=== PATIENT | male | born 1970 | race Caucasian/White ===

== ENCOUNTER 2022-01-11 13:19 | Inpatient (IN) ==
[2022-01-11] MEDS: NOREPINEPHRINE BITARTRATE 8 MG in 0.9 % SODIUM CHLORIDE 242 ML IV SCH ×3 (13:45→21:43)
[2022-01-11 13:55] LABS: POC Calcium, Ionized 1.19 (1.16-1.32); POC Potassium 4.1 (3.3-5.1)
[2022-01-11] MEDS ORDERED: ACETAMINOPHEN 1,000 MG/100 ML BAG IV ONE ×2 (13:56→19:50)
[2022-01-11] MEDS ORDERED: SUCCINYLCHOLINE 20 MG/ML ML IV ONE (14:19)
[2022-01-11] MEDS ORDERED: PIPERACILLIN SODIUM/TAZOBACTAM 4.5 GM in DEXTROSE 5% IN WATER 50 ML IV ONE (14:22)
[2022-01-11] MEDS ORDERED: VANCOMYCIN PER PHARMACY IV ONE (14:22)
[2022-01-11] MEDS: VASOPRESSIN 20 UNIT in DEXTROSE 5% IN WATER 99 ML IV SCH ×2 (14:30→23:20)
[2022-01-11] MEDS: 0.9 % SODIUM CHLORIDE 250 ML IV SCH (14:30)
[2022-01-11] MEDS ORDERED: LIDOCAINE JEL 2% 1 TUBE 5ML TOPICAL ONE (14:32)
[2022-01-11] MEDS ORDERED: 0.9 % SODIUM CHLORIDE 3,000 ML IV ONE (14:42)
[2022-01-11 14:55] LABS: Basophils # (Auto) 0.14 K/mcL (0.00-0.30); Basophils % (Auto) 0.6 % (0.0-2.0); Eosinophils # (Auto) 0 K/mcL (0.00-0.70); Eosinophils % (Auto) 0 % (0.0-7.0); Hematocrit 57.5 % (40.1-51.0); Hemoglobin 18.9 g/dL (13.7-17.5); Lymphocytes # (Auto) 5.27 K/mcL (1.50-4.80); Mean Cell Volume 89.4 fL (80.0-100.0); Mean Corpuscular HGB Conc 32.9 g/dL (31.0-36.0); Monocytes # (Auto) 2.14 K/mcL (0.10-0.90); Monocytes % (Auto) 9.7 % (1.0-12.0); Neutrophils % (Auto) 64.9 % (38.0-78.0); Platelet Count 292 K/mcL (140-440); RBC 6.43 M/mcL (4.63-6.08); Red Cell Distribution Width 12.6 % (11.5-14.5)
[2022-01-11 14:58] LABS: Appearance,Urine Clear (Clear); Bilirubin,Urine Negative (Negative); Color,Urine Yellow; Culture Indicated,Urine No; Glucose,Urine (UA) Negative (Negative); Ketones,Urine Trace mg/dL (Negative); Leukocyte Esterase,Urine Negative /uL (Negative); Mucus,Urine FEW /hpf; Nitrate,Urine Negative (Negative); PH,Urine 5.5 (5.0-9.0); Specific Gravity,Urine 1.025 (1.000-1.035); Urine Blood Trace-intact ery/mcL (Negative); Urine Cellular Cast 1 /lph (0-0); Urine Hyaline Cast 43 /lph (0-2); Urine RBC 1 /hpf (0-3); Urine Squamous Epithelial Cell 0 /hpf (0-4); Urine WBC 6 /hpf (0-4); Urobilinogen,Urine Normal
[2022-01-11 15:11] LABS: ALT/SGPT 18 U/L (<40); AST/SGOT 26 U/L (<40); Albumin 4.8 gm/dL (3.2-5.2); Albumin/Globulin Ratio 1.3 (1.0-2.3); Alkaline Phosphatase 47 U/L (39-117); Bilirubin,Total 0.3 mg/dL (0.1-1.0); Blood Urea Nitrogen 45 mg/dL (6-20); Calcium 9.8 mg/dL (8.6-10.4); Carbon Dioxide 17 mmol/L (22-30); Chloride 119 mmol/L (96-108); Globulin 3.7 gm/dL (2.2-3.7); Glomerular Filtration Rate 27; Glucose 226 mg/dL (70-105)
[2022-01-11] MEDS ORDERED: VANCOMYCIN 1,500 MG in 0.9 % SODIUM CHLORIDE 500 ML IV ONE (15:15)
--- NOTE | 2022-01-11 16:08 | Internal Med History&Physical ---
HPI History of Present Illness Patient information: Note initiated : 01/11/22 at 4:01 pm Service Date, if different from initiated Date: [] Patient: Corona Mayer 51 y/o M admitted on for altered loc. Chief Complaint: [] Chief complaint: Confusion History of present illness: Mr. Mayer is a 51 year old male with a past medical history of traumatic brain injury and possibly prior stroke resides in a [facility]pc house who was brought to the emergency department for confusion. The patient was seen at the [facility] emergency department on 01/08/2022 for fever, felt to have pneumonia based on chest x-ray showing nonspecific vague opacities bilaterally and discharged with a prescription for doxycycline. Today, the patient was brought in by EMS and was initially unresponsive. In the emergency department, the patient is found to be septic requiring Levophed and vasopressin while the patient was resuscitated with IV normal saline as well as started on broad- spectrum antibiotics. Blood pressure improved with vasopressors. The patient was tachypneic, tachycardic and had a fever of 102.6. In the ED, the patient was requiring oxygen supplementation via nonrebreather mask. White blood cell count is 22,000, up from 6.9 on 01/08/2022. Additionally, the patient has a lactic acid of 5. Chemistry panel reveals the patient has an acute kidney injury, creatinine is 2.6. A few days ago in the ED the point of care creatinine level was normal. Urinalysis was not suggestive of a UTI. Blood cultures have been obtained and pending. Chest x-ray is similar to 01/08/2022, possible loss of lateral cardiac border. The source of sepsis is felt to possibly be pneumonia. After receiving the initial treatment for sepsis, the patient is minimally responsive but unable to provide valid any history. I discussed the patient with Lindsay Junior, the patient's aunt. Lindsay said the patient's code status is full code. Review of systems: Unable to obtain due to altered mental status. Physical exam Head: Atraumatic, normal inspection. Eyes: normal appearance, no scleral icterus. Neck: full ROM Respiratory: Supplemental oxygen via oxymask, increased respiratory rate, distant breath sounds bilaterally, no wheezing Cardiovascular: Regular tachycardia, S1, S2. GI/Abdominal: soft, nontender, no guarding. : Scrotal erythema. Extremities: full range of motion, nontender. Neurological: Motor and sensation grossly intact. Psychiatric: Minimally responsive. Skin: warm, normal color PFSH PFSH All Active Problems (Updated 01/08/22 @ 13:44 by Jose Ramon Morel MD) Pneumonia (Acute) MEDS/ALLERGIES Home Medications and Allergies Home Medications Medication Instructions Recorded Confirmed Type doxycycline hyclate 100 mg tablet 100 mg PO BID #14 tabs 01/08/22 01/11/22 Rx albuterol sulfate 90 mcg/actuation 2 puff inhalation QAM 01/11/22 01/11/22 History aerosol inhaler aspirin 81 mg chewable tablet 1 tab PO QDAY 01/11/22 01/11/22 History atorvastatin 20 mg tablet 1 tab PO QDAY 01/11/22 01/11/22 History atorvastatin 40 mg tablet 1 tab PO QDAY 01/11/22 01/11/22 History divalproex 250 mg tablet,delayed 1 tab PO BID 01/11/22 01/11/22 History release divalproex 500 mg tablet,delayed 1 tab PO BID 01/11/22 01/11/22 History release docusate sodium 100 mg capsule 1 cap PO BID 01/11/22 01/11/22 History fluticasone propionate 110 2 puff inhalation BID 01/11/22 01/11/22 History mcg/actuation HFA aerosol inhaler (Flovent HFA) hydroxyzine HCl 25 mg tablet 1 tab PO TID 01/11/22 01/11/22 History lactulose 10 gram/15 mL oral 30 ml PO QAM 01/11/22 01/11/22 History solution lidocaine 5 % topical cream 1 applic topical QID 01/11/22 01/11/22 History lisinopril 5 mg tablet 1 tab PO QDAY 01/11/22 01/11/22 History melatonin 3 mg tablet 1 tab PO HS 01/11/22 01/11/22 History metformin 500 mg tablet 1 tab PO BID 01/11/22 01/11/22 History metoprolol succinate 25 mg 1 tab PO QDAY 01/11/22 01/11/22 History tablet,extended release 24 hr phenylephrine 0.25 %-pramoxine 1 1 applic topical BID 01/11/22 01/11/22 History %-glycerin-wh.petrolatum rectal cream (Preparation H Maximum Strength) quetiapine 300 mg tablet 1 tab PO TID 01/11/22 01/11/22 History sertraline 100 mg tablet 1 tab PO BID 01/11/22 01/11/22 History tamsulosin 0.4 mg capsule 1 cap PO QDAY 01/11/22 01/11/22 History trazodone 50 mg tablet 1 tab PO HS 01/11/22 01/11/22 History Allergies Allergy/AdvReac Type Severity Reaction Status Date / Time No Known Drug Allergies Allergy Verified 01/08/22 09:47 EXAM Constitutional Vitals: Temp Pulse Resp BP Pulse Ox O2 Del Method O2 Flow Rate 102.6 F H 109 H 24 H 108/95 95 10 01/11/22 15:53 01/11/22 15:53 01/11/22 15:53 01/11/22 15:53 01/11/22 15:53 01/11/22 14:47 01/11/22 14:47 DATA Data Completed and Pending Labs: Labs from last 24 hours 01/11/22 01/11/22 01/11/22 15:01 14:56 14:10 WBC RBC Hgb Hct POC Hct MCV MCH MCHC RDW Plt Count MPV Immature Gran % (Auto) Neut % (Auto) Lymph % (Auto) [place] % (Auto) Eos % (Auto) Baso % (Auto) Lymph # (Auto) [place] # (Auto) Eos # (Auto) Baso # (Auto) Immature Gran # Absolute Neutrophils POC pH 7.27 L POC pCO2 41.6 POC pO2 116 H POC HCO3 19.0 L POC ABG Base Excess -8.0 L ABG Lactic Acid 1.6 POC VBG pH POC VBG pCO2 at Temp POC VBG pO2 POC VBG HCO3 POC VBG Total CO2 POC Venous O2 Sat POC VBG Base Excess VBG Lactic Acid Hgb O2 Saturation 98.0 H POC Sodium Sodium POC Potassium Potassium POC Chloride Chloride Carbon Dioxide POC Total CO2 20.0 L Anion Gap POC BUN BUN Creatinine POC Creatinine GFR Calculation Glucose POC Glucose Calcium POC WB Ioniz Calcium Total Bilirubin AST ALT Alkaline Phosphatase Ammonia Pending Total Protein Albumin Globulin Albumin/Globulin Ratio Urine Color Yellow Urine Appearance Clear Urine pH 5.5 Ur Specific [place] 1.025 Urine Protein 100 mg/dl A Urine Glucose (UA) Negative Urine Ketones Trace A Urine Occult Blood Trace-intact A Urine Nitrate Negative Urine Bilirubin Negative Urine Urobilinogen Normal Ur Leukocyte Esterase Negative Urine RBC 1 Urine WBC 6 H Ur Squamous Epith Cells 0 Urine Bacteria None Cellular Casts 1 H Hyaline Casts 43 H Urine Mucus Few A Ur Culture Indicated? No 01/11/22 01/11/22 01/11/22 14:01 14:00 13:50 WBC 22.0 H RBC 6.43 H Hgb 18.9 H Hct 57.5 H POC Hct 54.0 MCV 89.4 MCH 29.4 MCHC 32.9 RDW 12.6 Plt Count 292 MPV 11.0 H Immature Gran % (Auto) 0.8 H Neut % (Auto) 64.9 Lymph % (Auto) 24.0 [place] % (Auto) 9.7 Eos % (Auto) 0 Baso % (Auto) 0.6 Lymph # (Auto) 5.27 H [place] # (Auto) 2.14 H Eos # (Auto) 0 Baso # (Auto) 0.14 Immature Gran # 0.17 H Absolute Neutrophils 14.27 H POC pH POC pCO2 POC pO2 POC HCO3 POC ABG Base Excess ABG Lactic Acid POC VBG pH POC VBG pCO2 at Temp POC VBG pO2 POC VBG HCO3 POC VBG Total CO2 POC Venous O2 Sat POC VBG Base Excess VBG Lactic Acid Hgb O2 Saturation POC Sodium 160 H Sodium 159 H POC Potassium 4.1 Potassium 3.9 POC Chloride 127 H Chloride 119 H Carbon Dioxide 17 L POC Total CO2 19.0 L Anion Gap 23.0 H POC BUN 49 H BUN 45 H Creatinine 2.6 H POC Creatinine 3.0 H GFR Calculation 27 Glucose 226 H POC Glucose 230 H Calcium 9.8 POC WB Ioniz Calcium 1.19 Total Bilirubin 0.3 AST 26 ALT 18 Alkaline Phosphatase 47 Ammonia Total Protein 8.5 H Albumin 4.8 Globulin 3.7 Albumin/Globulin Ratio 1.3 Urine Color Urine Appearance Urine pH Ur Specific [place] Urine Protein Urine Glucose (UA) Urine Ketones Urine Occult Blood Urine Nitrate Urine Bilirubin Urine Urobilinogen Ur Leukocyte Esterase Urine RBC Urine WBC Ur Squamous Epith Cells Urine Bacteria Cellular Casts Hyaline Casts Urine Mucus Ur Culture Indicated? 01/11/22 13:44 WBC RBC Hgb Hct POC Hct MCV MCH MCHC RDW Plt Count MPV Immature Gran % (Auto) Neut % (Auto) Lymph % (Auto) [place] % (Auto) Eos % (Auto) Baso % (Auto) Lymph # (Auto) [place] # (Auto) Eos # (Auto) Baso # (Auto) Immature Gran # Absolute Neutrophils POC pH POC pCO2 POC pO2 POC HCO3 POC ABG Base Excess ABG Lactic Acid POC VBG pH 7.34 POC VBG pCO2 at Temp 37.0 L POC VBG pO2 35 POC VBG HCO3 20.2 L POC VBG Total CO2 21.0 L POC Venous O2 Sat 65.0 POC VBG Base Excess -6.0 L VBG Lactic Acid 5.0 H* Hgb O2 Saturation POC Sodium Sodium POC Potassium Potassium POC Chloride Chloride Carbon Dioxide POC Total CO2 Anion Gap POC BUN BUN Creatinine POC Creatinine GFR Calculation Glucose POC Glucose Calcium POC WB Ioniz Calcium Total Bilirubin AST ALT Alkaline Phosphatase Ammonia Total Protein Albumin Globulin Albumin/Globulin Ratio Urine Color Urine Appearance Urine pH Ur Specific [place] Urine Protein Urine Glucose (UA) Urine Ketones Urine Occult Blood Urine Nitrate Urine Bilirubin Urine Urobilinogen Ur Leukocyte Esterase Urine RBC Urine WBC Ur Squamous Epith Cells Urine Bacteria Cellular Casts Hyaline Casts Urine Mucus Ur Culture Indicated? A/P Narrative A/P Narrative: Assessment: 51-year-old male with a past medical history of traumatic brain injury, possible prior stroke who resides in a fpc house admitted for septic shock complicated by acute kidney injury and hypernatremia. Source of infection is currently unknown, possibly pneumonia versus other etiology. [place] SARS-CoV-2, influenza A, influenza B was negative. The patient was seen for a fever on 01/08/2022, CT abdomen pelvis on 01/08/2022 at that time did not show any intra-abdominal infection. Physical exam did not reveal a source of infection, the patient does have some scrotal erythema but this does not appear to be cellulitis or congestive of a underlying infection. #Septic shock of unknown source, possibly pneumonia #Acute kidney injury secondary to septic shock #Encephalopathy secondary to sepsis and hypernatremia #Hypernatremia #Scrotal erythema, does not appear to be cellulitis #History of traumatic brain injury #Possible history of stroke Plan -Vancomycin IV, Zosyn, azithromycin for now. -Received 3 L normal saline IV bolus in the ED. -Levophed and vasopressin to keep MAP greater than 65. -Follow blood cultures x2. -[place] NAAT. -Trend lactic acid until downtrending. -D5 IV fluid, serial sodium level. -CT chest without contrast. -CT head without contrast. -Devine catheter for accurate urine output in the setting of sepsis and acute kidney injury. -Topical nystatin for scrotal erythema, monitor. -Home medication reconciliation, continue important meds. -N.p.o. for now, consider early nutritional support. -DVT prophylaxis: Heparin SQ. -CODE STATUS: Frame Builder Spent With Patient Time: Total time spent is greater than 50% in coordination of care (as documented) at patient's floor/unit and/or counseling patient:
[2022-01-11] MEDS ORDERED: IPRATROPIUM/ALBUTEROL 3 ML AMPUL.NEB NEB PRN (16:45)
[2022-01-11] MEDS ORDERED: NYSTATIN POWDER BOTTLE 15GM TOPICAL PRN (16:45)
[2022-01-11] MEDS ORDERED: PIPERACILLIN SODIUM/TAZOBACTAM 4.5 GM in DEXTROSE 5% IN WATER 50 ML IV SCH (16:45)
[2022-01-11] MEDS ORDERED: DEXTROSE 31 GM ORAL.SUSP PO PRN (16:52)
[2022-01-11] MEDS ORDERED: DEXTROSE 50% 50 ML VIAL IV PRN (16:52)
--- NOTE | 2022-01-11 16:57 | Emergency Department Note ---
HPI General Chief complaint: Altered Mental Status Stated complaint: altered loc Time Seen by Provider: 01/11/22 13:51 Source: EMS Mode of arrival: ambulatory Limitations: no limitations History of Present Illness HPI Narrative: Narrative: Patient presents emergency department for evaluation of altered mental status. He was found to be unresponsive today at the care facility. He is brought to the emergency department via EMS. In route to the ER he had significant tachycardia and was hypotensive. EMS placed a left humeral IO just prior to arrival in the emergency department and they have begun infusing IV fluids. The patient is evaluated immediately upon arrival. He is unresponsive on arrival with hypotension and elevated temperature. He had recent visit to the hospital and was placed on doxycycline for pneumonia. Staff at the care facility were unable to provide further information. Staff at the emergency department attempted to contact the patient's emergency contacts however there were no answers. There is documentation on file here at the hospital that the patient wishes to be full code. No other complaints. Related Data Home Medications Medication Instructions Recorded Confirmed albuterol sulfate 90 mcg/actuation 2 puff inhalation QAM 01/11/22 01/11/22 aerosol inhaler aspirin 81 mg chewable tablet 1 tab PO QDAY 01/11/22 01/11/22 atorvastatin 20 mg tablet 1 tab PO QDAY 01/11/22 01/11/22 atorvastatin 40 mg tablet 1 tab PO QDAY 01/11/22 01/11/22 divalproex 250 mg tablet,delayed 1 tab PO BID 01/11/22 01/11/22 release divalproex 500 mg tablet,delayed 1 tab PO BID 01/11/22 01/11/22 release docusate sodium 100 mg capsule 1 cap PO BID 01/11/22 01/11/22 fluticasone propionate 110 2 puff inhalation BID 01/11/22 01/11/22 mcg/actuation HFA aerosol inhaler (Flovent HFA) hydroxyzine HCl 25 mg tablet 1 tab PO TID 01/11/22 01/11/22 lactulose 10 gram/15 mL oral 30 ml PO QAM 01/11/22 01/11/22 solution lidocaine 5 % topical cream 1 applic topical QID 01/11/22 01/11/22 lisinopril 5 mg tablet 1 tab PO QDAY 01/11/22 01/11/22 melatonin 3 mg tablet 1 tab PO HS 01/11/22 01/11/22 metformin 500 mg tablet 1 tab PO BID 01/11/22 01/11/22 metoprolol succinate 25 mg 1 tab PO QDAY 01/11/22 01/11/22 tablet,extended release 24 hr phenylephrine 0.25 %-pramoxine 1 1 applic topical BID 01/11/22 01/11/22 %-glycerin-wh.petrolatum rectal cream (Preparation H Maximum Strength) quetiapine 300 mg tablet 1 tab PO TID 01/11/22 01/11/22 sertraline 100 mg tablet 1 tab PO BID 01/11/22 01/11/22 tamsulosin 0.4 mg capsule 1 cap PO QDAY 01/11/22 01/11/22 trazodone 50 mg tablet 1 tab PO HS 01/11/22 01/11/22 Previous Rx's Medication Instructions Recorded doxycycline hyclate 100 mg tablet 100 mg PO BID #14 tabs 01/08/22 Allergies Allergy/AdvReac Type Severity Reaction Status Date / Time No Known Drug Allergies Allergy Verified 01/08/22 09:47 Review of Systems ROS ROS Narrative: Narrative: As above otherwise unobtainable due to current mental status. [facility] Narrative Patient History Narrative: Narrative: Medical/Surgical/Family History All Active Problems (Updated 01/11/22 @ 17:06 by Sergio Wakefield MD) Pneumonia (Acute) Altered mental status (Acute) Septic shock (Acute) Exam Narrative Narrative: Narrative: Patient is hypotensive on arrival to the emergency department. He has a palpable pulse centrally. Nurses have difficulty auscultating manual blood pressure. Tachycardic with heart rate in the 140s appears regular on the monitor. General Limitations: no limitations General appearance: Present other (Unresponsive) Head Head: Present atraumatic, normocephalic and normal inspection Eye Eye: Present normal appearance and PERRL (Left pupil slightly larger than the right, reactive bilaterally to light) ENT ENT: Present normal exam Neck Neck: Present normal inspection Respiratory Respiratory: Absent respiratory distress Cardiovascular Cardiovascular: Present tachycardia Extremities Extremities: Present normal inspection Neurological Neurological: Present other (Unresponsive) Skin Skin: Present dry Course Vital Signs Vital signs: Vital Signs Respiratory Rate 38 H 01/11/22 13:20 Oxygen Delivery Method 01/11/22 13:20 Oxygen Flow Rate (L/min) 15 01/11/22 13:20 Temperature 102.8 F H 01/11/22 17:01 Pulse Rate 96 H 01/11/22 17:01 Respiratory Rate 21 01/11/22 17:01 Blood Pressure 122/92 01/11/22 17:01 Pulse Oximetry (%) 98 01/11/22 17:01 Oxygen Delivery Method 01/11/22 17:01 Oxygen Flow Rate (L/min) 10 01/11/22 17:01 MDM MDM Narrative Medical decision making narrative: Narrative: Patient is evaluated immediately upon arrival to the emergency department. EKG shows sinus tachycardia mild ST depression in 1 biphasic T wave in aVL, significant baseline wander, intervals otherwise normal. Patient had 2 peripheral IVs placed by nursing. Normal saline is bolused on pressure bags. After liter and a half normal saline patient remained hypotensive and was placed on Levophed. Continued boluses with normal saline. Added vasopressin. Blood pressure did respond with this after 3 L normal saline bolus and combination of Levophed and vasopressin patient now opens eyes to sternal rub he raises eyebrows spontaneously when I speak with him, he appears to attempt to look towards me, he follows basic commands when the nurses asked him to squeeze their fingers with his hands. Chest x-ray shows some haziness along the left heart border possible infiltrate. White blood cell count significantly elevated. Lactic acid elevated. Blood cultures were ordered. Patient is given vancomycin and Zosyn. We were able to decrease the Levophed drip. Spoke with the on-call hospitalist. Case reviewed in detail over phone. Hospitalist evaluate the patient emergency department with the patient to hospital. In total greater than 30 minutes critical care time was spent via direct patient contact, reviewing results of work-up, speaking with consultants intern etc. Lab Data Result diagrams: 01/11/22 14:01 01/11/22 14:00 Labs: Lab Results 01/11/22 01/11/22 01/11/22 Range/Units 13:44 13:50 14:00 WBC (4.5-11.0) K/mcL RBC (4.63-6.08) M/mcL Hgb (13.7-17.5) g/dL Hct (40.1-51.0) % POC Hct 54.0 (41-55) MCV (80.0-100.0) fL MCH (26.0-34.0) pg MCHC (31.0-36.0) g/dL RDW (11.5-14.5) % Plt Count (140-440) K/mcL MPV (7.4-10.4) fL Immature Gran % (Auto) (0.0-0.5) % Neut % (Auto) (38.0-78.0) % Lymph % (Auto) (15.5-49.0) % [place] % (Auto) (1.0-12.0) % Eos % (Auto) (0.0-7.0) % Baso % (Auto) (0.0-2.0) % Lymph # (Auto) (1.50-4.80) K/mcL [place] # (Auto) (0.10-0.90) K/mcL Eos # (Auto) (0.00-0.70) K/mcL Baso # (Auto) (0.00-0.30) K/mcL Immature Gran # (0.00-0.05) K/mcl Absolute Neutrophils (1.80-8.00) K/mcL POC pH (7.35-7.45) POC pCO2 (35-45) mmHg POC pO2 (80-100) mmHg POC HCO3 (22-26) mmHg POC ABG Base Excess (-2-3) ABG Lactic Acid (0.5-2) POC VBG pH 7.34 (7.32-7.42) POC VBG pCO2 at Temp 37.0 L (41-51) POC VBG pO2 35 (25-40) POC VBG HCO3 20.2 L (24-28) POC VBG Total CO2 21.0 L (25-29) POC Venous O2 Sat 65.0 (40-70) POC VBG Base Excess -6.0 L (-2-2) VBG Lactic Acid 5.0 H* (0.5-2) Hgb O2 Saturation (94-97) POC Sodium 160 H (133-145) Sodium 159 H (133-145) mmol/L POC Potassium 4.1 (3.3-5.1) Potassium 3.9 (3.3-5.1) mmol/L POC Chloride 127 H (96-108) Chloride 119 H (96-108) mmol/L Carbon Dioxide 17 L (22-30) mmol/L POC Total CO2 19.0 L (22-30) Anion Gap 23.0 H (8.0-16.0) POC BUN 49 H (6-20) BUN 45 H (6-20) mg/dL Creatinine 2.6 H (0.7-1.2) mg/dL POC Creatinine 3.0 H (0.6-1.2) GFR Calculation 27 Glucose 226 H (70-105) mg/dL POC Glucose 230 H (70-105) Calcium 9.8 (8.6-10.4) mg/dL POC WB Ioniz Calcium 1.19 (1.16-1.32) Total Bilirubin 0.3 (0.1-1.0) mg/dL AST 26 (<40) U/L ALT 18 (<40) U/L Alkaline Phosphatase 47 (39-117) U/L Ammonia (16-60) umol/L Total Protein 8.5 H (5.9-8.4) gm/dL Albumin 4.8 (3.2-5.2) gm/dL Globulin 3.7 (2.2-3.7) gm/dL Albumin/Globulin Ratio 1.3 (1.0-2.3) Urine Color Urine Appearance (Clear) Urine pH (5.0-9.0) Ur Specific [place] (1.000-1.035) Urine Protein (Negative) mg/dL Urine Glucose (UA) (Negative) mg/dL Urine Ketones (Negative) mg/dL Urine Occult Blood (Negative) miesha/mcL Urine Nitrate (Negative) Urine Bilirubin (Negative) mg/dL Urine Urobilinogen mg/dL Ur Leukocyte Esterase (Negative) /uL Urine RBC (0-3) /hpf Urine WBC (0-4) /hpf Ur Squamous Epith Cells (0-4) /hpf Urine Bacteria (0) /hpf Cellular Casts (0-0) /lph Hyaline Casts (0-2) /lph Urine Mucus (None) /hpf Ur Culture Indicated? 01/11/22 01/11/22 01/11/22 Range/Units 14:01 14:10 14:56 WBC 22.0 H (4.5-11.0) K/mcL RBC 6.43 H (4.63-6.08) M/mcL Hgb 18.9 H (13.7-17.5) g/dL Hct 57.5 H (40.1-51.0) % POC Hct (41-55) MCV 89.4 (80.0-100.0) fL MCH 29.4 (26.0-34.0) pg MCHC 32.9 (31.0-36.0) g/dL RDW 12.6 (11.5-14.5) % Plt Count 292 (140-440) K/mcL MPV 11.0 H (7.4-10.4) fL Immature Gran % (Auto) 0.8 H (0.0-0.5) % Neut % (Auto) 64.9 (38.0-78.0) % Lymph % (Auto) 24.0 (15.5-49.0) % [place] % (Auto) 9.7 (1.0-12.0) % Eos % (Auto) 0 (0.0-7.0) % Baso % (Auto) 0.6 (0.0-2.0) % Lymph # (Auto) 5.27 H (1.50-4.80) K/mcL [place] # (Auto) 2.14 H (0.10-0.90) K/mcL Eos # (Auto) 0 (0.00-0.70) K/mcL Baso # (Auto) 0.14 (0.00-0.30) K/mcL Immature Gran # 0.17 H (0.00-0.05) K/mcl Absolute Neutrophils 14.27 H (1.80-8.00) K/mcL POC pH 7.27 L (7.35-7.45) POC pCO2 41.6 (35-45) mmHg POC pO2 116 H (80-100) mmHg POC HCO3 19.0 L (22-26) mmHg POC ABG Base Excess -8.0 L (-2-3) ABG Lactic Acid 1.6 (0.5-2) POC VBG pH (7.32-7.42) POC VBG pCO2 at Temp (41-51) POC VBG pO2 (25-40) POC VBG HCO3 (24-28) POC VBG Total CO2 (25-29) POC Venous O2 Sat (40-70) POC VBG Base Excess (-2-2) VBG Lactic Acid (0.5-2) Hgb O2 Saturation 98.0 H (94-97) POC Sodium (133-145) Sodium (133-145) mmol/L POC Potassium (3.3-5.1) Potassium (3.3-5.1) mmol/L POC Chloride (96-108) Chloride (96-108) mmol/L Carbon Dioxide (22-30) mmol/L POC Total CO2 20.0 L (22-30) Anion Gap (8.0-16.0) POC BUN (6-20) BUN (6-20) mg/dL Creatinine (0.7-1.2) mg/dL POC Creatinine (0.6-1.2) GFR Calculation Glucose (70-105) mg/dL POC Glucose (70-105) Calcium (8.6-10.4) mg/dL POC WB Ioniz Calcium (1.16-1.32) Total Bilirubin (0.1-1.0) mg/dL AST (<40) U/L ALT (<40) U/L Alkaline Phosphatase (39-117) U/L Ammonia (16-60) umol/L Total Protein (5.9-8.4) gm/dL Albumin (3.2-5.2) gm/dL Globulin (2.2-3.7) gm/dL Albumin/Globulin Ratio (1.0-2.3) Urine Color Yellow Urine Appearance Clear (Clear) Urine pH 5.5 (5.0-9.0) Ur Specific [place] 1.025 (1.000-1.035) Urine Protein 100 mg/dl A (Negative) mg/dL Urine Glucose (UA) Negative (Negative) mg/dL Urine Ketones Trace A (Negative) mg/dL Urine Occult Blood Trace-intact A (Negative) miesha/mcL Urine Nitrate Negative (Negative) Urine Bilirubin Negative (Negative) mg/dL Urine Urobilinogen Normal mg/dL Ur Leukocyte Esterase Negative (Negative) /uL Urine RBC 1 (0-3) /hpf Urine WBC 6 H (0-4) /hpf Ur Squamous Epith Cells 0 (0-4) /hpf Urine Bacteria None (0) /hpf Cellular Casts 1 H (0-0) /lph Hyaline Casts 43 H (0-2) /lph Urine Mucus Few A (None) /hpf Ur Culture Indicated? No 01/11/22 Range/Units 15:01 WBC (4.5-11.0) K/mcL RBC (4.63-6.08) M/mcL Hgb (13.7-17.5) g/dL Hct (40.1-51.0) % POC Hct (41-55) MCV (80.0-100.0) fL MCH (26.0-34.0) pg MCHC (31.0-36.0) g/dL RDW (11.5-14.5) % Plt Count (140-440) K/mcL MPV (7.4-10.4) fL Immature Gran % (Auto) (0.0-0.5) % Neut % (Auto) (38.0-78.0) % Lymph % (Auto) (15.5-49.0) % [place] % (Auto) (1.0-12.0) % Eos % (Auto) (0.0-7.0) % Baso % (Auto) (0.0-2.0) % Lymph # (Auto) (1.50-4.80) K/mcL [place] # (Auto) (0.10-0.90) K/mcL Eos # (Auto) (0.00-0.70) K/mcL Baso # (Auto) (0.00-0.30) K/mcL Immature Gran # (0.00-0.05) K/mcl Absolute Neutrophils (1.80-8.00) K/mcL POC pH (7.35-7.45) POC pCO2 (35-45) mmHg POC pO2 (80-100) mmHg POC HCO3 (22-26) mmHg POC ABG Base Excess (-2-3) ABG Lactic Acid (0.5-2) POC VBG pH (7.32-7.42) POC VBG pCO2 at Temp (41-51) POC VBG pO2 (25-40) POC VBG HCO3 (24-28) POC VBG Total CO2 (25-29) POC Venous O2 Sat (40-70) POC VBG Base Excess (-2-2) VBG Lactic Acid (0.5-2) Hgb O2 Saturation (94-97) POC Sodium (133-145) Sodium (133-145) mmol/L POC Potassium (3.3-5.1) Potassium (3.3-5.1) mmol/L POC Chloride (96-108) Chloride (96-108) mmol/L Carbon Dioxide (22-30) mmol/L POC Total CO2 (22-30) Anion Gap (8.0-16.0) POC BUN (6-20) BUN (6-20) mg/dL Creatinine (0.7-1.2) mg/dL POC Creatinine (0.6-1.2) GFR Calculation Glucose (70-105) mg/dL POC Glucose (70-105) Calcium (8.6-10.4) mg/dL POC WB Ioniz Calcium (1.16-1.32) Total Bilirubin (0.1-1.0) mg/dL AST (<40) U/L ALT (<40) U/L Alkaline Phosphatase (39-117) U/L Ammonia 38 (16-60) umol/L Total Protein (5.9-8.4) gm/dL Albumin (3.2-5.2) gm/dL Globulin (2.2-3.7) gm/dL Albumin/Globulin Ratio (1.0-2.3) Urine Color Urine Appearance (Clear) Urine pH (5.0-9.0) Ur Specific [place] (1.000-1.035) Urine Protein (Negative) mg/dL Urine Glucose (UA) (Negative) mg/dL Urine Ketones (Negative) mg/dL Urine Occult Blood (Negative) miesha/mcL Urine Nitrate (Negative) Urine Bilirubin (Negative) mg/dL Urine Urobilinogen mg/dL Ur Leukocyte Esterase (Negative) /uL Urine RBC (0-3) /hpf Urine WBC (0-4) /hpf Ur Squamous Epith Cells (0-4) /hpf Urine Bacteria (0) /hpf Cellular Casts (0-0) /lph Hyaline Casts (0-2) /lph Urine Mucus (None) /hpf Ur Culture Indicated? ED POC Tests ED POC Tests: DONNELL - Influenza A Negative DONNELL - Influenza B Negative DONNELL - SARS Antigen Negative Discharge Plan Patient/Caregiver Discharge Instructions Pt seen by ELECTRIC [employer]AY TESTER/PA only: No Clinical Impression: Altered mental status, Septic shock Patient Disposition: Xfer As Inpt ([facility]) Discharge Date/Time: 01/11/22 16:44
[2022-01-11] MEDS: DEXTROSE 5% IN WATER 1,000 ML IV SCH (17:00)
--- NOTE | 2022-01-11 17:20 | Cat Scan Report ---
History: Altered level of consciousness, unresponsive, prior traumatic brain injury TECHNIQUE: The brain was imaged without contrast in axial plane at 2.5 mm intervals. Sagittal and coronal reformats were created. The radiation exposure was limited using dose reduction technology. FINDINGS: There is moderate-sized old infarct with encephalomalacia along the anterior lateral border of the right frontal lobe. There is another moderate-sized old infarct in the posterior right parietal lobe extending into the occipital lobe. Smaller old infarct with encephalomalacia is present along the posterior border of the left parietal-occipital boundary. No acute infarct is detected. There is no intracranial hemorrhage or mass effect. Patient has moderate diffuse cerebral atrophy, most apparent around the sylvian fissures. Moderate hydrocephalus is present. Lateral third ventricles are dilated. Fourth ventricle is within normal limits. No abnormal extra-axial fluid collection is present. The bone windows show no skull fracture. No prior study is available for comparison at this time. IMPRESSION: Moderate hydrocephalus which is accentuated by loss of brain parenchyma Old infarcts involving the right frontal lobe and both left and right parietal and occipital lobes Interpreted and Authenticated by: Donny Elliott 01/11/22
--- NOTE | 2022-01-11 17:20 | Cat Scan Report ---
History: Unresponsive, fever, prior traumatic brain injury TECHNIQUE: The chest was imaged without contrast in axial plane at 2.5 mm intervals. Sagittal, coronal and axial MIPS images were created. The radiation exposure was limited using dose reduction technology. FINDINGS: There is a moderate amount of pulmonary secretions in the trachea and mainstem bronchi, right side greater than left. Moderate consolidation of lung parenchyma is present posteriorly medially in the right upper lobe and superior segment right lower lobe. There is milder consolidation medially in the left upper lobe and left lower lobe as well as the basilar segments of right lower lobe. Multiple air bronchograms are present in the right upper lobe and superior segment right lower lobe. There is sparing of the nondependent portions of both lungs. No pleural effusion is present. The heart is borderline enlarged. There is very little atherosclerotic disease in the thorax. There are couple old healed right lateral rib fractures. Visualized portion the upper abdomen is normal except for fecal impaction. IMPRESSION: Bilateral pulmonary infiltrates along the dependent portions of both lungs. Aspiration is suspected. Secretions in the trachea and bronchi Dr. Walsh was called with the report Interpreted and Authenticated by: Donny Elliott 01/11/22
--- NOTE | 2022-01-11 17:28 | XRay Report ---
HISTORY: Unresponsive, fever FINDINGS: Lung volumes are small due to poor inspiration. There are ill-defined bilateral perihilar infiltrates, right greater than left. Right diaphragm is moderately elevated. The heart size is normal. No pleural effusion is seen. IMPRESSION: Bilateral perihilar pneumonia Interpreted and Authenticated by: Donny Elliott 01/11/22
[2022-01-11] MEDS: INSULIN LISPRO 1 UNIT/0.01 ML UNIT SQ SCH ×2 (18:55→21:11)
[2022-01-11] MEDS ORDERED: INSULIN LISPRO 1 UNIT/0.01 ML UNIT SQ ONE (19:06)
[2022-01-11] MEDS: AZITHROMYCIN 500 MG in DEXTROSE 5% IN WATER 250 ML IV SCH (19:09)
[2022-01-11 19:38] LABS: ALT/SGPT 24 U/L (<40); AST/SGOT 39 U/L (<40); Albumin 3.7 gm/dL (3.2-5.2); Albumin/Globulin Ratio 1.4 (1.0-2.3); Alkaline Phosphatase 36 U/L (39-117); Bilirubin,Direct < 0.2 mg/dL (0-0.3); Bilirubin,Total 0.3 mg/dL (0.1-1.0); Globulin 2.7 gm/dL (2.2-3.7); Lactate Dehydrogenase 349 U/L (135-225); Phosphorous 4.8 mg/dL (2.5-4.5); Triglycerides 309 mg/dL (<150)
[2022-01-11] MEDS: ACETAMINOPHEN 650 MG/65 ML BAG IV PRN (19:39)
[2022-01-11] MEDS: SODIUM CHLORIDE 0.9% IV SCH (19:59)
[2022-01-11] MEDS: VALPROIC ACID IV SCH (19:59)
[2022-01-11] MEDS ORDERED: DIVALPROEX SODIUM 250 MG TABLET PO SCH (21:00)
[2022-01-11] MEDS ORDERED: NON FORMULARY MEDICATION 1 DOSE MISCELL (Divalproex 500 mg tablet,delayed release (DR/EC)) PO SCH (21:00)
[2022-01-11] MEDS: SERTRALINE 100 MG TABLET PO SCH (21:05)
[2022-01-11] MEDS: HEPARIN 5,000 UNIT/ML VIAL SQ SCH (21:05)
[2022-01-11] MEDS: 0.9 % SODIUM CHLORIDE 10 ML SYRINGE IV SCH (21:06)
[2022-01-11] MEDS ORDERED: NOREPINEPHRINE BITARTRATE 4 MG/4 ML VIAL IV ONE (21:49)
[2022-01-11] MEDS: PIPERACILLIN SODIUM/TAZOBACTAM 2.25 GM in DEXTROSE 5% IN WATER 50 ML IV SCH (23:50)
[2022-01-12 00:06] LABS: Blood Urea Nitrogen 42 mg/dL (6-20); Carbon Dioxide 17 mmol/L (22-30); Chloride 122 mmol/L (96-108); Glomerular Filtration Rate 46; Glucose 179 mg/dL (70-105)
[2022-01-12] MEDS: ACETAMINOPHEN 650 MG/65 ML BAG IV PRN (01:47)
[2022-01-12] MEDS: VALPROIC ACID IV SCH ×4 (02:07→20:02)
[2022-01-12] MEDS: SODIUM CHLORIDE 0.9% IV SCH ×4 (02:07→20:02)
[2022-01-12] MEDS: 0.9 % SODIUM CHLORIDE 250 ML IV SCH ×2 (02:58→13:37)
[2022-01-12] MEDS: DEXTROSE 5% IN WATER 1,000 ML IV SCH ×5 (02:59→16:46)
[2022-01-12] MEDS ORDERED: ONDANSETRON 4 MG/2 ML VIAL IV ONE (04:34)
[2022-01-12] MEDS ORDERED: ONDANSETRON 4 MG/2 ML VIAL ONE (04:36)
[2022-01-12] MEDS: NOREPINEPHRINE BITARTRATE 8 MG in 0.9 % SODIUM CHLORIDE 242 ML IV SCH (05:02)
[2022-01-12] MEDS: PIPERACILLIN SODIUM/TAZOBACTAM 2.25 GM in DEXTROSE 5% IN WATER 50 ML IV SCH ×3 (05:48→17:55)
[2022-01-12] MEDS: 0.9 % SODIUM CHLORIDE 10 ML SYRINGE IV SCH ×3 (05:49→20:34)
[2022-01-12] MEDS: VASOPRESSIN 20 UNIT in DEXTROSE 5% IN WATER 99 ML IV SCH (05:51)
[2022-01-12 06:06] LABS: Estimated Average Glucose(eAG) 134 mg/dL; Hemoglobin A1C 6.3 % Hgb (4.0-6.0)
[2022-01-12 06:24] LABS: ALT/SGPT 29 U/L (<40); AST/SGOT 47 U/L (<40); Albumin 3.5 gm/dL (3.2-5.2); Albumin/Globulin Ratio 1.3 (1.0-2.3); Alkaline Phosphatase 41 U/L (39-117); Bilirubin,Direct < 0.2 mg/dL (0-0.3); Bilirubin,Total 0.4 mg/dL (0.1-1.0); Blood Urea Nitrogen 28 mg/dL (6-20); Carbon Dioxide 22 mmol/L (22-30); Chloride 120 mmol/L (96-108); Globulin 2.7 gm/dL (2.2-3.7); Glomerular Filtration Rate 63; Glucose 178 mg/dL (70-105); Lactate Dehydrogenase 324 U/L (135-225); Phosphorous 3.4 mg/dL (2.5-4.5); Triglycerides 283 mg/dL (<150)
[2022-01-12 07:37] LABS: Hematocrit 43.3 % (40.1-51.0); Hemoglobin 13.8 g/dL (13.7-17.5); Mean Cell Volume 91.9 fL (80.0-100.0); Mean Corpuscular HGB Conc 31.9 g/dL (31.0-36.0); Mean Platelet Volume 11.3 fL (7.4-10.4); Platelet Count 139 K/mcL (140-440); RBC 4.71 M/mcL (4.63-6.08); Red Cell Distribution Width 12.4 % (11.5-14.5); WBC 16.6 K/mcL (4.5-11.0)
--- NOTE | 2022-01-12 07:40 | EKG ---
[facility] Minor Care Test Date: 2022-01-11 Pat Name: Corona Mayer Department: ED Room: Gender: Male [employer] Supervisor: matty : 1970 Requested By: Sergio Wakefield Order Number: [id number] Reading MD: Alfredo Lagunas Measurements Intervals [place] Rate: 113 P: 39 CT: 158 QRS: 205 QRSD: 104 T: 95 QT: 314 QTc: 431 Interpretive Statements Sinus tachycardia Right axis deviation Abnormal R-wave progression, late transition Borderline repolarization abnormality Electronically Signed On 01-12-2022 7:40:45 PDT by Alfredo Lagunas /store/M0/[id number]/[id number]
[2022-01-12] MEDS ORDERED: VASOPRESSIN 20 UNIT in DEXTROSE 5% IN WATER 99 ML IV PRN (08:00)
[2022-01-12] MEDS: INSULIN LISPRO 1 UNIT/0.01 ML UNIT SQ SCH ×4 (08:11→20:33)
[2022-01-12] MEDS: SERTRALINE 100 MG TABLET PO SCH ×2 (08:13→20:33)
[2022-01-12] MEDS: ASPIRIN 81 MG TAB.CHEW PO SCH (08:13)
[2022-01-12] MEDS ORDERED: NOREPINEPHRINE BITARTRATE 8 MG in 0.9 % SODIUM CHLORIDE 242 ML IV PRN (08:15)
[2022-01-12 08:25] LABS: Anisocytosis OCC (None Seen); Band Neutrophils % 10 % (0-10); Basophils % (Manual) 1 % (0-2); Hypochromasia 1+ (None Seen); Lymphocytes % 16 % (15-49); Monocytes % (Manual) 7 % (1-12); Platelet Estimate DECREASED (Normal); RBC Morphology ABNORMAL (Normal); Reactive Lymphocytes 2 % (0-2); Segmented Neutrophils % 64 % (38-78); Toxic Granulation 1+ (None Seen)
[2022-01-12] MEDS: HEPARIN 5,000 UNIT/ML VIAL SQ SCH ×2 (08:32→20:33)
[2022-01-12] MEDS: AZITHROMYCIN 500 MG in DEXTROSE 5% IN WATER 250 ML IV SCH (10:07)
[2022-01-12 12:06] LABS: Blood Urea Nitrogen 25 mg/dL (6-20); Calcium 7.8 mg/dL (8.6-10.4); Carbon Dioxide 19 mmol/L (22-30); Chloride 117 mmol/L (96-108); Glomerular Filtration Rate 99; Glucose 185 mg/dL (70-105)
--- NOTE | 2022-01-12 12:57 | Internal Med Progress Note ---
SUBJECTIVE Subjective Patient information: Note initiated : 01/12/22 at 12:52 pm Service Date, if different from initiated Date: [] Patient: Corona Mayer 51 y/o M admitted on 01/11/22 for altered loc. Chief Complaint: [] Interval history: Mr. Mayer is a 51 year old male with a past medical history of traumatic brain injury and possibly prior stroke resides in a [facility] house who was brought to the emergency department for confusion. The patient was seen at the [facility] emergency department on 01/08/2022 for fever, felt to have pneumonia based on chest x-ray showing nonspecific vague opacities bilaterally and discharged with a prescription for doxycycline. Today, the patient was brought in by EMS and was initially unresponsive. In the emergency department, the patient is found to be septic requiring Levophed and vasopressin while the patient was resuscitated with IV normal saline as well as started on broad-spectrum antibiotics. Blood pressure improved with vasopressors. The patient was tachypneic, tachycardic and had a fever of 102.6. In the ED, the patient was requiring oxygen supplementation via nonrebreather mask. White blood cell count is 22,000, up from 6.9 on 01/08/2022. Additionally, the patient has a lactic acid of 5. Chemistry panel reveals the patient has an acute kidney injury, creatinine is 2.6. A few days ago in the ED the point of care creatinine level was normal. Urinalysis was not suggestive of a UTI. Blood cultures have been obtained and pending. Chest x-ray is similar to 01/08/2022, possible loss of lateral cardiac border. The source of sepsis is felt to possibly be pneumonia. After receiving the initial treatment for sepsis, the patient is minimally responsive but unable to provide valid any history. I discussed the patient with Lindsay Junior, the patient's aunt. Lindsay said the patient's code status is full code. 01/12: Sepsis physiology improving with decreasing fever trend, improvement in respiratory rate and heart rate, lactic acid downtrending, leukocytosis impr oving. Continues on 4 L/min nasal cannula oxygen. Hypernatremia improving. Making urine and renal function improving. [place] NAAT was negative. Patient is more alert today. CT chest showed bilateral pulmonary infiltrates in the dependent portions of both lungs, aspiration suspected. 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 Infectious work-up suggest that the cause of sepsis was pneumonia, likely aspiration pneumonia. We will continue broad-spectrum antibiotics for now awaiting 48 hours of blood culture results. Scrotum evaluated again, tender to palpation. The patient is unable to provide much history about how long this has been present. Will obtain a scrotal ultrasound and discuss with urology. Discontinued D5 as hypernatremia has nearly resolved. Speech consulted today, recommended starting dysphagia diet. Physical exam Head: Atraumatic, normal inspection. Eyes: normal appearance, no scleral icterus. Neck: full ROM Respiratory: Supplemental oxygen via oxymask, increased respiratory rate, distant breath sounds bilaterally, no wheezing Cardiovascular: Regular tachycardia, S1, S2. GI/Abdominal: soft, nontender, no guarding. : Scrotal erythema. Extremities: full range of motion, nontender. Neurological: Motor and sensation grossly intact. Psychiatric: Minimally responsive. Skin: warm, normal color Constitutional Vitals: Vital Signs Temp Pulse Resp BP Pulse Ox O2 Del Method O2 Flow Rate 99.8 F H 89 20 112/78 96 4 01/12/22 12:03 01/12/22 12:03 01/12/22 12:03 01/12/22 12:03 01/12/22 12:03 01/12/22 12:03 01/12/22 12:03 Period Temp Pulse Resp BP Sys/Delcid Pulse Ox O2 Del Method O2 Flow Rate Last 24 Hr 47.2 F-103.0 F 31-141 14-45 64-185/45-153 83-100 Nasal Marie siva-Oxymask 2-15 Intake and Output 01/11/22 01/12/22 01/12/22 21:59 05:59 13:59 Intake Total 4312.75 1838 1347.50 Output Total 280 600 530 Balance 4032.75 1238 817.50 Weight 96.978 kg Intake & Output: Intake & Output 01/11/22 01/12/22 01/12/22 21:59 05:59 13:59 Intake Total 4312.75 1838 1347.50 Output Total 280 600 530 Balance 4032.75 1238 817.50 Weight 96.978 kg Intake: IV 4312.75 1838 1347.50 Sodium Chloride 0.9% 3,000 ml @ 3000 Wide Open IV [facility] Rx#: [id number] Sodium Chloride 0.9% 250 ml @ 51 169 250 20 mls/hr IV .[id number] [facility] Rx#: [id number] Zithromax 500 mg In Dextrose 5% 250 250 in Water 250 ml @ 250 mls/hr IV Q24H [facility] Rx#:[id number] Dextrose 5% in Water 1,000 ml @ 1430 640 150 mls/hr IV .Q6H40M [facility] Rx#: [id number] Levophed 8 mg In Sodium 213 124 Chloride 0.9% 242 ml @ 10 MCG/ MIN 18.75 mls/hr IV Q14H [facility] Rx #:[id number] Zosyn 2.25 gm In Dextrose 5% in 50 100 Water 50 ml @ 100 mls/hr IV Q6H [facility] Rx#:[id number] Zosyn 4.5 gm In Dextrose 5% in 50 Water 50 ml @ 100 mls/hr IV ONCE ONE Rx#:[id number] Depacon 375 mg In Sodium 53.75 107.50 Chloride 0.9% 50 ml @ 50 mls/hr IV Q6H [facility] Rx#:[id number] Vancomycin 1,500 mg In Sodium 500 Chloride 0.9% 500 ml @ 333.3 mls/hr IV ONCE ONE Rx#: [id number] Vasostrict 20 Unit In Dextrose 30 0 5% in Water 99 ml @ 0.04 UNIT/ MIN 12 mls/hr IV Q8H [facility] Rx#: [id number] Output: Urine Catheter Amount 280 600 530 Other: Meal Lunch Percent of Meal Consumed 25% Feeding Ability Total Assistance Urine Appearance Clear Clear Cloudy Uretheral (Devine) Clear Clear Urine Color Dark Yellow Light Barbi Dark Barbi Uretheral (Devine) Dark Barbi Dark Yellow OBJ DATA Labs CBC & Chem 7: 01/12/22 04:34 01/12/22 11:20 Labs: Abnormal Lab Results 01/12/22 01/12/22 01/12/22 11:20 04:34 04:34 WBC 16.6 H RBC Hgb Hct Plt Count 139 L MPV 11.3 H Immature Gran % (Auto) Lymph # (Auto) [place] # (Auto) Immature Gran # Absolute Neutrophils Toxic Granulation 1+ A Platelet Estimate Decreased A RBC Morphology Abnormal A Hypochromasia 1+ A Anisocytosis Occ A POC pH POC pO2 POC HCO3 POC ABG Base Excess POC VBG pCO2 at Temp POC VBG HCO3 POC VBG Total CO2 POC VBG Base Excess VBG Lactic Acid Hgb O2 Saturation POC Sodium Sodium 147 H 155 H POC Chloride Chloride 117 H 120 H Carbon Dioxide 19 L POC Total CO2 Anion Gap POC BUN BUN 25 H 28 H Creatinine 1.3 H POC Creatinine Glucose 185 H 178 H POC Glucose Hemoglobin A1c 6.3 H Calcium 7.8 L 8.0 L Phosphorus AST 47 H Alkaline Phosphatase Lactate Dehydrogenase 324 H Total Protein Triglycerides 283 H Urine Protein Urine Ketones Urine Occult Blood Urine WBC Cellular Casts Hyaline Casts Urine Mucus 01/11/22 01/11/22 01/11/22 23:07 23:07 18:35 WBC RBC Hgb Hct Plt Count MPV Immature Gran % (Auto) Lymph # (Auto) [place] # (Auto) Immature Gran # Absolute Neutrophils Toxic Granulation Platelet Estimate RBC Morphology Hypochromasia Anisocytosis POC pH POC pO2 POC HCO3 POC ABG Base Excess POC VBG pCO2 at Temp POC VBG HCO3 POC VBG Total CO2 POC VBG Base Excess VBG Lactic Acid 2.8 H 3.0 H Hgb O2 Saturation POC Sodium Sodium 152 H POC Chloride Chloride 122 H Carbon Dioxide 17 L POC Total CO2 Anion Gap POC BUN BUN 42 H Creatinine 1.7 H POC Creatinine Glucose 179 H POC Glucose Hemoglobin A1c Calcium 8.0 L Phosphorus 4.8 H AST Alkaline Phosphatase 36 L Lactate Dehydrogenase 349 H Total Protein Triglycerides 309 H Urine Protein Urine Ketones Urine Occult Blood Urine WBC Cellular Casts Hyaline Casts Urine Mucus 01/11/22 01/11/22 01/11/22 14:56 14:10 14:01 WBC 22.0 H RBC 6.43 H Hgb 18.9 H Hct 57.5 H Plt Count MPV 11.0 H Immature Gran % (Auto) 0.8 H Lymph # (Auto) 5.27 H [place] # (Auto) 2.14 H Immature Gran # 0.17 H Absolute Neutrophils 14.27 H Toxic Granulation Platelet Estimate RBC Morphology Hypochromasia Anisocytosis POC pH 7.27 L POC pO2 116 H POC HCO3 19.0 L POC ABG Base Excess -8.0 L POC VBG pCO2 at Temp POC VBG HCO3 POC VBG Total CO2 POC VBG Base Excess VBG Lactic Acid Hgb O2 Saturation 98.0 H POC Sodium Sodium POC Chloride Chloride Carbon Dioxide POC Total CO2 20.0 L Anion Gap POC BUN BUN Creatinine POC Creatinine Glucose POC Glucose Hemoglobin A1c Calcium Phosphorus AST Alkaline Phosphatase Lactate Dehydrogenase Total Protein Triglycerides Urine Protein 100 mg/dl A Urine Ketones Trace A Urine Occult Blood Trace-intact A Urine WBC 6 H Cellular Casts 1 H Hyaline Casts 43 H Urine Mucus Few A 01/11/22 01/11/22 01/11/22 14:00 13:50 13:44 WBC RBC Hgb Hct Plt Count MPV Immature Gran % (Auto) Lymph # (Auto) [place] # (Auto) Immature Gran # Absolute Neutrophils Toxic Granulation Platelet Estimate RBC Morphology Hypochromasia Anisocytosis POC pH POC pO2 POC HCO3 POC ABG Base Excess POC VBG pCO2 at Temp 37.0 L POC VBG HCO3 20.2 L POC VBG Total CO2 21.0 L POC VBG Base Excess -6.0 L VBG Lactic Acid 5.0 H* Hgb O2 Saturation POC Sodium 160 H Sodium 159 H POC Chloride 127 H Chloride 119 H Carbon Dioxide 17 L POC Total CO2 19.0 L Anion Gap 23.0 H POC BUN 49 H BUN 45 H Creatinine 2.6 H POC Creatinine 3.0 H Glucose 226 H POC Glucose 230 H Hemoglobin A1c Calcium Phosphorus AST Alkaline Phosphatase Lactate Dehydrogenase Total Protein 8.5 H Triglycerides Urine Protein Urine Ketones Urine Occult Blood Urine WBC Cellular Casts Hyaline Casts Urine Mucus Meds: Medications Acetaminophen (Acetaminophen 325 Mg Tablet) 650 mg PO Q4-6HP PRN; Protocol PRN Reason: Per Pain Protocol/Fever > 101 Albuterol/Ipratropium (Ipratropium/Albuterol 3 Ml Ampul.Neb) 3 ml NEB Q4HP PRN PRN Reason: Shortness Of Breath Aspirin (Aspirin 81 Mg Tab.Chew) 81 mg PO DAILY [facility] Last Admin: 01/12/22 08:13 Dose: Not Given Dextrose (Dextrose 50% 50 Ml Vial) 0 ml IV UD PRN PRN Reason: Per Sliding Scale Diagnostic Test (Pha) (Accu-Chek 1 Each Strip) 1 each FS ACHS [facility] Last Admin: 01/12/22 11:39 Dose: 1 each Glucose (Dextrose 31 Gm Oral.Susp) 15 gm PO PRN PRN PRN Reason: Hypoglycemia Heparin Sodium (Porcine) (Heparin 5,000 Unit/Ml Vial) 5,000 unit SQ Q12 [facility] Last Admin: 01/12/22 08:32 Dose: 5,000 unit Sodium Chloride (Sodium Chloride 0.9%) 250 mls @ 20 mls/hr IV .[id number] [facility] Last Infusion: 01/12/22 11:40 Dose: Infused Dextrose (Dextrose 5% In Water) 1,000 mls @ 150 mls/hr IV .Q6H40M [facility] Last Infusion: 01/12/22 11:20 Dose: 150 mls/hr Azithromycin 500 mg/ Dextrose 250 mls @ 250 mls/hr IV Q24H [facility]; Protocol Stop: 01/13/22 17:44 Last Infusion: 01/12/22 11:20 Dose: Infused Valproic Acid 375 mg/ Sodium (Chloride) 53.75 mls @ 50 mls/hr IV Q6H [facility] Last Infusion: 01/12/22 09:32 Dose: Infused Acetaminophen (Ofirmev) 650 mg in 65 mls @ 130 mls/hr IV Q6HP PRN; Protocol PRN Reason: PAIN/FEVER > 101 Last Infusion: 01/12/22 02:21 Dose: Infused Piperacillin Sod/Tazobactam (Sod 2.25 gm/ Dextrose) 50 mls @ 100 mls/hr IV Q6H [facility] Last Infusion: 01/12/22 12:40 Dose: Infused Vasopressin 20 unit/ Dextrose 100 mls @ 12 mls/hr IV Q8HP PRN; Protocol PRN Reason: Hypotension Norepinephrine Bitartrate 8 mg (/ Sodium Chloride) 250 mls @ 18.75 mls/hr IV Q12HP PRN; Protocol PRN Reason: Hypotension Insulin Human Lispro (Insulin Lispro 1 Unit/0.01 Ml Unit) 0 unit SQ ACHS [facility]; Protocol Last Admin: 01/12/22 11:40 Dose: 2 unit Nystatin (Nystatin Powder Bottle 15gm) 1 dose TOPICAL TIDP PRN PRN Reason: Skin Irritation Sertraline HCl (Sertraline 100 Mg Tablet) 100 mg PO BID [facility] Last Admin: 01/12/22 08:13 Dose: Not Given Sodium Chloride (0.9 % Sodium Chloride 10 Ml Syringe) 10 ml IV Q8 [facility] Last Admin: 01/12/22 05:49 Dose: 10 ml A/P Narrative A/P Narrative: Assessment: 51-year-old male with a past medical history of traumatic brain injury, possible prior stroke who resides in a [facility] house admitted for septic shock complicated by acute kidney injury and hypernatremia. Source of infection is currently unknown, possibly pneumonia versus other etiology. [place] SARS-CoV-2, influenza A, influenza B was negative. The patient was seen for a fever on 01/08/2022, CT abdomen pelvis on 01/08/2022 at that time did not show any intra-abdominal infection. Physical exam did not reveal a source of infection, the patient does have some scrotal erythema of uncertain clinical significance. Work-up included CT chest which showed bilateral pulmonary infiltrates in the dependent portions of both lungs suspicion for aspiration #Resolving septic shock likely secondary to pneumonia #Community acquired aspiration pneumonia #Resolving acute kidney injury secondary to septic shock #Resolving encephalopathy secondary to sepsis and hypernatremia #Resolving Hypernatremia #Scrotal erythema and tenderness #Decubitus pressure injuries, present on admission #Hyperglycemia secondary to D5 IV fluid and prediabetes #Prediabetes, hemoglobin A1c 6.3 #History of traumatic brain injury #History of stroke Plan -Continue Vancomycin IV, Zosyn, azithromycin for now. -Weaned off vasopressors. -Follow blood cultures x2. -Discontinue D5 IV fluid, monitor sodium level -Scrotal ultrasound, discuss scrotal erythema with urology. -Continue [place] catheter for now. -Topical nystatin for scrotal erythema, monitor. -Correction Humalog SSImedium. -Continue home aspirin, fluticasone, albuterol as needed, Seroquel, Flomax. -Holding home metoprolol, metformin, lisinopril, hydralazine, statin for now. -IV valproic acid for now, likely transition to oral home valproic acid tomorrow. -Dysphagia diet per speech recommendation. -PT, OT, speech therapy consults. -DVT prophylaxis: Heparin SQ. -CODE STATUS: Full -Disposition: TBD Time Spent With Patient Time: Total time spent is greater than 50% in coordination of care (as documented) at patient's floor/unit and/or counseling patient: QUALITY VTE Deep Vein Thrombosis/Pulmonary Embolism Present on Admission: No
[2022-01-12] MEDS: QUEtiapine 100 MG TABLET PO SCH ×2 (14:41→20:33)
[2022-01-12 17:19] LABS: Blood Urea Nitrogen 22 mg/dL (6-20); Calcium 8.2 mg/dL (8.6-10.4); Carbon Dioxide 19 mmol/L (22-30); Chloride 116 mmol/L (96-108); Glomerular Filtration Rate 99; Glucose 138 mg/dL (70-105)
--- NOTE | 2022-01-12 18:06 | Ultrasound Report ---
CLINICAL INFORMATION: Scrotal pain COMPARISON: None. FINDINGS: Both testes are normal and symmetric in size, position, configuration and echotexture: The right is 3.5 x 2 cm left is 3.5 x 2.3 cm. There are no intratesticular masses arterial blood flow is normal and symmetric to both testes on color Doppler. Both menisci are normal in size and echotexture: The right is 1.3 x 0.8 cm and the left is 1.2 x 0.7 cm. 3 mm cyst present in the left epididymis with a 4 mm small testicular appendage on the left side. Small right and large left hydroceles appreciated. Echogenic debris within the left hydrocele There is moderate right and mild left scrotal wall thickening. IMPRESSION: Large left hydrocele with debris and scrotal thickening. This could indicate infection. Small right hydrocele noted Both testes proper and epididymides are normal Interpreted and Authenticated by: Rosendo Donahue 01/12/22
[2022-01-12] MEDS ORDERED: DEXTROSE 5%-1/2NS W/10MEQ KCL 1,000 ML IV SCH (18:45)
[2022-01-12] MEDS: DEXTROSE 5%-1/2NS W/20MEQ KCL 1,000 ML IV SCH ×2 (20:02→22:56)
[2022-01-12] MEDS: VANCOMYCIN PER PHARMACY IV ONE ×2 (20:02→20:56)
[2022-01-12] MEDS: FLUTICASONE HFA 110MCG INHALER INH SCH (20:26)
[2022-01-12] MEDS: TAMSULOSIN 0.4 MG CAPSULE PO SCH (20:33)
[2022-01-12] MEDS: VANCOMYCIN 1,500 MG in 0.9 % SODIUM CHLORIDE 500 ML IV SCH (21:07)
[2022-01-12] MEDS: PIPERACILLIN SODIUM/TAZOBACTAM 3.375 GM in DEXTROSE 5% IN WATER 50 ML IV SCH (23:00)
[2022-01-13] MEDS: SODIUM CHLORIDE 0.9% IV SCH ×2 (02:10→08:01)
[2022-01-13] MEDS: VALPROIC ACID IV SCH ×2 (02:10→08:01)
[2022-01-13] MEDS: 0.9 % SODIUM CHLORIDE 250 ML IV SCH ×2 (03:31→15:16)
[2022-01-13] MEDS: 0.9 % SODIUM CHLORIDE 10 ML SYRINGE IV SCH ×3 (05:24→21:32)
[2022-01-13] MEDS: PIPERACILLIN SODIUM/TAZOBACTAM 3.375 GM in DEXTROSE 5% IN WATER 50 ML IV SCH ×2 (05:25→11:41)
[2022-01-13] MEDS ORDERED: VANCOMYCIN PER PHARMACY IV SCH ×2 (06:00→09:00)
[2022-01-13 06:51] LABS: Hematocrit 36.3 % (40.1-51.0); Hemoglobin 11.6 g/dL (13.7-17.5); Mean Cell Volume 92.4 fL (80.0-100.0); Mean Platelet Volume 11.7 fL (7.4-10.4); Platelet Count 76 K/mcL (140-440); RBC 3.93 M/mcL (4.63-6.08); Red Cell Distribution Width 12.1 % (11.5-14.5); WBC 5.5 K/mcL (4.5-11.0)
[2022-01-13 07:08] LABS: ALT/SGPT 37 U/L (<40); AST/SGOT 50 U/L (<40); Albumin/Globulin Ratio 1.1 (1.0-2.3); Alkaline Phosphatase 46 U/L (39-117); Bilirubin,Direct < 0.2 mg/dL (0-0.3); Bilirubin,Total 0.4 mg/dL (0.1-1.0); Blood Urea Nitrogen 15 mg/dL (6-20); Calcium 8.5 mg/dL (8.6-10.4); Carbon Dioxide 21 mmol/L (22-30); Chloride 113 mmol/L (96-108); Globulin 2.8 gm/dL (2.2-3.7); Glomerular Filtration Rate 104; Glucose 164 mg/dL (70-105); Lactate Dehydrogenase 316 U/L (135-225); Phosphorous 2.4 mg/dL (2.5-4.5); Triglycerides 234 mg/dL (<150)
[2022-01-13 07:38] LABS: Band Neutrophils % 10 % (0-10); Lymphocytes % 15 % (15-49); Monocytes % (Manual) 5 % (1-12); Platelet Estimate MARKEDLY DECREASED (Normal); RBC Morphology NORMAL (Normal); Reactive Lymphocytes 2 % (0-2); Segmented Neutrophils % 68 % (38-78)
[2022-01-13] MEDS: INSULIN LISPRO 1 UNIT/0.01 ML UNIT SQ SCH ×4 (08:00→21:18)
[2022-01-13] MEDS: FLUTICASONE HFA 110MCG INHALER INH SCH ×2 (08:09→21:21)
[2022-01-13] MEDS: ASPIRIN 81 MG TAB.CHEW PO SCH (08:43)
[2022-01-13] MEDS: VANCOMYCIN 1,500 MG in 0.9 % SODIUM CHLORIDE 500 ML IV SCH ×2 (08:43→21:32)
[2022-01-13] MEDS: QUEtiapine 100 MG TABLET PO SCH ×3 (08:43→21:32)
[2022-01-13] MEDS: SERTRALINE 100 MG TABLET PO SCH ×2 (08:44→21:32)
[2022-01-13] MEDS ORDERED: ALBUTEROL SULFATE 200 PUFF INHALER INH PRN (09:00)
[2022-01-13] MEDS: METOPROLOL SUCCINATE 25 MG TAB.XL.24H PO SCH (09:25)
[2022-01-13] MEDS ORDERED: DIVALPROEX SODIUM 250 MG TABLET PO SCH (10:20)
[2022-01-13] MEDS: AZITHROMYCIN 500 MG in DEXTROSE 5% IN WATER 250 ML IV SCH (10:22)
[2022-01-13] MEDS: DIVALPROEX SODIUM 250 MG TABLET PO SCH ×2 (10:38→21:31)
--- NOTE | 2022-01-13 11:11 | Urology Consult Note ---
HPI Data of Consult Patient: new to practice Consult date: 01/13/22 Primary Care Provider: JESÚS Johansen Consult Narrative Patient Information: Note initiated : 01/13/22 at 11:09 am Service Date, if different from initiated Date: [] Patient: Corona Mayer 51 y/o M admitted on 01/11/22 for altered loc. Chief Complaint: [] Patient currently hospitalized with sepsis picture, thought to be due to aspiration pneumonia. He has been showing gradual improvement both clinically and laboratory lopez. However he was noted to have a reddened scrotum and a scrotal ultrasound was obtained. This is reviewed and shows "Large left hydrocele with debris and scrotal thickening. This could indicate infection. Small right hydrocele noted" Patient is not communicative at this time. There is no known urologic history. Urinalysis is not suggestive of UTI. Reason for consult: Question of possible infected hydrocele cc:: CC: Trey Walsh MD [facility] All Active Problems (Updated 01/11/22 @ 17:06 by Sergio Wakefield MD) Pneumonia (Acute) Altered mental status (Acute) Septic shock (Acute) Social History smoking status: Unknown if ever smoked MEDS/ALLERGIES Home Medications and Allergies Home Medications Medication Instructions Recorded Confirmed Type doxycycline hyclate 100 mg tablet 100 mg PO BID #14 tabs 01/08/22 01/11/22 Rx albuterol sulfate 90 mcg/actuation 2 puff inhalation QAM 01/11/22 01/12/22 History aerosol inhaler aspirin 81 mg chewable tablet 1 tab PO QDAY 01/11/22 01/12/22 History atorvastatin 20 mg tablet 1 tab PO QHS 01/11/22 01/12/22 History atorvastatin 40 mg tablet 1 tab PO QHS 01/11/22 01/12/22 History divalproex 250 mg tablet,delayed 1 tab PO BID 01/11/22 01/12/22 History release divalproex 500 mg tablet,delayed 1 tab PO BID 01/11/22 01/12/22 History release docusate sodium 100 mg capsule 1 cap PO BID 01/11/22 01/12/22 History fluticasone propionate 110 2 puff inhalation BID 01/11/22 01/12/22 History mcg/actuation HFA aerosol inhaler (Flovent HFA) hydroxyzine HCl 25 mg tablet 1 tab PO TID 01/11/22 01/12/22 History lactulose 10 gram/15 mL oral 30 ml PO QAM 01/11/22 01/12/22 History solution lidocaine 5 % topical cream 1 applic topical QID 01/11/22 01/12/22 History lisinopril 5 mg tablet 1 tab PO QDAY 01/11/22 01/12/22 History melatonin 3 mg tablet 1 tab PO HS 01/11/22 01/12/22 History metformin 500 mg tablet 1 tab PO BID 01/11/22 01/12/22 History metoprolol succinate 25 mg 1 tab PO QDAY 01/11/22 01/12/22 History tablet,extended release 24 hr phenylephrine 0.25 %-pramoxine 1 1 applic topical BID 01/11/22 01/12/22 History %-glycerin-wh.petrolatum rectal cream (Preparation H Maximum Strength) quetiapine 300 mg tablet 1 tab PO TID 01/11/22 01/12/22 History sertraline 100 mg tablet 1 tab PO BID 01/11/22 01/12/22 History tamsulosin 0.4 mg capsule 1 cap PO QHS 01/11/22 01/12/22 History trazodone 50 mg tablet 2 tab PO HS 01/11/22 01/12/22 History Allergies Allergy/AdvReac Type Severity Reaction Status Date / Time No Known Drug Allergies Allergy Verified 01/08/22 09:47 Physical Examination Vital Signs Vital signs: Temp Pulse Resp BP Pulse Ox O2 Del Method O2 Flow Rate 100.5 F H 102 H 22 154/97 93 2 01/13/22 09:04 01/13/22 09:04 01/13/22 09:04 01/13/22 09:04 01/13/22 09:04 01/13/22 09:04 01/13/22 09:04 Genitourinary Genitourinary (Male): Present other (Genital exam reveals a fairly bright red scrotal skin also partially including the penis. There is no crepitus or abscess palpable. The underlying testicles are palpably normal. Their is no mass and actually minimal hydrocele at this time.) Results Labs Result diagrams: 01/13/22 05:35 01/13/22 05:35 Labs: Abnormal lab results 01/12/22 01/12/22 01/13/22 Range/Units 11:20 15:37 05:35 RBC 3.93 L (4.63-6.08) M/mcL Hgb 11.6 L (13.7-17.5) g/dL Hct 36.3 L (40.1-51.0) % Plt Count 76 L (140-440) K/mcL MPV 11.7 H (7.4-10.4) fL Platelet Estimate Markedly decreased A (Normal) Sodium 147 H 146 H (133-145) mmol/L Chloride 117 H 116 H (96-108) mmol/L Carbon Dioxide 19 L 19 L (22-30) mmol/L BUN 25 H 22 H (6-20) mg/dL Glucose 185 H 138 H (70-105) mg/dL Calcium 7.8 L 8.2 L (8.6-10.4) mg/dL Phosphorus (2.5-4.5) mg/dL AST (<40) U/L Lactate Dehydrogenase (135-225) U/L Total Protein (5.9-8.4) gm/dL Albumin (3.2-5.2) gm/dL Triglycerides (<150) mg/dL 01/13/22 Range/Units 05:35 RBC (4.63-6.08) M/mcL Hgb (13.7-17.5) g/dL Hct (40.1-51.0) % Plt Count (140-440) K/mcL MPV (7.4-10.4) fL Platelet Estimate (Normal) Sodium (133-145) mmol/L Chloride 113 H (96-108) mmol/L Carbon Dioxide 21 L (22-30) mmol/L BUN (6-20) mg/dL Glucose 164 H (70-105) mg/dL Calcium 8.5 L (8.6-10.4) mg/dL Phosphorus 2.4 L (2.5-4.5) mg/dL AST 50 H (<40) U/L Lactate Dehydrogenase 316 H (135-225) U/L Total Protein 5.8 L (5.9-8.4) gm/dL Albumin 3.0 L (3.2-5.2) gm/dL Triglycerides 234 H (<150) mg/dL Diabetes panel 09/09/2801/12/22 01/12/22 Range/Units 11:20 14:02 15:37 Sodium 147 H TNP 146 H (133-145) mmol/L Potassium 3.8 TNP 3.8 (3.3-5.1) mmol/L Chloride 117 H TNP 116 H (96-108) mmol/L Carbon Dioxide 19 L TNP 19 L (22-30) mmol/L BUN 25 H TNP 22 H (6-20) mg/dL Creatinine 0.9 TNP 0.9 (0.7-1.2) mg/dL Glucose 185 H TNP 138 H (70-105) mg/dL Calcium 7.8 L TNP 8.2 L (8.6-10.4) mg/dL AST (<40) U/L ALT (<40) U/L Alkaline Phosphatase (39-117) U/L Total Protein (5.9-8.4) gm/dL Albumin (3.2-5.2) gm/dL Triglycerides (<150) mg/dL 01/13/22 Range/Units 05:35 Sodium 145 (133-145) mmol/L Potassium 3.8 (3.3-5.1) mmol/L Chloride 113 H (96-108) mmol/L Carbon Dioxide 21 L (22-30) mmol/L BUN 15 (6-20) mg/dL Creatinine 0.8 (0.7-1.2) mg/dL Glucose 164 H (70-105) mg/dL Calcium 8.5 L (8.6-10.4) mg/dL AST 50 H (<40) U/L ALT 37 (<40) U/L Alkaline Phosphatase 46 (39-117) U/L Total Protein 5.8 L (5.9-8.4) gm/dL Albumin 3.0 L (3.2-5.2) gm/dL Triglycerides 234 H (<150) mg/dL Calcium panel 01/12/22 01/12/22 01/12/22 Range/Units 11:20 14:02 15:37 Calcium 7.8 L TNP 8.2 L (8.6-10.4) mg/dL Phosphorus (2.5-4.5) mg/dL Albumin (3.2-5.2) gm/dL 01/13/22 Range/Units 05:35 Calcium 8.5 L (8.6-10.4) mg/dL Phosphorus 2.4 L (2.5-4.5) mg/dL Albumin 3.0 L (3.2-5.2) gm/dL Pituitary panel 01/12/22 01/12/22 01/12/22 Range/Units 11:20 14:02 15:37 Sodium 147 H TNP 146 H (133-145) mmol/L Potassium 3.8 TNP 3.8 (3.3-5.1) mmol/L Chloride 117 H TNP 116 H (96-108) mmol/L Carbon Dioxide 19 L TNP 19 L (22-30) mmol/L BUN 25 H TNP 22 H (6-20) mg/dL Creatinine 0.9 TNP 0.9 (0.7-1.2) mg/dL Glucose 185 H TNP 138 H (70-105) mg/dL Calcium 7.8 L TNP 8.2 L (8.6-10.4) mg/dL 01/13/22 Range/Units 05:35 Sodium 145 (133-145) mmol/L Potassium 3.8 (3.3-5.1) mmol/L Chloride 113 H (96-108) mmol/L Carbon Dioxide 21 L (22-30) mmol/L BUN 15 (6-20) mg/dL Creatinine 0.8 (0.7-1.2) mg/dL Glucose 164 H (70-105) mg/dL Calcium 8.5 L (8.6-10.4) mg/dL Adrenal panel 01/12/22 01/12/22 01/12/22 Range/Units 11:20 14:02 15:37 Sodium 147 H TNP 146 H (133-145) mmol/L Potassium 3.8 TNP 3.8 (3.3-5.1) mmol/L Chloride 117 H TNP 116 H (96-108) mmol/L Carbon Dioxide 19 L TNP 19 L (22-30) mmol/L BUN 25 H TNP 22 H (6-20) mg/dL Creatinine 0.9 TNP 0.9 (0.7-1.2) mg/dL Glucose 185 H TNP 138 H (70-105) mg/dL Calcium 7.8 L TNP 8.2 L (8.6-10.4) mg/dL Total Bilirubin (0.1-1.0) mg/dL AST (<40) U/L ALT (<40) U/L Alkaline Phosphatase (39-117) U/L Total Protein (5.9-8.4) gm/dL Albumin (3.2-5.2) gm/dL 01/13/22 Range/Units 05:35 Sodium 145 (133-145) mmol/L Potassium 3.8 (3.3-5.1) mmol/L Chloride 113 H (96-108) mmol/L Carbon Dioxide 21 L (22-30) mmol/L BUN 15 (6-20) mg/dL Creatinine 0.8 (0.7-1.2) mg/dL Glucose 164 H (70-105) mg/dL Calcium 8.5 L (8.6-10.4) mg/dL Total Bilirubin 0.4 (0.1-1.0) mg/dL AST 50 H (<40) U/L ALT 37 (<40) U/L Alkaline Phosphatase 46 (39-117) U/L Total Protein 5.8 L (5.9-8.4) gm/dL Albumin 3.0 L (3.2-5.2) gm/dL All other labs normal. A/P Narrative A/P Narrative: I think infected hydrocele is very unlikely. This condition is rare and his exam is much more suggestive of scrotal cellulitis. Current antibiotic regimen I believe would have excellent coverage for this. Would just follow for now Time Spent With Patient Time: Total time spent is greater than 50% in coordination of care (as documented) at patient's floor/unit and/or counseling patient:
[2022-01-13] MEDS: DEXTROSE 5%-1/2NS W/20MEQ KCL 1,000 ML IV SCH ×3 (13:20→23:44)
--- NOTE | 2022-01-13 13:32 | Internal Med Progress Note ---
SUBJECTIVE Subjective Patient information: Note initiated : 01/13/22 at 1:23 pm Service Date, if different from initiated Date: [] Patient: Corona Mayer 51 y/o M admitted on 01/11/22 for altered loc. Chief Complaint: [] Interval history: Mr. Mayer is a 51 year old male with a past medical history of traumatic brain injury and possibly prior stroke resides in [place] [facility] house who was brought to the emergency department for confusion. The patient was seen at the [facility] emergency department on 01/08/2022 for fever, felt to have pneumonia based on chest x-ray showing nonspecific vague opacities bilaterally and discharged with a prescription for doxycycline. Today, the patient was brought in by EMS and was initially unresponsive. In the emergency department, the patient is found to be septic requiring Levophed and vasopressin while the patient was resuscitated with IV normal saline as well as started on broad-spectrum antibiotics. Blood pressure improved with vasopressors. The patient was tachypneic, tachycardic and had a fever of 102.6. In the ED, the patient was requiring oxygen supplementation via nonrebreather mask. White blood cell count is 22,000, up from 6.9 on 01/08/2022. Additionally, the patient has a lactic acid of 5. Chemistry panel reveals the patient has an acute kidney injury, creatinine is 2.6. A few days ago in the ED the point of care creatinine level was normal. Urinalysis was not suggestive of a UTI. Blood cultures have been obtained and pending. Chest x-ray is similar to 01/08/2022, possible loss of lateral cardiac border. The source of sepsis is felt to possibly be pneumonia. After receiving the initial treatment for sepsis, the patient is minimally responsive but unable to provide valid any history. I discussed the patient with Lindsay Junior, the patient's aunt. Lindsay said the patient's code status is full code. 01/12: Sepsis physiology improving with decreasing fever trend, improvement in respiratory rate and heart rate, lactic acid downtrending, leukocytosis impro ving. Continues on 4 L/min nasal cannula oxygen. Hypernatremia improving. Making urine and renal function improving. [place] NAAT was negative. Patient is more alert today. CT chest showed bilateral pulmonary infiltrates in the dependent portions of both lungs, aspiration suspected. 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 Infectious work-up suggest that the cause of sepsis was pneumonia, likely aspiration pneumonia. We will continue broad-spectrum antibiotics for now awaiting 48 hours of blood culture results. Scrotum evaluated again, tender to palpation. The patient is unable to provide much history about how long this has been present. Will obtain a scrotal ultrasound and discuss with urology. Discontinued D5 as hypernatremia has nearly resolved. Speech consulted today, recommended starting dysphagia diet. 01/13: The patient continues to have intermittent fevers, scrotal ultrasound revealed a left hydrocele containing debris. Urology consulted, did not feel that the patient had an infected hydrocele however probably had a scrotal cellulitis. Possible scrotal cellulitis contributed to the patient's septic presentation, he may have developed an aspiration pneumonia when he became critically ill. Blood cultures are showing no growth to date. Overall the patient's sepsis physiology has improved, continue vancomycin, Zosyn and azithromycin. Platelets decreased significantly, holding heparin SQ for thrombocytopenia. Sodium level has normalized, renal function has normalized. According to multiple discussions with the care facility where the patient resides, the patient is likely near his baseline at this time. CODE STATUS discussed with family members, the decision to change CODE STATUS to DNR was made by his sister, Jessica Mayer, as his mother cannot make decisions due to a recent stroke. Physical exam Head: Atraumatic, normal inspection. Eyes: normal appearance, no scleral icterus. Neck: full ROM Respiratory: Supplemental oxygen via oxymask, increased respiratory rate, distant breath sounds bilaterally, no wheezing Cardiovascular: Regular tachycardia, S1, S2. GI/Abdominal: soft, nontender, no guarding. : Scrotal erythema. Extremities: full range of motion, nontender. Neurological: Motor and sensation grossly intact. Psychiatric: Minimally responsive. Skin: warm, normal color Constitutional Vitals: Vital Signs Temp Pulse Resp BP Pulse Ox O2 Del Method O2 Flow Rate 99.8 F H 95 H 18 129/84 91 2 01/13/22 12:01/13/22 12:01/13/22 12:01/13/22 12:01/13/22 12:01/13/22 12:01/13/22 12:01 Period Temp Pulse Resp BP Sys/Delcid Pulse Ox O2 Del Method O2 Flow Rate Last 24 Hr 98.6 F-100.5 F 88-106 15-26 83-154/55-97 90-99 Nasal Cannula- Nasal Cannula 2-4.0 Intake and Output 01/12/22 01/13/22 01/13/22 21:59 05:59 13:59 Intake Total 437.50 653.75 853.75 Output Total 480 485 430 Balance -42.50 168.75 423.75 Weight 98.384 kg Intake & Output: Intake & Output 01/12/22 01/13/22 01/13/22 21:59 05:59 13:59 Intake Total 437.50 653.75 853.75 Output Total 480 485 430 Balance -42.50 168.75 423.75 Weight 98.384 kg Intake: IV 157.50 653.75 853.75 Zithromax 500 mg In Dextrose 5% 250 in Water 250 ml @ 250 mls/hr IV Q24H [facility] Rx#:[id number] Levophed 8 mg In Sodium 0 Chloride 0.9% 242 ml @ 10 MCG/ MIN 18.75 mls/hr IV Q14H [facility] Rx #:[id number] Zosyn 2.25 gm In Dextrose 5% in 50 Water 50 ml @ 100 mls/hr IV Q6H [facility] Rx#:[id number] Zosyn 3.375 gm In Dextrose 5% 100 50 in Water 50 ml @ 100 mls/hr IV Q6H [facility] Rx#:[id number] Depacon 375 mg In Sodium 107.50 53.75 53.75 Chloride 0.9% 50 ml @ 50 mls/hr IV Q6H [facility] Rx#:[id number] Vancomycin 1,500 mg In Sodium 500 500 Chloride 0.9% 500 ml @ 333.3 mls/hr IV Q12H [facility] Rx#: [id number] Oral 280 Output: Urine Catheter Amount 480 485 430 Other: Meal Dinner Applesauce Percent of Meal Consumed 50% 100% Feeding Ability Total Assistance Total Assistance Urine Appearance Clear Clear Cloudy Uretheral (Devine) Clear Urine Color Dark Yellow Dark Yellow Tea Colored Uretheral (Devine) Dark Yellow OBJ DATA Labs CBC & Chem 7: 01/13/22 05:35 01/13/22 05:35 Labs: Abnormal Lab Results 01/13/22 01/13/22 01/12/22 05:35 05:35 15:37 WBC RBC 3.93 L Hgb 11.6 L Hct 36.3 L Plt Count 76 L MPV 11.7 H Immature Gran % (Auto) Lymph # (Auto) Union # (Auto) Immature Gran # Absolute Neutrophils Toxic Granulation Platelet Estimate Markedly decreased A RBC Morphology Hypochromasia Anisocytosis POC pH POC pO2 POC HCO3 POC ABG Base Excess POC VBG pCO2 at Temp POC VBG HCO3 POC VBG Total CO2 POC VBG Base Excess VBG Lactic Acid Hgb O2 Saturation POC Sodium Sodium 146 H POC Chloride Chloride 113 H 116 H Carbon Dioxide 21 L 19 L POC Total CO2 Anion Gap POC BUN BUN 22 H Creatinine POC Creatinine Glucose 164 H 138 H POC Glucose Hemoglobin A1c Calcium 8.5 L 8.2 L Phosphorus 2.4 L AST 50 H Alkaline Phosphatase Lactate Dehydrogenase 316 H Total Protein 5.8 L Albumin 3.0 L Triglycerides 234 H Urine Protein Urine Ketones Urine Occult Blood Urine WBC Cellular Casts Hyaline Casts Urine Mucus 01/12/22 01/12/22 01/12/22 11:20 04:34 04:34 WBC 16.6 H RBC Hgb Hct Plt Count 139 L MPV 11.3 H Immature Gran % (Auto) Lymph # (Auto) Union # (Auto) Immature Gran # Absolute Neutrophils Toxic Granulation 1+ A Platelet Estimate Decreased A RBC Morphology Abnormal A Hypochromasia 1+ A Anisocytosis Occ A POC pH POC pO2 POC HCO3 POC ABG Base Excess POC VBG pCO2 at Temp POC VBG HCO3 POC VBG Total CO2 POC VBG Base Excess VBG Lactic Acid Hgb O2 Saturation POC Sodium Sodium 147 H 155 H POC Chloride Chloride 117 H 120 H Carbon Dioxide 19 L POC Total CO2 Anion Gap POC BUN BUN 25 H 28 H Creatinine 1.3 H POC Creatinine Glucose 185 H 178 H POC Glucose Hemoglobin A1c 6.3 H Calcium 7.8 L 8.0 L Phosphorus AST 47 H Alkaline Phosphatase Lactate Dehydrogenase 324 H Total Protein Albumin Triglycerides 283 H Urine Protein Urine Ketones Urine Occult Blood Urine WBC Cellular Casts Hyaline Casts Urine Mucus 01/11/22 01/11/22 01/11/22 23:07 23:07 18:35 WBC RBC Hgb Hct Plt Count MPV Immature Gran % (Auto) Lymph # (Auto) Union # (Auto) Immature Gran # Absolute Neutrophils Toxic Granulation Platelet Estimate RBC Morphology Hypochromasia Anisocytosis POC pH POC pO2 POC HCO3 POC ABG Base Excess POC VBG pCO2 at Temp POC VBG HCO3 POC VBG Total CO2 POC VBG Base Excess VBG Lactic Acid 2.8 H 3.0 H Hgb O2 Saturation POC Sodium Sodium 152 H POC Chloride Chloride 122 H Carbon Dioxide 17 L POC Total CO2 Anion Gap POC BUN BUN 42 H Creatinine 1.7 H POC Creatinine Glucose 179 H POC Glucose Hemoglobin A1c Calcium 8.0 L Phosphorus 4.8 H AST Alkaline Phosphatase 36 L Lactate Dehydrogenase 349 H Total Protein Albumin Triglycerides 309 H Urine Protein Urine Ketones Urine Occult Blood Urine WBC Cellular Casts Hyaline Casts Urine Mucus 01/11/22 01/11/22 01/11/22 14:56 14:10 14:01 WBC 22.0 H RBC 6.43 H Hgb 18.9 H Hct 57.5 H Plt Count MPV 11.0 H Immature Gran % (Auto) 0.8 H Lymph # (Auto) 5.27 H Union # (Auto) 2.14 H Immature Gran # 0.17 H Absolute Neutrophils 14.27 H Toxic Granulation Platelet Estimate RBC Morphology Hypochromasia Anisocytosis POC pH 7.27 L POC pO2 116 H POC HCO3 19.0 L POC ABG Base Excess -8.0 L POC VBG pCO2 at Temp POC VBG HCO3 POC VBG Total CO2 POC VBG Base Excess VBG Lactic Acid Hgb O2 Saturation 98.0 H POC Sodium Sodium POC Chloride Chloride Carbon Dioxide POC Total CO2 20.0 L Anion Gap POC BUN BUN Creatinine POC Creatinine Glucose POC Glucose Hemoglobin A1c Calcium Phosphorus AST Alkaline Phosphatase Lactate Dehydrogenase Total Protein Albumin Triglycerides Urine Protein 100 mg/dl A Urine Ketones Trace A Urine Occult Blood Trace-intact A Urine WBC 6 H Cellular Casts 1 H Hyaline Casts 43 H Urine Mucus Few A 01/11/22 01/11/22 01/11/22 14:00 13:50 13:44 WBC RBC Hgb Hct Plt Count MPV Immature Gran % (Auto) Lymph # (Auto) Union # (Auto) Immature Gran # Absolute Neutrophils Toxic Granulation Platelet Estimate RBC Morphology Hypochromasia Anisocytosis POC pH POC pO2 POC HCO3 POC ABG Base Excess POC VBG pCO2 at Temp 37.0 L POC VBG HCO3 20.2 L POC VBG Total CO2 21.0 L POC VBG Base Excess -6.0 L VBG Lactic Acid 5.0 H* Hgb O2 Saturation POC Sodium 160 H Sodium 159 H POC Chloride 127 H Chloride 119 H Carbon Dioxide 17 L POC Total CO2 19.0 L Anion Gap 23.0 H POC BUN 49 H BUN 45 H Creatinine 2.6 H POC Creatinine 3.0 H Glucose 226 H POC Glucose 230 H Hemoglobin A1c Calcium Phosphorus AST Alkaline Phosphatase Lactate Dehydrogenase Total Protein 8.5 H Albumin Triglycerides Urine Protein Urine Ketones Urine Occult Blood Urine WBC Cellular Casts Hyaline Casts Urine Mucus Meds: Medications Acetaminophen (Acetaminophen 325 Mg Tablet) 650 mg PO Q4-6HP PRN; Protocol PRN Reason: Per Pain Protocol/Fever > 101 Albuterol Sulfate (Albuterol Sulfate 200 Puff Inhaler) 2 puff INH DAILYP PRN PRN Reason: Shortness Of Breath Albuterol/Ipratropium (Ipratropium/Albuterol 3 Ml Ampul.Neb) 3 ml NEB Q4HP PRN PRN Reason: Shortness Of Breath Aspirin (Aspirin 81 Mg Tab.Chew) 81 mg PO DAILY [facility] Last Admin: 01/13/22 08:43 Dose: 81 mg Atorvastatin Calcium (Atorvastatin 40 Mg Tablet) 40 mg PO HS [facility] Dextrose (Dextrose 50% 50 Ml Vial) 0 ml IV UD PRN PRN Reason: Per Sliding Scale Diagnostic Test (Pha) (Accu-Chek 1 Each Strip) 1 each FS ACHS [facility] Last Admin: 01/13/22 11:40 Dose: 1 each Divalproex Sodium (Divalproex Sodium 250 Mg Tablet) 750 mg PO BID [facility] Last Admin: 01/13/22 10:38 Dose: Not Given Fluticasone Propionate (Fluticasone Hfa 110mcg Inhaler) 2 puff INH BID [facility] Last Admin: 01/13/22 08:09 Dose: Not Given Glucose (Dextrose 31 Gm Oral.Susp) 15 gm PO PRN PRN PRN Reason: Hypoglycemia Sodium Chloride (Sodium Chloride 0.9%) 250 mls @ 20 mls/hr IV .[id number] [facility] Last Admin: 01/13/22 03:31 Dose: Not Given Azithromycin 500 mg/ Dextrose 250 mls @ 250 mls/hr IV Q24H [facility]; Protocol Stop: 01/13/22 17:44 Last Infusion: 01/13/22 11:25 Dose: Infused Acetaminophen (Ofirmev) 650 mg in 65 mls @ 130 mls/hr IV Q6HP PRN; Protocol PRN Reason: PAIN/FEVER > 101 Last Infusion: 01/12/22 02:21 Dose: Infused Norepinephrine Bitartrate 8 mg (/ Sodium Chloride) 250 mls @ 18.75 mls/hr IV Q12HP PRN; Protocol PRN Reason: Hypotension Potassium Chloride/Dextrose/Sod Cl (Dextrose 5%-1/2ns W/20meq Kcl) 1,000 mls @ 75 mls/hr IV .[id number] [facility] Last Admin: 01/13/22 13:20 Dose: Not Given Piperacillin Sod/Tazobactam (Sod 3.375 gm/ Dextrose) 50 mls @ 100 mls/hr IV Q6H [facility] Last Infusion: 01/13/22 12:21 Dose: Infused Vancomycin HCl 1,500 mg/ (Sodium Chloride) 500 mls @ 333.3 mls/hr IV Q12H [facility] Last Infusion: 01/13/22 10:22 Dose: Infused Insulin Human Lispro (Insulin Lispro 1 Unit/0.01 Ml Unit) 0 unit SQ ACHS [facility]; Protocol Last Admin: 01/13/22 11:40 Dose: 6 unit Metoprolol Succinate (Metoprolol Succinate 25 Mg Tab.Xl.24h) 25 mg PO QDAY [facility] Last Admin: 01/13/22 09:25 Dose: 25 mg Nystatin (Nystatin Powder Bottle 15gm) 1 dose TOPICAL TIDP PRN PRN Reason: Skin Irritation Quetiapine Fumarate (Quetiapine 100 Mg Tablet) 300 mg PO TID [facility] Last Admin: 01/13/22 08:43 Dose: 300 mg Sertraline HCl (Sertraline 100 Mg Tablet) 100 mg PO BID [facility] Last Admin: 01/13/22 08:44 Dose: 100 mg Sodium Chloride (0.9 % Sodium Chloride 10 Ml Syringe) 10 ml IV Q8 [facility] Last Admin: 01/13/22 05:24 Dose: Not Given Tamsulosin HCl (Tamsulosin 0.4 Mg Capsule) 0.4 mg PO QHS [facility] Last Admin: 01/12/22 20:33 Dose: 0.4 mg Vancomycin HCl (Vancomycin Per Pharmacy) 1 order IV UD [facility]; Protocol A/P Narrative A/P Narrative: Assessment: 51-year-old male with a past medical history of traumatic brain injury, possible prior stroke who resides in a [place] [facility] house admitted for septic shock complicated by acute kidney injury and hypernatremia. Source of infection was probably scrotal cellulitis and possibly aspiration pneumonia. [place] SARS-CoV-2, influenza A, influenza B was negative. The patient was seen for a fever on 01/08/2022, CT abdomen pelvis on 01/08/2022 at that time did not show any intra-abdominal infection. Pulmonary imaging was suggestive of aspiration pneumonia. The patient also had severe scrotal erythema, a scrotal ultrasound revealed a left hydrocele containing debris concerning for possible infection. Urology consulted and felt the patient had scrotal cellulitis but that the hydrocele was unlikely to be infected. Sepsis physiology resolved with broad- spectrum antibiotics and IV fluid. The patient initially required vasopressor support with Levophed and vasopressin which were weaned off within 48 hours. #Resolved septic shock likely secondary to scrotal cellulitis and pneumonia #Community acquired aspiration pneumonia #Scrotal cellulitis #Thrombocytopenia #Dysphagia, likely chronic #Resolved acute kidney injury secondary to septic shock #Resolved encephalopathy #Resolved hypernatremia #Left hydrocele #Decubitus pressure injuries, present on admission #Hyperglycemia secondary to D5 IV fluid and prediabetes #Prediabetes, hemoglobin A1c 6.3 #History of traumatic brain injury #History of stroke #Wheelchair-bound status Plan -Continue Vancomycin IV, start ceftriaxone, discontinue Zosyn and IV azithromycin. -Follow blood cultures x2. -D5 half NS KCl IV fluid. -Continue Devine catheter for now. -Topical nystatin for scrotal erythema, monitor. -Monitor platelet level, electrolytes and renal function. -Correction Humalog SSImedium. -Resume home Lopressor, Depakote, atorvastatin. -Continue home aspirin, fluticasone, albuterol as needed, Seroquel, Flomax. -Holding home metformin, lisinopril, hydralazine. -Dysphagia diet per speech recommendation. -Urology consulted for scrotal erythema and possibly infected left hydrocele. -PT, OT, speech therapy consults. -Wound cares. -DVT prophylaxis: SCDs -CODE STATUS: DNR/DNI -Disposition: TBD Time Spent With Patient Time: Total time spent is greater than 50% in coordination of care (as documented) at patient's floor/unit and/or counseling patient: QUALITY VTE Deep Vein Thrombosis/Pulmonary Embolism Present on Admission: No
[2022-01-13] MEDS ORDERED: cefTRIAXone 2 GM in DEXTROSE 5% IN WATER 50 ML IV SCH (13:45)
[2022-01-13] MEDS: ACETAMINOPHEN 650 MG/65 ML BAG IV PRN (17:12)
[2022-01-13] MEDS ORDERED: IBUPROFEN 200 MG TABLET PO ONE (20:06)
[2022-01-13 21:13] LABS: Appearance,Urine Cloudy (Clear); Bilirubin,Urine Negative (Negative); Color,Urine Red; Culture Indicated,Urine yes; Ketones,Urine Negative (Negative); Leukocyte Esterase,Urine Negative /uL (Negative); Mucus,Urine MANY /hpf; Nitrate,Urine Negative (Negative); Specific Gravity,Urine >= 1.030 (1.000-1.035); Urine Blood Large ery/mcL (Negative); Urine RBC > 182 /hpf (0-1); Urine Squamous Epithelial Cell 0 /hpf (0-4); Urine WBC 111 /hpf (0-4); Urobilinogen,Urine Normal
[2022-01-13] MEDS: ATORVASTATIN 40 MG TABLET PO SCH (21:32)
[2022-01-13] MEDS: TAMSULOSIN 0.4 MG CAPSULE PO SCH (21:32)
[2022-01-13] MEDS: PIPERACILLIN SODIUM/TAZOBACTAM 4.5 GM in DEXTROSE 5% IN WATER 50 ML IV SCH (23:41)
[2022-01-14] MEDS: 0.9 % SODIUM CHLORIDE 250 ML IV SCH ×2 (03:22→17:28)
--- NOTE | 2022-01-14 03:56 | XRay Report ---
CLINICAL INFORMATION: Fever COMPARISON: 01/11/2022 TECHNIQUE: Portable FINDINGS: The heart is mildly enlarged, but unchanged. The mediastinum and pulmonary vessels are unremarkable. Small patchy infiltrate appears to be developing in the right base.. There are no effusions. The bones and soft tissues are within normal limits. IMPRESSION: Small patchy infiltrate developing in the right base Interpreted and Authenticated by: Rosendo Donahue 01/14/22
[2022-01-14] MEDS: ACETAMINOPHEN 650 MG/65 ML BAG IV PRN (04:24)
[2022-01-14] MEDS: PIPERACILLIN SODIUM/TAZOBACTAM 4.5 GM in DEXTROSE 5% IN WATER 50 ML IV SCH ×3 (05:24→20:15)
[2022-01-14] MEDS: 0.9 % SODIUM CHLORIDE 10 ML SYRINGE IV SCH ×3 (05:31→20:33)
[2022-01-14] MEDS: INSULIN LISPRO 1 UNIT/0.01 ML UNIT SQ SCH ×4 (07:37→20:33)
[2022-01-14] MEDS: FLUTICASONE HFA 110MCG INHALER INH SCH ×2 (07:37→20:16)
[2022-01-14 08:29] LABS: Band Neutrophils % 10 % (0-10); Eosinophils % (Manual) 1 % (0-7); Hematocrit 31.4 % (40.1-51.0); Hemoglobin 10.2 g/dL (13.7-17.5); Hypochromasia 2+ (None Seen); Lymphocytes % 13 % (15-49); Mean Corpuscular HGB Conc 32.5 g/dL (31.0-36.0); Monocytes % (Manual) 9 % (1-12); Platelet Count 71 K/mcL (140-440); Platelet Estimate DECREASED (Normal); RBC 3.53 M/mcL (4.63-6.08); RBC Morphology ABNORMAL (Normal); Red Cell Distribution Width 12.1 % (11.5-14.5); Segmented Neutrophils % 67 % (38-78); WBC 4.8 K/mcL (4.5-11.0)
[2022-01-14 10:08] LABS: ALT/SGPT 30 U/L (<40); AST/SGOT 28 U/L (<40); Albumin 2.9 gm/dL (3.2-5.2); Albumin/Globulin Ratio 1.3 (1.0-2.3); Alkaline Phosphatase 46 U/L (39-117); Bilirubin,Direct < 0.2 mg/dL (0-0.3); Bilirubin,Total 0.3 mg/dL (0.1-1.0); Blood Urea Nitrogen 13 mg/dL (6-20); Calcium 8.1 mg/dL (8.6-10.4); Carbon Dioxide 23 mmol/L (22-30); Chloride 111 mmol/L (96-108); Globulin 2.2 gm/dL (2.2-3.7); Glomerular Filtration Rate 109; Glucose 155 mg/dL (70-105); Lactate Dehydrogenase 207 U/L (135-225); Phosphorous 3.2 mg/dL (2.5-4.5); Triglycerides 150 mg/dL (<150); Uric Acid 2.2 mg/dL (2.5-8.0)
[2022-01-14] MEDS: VANCOMYCIN 1,500 MG in 0.9 % SODIUM CHLORIDE 500 ML IV SCH ×2 (10:37→20:15)
[2022-01-14] MEDS: ASPIRIN 81 MG TAB.CHEW PO SCH (10:45)
[2022-01-14] MEDS: SERTRALINE 100 MG TABLET PO SCH ×2 (10:45→20:15)
[2022-01-14] MEDS: QUEtiapine 100 MG TABLET PO SCH ×3 (10:46→20:14)
[2022-01-14] MEDS: METOPROLOL SUCCINATE 25 MG TAB.XL.24H PO SCH (10:52)
[2022-01-14] MEDS: DIVALPROEX SODIUM 250 MG TABLET PO SCH (10:52)
[2022-01-14] MEDS: DIVALPROEX 125 MG CAP.SPRINK PO SCH ×2 (11:08→20:14)
[2022-01-14] MEDS: METOPROLOL TARTRATE 25 MG TABLET PO SCH ×2 (11:09→20:14)
--- NOTE | 2022-01-14 13:19 | Internal Med Progress Note ---
SUBJECTIVE Subjective Patient information: Note initiated : 01/14/22 at 1:15 pm Service Date, if different from initiated Date: [] Patient: Corona Mayer 51 y/o M admitted on 01/11/22 for altered loc. Chief Complaint: [] Interval history: Mr. Mayer is a 51 year old male with a past medical history of traumatic brain injury and possibly prior stroke resides in a [facility] who was brought to the emergency department for confusion. The patient was seen at the [facility] emergency department on 01/08/2022 for fever, felt to have pneumonia based on chest x-ray showing nonspecific vague opacities bilaterally and discharged with a prescription for doxycycline. Today, the patient was brought in by EMS and was initially unresponsive. In the emergency department, the patient is found to be septic requiring Levophed and vasopressin while the patient was resuscitated with IV normal saline as well as started on broad-spectrum antibiotics. Blood pressure improved with vasopressors. The patient was tachypneic, tachycardic and had a fever of 102.6. In the ED, the patient was requiring oxygen supplementation via nonrebreather mask. White blood cell count is 22,000, up from 6.9 on 01/08/2022. Additionally, the patient has a lactic acid of 5. Chemistry panel reveals the patient has an acute kidney injury, creatinine is 2.6. A few days ago in the ED the point of care creatinine level was normal. Urinalysis was not suggestive of a UTI. Blood cultures have been obtained and pending. Chest x-ray is similar to 01/08/2022, possible loss of lateral cardiac border. The source of sepsis is felt to possibly be pneumonia. After receiving the initial treatment for sepsis, the patient is minimally responsive but unable to provide valid any history. I discussed the patient with Lindsay Junior, the patient's aunt. Lindsay said the patient's code status is full code. 01/12: Sepsis physiology improving with decreasing fever trend, improvement in respiratory rate and heart rate, lactic acid downtrending, leukocytosis impro ving. Continues on 4 L/min nasal cannula oxygen. Hypernatremia improving. Making urine and renal function improving. [place] NAAT was negative. Patient is more alert today. CT chest showed bilateral pulmonary infiltrates in the dependent portions of both lungs, aspiration suspected. 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 Infectious work-up suggest that the cause of sepsis was pneumonia, likely aspiration pneumonia. We will continue broad-spectrum antibiotics for now awaiting 48 hours of blood culture results. Scrotum evaluated again, tender to palpation. The patient is unable to provide much history about how long this has been present. Will obtain a scrotal ultrasound and discuss with urology. Discontinued D5 as hypernatremia has nearly resolved. Speech consulted today, recommended starting dysphagia diet. 01/13: The patient continues to have intermittent fevers, scrotal ultrasound revealed a left hydrocele containing debris. Urology consulted, did not feel that the patient had an infected hydrocele however probably had a scrotal cellulitis. Possible scrotal cellulitis contributed to the patient's septic presentation, he may have developed an aspiration pneumonia when he became critically ill. Blood cultures are showing no growth to date. Overall the patient's sepsis physiology has improved, continue vancomycin, Zosyn and azithromycin. Platelets decreased significantly, holding heparin SQ for thrombocytopenia. Sodium level has normalized, renal function has normalized. According to multiple discussions with the care facility where the patient resides, the patient is likely near his baseline at this time. CODE STATUS discussed with family members, the decision to change CODE STATUS to DNR was made by his sister, Jessica Mayer, as his mother cannot make decisions due to a recent stroke. 01/14: Persistent fevers, continuing vancomycin IV and Zosyn. Completed 3 days of azithromycin. Preliminary blood culture results showing no growth to date. Urine culture pending. Repeat chest x-ray shows small patchy infiltrate at the right lung base. Leukocytosis has resolved, the patient does have thrombocytopenia therefore heparin was discontinued for DVT prophylaxis. IRVIN panel ordered. Bilateral lower extremity venous Doppler ordered to evaluate for DVT as a cause of persistent fevers. The patient otherwise has improved clinically on broad-spectrum antibiotics, oxygen requirement wean down to 1 L/min. Video swallow study performed, diet modified per speech recommendations. Continuing IV fluid. Continuing Devine catheter. Physical exam Head: Atraumatic, normal inspection. Eyes: normal appearance, no scleral icterus. Neck: full ROM Respiratory: Supplemental oxygen via oxymask, increased respiratory rate, distant breath sounds bilaterally, no wheezing Cardiovascular: Regular tachycardia, S1, S2. GI/Abdominal: soft, nontender, no guarding. : Scrotal erythema. Extremities: full range of motion, nontender. Neurological: Motor and sensation grossly intact. Psychiatric: Minimally responsive. Skin: warm, normal color Constitutional Vitals: Vital Signs Temp Pulse Resp BP Pulse Ox O2 Del Method O2 Flow Rate 100.1 F H 92 H 19 139/88 96 1 01/14/22 12:17 01/14/22 12:17 01/14/22 12:17 01/14/22 12:17 01/14/22 12:17 01/14/22 12:17 01/14/22 12:17 Period Temp Pulse Resp BP Sys/Delcid Pulse Ox O2 Del Method O2 Flow Rate Last 24 Hr 98.9 F-101.3 F 87-102 16-20 113-145/67-99 91-96 Nasal Cannula- Nasal Cannula 1-2.0 Intake and Output 01/13/22 01/14/22 01/14/22 21:59 05:59 13:59 Intake Total 499 953 1550 Output Total 220 800 260 Balance -105 -185 1030 Weight 97.159 kg Intake & Output: Intake & Output 01/13/22 01/14/22 01/14/22 21:59 05:59 13:59 Intake Total 639 019 6454 Output Total 220 800 260 Balance -105 -185 1030 Weight 97.159 kg Intake: IV 643 415 4425 Dextrose 5%-1/2Ns W/20Meq KCl 1 1000 ,000 ml @ 75 mls/hr IV .[id number] [facility] Rx#:[id number] Zosyn 4.5 gm In Dextrose 5% in 50 50 Water 50 ml @ 100 mls/hr IV Q8H [facility] Rx#:[id number] Vancomycin 1,500 mg In Sodium 500 Chloride 0.9% 500 ml @ 333.3 mls/hr IV Q12H [facility] Rx#: [id number] Rocephin 2 gm In Dextrose 5% in 50 Water 50 ml @ 100 mls/hr IV DAILY [facility] Rx#:[id number] Oral 240 Output: Urine Catheter Amount 220 800 260 Other: Urine Appearance Cloudy Cloudy Cloudy Uretheral (Devine) Cloudy Urine Color Tea Colored Dark Yellow Tea Colored Uretheral (Devine) Dark Yellow Blood Tinged Urine Odor Normal Stool Size Large Stool Color Brown Bright Red Blood Stool Consistency Soft # Bowel Movements 1 OBJ DATA Labs CBC & Chem 7: 01/14/22 06:08 01/14/22 08:03 Labs: Abnormal Lab Results 01/14/22 01/14/22 01/14/22 08:03 08:03 06:08 WBC RBC 3.53 L Hgb 10.2 L Hct 31.4 L Plt Count 71 L MPV 12.0 H Immature Gran % (Auto) Lymph # (Auto) [place] # (Auto) Lymphocytes % 13 L Immature Gran # Absolute Neutrophils Toxic Granulation Platelet Estimate Decreased A RBC Morphology Abnormal A Hypochromasia 2+ A Anisocytosis POC pH POC pO2 POC HCO3 POC ABG Base Excess POC VBG pCO2 at Temp POC VBG HCO3 POC VBG Total CO2 POC VBG Base Excess VBG Lactic Acid Hgb O2 Saturation POC Sodium Sodium POC Chloride Chloride 111 H Carbon Dioxide POC Total CO2 Anion Gap POC BUN BUN Creatinine POC Creatinine Glucose 155 H POC Glucose Hemoglobin A1c Uric Acid 2.2 L Calcium 8.1 L Phosphorus AST Alkaline Phosphatase Lactate Dehydrogenase Total Protein 5.1 L Albumin 2.9 L Triglycerides 150 H Procalcitonin 0.16 H Urine Appearance Urine Protein Urine Glucose (UA) Urine Ketones Urine Occult Blood Urine RBC Urine WBC Cellular Casts Hyaline Casts Urine Mucus 01/13/22 01/13/22 01/13/22 20:20 05:35 05:35 WBC RBC 3.93 L Hgb 11.6 L Hct 36.3 L Plt Count 76 L MPV 11.7 H Immature Gran % (Auto) Lymph # (Auto) [place] # (Auto) Lymphocytes % Immature Gran # Absolute Neutrophils Toxic Granulation Platelet Estimate Markedly decreased A RBC Morphology Hypochromasia Anisocytosis POC pH POC pO2 POC HCO3 POC ABG Base Excess POC VBG pCO2 at Temp POC VBG HCO3 POC VBG Total CO2 POC VBG Base Excess VBG Lactic Acid Hgb O2 Saturation POC Sodium Sodium POC Chloride Chloride 113 H Carbon Dioxide 21 L POC Total CO2 Anion Gap POC BUN BUN Creatinine POC Creatinine Glucose 164 H POC Glucose Hemoglobin A1c Uric Acid Calcium 8.5 L Phosphorus 2.4 L AST 50 H Alkaline Phosphatase Lactate Dehydrogenase 316 H Total Protein 5.8 L Albumin 3.0 L Triglycerides 234 H Procalcitonin Urine Appearance Cloudy A Urine Protein 100 mg/dl A Urine Glucose (UA) 100 mg/dl A Urine Ketones Urine Occult Blood Large A Urine RBC > 182 H Urine WBC 111 H Cellular Casts Hyaline Casts Urine Mucus Many A 01/12/22 01/12/22 01/12/22 15:37 11:20 04:34 WBC RBC Hgb Hct Plt Count MPV Immature Gran % (Auto) Lymph # (Auto) [place] # (Auto) Lymphocytes % Immature Gran # Absolute Neutrophils Toxic Granulation Platelet Estimate RBC Morphology Hypochromasia Anisocytosis POC pH POC pO2 POC HCO3 POC ABG Base Excess POC VBG pCO2 at Temp POC VBG HCO3 POC VBG Total CO2 POC VBG Base Excess VBG Lactic Acid Hgb O2 Saturation POC Sodium Sodium 146 H 147 H 155 H POC Chloride Chloride 116 H 117 H 120 H Carbon Dioxide 19 L 19 L POC Total CO2 Anion Gap POC BUN BUN 22 H 25 H 28 H Creatinine 1.3 H POC Creatinine Glucose 138 H 185 H 178 H POC Glucose Hemoglobin A1c 6.3 H Uric Acid Calcium 8.2 L 7.8 L 8.0 L Phosphorus AST 47 H Alkaline Phosphatase Lactate Dehydrogenase 324 H Total Protein Albumin Triglycerides 283 H Procalcitonin Urine Appearance Urine Protein Urine Glucose (UA) Urine Ketones Urine Occult Blood Urine RBC Urine WBC Cellular Casts Hyaline Casts Urine Mucus 01/12/22 01/11/22 01/11/22 04:34 23:07 23:07 WBC 16.6 H RBC Hgb Hct Plt Count 139 L MPV 11.3 H Immature Gran % (Auto) Lymph # (Auto) [place] # (Auto) Lymphocytes % Immature Gran # Absolute Neutrophils Toxic Granulation 1+ A Platelet Estimate Decreased A RBC Morphology Abnormal A Hypochromasia 1+ A Anisocytosis Occ A POC pH POC pO2 POC HCO3 POC ABG Base Excess POC VBG pCO2 at Temp POC VBG HCO3 POC VBG Total CO2 POC VBG Base Excess VBG Lactic Acid 2.8 H Hgb O2 Saturation POC Sodium Sodium 152 H POC Chloride Chloride 122 H Carbon Dioxide 17 L POC Total CO2 Anion Gap POC BUN BUN 42 H Creatinine 1.7 H POC Creatinine Glucose 179 H POC Glucose Hemoglobin A1c Uric Acid Calcium 8.0 L Phosphorus AST Alkaline Phosphatase Lactate Dehydrogenase Total Protein Albumin Triglycerides Procalcitonin Urine Appearance Urine Protein Urine Glucose (UA) Urine Ketones Urine Occult Blood Urine RBC Urine WBC Cellular Casts Hyaline Casts Urine Mucus 01/11/22 01/11/22 01/11/22 18:35 14:56 14:10 WBC RBC Hgb Hct Plt Count MPV Immature Gran % (Auto) Lymph # (Auto) [place] # (Auto) Lymphocytes % Immature Gran # Absolute Neutrophils Toxic Granulation Platelet Estimate RBC Morphology Hypochromasia Anisocytosis POC pH 7.27 L POC pO2 116 H POC HCO3 19.0 L POC ABG Base Excess -8.0 L POC VBG pCO2 at Temp POC VBG HCO3 POC VBG Total CO2 POC VBG Base Excess VBG Lactic Acid 3.0 H Hgb O2 Saturation 98.0 H POC Sodium Sodium POC Chloride Chloride Carbon Dioxide POC Total CO2 20.0 L Anion Gap POC BUN BUN Creatinine POC Creatinine Glucose POC Glucose Hemoglobin A1c Uric Acid Calcium Phosphorus 4.8 H AST Alkaline Phosphatase 36 L Lactate Dehydrogenase 349 H Total Protein Albumin Triglycerides 309 H Procalcitonin Urine Appearance Urine Protein 100 mg/dl A Urine Glucose (UA) Urine Ketones Trace A Urine Occult Blood Trace-intact A Urine RBC Urine WBC 6 H Cellular Casts 1 H Hyaline Casts 43 H Urine Mucus Few A 01/11/22 01/11/22 01/11/22 14:01 14:00 13:50 WBC 22.0 H RBC 6.43 H Hgb 18.9 H Hct 57.5 H Plt Count MPV 11.0 H Immature Gran % (Auto) 0.8 H Lymph # (Auto) 5.27 H [place] # (Auto) 2.14 H Lymphocytes % Immature Gran # 0.17 H Absolute Neutrophils 14.27 H Toxic Granulation Platelet Estimate RBC Morphology Hypochromasia Anisocytosis POC pH POC pO2 POC HCO3 POC ABG Base Excess POC VBG pCO2 at Temp POC VBG HCO3 POC VBG Total CO2 POC VBG Base Excess VBG Lactic Acid Hgb O2 Saturation POC Sodium 160 H Sodium 159 H POC Chloride 127 H Chloride 119 H Carbon Dioxide 17 L POC Total CO2 19.0 L Anion Gap 23.0 H POC BUN 49 H BUN 45 H Creatinine 2.6 H POC Creatinine 3.0 H Glucose 226 H POC Glucose 230 H Hemoglobin A1c Uric Acid Calcium Phosphorus AST Alkaline Phosphatase Lactate Dehydrogenase Total Protein 8.5 H Albumin Triglycerides Procalcitonin Urine Appearance Urine Protein Urine Glucose (UA) Urine Ketones Urine Occult Blood Urine RBC Urine WBC Cellular Casts Hyaline Casts Urine Mucus 01/11/22 13:44 WBC RBC Hgb Hct Plt Count MPV Immature Gran % (Auto) Lymph # (Auto) [place] # (Auto) Lymphocytes % Immature Gran # Absolute Neutrophils Toxic Granulation Platelet Estimate RBC Morphology Hypochromasia Anisocytosis POC pH POC pO2 POC HCO3 POC ABG Base Excess POC VBG pCO2 at Temp 37.0 L POC VBG HCO3 20.2 L POC VBG Total CO2 21.0 L POC VBG Base Excess -6.0 L VBG Lactic Acid 5.0 H* Hgb O2 Saturation POC Sodium Sodium POC Chloride Chloride Carbon Dioxide POC Total CO2 Anion Gap POC BUN BUN Creatinine POC Creatinine Glucose POC Glucose Hemoglobin A1c Uric Acid Calcium Phosphorus AST Alkaline Phosphatase Lactate Dehydrogenase Total Protein Albumin Triglycerides Procalcitonin Urine Appearance Urine Protein Urine Glucose (UA) Urine Ketones Urine Occult Blood Urine RBC Urine WBC Cellular Casts Hyaline Casts Urine Mucus Meds: Medications Acetaminophen (Acetaminophen 325 Mg Tablet) 650 mg PO Q4-6HP PRN; Protocol PRN Reason: Per Pain Protocol/Fever > 101 Albuterol Sulfate (Albuterol Sulfate 200 Puff Inhaler) 2 puff INH DAILYP PRN PRN Reason: Shortness Of Breath Albuterol/Ipratropium (Ipratropium/Albuterol 3 Ml Ampul.Neb) 3 ml NEB Q4HP PRN PRN Reason: Shortness Of Breath Aspirin (Aspirin 81 Mg Tab.Chew) 81 mg PO DAILY [facility] Last Admin: 01/14/22 10:45 Dose: 81 mg Atorvastatin Calcium (Atorvastatin 40 Mg Tablet) 40 mg PO HS [facility] Last Admin: 01/13/22 21:32 Dose: 40 mg Dextrose (Dextrose 50% 50 Ml Vial) 0 ml IV UD PRN PRN Reason: Per Sliding Scale Diagnostic Test (Pha) (Accu-Chek 1 Each Strip) 1 each FS ACHS [facility] Last Admin: 01/14/22 11:36 Dose: 1 each Divalproex Sodium (Divalproex 125 Mg Cap.Sprink) 625 mg PO BID [facility] Last Admin: 01/14/22 11:08 Dose: 625 mg Fluticasone Propionate (Fluticasone Hfa 110mcg Inhaler) 2 puff INH BID [facility] Last Admin: 01/14/22 07:37 Dose: Not Given Glucose (Dextrose 31 Gm Oral.Susp) 15 gm PO PRN PRN PRN Reason: Hypoglycemia Sodium Chloride (Sodium Chloride 0.9%) 250 mls @ 20 mls/hr IV .[id number] [facility] Last Admin: 01/14/22 03:22 Dose: Not Given Acetaminophen (Ofirmev) 650 mg in 65 mls @ 130 mls/hr IV Q6HP PRN; Protocol PRN Reason: PAIN/FEVER > 101 Last Infusion: 01/14/22 05:12 Dose: Infused Norepinephrine Bitartrate 8 mg (/ Sodium Chloride) 250 mls @ 18.75 mls/hr IV Q12HP PRN; Protocol PRN Reason: Hypotension Potassium Chloride/Dextrose/Sod Cl (Dextrose 5%-1/2ns W/20meq Kcl) 1,000 mls @ 75 mls/hr IV .[id number] [facility] Last Infusion: 01/14/22 11:37 Dose: Infused Vancomycin HCl 1,500 mg/ (Sodium Chloride) 500 mls @ 333.3 mls/hr IV Q12H [facility] Last Admin: 01/14/22 10:37 Dose: 333 mls/hr Piperacillin Sod/Tazobactam (Sod 4.5 gm/ Dextrose) 50 mls @ 100 mls/hr IV Q8H [facility]; Protocol Last Admin: 01/14/22 13:13 Dose: 100 mls/hr Insulin Human Lispro (Insulin Lispro 1 Unit/0.01 Ml Unit) 0 unit SQ ACHS [facility]; Protocol Last Admin: 01/14/22 11:36 Dose: 2 unit Metoprolol Tartrate (Metoprolol Tartrate 25 Mg Tablet) 25 mg PO BID [facility] Last Admin: 01/14/22 11:09 Dose: 25 mg Nystatin (Nystatin Powder Bottle 15gm) 1 dose TOPICAL TIDP PRN PRN Reason: Skin Irritation Quetiapine Fumarate (Quetiapine 100 Mg Tablet) 300 mg PO TID [facility] Last Admin: 01/14/22 10:46 Dose: 300 mg Sertraline HCl (Sertraline 100 Mg Tablet) 100 mg PO BID [facility] Last Admin: 01/14/22 10:45 Dose: 100 mg Sodium Chloride (0.9 % Sodium Chloride 10 Ml Syringe) 10 ml IV Q8 [facility] Last Admin: 01/14/22 05:31 Dose: Not Given Tamsulosin HCl (Tamsulosin 0.4 Mg Capsule) 0.4 mg PO QHS [facility] Last Admin: 01/13/22 21:32 Dose: 0.4 mg Vancomycin HCl (Vancomycin Per Pharmacy) 1 order IV UD [facility]; Protocol A/P Narrative A/P Narrative: Assessment: 51-year-old male with a past medical history of traumatic brain injury, possible prior stroke who resides in a [facility] admitted for septic shock complicated by acute kidney injury and hypernatremia. Source of infection was probably scrotal cellulitis and possibly aspiration pneumonia. [place] SARS-CoV-2, influenza A, influenza B was negative. Pulmonary imaging was suggestive of aspiration pneumonia. The patient also had severe scrotal erythema, a scrotal ultrasound revealed a left hydrocele containing debris concerning for possible infection. Urology consulted and felt the patient had scrotal cellulitis but that the hydrocele was unlikely to be infected. Sepsis physiology improved with broad-spectrum antibiotics and IV fluid however the patient continued to have fevers. #Resolved septic shock likely secondary to scrotal cellulitis and pneumonia #Community acquired aspiration pneumonia #Scrotal cellulitis #Persistent fevers #Thrombocytopenia #Dysphagia, likely chronic #Resolved acute kidney injury secondary to septic shock #Resolved encephalopathy #Resolved hypernatremia #Left hydrocele #Decubitus pressure injuries, present on admission #Hyperglycemia secondary to D5 IV fluid and prediabetes #Prediabetes, hemoglobin A1c 6.3 #History of traumatic brain injury #History of stroke #Wheelchair-bound status Plan -Continue Vancomycin IV and Zosyn, completed azithromycin. -Follow blood cultures. -Bilateral lower extremity venous duplex ultrasound for persistent fevers. -Consider transthoracic echocardiogram to evaluate for endocarditis. -D5 half NS KCl IV fluid. -Continue Devine catheter for now. -Topical nystatin for scrotal erythema, monitor. -IRVIN ab panel. -Monitor platelet level, electrolytes and renal function. -Correction Humalog SSImedium. -Continue home Lopressor, Depakote, atorvastatin. -Continue home aspirin, fluticasone, albuterol as needed, Seroquel, Flomax. -Holding home metformin, lisinopril, hydralazine. -Dysphagia diet per speech recommendation. -Urology consulted for scrotal erythema and possibly infected left hydrocele. -PT, OT, speech therapy consults. -Wound cares. -DVT prophylaxis: SCDs -CODE STATUS: DNR/DNI -Disposition: TBD Time Spent With Patient Time: Total time spent is greater than 50% in coordination of care (as documented) at patient's floor/unit and/or counseling patient: QUALITY VTE Deep Vein Thrombosis/Pulmonary Embolism Present on Admission: No
[2022-01-14] MEDS: DEXTROSE 5%-1/2NS W/20MEQ KCL 1,000 ML IV SCH ×2 (14:36→14:42)
--- NOTE | 2022-01-14 16:20 | Ultrasound Report ---
CLINICAL INFORMATION: Bilateral leg pain and swelling COMPARISON: None. FINDINGS: The entire deep venous system both lower extremities including the common femoral, superficial femoral, popliteal and paired trifurcation calf veins are easily compressible and show normal venous blood flow on color and spectral Doppler. No evidence of thrombus IMPRESSION: Negative exam - no evidence of deep vein thrombosis in both lower extremity. Interpreted and Authenticated by: Rosendo Donahue 01/14/22
--- NOTE | 2022-01-14 17:41 | XRay Report ---
CLINICAL INFORMATION: History of CVA. Possible aspiration TECHNIQUE: Thin and thick walled a barium and pureed foods were administered while deglutition was observed fluoroscopically. Total fluoroscopy time: One minute 47 seconds FINDINGS: There is discoordinated tongue elevation and palate depression resulting in prolonged oral phase and delayed transfer from the oral cavity to the pharyngeal region. The nasopharyngeus closes normally. Pharyngeal stripping, cricopharyngeal opening, and proximal primary peristaltic wave are normal. The epiglottis and vocal cords closed incompletely on two episodes of thin barium deglutition allowing trace amount of penetration into the laryngeal vestibule. The thicker quality barium and pureed foods not aspirated The esophagus is normal in contour and caliber without evidence of esophagitis or focal lesion. No hiatal hernia or reflux could be induced. IMPRESSION: 1. Discoordinated oral phase the lesion modest delay in transfer from the oral cavity to the pharyngeal region. 2. Trace aspiration on thin quality barium due to incomplete epiglottis and vocal cord closure. Other substances were well tolerated. Please see speech pathology report Interpreted and Authenticated by: Rosendo Donahue 01/14/22
[2022-01-14] MEDS: TAMSULOSIN 0.4 MG CAPSULE PO SCH (20:14)
[2022-01-14] MEDS: ATORVASTATIN 40 MG TABLET PO SCH (20:15)
[2022-01-15] MEDS: PIPERACILLIN SODIUM/TAZOBACTAM 4.5 GM in DEXTROSE 5% IN WATER 50 ML IV SCH (04:59)
[2022-01-15] MEDS: 0.9 % SODIUM CHLORIDE 10 ML SYRINGE IV SCH ×3 (05:43→22:27)
[2022-01-15 07:30] LABS: Hematocrit 31.6 % (40.1-51.0); Hemoglobin 10.6 g/dL (13.7-17.5); Mean Cell Volume 88.8 fL (80.0-100.0); Mean Corpuscular HGB Conc 33.5 g/dL (31.0-36.0); Mean Platelet Volume 11.7 fL (7.4-10.4); Platelet Count 107 K/mcL (140-440); RBC 3.56 M/mcL (4.63-6.08); WBC 4.7 K/mcL (4.5-11.0)
[2022-01-15] MEDS: INSULIN LISPRO 1 UNIT/0.01 ML UNIT SQ SCH ×4 (07:43→20:37)
[2022-01-15] MEDS: MEROPENEM 2 GM in 0.9 % SODIUM CHLORIDE 50 ML IV SCH ×3 (08:00→22:21)
[2022-01-15 08:03] LABS: ALT/SGPT 24 U/L (<40); AST/SGOT 23 U/L (<40); Albumin 2.8 gm/dL (3.2-5.2); Alkaline Phosphatase 57 U/L (39-117); Bilirubin,Direct < 0.2 mg/dL (0-0.3); Bilirubin,Total 0.3 mg/dL (0.1-1.0); Blood Urea Nitrogen 11 mg/dL (6-20); Calcium 8.4 mg/dL (8.6-10.4); Carbon Dioxide 23 mmol/L (22-30); Chloride 113 mmol/L (96-108); Globulin 2.9 gm/dL (2.2-3.7); Glomerular Filtration Rate 117; Glucose 142 mg/dL (70-105); Lactate Dehydrogenase 217 U/L (135-225); Phosphorous 3.1 mg/dL (2.5-4.5); Triglycerides 143 mg/dL (<150); Uric Acid 2.1 mg/dL (2.5-8.0)
--- NOTE | 2022-01-15 08:35 | Internal Med Progress Note ---
SUBJECTIVE Subjective Patient information: Note initiated : 01/15/22 at 8:32 am Service Date, if different from initiated Date: [] Patient: Corona Mayer 51 y/o M admitted on 01/11/22 for altered loc. Chief Complaint: [] Interval history: Mr. Mayer is a 51 year old male with a past medical history of traumatic brain injury and possibly prior stroke resides in a long term house who was brought to the emergency department for confusion. The patient was seen at the [facility] emergency department on 01/08/2022 for fever, felt to have pneumonia based on chest x-ray showing nonspecific vague opacities bilaterally and discharged with a prescription for doxycycline. Today, the patient was brought in by EMS and was initially unresponsive. In the emergency department, the patient is found to be septic requiring Levophed and vasopressin while the patient was resuscitated with IV normal saline as well as started on broad-spectrum antibiotics. Blood pressure improved with vasopressors. The patient was tachypneic, tachycardic and had a fever of 102.6. In the ED, the patient was requiring oxygen supplementation via nonrebreather mask. White blood cell count is 22,000, up from 6.9 on 01/08/2022. Additionally, the patient has a lactic acid of 5. Chemistry panel reveals the patient has an acute kidney injury, creatinine is 2.6. A few days ago in the ED the point of care creatinine level was normal. Urinalysis was not suggestive of a UTI. Blood cultures have been obtained and pending. Chest x-ray is similar to 01/08/2022, possible loss of lateral cardiac border. The source of sepsis is felt to possibly be pneumonia. After receiving the initial treatment for sepsis, the patient is minimally responsive but unable to provide valid any history. I discussed the patient with Lindsay Junior, the patient's aunt. Lindsay said the patient's code status is full code. 01/12: Sepsis physiology improving with decreasing fever trend, improvement in respiratory rate and heart rate, lactic acid downtrending, leukocytosis impro ving. Continues on 4 L/min nasal cannula oxygen. Hypernatremia improving. Making urine and renal function improving. [place] NAAT was negative. Patient is more alert today. CT chest showed bilateral pulmonary infiltrates in the dependent portions of both lungs, aspiration suspected. 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 Infectious work-up suggest that the cause of sepsis was pneumonia, likely aspiration pneumonia. We will continue broad-spectrum antibiotics for now awaiting 48 hours of blood culture results. Scrotum evaluated again, tender to palpation. The patient is unable to provide much history about how long this has been present. Will obtain a scrotal ultrasound and discuss with urology. Discontinued D5 as hypernatremia has nearly resolved. Speech consulted today, recommended starting dysphagia diet. 01/13: The patient continues to have intermittent fevers, scrotal ultrasound revealed a left hydrocele containing debris. Urology consulted, did not feel that the patient had an infected hydrocele however probably had a scrotal cellulitis. Possible scrotal cellulitis contributed to the patient's septic presentation, he may have developed an aspiration pneumonia when he became critically ill. Blood cultures are showing no growth to date. Overall the patient's sepsis physiology has improved, continue vancomycin, Zosyn and azithromycin. Platelets decreased significantly, holding heparin SQ for thrombocytopenia. Sodium level has normalized, renal function has normalized. According to multiple discussions with the care facility where the patient resides, the patient is likely near his baseline at this time. CODE STATUS discussed with family members, the decision to change CODE STATUS to DNR was made by his sister, Jessica Mayer, as his mother cannot make decisions due to a recent stroke. 01/14: Persistent fevers, continuing vancomycin IV and Zosyn. Completed 3 days of azithromycin. Preliminary blood culture results showing no growth to date. Urine culture pending. Repeat chest x-ray shows small patchy infiltrate at the right lung base. Leukocytosis has resolved, the patient does have thrombocytopenia therefore heparin was discontinued for DVT prophylaxis. IRVIN panel ordered. Bilateral lower extremity venous Doppler ordered to evaluate for DVT as a cause of persistent fevers. The patient otherwise has improved clinically on broad-spectrum antibiotics, oxygen requirement wean down to 1 L/min. Video swallow study performed, diet modified per speech recommendations. Continuing IV fluid. Continuing Devine catheter. 01/15: Continues to have high-grade temperatures, on 2 L/min nasal oxygen supple mentation. Leukocytosis has resolved, procalcitonin 1.10, vitals have significantly improved overall since admission. Source of persistent temperatures and fevers unknown. Preliminary blood culture results showing no growth to date, urine culture pending. Sputum sample for gram stain and culture was contaminated. Recent CT abdomen pelvis with contrast did not show any intra-abdominal or intrapelvic source of infection. Ordered beta D glucagen, radiology preferred lumbar puncture with CFS analysis and meningitis encephalitis panel, transthoracic echocardiogram. Bilateral lower extremity venous duplex was negative. Substituted meropenem for Zosyn, started caspofungin. Continue vancomycin IV. Remove Devine catheter. Platelet count improving, mild hypernatremia today. Physical exam Head: Atraumatic, normal inspection. Eyes: normal appearance, no scleral icterus. Neck: full ROM Respiratory: Supplemental oxygen via oxymask, bilateral crackles, no wheezing. Cardiovascular: Normal rate, S1, S2. GI/Abdominal: soft, nontender, no guarding. : Scrotal erythema improving. Extremities: full range of motion, nontender. Neurological: Motor and sensation grossly intact. Psychiatric: Minimally responsive. Skin: warm, normal color Constitutional Vitals: Vital Signs Temp Pulse Resp BP Pulse Ox O2 Del Method O2 Flow Rate 99.0 F 91 H 16 124/109 98 2 01/15/22 04:02 01/15/22 00:00 01/15/22 04:02 01/15/22 04:02 01/15/22 04:02 01/15/22 06:46 01/15/22 06:46 Period Temp Pulse Resp BP Sys/Delcid Pulse Ox O2 Del Method O2 Flow Rate Last 24 Hr 92.7 F-100.1 F 84-92 16-19 119-139/76-109 94-98 Nasal Cannula- Nasal Cannula 1-2 Intake and Output 01/14/22 01/15/22 01/15/22 21:59 05:59 13:59 Intake Total 1560 50 Output Total 685 650 61 Balance 875 -600 -61 Weight 96.933 kg Intake & Output: Intake & Output 01/14/22 01/15/22 01/15/22 21:59 05:59 13:59 Intake Total 1560 50 Output Total 685 650 61 Balance 875 -600 -61 Weight 96.933 kg Intake: Nourishment/Supplement quantity 360 (ml) IV 1050 50 Zosyn 4.5 gm In Dextrose 5% in 50 50 Water 50 ml @ 100 mls/hr IV Q8H [facility] Rx#:[id number] Vancomycin 1,500 mg In Sodium 1000 Chloride 0.9% 500 ml @ 333.3 mls/hr IV Q12H [facility] Rx#: [id number] Oral 150 Output: Urine Catheter Amount 685 650 60 # of times incontinent of urine 1 Other: Meal Dinner Percent of Meal Consumed 100% Feeding Ability Independent Nourishment/Supplement name ensure Urine Appearance Clear Clear Clear Sediment Sediment Uretheral (Devine) Cloudy Small Blood Clots Urine Color Bright Yellow Dark Yellow Yellow Uretheral (Devine) Dark Yellow Stool Size Copious Smear Stool Color Brown Stool Consistency Soft Loose # of times incontinent of 1 1 Bowels OBJ DATA Labs CBC & Chem 7: 01/15/22 05:47 01/15/22 05:47 Labs: Abnormal Lab Results 01/15/22 01/15/22 01/15/22 05:47 05:47 05:47 RBC 3.56 L Hgb 10.6 L Hct 31.6 L Plt Count 107 L MPV 11.7 H Lymphocytes % Platelet Estimate RBC Morphology Hypochromasia Sodium 147 H Potassium 3.2 L Chloride 113 H Carbon Dioxide BUN Creatinine 0.6 L Glucose 142 H Uric Acid 2.1 L Calcium 8.4 L Phosphorus AST Lactate Dehydrogenase Total Protein 5.7 L Albumin 2.8 L Triglycerides Procalcitonin 0.10 H Urine Appearance Urine Protein Urine Glucose (UA) Urine Occult Blood Urine RBC Urine WBC Urine Mucus 01/14/22 01/14/22 01/14/22 18:01 08:03 08:03 RBC Hgb 10.5 L Hct Plt Count MPV Lymphocytes % Platelet Estimate RBC Morphology Hypochromasia Sodium Potassium Chloride 111 H Carbon Dioxide BUN Creatinine Glucose 155 H Uric Acid 2.2 L Calcium 8.1 L Phosphorus AST Lactate Dehydrogenase Total Protein 5.1 L Albumin 2.9 L Triglycerides 150 H Procalcitonin 0.16 H Urine Appearance Urine Protein Urine Glucose (UA) Urine Occult Blood Urine RBC Urine WBC Urine Mucus 01/14/22 01/13/22 01/13/22 06:08 20:20 05:35 RBC 3.53 L Hgb 10.2 L Hct 31.4 L Plt Count 71 L MPV 12.0 H Lymphocytes % 13 L Platelet Estimate Decreased A RBC Morphology Abnormal A Hypochromasia 2+ A Sodium Potassium Chloride 113 H Carbon Dioxide 21 L BUN Creatinine Glucose 164 H Uric Acid Calcium 8.5 L Phosphorus 2.4 L AST 50 H Lactate Dehydrogenase 316 H Total Protein 5.8 L Albumin 3.0 L Triglycerides 234 H Procalcitonin Urine Appearance Cloudy A Urine Protein 100 mg/dl A Urine Glucose (UA) 100 mg/dl A Urine Occult Blood Large A Urine RBC > 182 H Urine WBC 111 H Urine Mucus Many A 01/13/22 01/12/22 01/12/22 05:35 15:37 11:20 RBC 3.93 L Hgb 11.6 L Hct 36.3 L Plt Count 76 L MPV 11.7 H Lymphocytes % Platelet Estimate Markedly decreased A RBC Morphology Hypochromasia Sodium 146 H 147 H Potassium Chloride 116 H 117 H Carbon Dioxide 19 L 19 L BUN 22 H 25 H Creatinine Glucose 138 H 185 H Uric Acid Calcium 8.2 L 7.8 L Phosphorus AST Lactate Dehydrogenase Total Protein Albumin Triglycerides Procalcitonin Urine Appearance Urine Protein Urine Glucose (UA) Urine Occult Blood Urine RBC Urine WBC Urine Mucus Meds: Medications Acetaminophen (Acetaminophen 325 Mg Tablet) 650 mg PO Q4-6HP PRN; Protocol PRN Reason: Per Pain Protocol/Fever > 101 Albuterol Sulfate (Albuterol Sulfate 200 Puff Inhaler) 2 puff INH DAILYP PRN PRN Reason: Shortness Of Breath Albuterol/Ipratropium (Ipratropium/Albuterol 3 Ml Ampul.Neb) 3 ml NEB Q4HP PRN PRN Reason: Shortness Of Breath Atorvastatin Calcium (Atorvastatin 40 Mg Tablet) 40 mg PO HS [facility] Last Admin: 01/14/22 20:15 Dose: 40 mg Dextrose (Dextrose 50% 50 Ml Vial) 0 ml IV UD PRN PRN Reason: Per Sliding Scale Diagnostic Test (Pha) (Accu-Chek 1 Each Strip) 1 each FS ACHS [facility] Last Admin: 01/15/22 07:42 Dose: 1 each Divalproex Sodium (Divalproex 125 Mg Cap.Sprink) 625 mg PO BID [facility] Last Admin: 01/14/22 20:14 Dose: 625 mg Fluticasone Propionate (Fluticasone Hfa 110mcg Inhaler) 2 puff INH BID [facility] Last Admin: 01/14/22 20:16 Dose: Not Given Glucose (Dextrose 31 Gm Oral.Susp) 15 gm PO PRN PRN PRN Reason: Hypoglycemia Acetaminophen (Ofirmev) 650 mg in 65 mls @ 130 mls/hr IV Q6HP PRN; Protocol PRN Reason: PAIN/FEVER > 101 Last Infusion: 01/14/22 05:12 Dose: Infused Norepinephrine Bitartrate 8 mg (/ Sodium Chloride) 250 mls @ 18.75 mls/hr IV Q12HP PRN; Protocol PRN Reason: Hypotension Vancomycin HCl 1,500 mg/ (Sodium Chloride) 500 mls @ 333.3 mls/hr IV Q12H [facility] Last Infusion: 01/14/22 21:46 Dose: Infused Potassium Chloride/Dextrose/Sod Cl (Dextrose 5%-1/2ns W/20meq Kcl) 1,000 mls @ 50 mls/hr IV .Q20H [facility] Last Admin: 01/14/22 14:36 Dose: 50 mls/hr Meropenem 2 gm/ Sodium (Chloride) 50 mls @ 100 mls/hr IV Q8H [facility]; Protocol Last Admin: 01/15/22 08:00 Dose: 100 mls/hr Caspofungin 70 mg/ Sodium (Chloride) 250 mls @ 250 mls/hr IV ONCE ONE; Protocol Stop: 01/15/22 09:59 Caspofungin 50 mg/ Sodium (Chloride) 250 mls @ 250 mls/hr IV Q24H [facility]; Protocol Insulin Human Lispro (Insulin Lispro 1 Unit/0.01 Ml Unit) 0 unit SQ ACHS [facility]; Protocol Last Admin: 01/15/22 07:43 Dose: 2 unit Metoprolol Tartrate (Metoprolol Tartrate 25 Mg Tablet) 25 mg PO BID [facility] Last Admin: 01/14/22 20:14 Dose: 25 mg Nystatin (Nystatin Powder Bottle 15gm) 1 dose TOPICAL TIDP PRN PRN Reason: Skin Irritation Quetiapine Fumarate (Quetiapine 100 Mg Tablet) 300 mg PO TID [facility] Last Admin: 01/14/22 20:14 Dose: 300 mg Sertraline HCl (Sertraline 100 Mg Tablet) 100 mg PO BID [facility] Last Admin: 01/14/22 20:15 Dose: 100 mg Sodium Chloride (0.9 % Sodium Chloride 10 Ml Syringe) 10 ml IV Q8 [facility] Last Admin: 01/15/22 05:43 Dose: 10 ml Tamsulosin HCl (Tamsulosin 0.4 Mg Capsule) 0.4 mg PO QHS [facility] Last Admin: 01/14/22 20:14 Dose: 0.4 mg Vancomycin HCl (Vancomycin Per Pharmacy) 1 order IV [facility]; Protocol A/P Narrative A/P Narrative: Assessment: 51-year-old male with a past medical history of traumatic brain injury and prior stroke who resides at an adult family home admitted for septic shock complicated by acute kidney injury and hypernatremia. The patient was treated with broad-spectrum antibiotics, IV fluids. He initially required Levophed and vasopressin which were weaned off sequentially as septic shock resolved. The source of infection was probably scrotal cellulitis and aspir ation pneumonia which probably occurred when the patient became obtunded. Pulmonary imaging was suggestive of aspiration pneumonia. The patient also had severe scrotal erythema, a scrotal ultrasound revealed a left hydrocele containing debris concerning for possible infection. Urology consulted and felt the patient had scrotal cellulitis but that the hydrocele was unlikely to be infected. [place] SARS-CoV-2, influenza A, influenza B was negative. [place] NAAT was negative. Sepsis physiology resolved with broad-spectrum antibiotics and IV fluid however the patient continued to have high-grade temperatures and fevers of uncertain etiology. Patient had an acute drop in platelet levels of uncertain cause however it could have been due to hemoconcentration at admission. Heparin SQ was discontinued, IRVIN antibody panel was ordered. Bilateral lower extremity venous duplex was negative for DVT. #Resolved septic shock likely secondary to scrotal cellulitis and pneumonia #Persistent high-grade temperatures and fevers #Community acquired aspiration pneumonia #Scrotal cellulitis #Thrombocytopenia #Hypernatremia #Dysphagia, likely chronic #Resolved acute kidney injury secondary to septic shock #Resolved encephalopathy #Left hydrocele #Decubitus pressure injuries, present on admission #Hyperglycemia secondary to D5 IV fluid and prediabetes #Prediabetes, hemoglobin A1c 6.3 #History of traumatic brain injury #History of stroke #Wheelchair-bound status Plan -Continue Vancomycin IV, start meropenem and discontinue Zosyn, completed 3 days of azithromycin. -Start empiric caspofungin. -Radiology performed a lumbar puncture with CSF analysis, meningitis/encephalitis panel. -Transthoracic echocardiogram. -Beta D glucagen level. -Follow blood and urine cultures. -D5 half NS KCl IV fluid. -Remove Devine catheter. -Topical nystatin for scrotal erythema, monitor. -Follow IRVIN ab panel results. -Monitor platelet level, electrolytes and renal function. -Correction Humalog SSImedium. -Continue home Lopressor, Depakote, atorvastatin aspirin, fluticasone, albuterol as needed, Seroquel, Flomax. -Holding home metformin, lisinopril, hydralazine. -Dysphagia diet per speech recommendation. -Urology was consulted for scrotal erythema and possibly infected left hydrocele. -PT, OT, speech therapy consults. -Wound cares. -DVT prophylaxis: SCDs for recent acute drop in platelet level -CODE STATUS: DNR/DNI -Disposition: TBD Time Spent With Patient Time: Total time spent is greater than 50% in coordination of care (as documented) at patient's floor/unit and/or counseling patient: QUALITY VTE Deep Vein Thrombosis/Pulmonary Embolism Present on Admission: No
[2022-01-15] MEDS ORDERED: CASPOFUNGIN ACETATE 70 MG in 0.9 % SODIUM CHLORIDE 250 ML IV ONE (09:00)
[2022-01-15 09:48] LABS: Band Neutrophils % 4 % (0-10); Basophils % (Manual) 1 % (0-2); Eosinophils % (Manual) 5 % (0-7); Lymphocytes % 21 % (15-49); Monocytes % (Manual) 5 % (1-12); Platelet Estimate DECREASED (Normal); RBC Morphology NORMAL (Normal); Segmented Neutrophils % 64 % (38-78)
[2022-01-15] MEDS: VANCOMYCIN 1,500 MG in 0.9 % SODIUM CHLORIDE 500 ML IV SCH (10:14)
[2022-01-15] MEDS ORDERED: LORazepam 2 MG/ML VIAL IV SCH (10:30)
[2022-01-15] MEDS: METOPROLOL TARTRATE 25 MG TABLET PO SCH ×2 (10:47→20:17)
[2022-01-15] MEDS: QUEtiapine 100 MG TABLET PO SCH ×3 (10:47→20:16)
[2022-01-15] MEDS: SERTRALINE 100 MG TABLET PO SCH (10:48)
[2022-01-15] MEDS: FLUTICASONE HFA 110MCG INHALER INH SCH ×2 (10:48→20:17)
[2022-01-15] MEDS: DIVALPROEX 125 MG CAP.SPRINK PO SCH ×2 (10:48→20:16)
[2022-01-15] MEDS ORDERED: LIDOCAINE 1% 20 ML VIAL SQ ONE (11:49)
[2022-01-15] MEDS: DEXTROSE 5%-1/2NS W/20MEQ KCL 1,000 ML IV SCH (12:04)
--- NOTE | 2022-01-15 12:27 | XRay Report ---
CLINICAL INFORMATION: Persistent fevers and decreased level consciousness COMPARISON: None. TECHNIQUE: The procedure and risks including the possibility of bleeding, infection, and CSF leak requiring blood patch were explained to the patient. He understood and wished to proceed. Under fluoroscopic guidance, the right L3 intralaminar region was marked, prepped and locally anesthetized with 1% Lidocaine using a 25 gauge needle. A 22 gauge spinal needle was advanced, under fluoroscopy, through the intralaminar space into the thecal sac. Approximately 3 cc of clear CSF was aspirated and sent to pathology for requested studies. There was no apparent complication. The patient tolerated procedure well. Total fluoroscopy time: 19 seconds IMPRESSION: Successful fluoroscopic guided lumbar puncture yielding 3 cc of clear CSF. Unfortunately, additional fluid could not be aspirated No apparent complications. Interpreted and Authenticated by: Rosendo Donahue 01/15/22
--- NOTE | 2022-01-15 14:08 | Internal Med Progress Note ---
SUBJECTIVE Subjective Patient information: Note initiated : 01/15/22 at 1:57 pm Service Date, if different from initiated Date: [] Patient: Corona Mayer 51 y/o M admitted on 01/11/22 for altered loc. Chief Complaint: [] Interval history: Mr. Mayer is a 51 year old male with a past medical history of traumatic brain injury and possibly prior stroke resides in a skilled nursing house who was brought to the emergency department for confusion. The patient was seen at the [facility] emergency department on 01/08/2022 for fever, felt to have pneumonia based on chest x-ray showing nonspecific vague opacities bilaterally and discharged with a prescription for doxycycline. Today, the patient was brought in by EMS and was initially unresponsive. In the emergency department, the patient is found to be septic requiring Levophed and vasopressin while the patient was resuscitated with IV normal saline as well as started on broad-spectrum antibiotics. Blood pressure improved with vasopressors. The patient was tachypneic, tachycardic and had a fever of 102.6. In the ED, the patient was requiring oxygen supplementation via nonrebreather mask. White blood cell count is 22,000, up from 6.9 on 01/08/2022. Additionally, the patient has a lactic acid of 5. Chemistry panel reveals the patient has an acute kidney injury, creatinine is 2.6. A few days ago in the ED the point of care creatinine level was normal. Urinalysis was not suggestive of a UTI. Blood cultures have been obtained and pending. Chest x-ray is similar to 01/08/2022, possible loss of lateral cardiac border. The source of sepsis is felt to possibly be pneumonia. After receiving the initial treatment for sepsis, the patient is minimally responsive but unable to provide valid any history. I discussed the patient with Lindsay Junior, the patient's aunt. Lindsay said the patient's code status is full code. 01/12: Sepsis physiology improving with decreasing fever trend, improvement in respiratory rate and heart rate, lactic acid downtrending, leukocytosis impro ving. Continues on 4 L/min nasal cannula oxygen. Hypernatremia improving. Making urine and renal function improving. [place] NAAT was negative. Patient is more alert today. CT chest showed bilateral pulmonary infiltrates in the dependent portions of both lungs, aspiration suspected. 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 Infectious work-up suggest that the cause of sepsis was pneumonia, likely aspiration pneumonia. We will continue broad-spectrum antibiotics for now awaiting 48 hours of blood culture results. Scrotum evaluated again, tender to palpation. The patient is unable to provide much history about how long this has been present. Will obtain a scrotal ultrasound and discuss with urology. Discontinued D5 as hypernatremia has nearly resolved. Speech consulted today, recommended starting dysphagia diet. 01/13: The patient continues to have intermittent fevers, scrotal ultrasound revealed a left hydrocele containing debris. Urology consulted, did not feel that the patient had an infected hydrocele however probably had a scrotal cellulitis. Possible scrotal cellulitis contributed to the patient's septic presentation, he may have developed an aspiration pneumonia when he became critically ill. Blood cultures are showing no growth to date. Overall the patient's sepsis physiology has improved, continue vancomycin, Zosyn and azithromycin. Platelets decreased significantly, holding heparin SQ for thrombocytopenia. Sodium level has normalized, renal function has normalized. According to multiple discussions with the care facility where the patient resides, the patient is likely near his baseline at this time. CODE STATUS discussed with family members, the decision to change CODE STATUS to DNR was made by his sister, Jessica Mayer, as his mother cannot make decisions due to a recent stroke. 01/14: Persistent fevers, continuing vancomycin IV and Zosyn. Completed 3 days of azithromycin. Preliminary blood culture results showing no growth to date. Urine culture pending. Repeat chest x-ray shows small patchy infiltrate at the right lung base. Leukocytosis has resolved, the patient does have thrombocytopenia therefore heparin was discontinued for DVT prophylaxis. IRVIN panel ordered. Bilateral lower extremity venous Doppler ordered to evaluate for DVT as a cause of persistent fevers. The patient otherwise has improved clinically on broad-spectrum antibiotics, oxygen requirement wean down to 1 L/min. Video swallow study performed, diet modified per speech recommendations. Continuing IV fluid. Continuing Devine catheter. 01/15: Continues to have high-grade temperatures, on 2 L/min nasal oxygen supple mentation. Leukocytosis has resolved, procalcitonin 1.10, vitals have significantly improved overall since admission. Source of persistent temperatures and fevers unknown. Preliminary blood culture results showing no growth to date, urine culture pending. Sputum sample for gram stain and culture was contaminated. Recent CT abdomen pelvis with contrast did not show any intra-abdominal or intrapelvic source of infection. Ordered beta D glucagen, radiology preferred lumbar puncture with CFS analysis and meningitis encephalitis panel, transthoracic echocardiogram. Bilateral lower extremity venous duplex was negative. Substituted meropenem for Zosyn, started caspofungin. Continue vancomycin IV. Remove Devine catheter. Platelet count improving, mild hypernatremia today. Physical exam Head: Atraumatic, normal inspection. Eyes: normal appearance, no scleral icterus. Neck: full ROM Respiratory: Supplemental oxygen via oxymask, bilateral crackles, no wheezing. Cardiovascular: Normal rate, S1, S2. GI/Abdominal: soft, nontender, no guarding. : Scrotal erythema improving. Extremities: full range of motion, nontender. Neurological: Motor and sensation grossly intact. Psychiatric: Minimally responsive. Skin: warm, normal color Constitutional Vitals: Vital Signs Temp Pulse Resp BP Pulse Ox O2 Del Method O2 Flow Rate 98.9 F 82 16 144/98 93 2.5 01/15/22 08:00 01/15/22 08:00 01/15/22 04:02 01/15/22 08:00 01/15/22 08:00 01/15/22 08:00 01/15/22 08:00 Period Temp Pulse Resp BP Sys/Delcid Pulse Ox O2 Del Method O2 Flow Rate Last 24 Hr 98.9 F-100.0 F 82-91 16-17 119-144/76-109 93-98 Nasal Cannula- Nasal Cannula 1-2.5 Intake and Output 01/14/22 01/15/22 01/15/22 21:59 05:59 13:59 Intake Total 1560 50 2240 Output Total 685 650 61 Balance 875 -600 2179 Weight 96.933 kg Intake & Output: Intake & Output 01/14/22 01/15/22 01/15/22 21:59 05:59 13:59 Intake Total 1560 50 2240 Output Total 685 650 61 Balance 875 -600 2179 Weight 96.933 kg Intake: Nourishment/Supplement quantity 360 240 (ml) IV 1050 50 1300 Cancidas 70 mg In Sodium 250 Chloride 0.9% 250 ml @ 250 mls/ hr IV ONCE ONE Rx#:[id number] Dextrose 5%-1/2Ns W/20Meq KCl 1 1000 ,000 ml @ 50 mls/hr IV .Q20H [facility] Rx#:[id number] Merrem 2 gm In Sodium Chloride 50 0.9% 50 ml @ 100 mls/hr IV Q8H [facility] Rx#:[id number] Zosyn 4.5 gm In Dextrose 5% in 50 50 Water 50 ml @ 100 mls/hr IV Q8H [facility] Rx#:[id number] Vancomycin 1,500 mg In Sodium 1000 Chloride 0.9% 500 ml @ 333.3 mls/hr IV Q12H [facility] Rx#: [id number] Oral 150 700 Output: Urine Catheter Amount 685 650 60 # of times incontinent of urine 1 Other: Meal Dinner Lunch Percent of Meal Consumed 100% 100% Feeding Ability Independent Total Assistance Nourishment/Supplement name ensure Urine Appearance Clear Clear Clear Sediment Sediment Uretheral (Devine) Cloudy Small Blood Clots Urine Color Bright Yellow Dark Yellow Yellow Uretheral (Devine) Dark Yellow Stool Size Copious Smear Stool Color Brown Stool Consistency Soft Loose # of times incontinent of 1 1 Bowels OBJ DATA Labs CBC & Chem 7: 01/15/22 05:47 01/15/22 05:47 Labs: Abnormal Lab Results 01/15/22 01/15/22 01/15/22 05:47 05:47 05:47 RBC 3.56 L Hgb 10.6 L Hct 31.6 L Plt Count 107 L MPV 11.7 H Lymphocytes % Platelet Estimate Decreased A RBC Morphology Hypochromasia Sodium 147 H Potassium 3.2 L Chloride 113 H Carbon Dioxide BUN Creatinine 0.6 L Glucose 142 H Uric Acid 2.1 L Calcium 8.4 L Phosphorus AST Lactate Dehydrogenase Total Protein 5.7 L Albumin 2.8 L Triglycerides Procalcitonin 0.10 H Urine Appearance Urine Protein Urine Glucose (UA) Urine Occult Blood Urine RBC Urine WBC Urine Mucus 01/14/22 01/14/22 01/14/22 18:01 08:03 08:03 RBC Hgb 10.5 L Hct Plt Count MPV Lymphocytes % Platelet Estimate RBC Morphology Hypochromasia Sodium Potassium Chloride 111 H Carbon Dioxide BUN Creatinine Glucose 155 H Uric Acid 2.2 L Calcium 8.1 L Phosphorus AST Lactate Dehydrogenase Total Protein 5.1 L Albumin 2.9 L Triglycerides 150 H Procalcitonin 0.16 H Urine Appearance Urine Protein Urine Glucose (UA) Urine Occult Blood Urine RBC Urine WBC Urine Mucus 01/14/22 01/13/22 01/13/22 06:08 20:20 05:35 RBC 3.53 L Hgb 10.2 L Hct 31.4 L Plt Count 71 L MPV 12.0 H Lymphocytes % 13 L Platelet Estimate Decreased A RBC Morphology Abnormal A Hypochromasia 2+ A Sodium Potassium Chloride 113 H Carbon Dioxide 21 L BUN Creatinine Glucose 164 H Uric Acid Calcium 8.5 L Phosphorus 2.4 L AST 50 H Lactate Dehydrogenase 316 H Total Protein 5.8 L Albumin 3.0 L Triglycerides 234 H Procalcitonin Urine Appearance Cloudy A Urine Protein 100 mg/dl A Urine Glucose (UA) 100 mg/dl A Urine Occult Blood Large A Urine RBC > 182 H Urine WBC 111 H Urine Mucus Many A 01/13/22 01/12/22 05:35 15:37 RBC 3.93 L Hgb 11.6 L Hct 36.3 L Plt Count 76 L MPV 11.7 H Lymphocytes % Platelet Estimate Markedly decreased A RBC Morphology Hypochromasia Sodium 146 H Potassium Chloride 116 H Carbon Dioxide 19 L BUN 22 H Creatinine Glucose 138 H Uric Acid Calcium 8.2 L Phosphorus AST Lactate Dehydrogenase Total Protein Albumin Triglycerides Procalcitonin Urine Appearance Urine Protein Urine Glucose (UA) Urine Occult Blood Urine RBC Urine WBC Urine Mucus Meds: Medications Acetaminophen (Acetaminophen 325 Mg Tablet) 650 mg PO Q4-6HP PRN; Protocol PRN Reason: Per Pain Protocol/Fever > 101 Albuterol Sulfate (Albuterol Sulfate 200 Puff Inhaler) 2 puff INH DAILYP PRN PRN Reason: Shortness Of Breath Albuterol/Ipratropium (Ipratropium/Albuterol 3 Ml Ampul.Neb) 3 ml NEB Q4HP PRN PRN Reason: Shortness Of Breath Atorvastatin Calcium (Atorvastatin 40 Mg Tablet) 40 mg PO HS [facility] Last Admin: 01/14/22 20:15 Dose: 40 mg Dextrose (Dextrose 50% 50 Ml Vial) 0 ml IV UD PRN PRN Reason: Per Sliding Scale Diagnostic Test (Pha) (Accu-Chek 1 Each Strip) 1 each FS ACHS [facility]NY Last Admin: 01/15/22 12:48 Dose: 1 each Divalproex Sodium (Divalproex 125 Mg Cap.Sprink) 625 mg PO BID [facility] Last Admin: 01/15/22 10:48 Dose: 625 mg Fluticasone Propionate (Fluticasone Hfa 110mcg Inhaler) 2 puff INH BID [facility] Last Admin: 01/15/22 10:48 Dose: Not Given Glucose (Dextrose 31 Gm Oral.Susp) 15 gm PO PRN PRN PRN Reason: Hypoglycemia Acetaminophen (Ofirmev) 650 mg in 65 mls @ 130 mls/hr IV Q6HP PRN; Protocol PRN Reason: PAIN/FEVER > 101 Last Infusion: 01/14/22 05:12 Dose: Infused Norepinephrine Bitartrate 8 mg (/ Sodium Chloride) 250 mls @ 18.75 mls/hr IV Q12HP PRN; Protocol PRN Reason: Hypotension Vancomycin HCl 1,500 mg/ (Sodium Chloride) 500 mls @ 333.3 mls/hr IV Q12H [facility] Last Admin: 01/15/22 10:14 Dose: 333 mls/hr Potassium Chloride/Dextrose/Sod Cl (Dextrose 5%-1/2ns W/20meq Kcl) 1,000 mls @ 50 mls/hr IV .Q20H [facility] Last Admin: 01/15/22 12:04 Dose: 50 mls/hr Meropenem 2 gm/ Sodium (Chloride) 50 mls @ 100 mls/hr IV Q8H [facility]; Protocol Last Infusion: 01/15/22 08:30 Dose: Infused Caspofungin 50 mg/ Sodium (Chloride) 250 mls @ 250 mls/hr IV Q24H [facility]; Protocol Insulin Human Lispro (Insulin Lispro 1 Unit/0.01 Ml Unit) 0 unit SQ ACHS [facility]; Protocol Last Admin: 01/15/22 12:48 Dose: Not Given Metoprolol Tartrate (Metoprolol Tartrate 25 Mg Tablet) 25 mg PO BID [facility] Last Admin: 01/15/22 10:47 Dose: 25 mg Nystatin (Nystatin Powder Bottle 15gm) 1 dose TOPICAL TIDP PRN PRN Reason: Skin Irritation Quetiapine Fumarate (Quetiapine 100 Mg Tablet) 300 mg PO TID [facility] Last Admin: 01/15/22 10:47 Dose: 300 mg Sertraline HCl (Sertraline 100 Mg Tablet) 100 mg PO BID [facility] Last Admin: 01/15/22 10:48 Dose: 100 mg Sodium Chloride (0.9 % Sodium Chloride 10 Ml Syringe) 10 ml IV Q8 [facility] Last Admin: 01/15/22 05:43 Dose: 10 ml Tamsulosin HCl (Tamsulosin 0.4 Mg Capsule) 0.4 mg PO QHS [facility] Last Admin: 01/14/22 20:14 Dose: 0.4 mg Vancomycin HCl (Vancomycin Per Pharmacy) 1 order IV UD [facility]; Protocol A/P Narrative A/P Narrative: A: #Septic shock likely 2/2 scrotal cellulitis and pneumonia: resolved #Persistent high-grade temperatures and fevers: no leukocytosis/bandemia #Community acquired aspiration pneumonia: #Scrotal cellulitis: #Thrombocytopenia, chronic vs acute: #Hypernatremia: #Dysphagia, likely chronic: #JYOTSNA: 2/2 septic shock, resolved #Encephalopathy: Resolved #Left hydrocele: #Decubitus pressure injuries, present on admission: #Prediabetes, hemoglobin A1c 6.3: with Hyperglycemia secondary to D5 IV fluid and prediabetes #h/o Traumatic brain injury #h/o CVA #Poor functional status/wheelchair-bound status: Plan: -Continue Vancomycin IV, start meropenem and discontinue Zosyn, completed 3 days of azithromycin. -Start empiric caspofungin. -Beta D glucan level pending -Follow blood and urine cultures. -Radiology performed a lumbar puncture with CSF analysis, meningitis/e ncephalitis panel -Transthoracic echocardiogram -Remove Devine catheter -Topical nystatin for scrotal erythema, monitor -Monitor platelet level, electrolytes and renal function. -SSI, hold metformin for now -Continue home Lopressor, Depakote, atorvastatin aspirin, fluticasone, albuterol as needed, Seroquel, Flomax. -Holding home lisinopril, hydralazine. -Dysphagia diet per speech recommendation. -Urology evaluated and felt more likely scrotal cellulitis than infected left hydrocele. -PT, OT, speech therapy consults. -Wound cares. -ppx: SCDs for recent acute drop in platelet level (HIT send out) CODE STATUS: DNR/DNI Time Spent With Patient Time: Total time spent is greater than 50% in coordination of care (as documented) at patient's floor/unit and/or counseling patient: QUALITY VTE Deep Vein Thrombosis/Pulmonary Embolism Present on Admission: No
[2022-01-15] MEDS ORDERED: VANCOMYCIN 1,500 MG in DEXTROSE 5% IN WATER 500 ML IV SCH (14:15)
[2022-01-15] MEDS ORDERED: HYDROCHLOROTHIAZIDE 25 MG TABLET PO SCH (14:25)
[2022-01-15 16:22] LABS: Glucose,CSF 78 mg/dL (40-70)
[2022-01-15] MEDS ORDERED: POTASSIUM CHLORIDE 20 MEQ PACKET PO SCH (17:30)
[2022-01-15 17:31] LABS: Appearance,CSF Clear; Lymphocytes,CSF 85 % (28-96); Monocytes,CSF 2 % (16-56); Neutrophils,CSF 13 % (0-7); Nucleated Cells,CSF 18 /cumm (0-5); Red Blood Cell,CSF 388 /cumm (0-1); Total Cell Ct,CSF 100
[2022-01-15] MEDS: VANCOMYCIN 1,500 MG in DEXTROSE 5% IN WATER 500 ML IV SCH (20:04)
[2022-01-15] MEDS: ACETAMINOPHEN 325 MG TABLET PO PRN (20:16)
[2022-01-15] MEDS: TAMSULOSIN 0.4 MG CAPSULE PO SCH (20:17)
[2022-01-15] MEDS: ATORVASTATIN 40 MG TABLET PO SCH (20:17)
[2022-01-16] MEDS: MEROPENEM 2 GM in 0.9 % SODIUM CHLORIDE 50 ML IV SCH ×3 (05:11→22:47)
[2022-01-16] MEDS: 0.9 % SODIUM CHLORIDE 10 ML SYRINGE IV SCH ×3 (05:11→21:00)
[2022-01-16 07:05] LABS: Hematocrit 32.2 % (40.1-51.0); Hemoglobin 10.6 g/dL (13.7-17.5); Mean Corpuscular HGB Conc 32.9 g/dL (31.0-36.0); Mean Platelet Volume 11.2 fL (7.4-10.4); Platelet Count 141 K/mcL (140-440); RBC 3.66 M/mcL (4.63-6.08); Red Cell Distribution Width 11.9 % (11.5-14.5); WBC 3.7 K/mcL (4.5-11.0)
--- NOTE | 2022-01-16 07:27 | Internal Med Progress Note ---
SUBJECTIVE Subjective Patient information: Note initiated : 01/16/22 at 7:19 am Service Date, if different from initiated Date: [] Patient: Corona Mayer 51 y/o M admitted on 01/11/22 for altered loc. Chief Complaint: [] Interval history: Mr. Mayer is a 51 year old male with a past medical history of traumatic brain injury and possibly prior stroke resides in a custodial house who was brought to the emergency department for confusion. The patient was seen at the [facility] emergency department on 01/08/2022 for fever, felt to have pneumonia based on chest x-ray showing nonspecific vague opacities bilaterally and discharged with a prescription for doxycycline. Today, the patient was brought in by EMS and was initially unresponsive. In the emergency department, the patient is found to be septic requiring Levophed and vasopressin while the patient was resuscitated with IV normal saline as well as started on broad-spectrum antibiotics. Blood pressure improved with vasopressors. The patient was tachypneic, tachycardic and had a fever of 102.6. In the ED, the patient was requiring oxygen supplementation via nonrebreather mask. White blood cell count is 22,000, up from 6.9 on 01/08/2022. Additionally, the patient has a lactic acid of 5. Chemistry panel reveals the patient has an acute kidney injury, creatinine is 2.6. A few days ago in the ED the point of care creatinine level was normal. Urinalysis was not suggestive of a UTI. Blood cultures have been obtained and pending. Chest x-ray is similar to 01/08/2022, possible loss of lateral cardiac border. The source of sepsis is felt to possibly be pneumonia. After receiving the initial treatment for sepsis, the patient is minimally responsive but unable to provide valid any history. I discussed the patient with Lindsay Junior, the patient's aunt. Lindsay said the patient's code status is full code. 01/12: Sepsis physiology improving with decreasing fever trend, improvement in respiratory rate and heart rate, lactic acid downtrending, leukocytosis impro ving. Continues on 4 L/min nasal cannula oxygen. Hypernatremia improving. Making urine and renal function improving. [place] NAAT was negative. Patient is more alert today. CT chest showed bilateral pulmonary infiltrates in the dependent portions of both lungs, aspiration suspected. 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 Infectious work-up suggest that the cause of sepsis was pneumonia, likely aspiration pneumonia. We will continue broad-spectrum antibiotics for now awaiting 48 hours of blood culture results. Scrotum evaluated again, tender to palpation. The patient is unable to provide much history about how long this has been present. Will obtain a scrotal ultrasound and discuss with urology. Discontinued D5 as hypernatremia has nearly resolved. Speech consulted today, recommended starting dysphagia diet. 01/13: The patient continues to have intermittent fevers, scrotal ultrasound revealed a left hydrocele containing debris. Urology consulted, did not feel that the patient had an infected hydrocele however probably had a scrotal cellulitis. Possible scrotal cellulitis contributed to the patient's septic presentation, he may have developed an aspiration pneumonia when he became critically ill. Blood cultures are showing no growth to date. Overall the patient's sepsis physiology has improved, continue vancomycin, Zosyn and azithromycin. Platelets decreased significantly, holding heparin SQ for thrombocytopenia. Sodium level has normalized, renal function has normalized. According to multiple discussions with the care facility where the patient resides, the patient is likely near his baseline at this time. CODE STATUS discussed with family members, the decision to change CODE STATUS to DNR was made by his sister, Jessica Mayer, as his mother cannot make decisions due to a recent stroke. 01/14: Persistent fevers, continuing vancomycin IV and Zosyn. Completed 3 days of azithromycin. Preliminary blood culture results showing no growth to date. Urine culture pending. Repeat chest x-ray shows small patchy infiltrate at the right lung base. Leukocytosis has resolved, the patient does have thrombocytopenia therefore heparin was discontinued for DVT prophylaxis. IRVIN panel ordered. Bilateral lower extremity venous Doppler ordered to evaluate for DVT as a cause of persistent fevers. The patient otherwise has improved clinically on broad-spectrum antibiotics, oxygen requirement wean down to 1 L/min. Video swallow study performed, diet modified per speech recommendations. Continuing IV fluid. Continuing Cheney catheter. 01/15: Continues to have high-grade temperatures, on 2 L/min nasal oxygen supple mentation. Leukocytosis has resolved, procalcitonin 1.10, vitals have significantly improved overall since admission. Source of persistent temperatures and fevers unknown. Preliminary blood culture results showing no growth to date, urine culture pending. Sputum sample for gram stain and culture was contaminated. Recent CT abdomen pelvis with contrast did not show any intra-abdominal or intrapelvic source of infection. Ordered beta D glucagen, radiology preferred lumbar puncture with CFS analysis and meningitis encephalitis panel, transthoracic echocardiogram. Bilateral lower extremity venous duplex was negative. Substituted meropenem for Zosyn, started caspofungin. Continue vancomycin IV. Remove Cheney catheter. Platelet count improving, mild hypernatremia today. 01/16 Mentation better. Patient has no new complaints. Is having more diarrhea this morning and will check C. difficile. He has been afebrile overnight, in fact the last actual fever was on the 6th, he did have temperatures of 100.1 on the seventh. No bandemia or leukocytosis. Sodium better today. Patient currently on room air. Review of Systems: denies headache/fever/chills/nausea/vomiting/chest or abdominal pain/cough/dyspnea. Otherwise see above. Constitutional Vitals: Vital Signs Temp Pulse Resp BP Pulse Ox O2 Del Method O2 Flow Rate 97.5 F 84 20 106/70 98 2 01/16/22 04:00 01/16/22 06:20 01/16/22 04:00 01/16/22 04:14 01/16/22 06:20 01/15/22 20:00 01/15/22 20:00 Period Temp Pulse Resp BP Sys/Delcid Pulse Ox O2 Del Method O2 Flow Rate Last 24 Hr 97.4 F-98.9 F 69-95 18-22 83-163/63-112 88-100 Nasal Cannula- Nasal Cannula 2-2.5 Intake and Output 01/15/22 01/16/22 01/16/22 21:59 05:59 13:59 Intake Total 568 800 Output Total 5 2 Balance 563 798 Weight 96.955 kg Intake & Output: Intake & Output 01/15/22 01/16/22 01/16/22 21:59 05:59 13:59 Intake Total 568 800 Output Total 5 2 Balance 563 798 Weight 96.955 kg Intake: IV 50 600 Merrem 2 gm In Sodium Chloride 50 100 0.9% 50 ml @ 100 mls/hr IV Q8H [facility] Rx#:[id number] Vancomycin 1,500 mg In Dextrose 500 5% in Water 500 ml @ 333.3 mls /hr IV Q12H [facility] Rx#:[id number] Oral 518 200 Output: # of times incontinent of urine 5 2 Other: Meal applesauce cup Percent of Meal Consumed 75% Feeding Ability Total Assistance Urine Color Dark Yellow Dark Yellow Urine Odor Normal Normal Stool Size Small Stool Color Brown # Voids 1 1 # of times incontinent of 1 Bowels Exam: General: Alert, Awake, No acute Distress Eyes/N/T: EOMI, Head/Neck: neck supple, CV: RRR, No murmurs, Pulm: mild rales b/l, no wheezing Abd: soft, nontender, +BS x4 Ext: no clubbing/cyanosis/edema Neuro: Alert, no focal deficits, moves all extremities, Skin: warm/dry OBJ DATA Labs CBC & Chem 7: 01/16/22 05:14 01/16/22 05:14 Labs: Abnormal Lab Results 01/16/22 01/15/22 01/15/22 05:14 11:30 05:47 WBC 3.7 L RBC 3.66 L Hgb 10.6 L Hct 32.2 L Plt Count MPV 11.2 H Lymphocytes % Platelet Estimate RBC Morphology Hypochromasia Sodium Potassium Chloride Creatinine Glucose Uric Acid Calcium Total Protein Albumin Triglycerides Procalcitonin 0.10 H Urine Appearance Urine Protein Urine Glucose (UA) Urine Occult Blood Urine RBC Urine WBC Urine Mucus CSF RBC 388 H CSF Total Nucleated Auto 18 H CSF Neutrophils 13 H CSF Monocytes 2 L CSF Glucose 78 H CSF Total Protein 73.0 H 01/15/22 01/15/22 01/14/22 05:47 05:47 18:01 WBC RBC 3.56 L Hgb 10.6 L 10.5 L Hct 31.6 L Plt Count 107 L MPV 11.7 H Lymphocytes % Platelet Estimate Decreased A RBC Morphology Hypochromasia Sodium 147 H Potassium 3.2 L Chloride 113 H Creatinine 0.6 L Glucose 142 H Uric Acid 2.1 L Calcium 8.4 L Total Protein 5.7 L Albumin 2.8 L Triglycerides Procalcitonin Urine Appearance Urine Protein Urine Glucose (UA) Urine Occult Blood Urine RBC Urine WBC Urine Mucus CSF RBC CSF Total Nucleated Auto CSF Neutrophils CSF Monocytes CSF Glucose CSF Total Protein 01/14/22 01/14/22 01/14/22 08:03 08:03 06:08 WBC RBC 3.53 L Hgb 10.2 L Hct 31.4 L Plt Count 71 L MPV 12.0 H Lymphocytes % 13 L Platelet Estimate Decreased A RBC Morphology Abnormal A Hypochromasia 2+ A Sodium Potassium Chloride 111 H Creatinine Glucose 155 H Uric Acid 2.2 L Calcium 8.1 L Total Protein 5.1 L Albumin 2.9 L Triglycerides 150 H Procalcitonin 0.16 H Urine Appearance Urine Protein Urine Glucose (UA) Urine Occult Blood Urine RBC Urine WBC Urine Mucus CSF RBC CSF Total Nucleated Auto CSF Neutrophils CSF Monocytes CSF Glucose CSF Total Protein 01/13/22 01/13/22 20:20 05:35 WBC RBC Hgb Hct Plt Count MPV Lymphocytes % Platelet Estimate Markedly decreased A RBC Morphology Hypochromasia Sodium Potassium Chloride Creatinine Glucose Uric Acid Calcium Total Protein Albumin Triglycerides Procalcitonin Urine Appearance Cloudy A Urine Protein 100 mg/dl A Urine Glucose (UA) 100 mg/dl A Urine Occult Blood Large A Urine RBC > 182 H Urine WBC 111 H Urine Mucus Many A CSF RBC CSF Total Nucleated Auto CSF Neutrophils CSF Monocytes CSF Glucose CSF Total Protein Meds: Medications Acetaminophen (Acetaminophen 325 Mg Tablet) 650 mg PO Q4-6HP PRN; Protocol PRN Reason: Per Pain Protocol/Fever > 101 Last Admin: 01/15/22 20:16 Dose: 650 mg Albuterol Sulfate (Albuterol Sulfate 200 Puff Inhaler) 2 puff INH DAILYP PRN PRN Reason: Shortness Of Breath Albuterol/Ipratropium (Ipratropium/Albuterol 3 Ml Ampul.Neb) 3 ml NEB Q4HP PRN PRN Reason: Shortness Of Breath Atorvastatin Calcium (Atorvastatin 40 Mg Tablet) 40 mg PO HS [facility] Last Admin: 01/15/22 20:17 Dose: 40 mg Dextrose (Dextrose 50% 50 Ml Vial) 0 ml IV UD PRN PRN Reason: Per Sliding Scale Diagnostic Test (Pha) (Accu-Chek 1 Each Strip) 1 each FS ACHS [facility] Last Admin: 01/15/22 20:37 Dose: 1 each Divalproex Sodium (Divalproex 125 Mg Cap.Sprink) 625 mg PO BID [facility] Last Admin: 01/15/22 20:16 Dose: 625 mg Fluticasone Propionate (Fluticasone Hfa 110mcg Inhaler) 2 puff INH BID [facility] Last Admin: 01/15/22 20:17 Dose: Not Given Glucose (Dextrose 31 Gm Oral.Susp) 15 gm PO PRN PRN PRN Reason: Hypoglycemia Acetaminophen (Ofirmev) 650 mg in 65 mls @ 130 mls/hr IV Q6HP PRN; Protocol PRN Reason: PAIN/FEVER > 101 Last Infusion: 01/14/22 05:12 Dose: Infused Meropenem 2 gm/ Sodium (Chloride) 50 mls @ 100 mls/hr IV Q8H [facility]; Protocol Last Infusion: 01/16/22 05:56 Dose: Infused Vancomycin HCl 1,500 mg/ (Dextrose) 500 mls @ 333.3 mls/hr IV Q12H [facility] Last Infusion: 01/15/22 22:10 Dose: Infused Caspofungin 50 mg/ Sodium (Chloride/ EMPTYBAG) 250 mls @ 250 mls/hr IV Q24H [facility]; Protocol Insulin Human Lispro (Insulin Lispro 1 Unit/0.01 Ml Unit) 0 unit SQ ACHS [facility]; Protocol Last Admin: 01/15/22 20:37 Dose: 4 unit Metoprolol Tartrate (Metoprolol Tartrate 25 Mg Tablet) 25 mg PO BID [facility] Last Admin: 01/15/22 20:17 Dose: 25 mg Nystatin (Nystatin Powder Bottle 15gm) 1 dose TOPICAL TIDP PRN PRN Reason: Skin Irritation Quetiapine Fumarate (Quetiapine 100 Mg Tablet) 300 mg PO TID [facility] Last Admin: 01/15/22 20:16 Dose: 300 mg Sertraline HCl (Sertraline 100 Mg Tablet) 100 mg PO BID [facility] Sodium Chloride (0.9 % Sodium Chloride 10 Ml Syringe) 10 ml IV Q8 [facility] Last Admin: 01/16/22 05:11 Dose: 10 ml Tamsulosin HCl (Tamsulosin 0.4 Mg Capsule) 0.4 mg PO QHS [facility] Last Admin: 01/15/22 20:17 Dose: 0.4 mg Vancomycin HCl (Vancomycin Per Pharmacy) 1 order IV [facility]; Protocol A/P Narrative A/P Narrative: A: #Septic shock likely 2/2 scrotal cellulitis & pneumonia: improved #Persistent high-grade temperatures and fevers: no leukocytosis/bandemia. REsolved -afebrile since 01/13, no borderline fevers since 01/14 -LP no organisms -echo no vegetations, good EF #Community acquired aspiration pneumonia: #Acute hypoxic respite failure: 2/2 above -now on room air #Scrotal cellulitis: #Thrombocytopenia: 2/2 above, improving #Hypernatremia/Hypokalemia: improving #Dysphagia, likely chronic: #JYOTSNA: 2/2 septic shock, resolved #Encephalopathy: Resolved #Left hydrocele: #Decubitus pressure injuries, present on admission: #Prediabetes, hemoglobin A1c 6.3: #h/o Traumatic brain injury #h/o CVA #Poor functional status/wheelchair-bound status: Plan: -Continue Vancomycin IV, started meropenem and discontinue Zosyn, completed 3 days of azithromycin -Started empiric caspofungin. -Beta D glucan level pending -Check C. difficile for diarrhea -Follow blood and urine cultures. -cheney catheter for wound healing to perineum, wound care -Topical nystatin for scrotal erythema, monitor -Monitor platelet level, electrolytes and renal function. -SSI, hold metformin for now -Continue home Lopressor. Holding home lisinopril/hydralazine for jyotsna and low BP -cont home Depakote/seroquel -cont atorvastatin/aspirin -Urology evaluated and felt more likely scrotal cellulitis than infected left hydrocele. -Dysphagia diet per ST -PT, OT -ppx: Arixtra (HIT send out) CODE STATUS: DNR/DNI Time Spent With Patient Time: Total time spent is greater than 50% in coordination of care (as documented) at patient's floor/unit and/or counseling patient: Total time spent with greater than 50% in coordination of care (as documented) at patient's floor/unit and/or counseling patient:: 35 - 50 minutes QUALITY VTE Deep Vein Thrombosis/Pulmonary Embolism Present on Admission: No
[2022-01-16] MEDS ORDERED: hydrALAZINE 20 MG/ML VIAL IV PRN (07:31)
[2022-01-16] MEDS: INSULIN LISPRO 1 UNIT/0.01 ML UNIT SQ SCH ×4 (07:37→21:00)
[2022-01-16 07:49] LABS: ALT/SGPT 19 U/L (<40); AST/SGOT 17 U/L (<40); Albumin 2.6 gm/dL (3.2-5.2); Albumin/Globulin Ratio 0.8 (1.0-2.3); Alkaline Phosphatase 56 U/L (39-117); Bilirubin,Direct < 0.2 mg/dL (0-0.3); Bilirubin,Total 0.3 mg/dL (0.1-1.0); Blood Urea Nitrogen 7 mg/dL (6-20); Calcium 8.6 mg/dL (8.6-10.4); Carbon Dioxide 24 mmol/L (22-30); Chloride 105 mmol/L (96-108); Globulin 3.1 gm/dL (2.2-3.7); Glomerular Filtration Rate 117; Glucose 124 mg/dL (70-105); Lactate Dehydrogenase 228 U/L (135-225); Phosphorous 3.1 mg/dL (2.5-4.5); Triglycerides 187 mg/dL (<150); Uric Acid 2.4 mg/dL (2.5-8.0)
[2022-01-16] MEDS: SODIUM CHLORIDE 0.45% IV SCH (07:55)
[2022-01-16] MEDS: CASPOFUNGIN ACETATE IV SCH (07:55)
[2022-01-16] MEDS: EMPTYBAG IV SCH (07:55)
[2022-01-16 08:41] LABS: Band Neutrophils % 3 % (0-10); Eosinophils % (Manual) 2 % (0-7); Lymphocytes % 30 % (15-49); Monocytes % (Manual) 8 % (1-12); Platelet Estimate NORMAL (Normal); RBC Morphology NORMAL (Normal); Reactive Lymphocytes 3 % (0-2); Segmented Neutrophils % 54 % (38-78)
[2022-01-16] MEDS: VANCOMYCIN 1,500 MG in DEXTROSE 5% IN WATER 500 ML IV SCH ×2 (08:54→20:59)
[2022-01-16] MEDS ORDERED: CASPOFUNGIN ACETATE 50 MG in 0.9 % SODIUM CHLORIDE 250 ML IV SCH (09:00)
[2022-01-16] MEDS: QUEtiapine 100 MG TABLET PO SCH ×3 (09:19→20:59)
[2022-01-16] MEDS: DIVALPROEX 125 MG CAP.SPRINK PO SCH ×2 (09:19→21:00)
[2022-01-16] MEDS: FLUTICASONE HFA 110MCG INHALER INH SCH ×2 (09:20→20:36)
[2022-01-16] MEDS: FONDAPARINUX SODIUM 2.5 MG/0.5 ML SYRINGE SQ SCH (09:20)
[2022-01-16] MEDS: METOPROLOL TARTRATE 25 MG TABLET PO SCH ×2 (09:20→20:59)
[2022-01-16] MEDS ORDERED: POTASSIUM CHLORIDE 20 MEQ TABLET PO ONE (10:04)
[2022-01-16] MEDS ORDERED: diphenhydrAMINE 50 MG/ML VIAL IV ONE (10:05)
[2022-01-16] MEDS ORDERED: HYDROCHLOROTHIAZIDE 12.5 MG CAPSULE PO ONE (11:35)
[2022-01-16] MEDS ORDERED: LOPERAMIDE 2 MG CAPSULE PO ONE (14:40)
[2022-01-16] MEDS: LOPERAMIDE 2 MG CAPSULE PO PRN (17:42)
[2022-01-16] MEDS: ATORVASTATIN 40 MG TABLET PO SCH (20:59)
[2022-01-16] MEDS: TAMSULOSIN 0.4 MG CAPSULE PO SCH (20:59)
[2022-01-16] MEDS: SERTRALINE 100 MG TABLET PO SCH (20:59)
[2022-01-17] MEDS: 0.9 % SODIUM CHLORIDE 10 ML SYRINGE IV SCH ×3 (05:43→20:29)
[2022-01-17] MEDS: MEROPENEM 2 GM in 0.9 % SODIUM CHLORIDE 50 ML IV SCH (06:04)
[2022-01-17 06:58] LABS: Blood Urea Nitrogen 8 mg/dL (6-20); Calcium 8.9 mg/dL (8.6-10.4); Carbon Dioxide 28 mmol/L (22-30); Chloride 101 mmol/L (96-108); Glomerular Filtration Rate 117; Glucose 134 mg/dL (70-105)
[2022-01-17] MEDS: INSULIN LISPRO 1 UNIT/0.01 ML UNIT SQ SCH ×4 (07:34→20:29)
--- NOTE | 2022-01-17 07:58 | Internal Med Progress Note ---
SUBJECTIVE Subjective Patient information: Note initiated : 01/17/22 at 7:49 am Service Date, if different from initiated Date: [] Patient: Corona Mayer 51 y/o M admitted on 01/11/22 for altered loc. Chief Complaint: [] Interval history: Mr. Mayer is a 51 year old male with a past medical history of traumatic brain injury and possibly prior stroke resides in a prison house who was brought to the emergency department for confusion. The patient was seen at the [facility] emergency department on 01/08/2022 for fever, felt to have pneumonia based on chest x-ray showing nonspecific vague opacities bilaterally and discharged with a prescription for doxycycline. Today, the patient was brought in by EMS and was initially unresponsive. In the emergency department, the patient is found to be septic requiring Levophed and vasopressin while the patient was resuscitated with IV normal saline as well as started on broad-spectrum antibiotics. Blood pressure improved with vasopressors. The patient was tachypneic, tachycardic and had a fever of 102.6. In the ED, the patient was requiring oxygen supplementation via nonrebreather mask. White blood cell count is 22,000, up from 6.9 on 01/08/2022. Additionally, the patient has a lactic acid of 5. Chemistry panel reveals the patient has an acute kidney injury, creatinine is 2.6. A few days ago in the ED the point of care creatinine level was normal. Urinalysis was not suggestive of a UTI. Blood cultures have been obtained and pending. Chest x-ray is similar to 01/08/2022, possible loss of lateral cardiac border. The source of sepsis is felt to possibly be pneumonia. After receiving the initial treatment for sepsis, the patient is minimally responsive but unable to provide valid any history. I discussed the patient with Lindsay Junior, the patient's aunt. Lindsay said the patient's code status is full code. 01/12: Sepsis physiology improving with decreasing fever trend, improvement in respiratory rate and heart rate, lactic acid downtrending, leukocytosis impro ving. Continues on 4 L/min nasal cannula oxygen. Hypernatremia improving. Making urine and renal function improving. [place] NAAT was negative. Patient is more alert today. CT chest showed bilateral pulmonary infiltrates in the dependent portions of both lungs, aspiration suspected. 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 Infectious work-up suggest that the cause of sepsis was pneumonia, likely aspiration pneumonia. We will continue broad-spectrum antibiotics for now awaiting 48 hours of blood culture results. Scrotum evaluated again, tender to palpation. The patient is unable to provide much history about how long this has been present. Will obtain a scrotal ultrasound and discuss with urology. Discontinued D5 as hypernatremia has nearly resolved. Speech consulted today, recommended starting dysphagia diet. 01/13: The patient continues to have intermittent fevers, scrotal ultrasound revealed a left hydrocele containing debris. Urology consulted, did not feel that the patient had an infected hydrocele however probably had a scrotal cellulitis. Possible scrotal cellulitis contributed to the patient's septic presentation, he may have developed an aspiration pneumonia when he became critically ill. Blood cultures are showing no growth to date. Overall the patient's sepsis physiology has improved, continue vancomycin, Zosyn and azithromycin. Platelets decreased significantly, holding heparin SQ for thrombocytopenia. Sodium level has normalized, renal function has normalized. According to multiple discussions with the care facility where the patient resides, the patient is likely near his baseline at this time. CODE STATUS discussed with family members, the decision to change CODE STATUS to DNR was made by his sister, Jessica Mayer, as his mother cannot make decisions due to a recent stroke. 01/14: Persistent fevers, continuing vancomycin IV and Zosyn. Completed 3 days of azithromycin. Preliminary blood culture results showing no growth to date. Urine culture pending. Repeat chest x-ray shows small patchy infiltrate at the right lung base. Leukocytosis has resolved, the patient does have thrombocytopenia therefore heparin was discontinued for DVT prophylaxis. IRVIN panel ordered. Bilateral lower extremity venous Doppler ordered to evaluate for DVT as a cause of persistent fevers. The patient otherwise has improved clinically on broad-spectrum antibiotics, oxygen requirement wean down to 1 L/min. Video swallow study performed, diet modified per speech recommendations. Continuing IV fluid. Continuing Cheney catheter. 01/15: Continues to have high-grade temperatures, on 2 L/min nasal oxygen supple mentation. Leukocytosis has resolved, procalcitonin 1.10, vitals have significantly improved overall since admission. Source of persistent temperatures and fevers unknown. Preliminary blood culture results showing no growth to date, urine culture pending. Sputum sample for gram stain and culture was contaminated. Recent CT abdomen pelvis with contrast did not show any intra-abdominal or intrapelvic source of infection. Ordered beta D glucagen, radiology preferred lumbar puncture with CFS analysis and meningitis encephalitis panel, transthoracic echocardiogram. Bilateral lower extremity venous duplex was negative. Substituted meropenem for Zosyn, started caspofungin. Continue vancomycin IV. Remove Cheney catheter. Platelet count improving, mild hypernatremia today. 01/16 Mentation better. Patient has no new complaints. Is having more diarrhea this morning and will check C. difficile. He has been afebrile overnight, in fact the last actual fever was on the 6th, he did have temperatures of 100.1 on the seventh. No bandemia or leukocytosis. Sodium better today. Patient currently on room air. 01/17 Patient seems to be doing fairly well. No overnight event or new complaints. Afebrile again. Electrolytes within normal limits today. Review of Systems: denies headache/fever/chills/nausea/vomiting/chest or abdominal pain/cough/dyspnea. Otherwise see above. Constitutional Vitals: Vital Signs Temp Pulse Resp BP Pulse Ox O2 Del Method O2 Flow Rate 98.0 F 86 17 135/85 89 L 0 01/17/22 04:00 01/17/22 04:29 01/17/22 00:01 01/17/22 04:00 01/17/22 04:29 01/17/22 04:00 01/16/22 09:36 Period Temp Pulse Resp BP Sys/Delcid Pulse Ox O2 Del Method O2 Flow Rate Last 24 Hr 97 F-98.5 F 82-101 16-20 122-160/85-96 89-98 Nasal Cannula- Room Air 0-2 Intake and Output 01/16/22 01/17/22 01/17/22 21:59 05:59 13:59 Intake Total 50 550 50 Output Total 1501 2300 Balance -1451 -1750 50 Weight 101.605 kg Intake & Output: Intake & Output 01/16/22 01/17/22 01/17/22 21:59 05:59 13:59 Intake Total 50 550 50 Output Total 1501 2300 Balance -1451 -1750 50 Weight 101.605 kg Intake: IV 50 550 50 Merrem 2 gm In Sodium Chloride 50 50 50 0.9% 50 ml @ 100 mls/hr IV Q8H [facility] Rx#:[id number] Vancomycin 1,500 mg In Dextrose 500 5% in Water 500 ml @ 333.3 mls /hr IV Q12H [facility] Rx#:[id number] Output: Urine Catheter Amount 1500 2300 Urine/Stool Mix 1 Other: Urine Appearance Clear Clear Uretheral (Cheney) Cloudy Urine Color Bright Yellow Bright Yellow Uretheral (Cheney) Light Barbi Urine Odor Normal Normal Stool Size Small Stool Color Brown Yellow Stool Consistency Soft Liquid Exam: General: Alert, Awake, No acute Distress Eyes/N/T: EOMI, Head/Neck: neck supple, CV: RRR, No murmurs, Pulm: improved mild rales b/l, no wheezing Abd: soft, nontender, +BS x4 Ext: no clubbing/cyanosis/edema Neuro: Alert, no focal deficits, moves all extremities, Skin: warm/dry OBJ DATA Labs CBC & Chem 7: 01/16/22 05:14 01/17/22 05:29 Labs: Abnormal Lab Results 01/17/22 01/16/22 01/16/22 05:29 05:14 05:14 WBC 3.7 L RBC 3.66 L Hgb 10.6 L Hct 32.2 L Plt Count MPV 11.2 H Lymphocytes % Reactive Lymphocytes 3 H Platelet Estimate RBC Morphology Hypochromasia Sodium Potassium Chloride Creatinine 0.6 L 0.6 L Glucose 134 H 124 H Uric Acid 2.4 L Calcium Lactate Dehydrogenase 228 H Total Protein 5.7 L Albumin 2.6 L Albumin/Globulin Ratio 0.8 L Triglycerides 187 H Procalcitonin CSF RBC CSF Total Nucleated Auto CSF Neutrophils CSF Monocytes CSF Glucose CSF Total Protein 01/15/22 01/15/22 01/15/22 11:30 05:47 05:47 WBC RBC Hgb Hct Plt Count MPV Lymphocytes % Reactive Lymphocytes Platelet Estimate RBC Morphology Hypochromasia Sodium 147 H Potassium 3.2 L Chloride 113 H Creatinine 0.6 L Glucose 142 H Uric Acid 2.1 L Calcium 8.4 L Lactate Dehydrogenase Total Protein 5.7 L Albumin 2.8 L Albumin/Globulin Ratio Triglycerides Procalcitonin 0.10 H CSF RBC 388 H CSF Total Nucleated Auto 18 H CSF Neutrophils 13 H CSF Monocytes 2 L CSF Glucose 78 H CSF Total Protein 73.0 H 01/15/22 01/14/22 01/14/22 05:47 18:01 08:03 WBC RBC 3.56 L Hgb 10.6 L 10.5 L Hct 31.6 L Plt Count 107 L MPV 11.7 H Lymphocytes % Reactive Lymphocytes Platelet Estimate Decreased A RBC Morphology Hypochromasia Sodium Potassium Chloride Creatinine Glucose Uric Acid Calcium Lactate Dehydrogenase Total Protein Albumin Albumin/Globulin Ratio Triglycerides Procalcitonin 0.16 H CSF RBC CSF Total Nucleated Auto CSF Neutrophils CSF Monocytes CSF Glucose CSF Total Protein 01/14/22 01/14/22 08:03 06:08 WBC RBC 3.53 L Hgb 10.2 L Hct 31.4 L Plt Count 71 L MPV 12.0 H Lymphocytes % 13 L Reactive Lymphocytes Platelet Estimate Decreased A RBC Morphology Abnormal A Hypochromasia 2+ A Sodium Potassium Chloride 111 H Creatinine Glucose 155 H Uric Acid 2.2 L Calcium 8.1 L Lactate Dehydrogenase Total Protein 5.1 L Albumin 2.9 L Albumin/Globulin Ratio Triglycerides 150 H Procalcitonin CSF RBC CSF Total Nucleated Auto CSF Neutrophils CSF Monocytes CSF Glucose CSF Total Protein Meds: Medications Acetaminophen (Acetaminophen 325 Mg Tablet) 650 mg PO Q4-6HP PRN; Protocol PRN Reason: Per Pain Protocol/Fever > 101 Last Admin: 01/15/22 20:16 Dose: 650 mg Albuterol Sulfate (Albuterol Sulfate 200 Puff Inhaler) 2 puff INH DAILYP PRN PRN Reason: Shortness Of Breath Albuterol/Ipratropium (Ipratropium/Albuterol 3 Ml Ampul.Neb) 3 ml NEB Q4HP PRN PRN Reason: Shortness Of Breath Atorvastatin Calcium (Atorvastatin 40 Mg Tablet) 40 mg PO HS [facility] Last Admin: 01/16/22 20:59 Dose: 40 mg Dextrose (Dextrose 50% 50 Ml Vial) 0 ml IV UD PRN PRN Reason: Per Sliding Scale Diagnostic Test (Pha) (Accu-Chek 1 Each Strip) 1 each FS ACHS [facility] Last Admin: 01/17/22 07:34 Dose: 1 each Divalproex Sodium (Divalproex 125 Mg Cap.Sprink) 625 mg PO BID [facility] Last Admin: 01/16/22 21:00 Dose: 625 mg Fluticasone Propionate (Fluticasone Hfa 110mcg Inhaler) 2 puff INH BID [facility] Last Admin: 01/16/22 20:36 Dose: Not Given Fondaparinux (Fondaparinux Sodium 2.5 Mg/0.5 Ml Syringe) 2.5 mg SQ DAILY [facility] Last Admin: 01/16/22 09:20 Dose: 2.5 mg Glucose (Dextrose 31 Gm Oral.Susp) 15 gm PO PRN PRN PRN Reason: Hypoglycemia Hydralazine HCl (Hydralazine 20 Mg/Ml Vial) 0 mg IV Q2HP PRN PRN Reason: Hypertension Acetaminophen (Ofirmev) 650 mg in 65 mls @ 130 mls/hr IV Q6HP PRN; Protocol PRN Reason: PAIN/FEVER > 101 Last Infusion: 01/14/22 05:12 Dose: Infused Meropenem 2 gm/ Sodium (Chloride) 50 mls @ 100 mls/hr IV Q8H [facility]; Protocol Last Infusion: 01/17/22 07:05 Dose: Infused Vancomycin HCl 1,500 mg/ (Dextrose) 500 mls @ 333.3 mls/hr IV Q12H [facility] Last Infusion: 01/16/22 23:24 Dose: Infused Caspofungin 50 mg/ Sodium (Chloride/ EMPTYBAG) 250 mls @ 250 mls/hr IV Q24H [facility]; Protocol Last Infusion: 01/16/22 08:55 Dose: Infused Insulin Human Lispro (Insulin Lispro 1 Unit/0.01 Ml Unit) 0 unit SQ ACHS [facility]; Protocol Last Admin: 01/17/22 07:34 Dose: Not Given Loperamide HCl (Loperamide 2 Mg Capsule) 2 mg PO PRN PRN PRN Reason: Diarrhea Last Admin: 01/16/22 17:42 Dose: 2 mg Metoprolol Tartrate (Metoprolol Tartrate 25 Mg Tablet) 25 mg PO BID [facility] Last Admin: 01/16/22 20:59 Dose: 25 mg Nystatin (Nystatin Powder Bottle 15gm) 1 dose TOPICAL TIDP PRN PRN Reason: Skin Irritation Quetiapine Fumarate (Quetiapine 100 Mg Tablet) 300 mg PO TID [facility] Last Admin: 01/16/22 20:59 Dose: 300 mg Sertraline HCl (Sertraline 100 Mg Tablet) 100 mg PO BID [facility] Last Admin: 01/16/22 20:59 Dose: 100 mg Sodium Chloride (0.9 % Sodium Chloride 10 Ml Syringe) 10 ml IV Q8 [facility] Last Admin: 01/17/22 05:43 Dose: 10 ml Tamsulosin HCl (Tamsulosin 0.4 Mg Capsule) 0.4 mg PO QHS [facility] Last Admin: 01/16/22 20:59 Dose: 0.4 mg Vancomycin HCl (Vancomycin Per Pharmacy) 1 order IV UD [facility]; Protocol A/P Narrative A/P Narrative: A: #Septic shock likely 2/2 scrotal cellulitis & pneumonia: resolved -Persistent high-grade temperatures and fevers: no leukocytosis/bandemia. REsolved -LP no organisms, echo no vegetations, good EF #Community acquired aspiration pneumonia: #Acute hypoxic respite failure: 2/2 above -now on room air #Urine growing yeast #Scrotal cellulitis: #Thrombocytopenia: 2/2 above, improving #Hypernatremia/Hypokalemia: improved #Dysphagia, likely chronic: #[id number]: 2/2 septic shock, resolved #Encephalopathy: Resolved #Left hydrocele: #Decubitus pressure injuries, present on admission: #Prediabetes, hemoglobin A1c 6.3: #h/o Traumatic brain injury #h/o CVA #Poor functional status/wheelchair-bound status: Plan: -on Vancomycin/meropenem/completed azithromycin - deescalate -Started empiric caspofungin. -Beta D glucan level pending. - deescalate to fluconazole -Follow blood and urine cultures. -cheney catheter for wound healing to perineum, wound care -Topical nystatin for scrotal erythema, monitor -Monitor electrolytes and renal function. -SSI, hold metformin for now -Continue home Lopressor restart home lisinopri -cont home Depakote/seroquel, cont atorvastatin/aspirin -Urology evaluated and felt more likely scrotal cellulitis than infected left hydrocele. -Dysphagia diet per ST -PT/OT -ppx: Arixtra (HIT negative) CODE STATUS: DNR/DNI Time Spent With Patient Time: Total time spent is greater than 50% in coordination of care (as documented) at patient's floor/unit and/or counseling patient: Total time spent with greater than 50% in coordination of care (as documented) at patient's floor/unit and/or counseling patient:: 25 - 35 minutes QUALITY VTE Deep Vein Thrombosis/Pulmonary Embolism Present on Admission: No
[2022-01-17] MEDS: FONDAPARINUX SODIUM 2.5 MG/0.5 ML SYRINGE SQ SCH (08:16)
[2022-01-17] MEDS: QUEtiapine 100 MG TABLET PO SCH ×3 (08:17→20:30)
[2022-01-17] MEDS: METOPROLOL TARTRATE 25 MG TABLET PO SCH ×2 (08:17→20:30)
[2022-01-17] MEDS: SERTRALINE 100 MG TABLET PO SCH ×2 (08:17→20:31)
[2022-01-17] MEDS: DIVALPROEX 125 MG CAP.SPRINK PO SCH ×2 (08:17→20:30)
[2022-01-17] MEDS: FLUTICASONE HFA 110MCG INHALER INH SCH ×2 (08:17→20:00)
[2022-01-17] MEDS ORDERED: LISINOPRIL 5 MG TABLET PO SCH (09:00)
[2022-01-17] MEDS: VANCOMYCIN 1,500 MG in DEXTROSE 5% IN WATER 500 ML IV SCH (09:12)
[2022-01-17] MEDS ORDERED: CASPOFUNGIN ACETATE 50 MG in 0.9 % SODIUM CHLORIDE 250 ML IV SCH (10:00)
[2022-01-17] MEDS: SODIUM CHLORIDE 0.45% IV SCH (10:06)
[2022-01-17] MEDS: EMPTYBAG IV SCH (10:06)
[2022-01-17] MEDS: CASPOFUNGIN ACETATE IV SCH (10:06)
[2022-01-17] MEDS: LOPERAMIDE 2 MG CAPSULE PO PRN (14:59)
[2022-01-17] MEDS: AMOXICILLIN/POTASSIUM CLAV 875 MG TABLET PO SCH (17:23)
[2022-01-17] MEDS: ATORVASTATIN 40 MG TABLET PO SCH (20:30)
[2022-01-17] MEDS: TAMSULOSIN 0.4 MG CAPSULE PO SCH (20:30)
[2022-01-17] MEDS: ACETAMINOPHEN 325 MG TABLET PO PRN (23:52)
[2022-01-18] MEDS: 0.9 % SODIUM CHLORIDE 10 ML SYRINGE IV SCH (04:44)
--- NOTE | 2022-01-18 07:43 | Internal Med Progress Note ---
SUBJECTIVE Subjective Patient information: Note initiated : 01/18/22 at 7:41 am Service Date, if different from initiated Date: [] Patient: Corona Mayer 51 y/o M admitted on 01/11/22 for altered loc. Chief Complaint: [] Interval history: Mr. Mayer is a 51 year old male with a past medical history of traumatic brain injury and possibly prior stroke resides in a [facility] house who was brought to the emergency department for confusion. The patient was seen at the [facility] emergency department on 01/08/2022 for fever, felt to have pneumonia based on chest x-ray showing nonspecific vague opacities bilaterally and discharged with a prescription for doxycycline. Today, the patient was brought in by EMS and was initially unresponsive. In the emergency department, the patient is found to be septic requiring Levophed and vasopressin while the patient was resuscitated with IV normal saline as well as started on broad-spectrum antibiotics. Blood pressure improved with vasopressors. The patient was tachypneic, tachycardic and had a fever of 102.6. In the ED, the patient was requiring oxygen supplementation via nonrebreather mask. White blood cell count is 22,000, up from 6.9 on 01/08/2022. Additionally, the patient has a lactic acid of 5. Chemistry panel reveals the patient has an acute kidney injury, creatinine is 2.6. A few days ago in the ED the point of care creatinine level was normal. Urinalysis was not suggestive of a UTI. Blood cultures have been obtained and pending. Chest x-ray is similar to 01/08/2022, possible loss of lateral cardiac border. The source of sepsis is felt to possibly be pneumonia. After receiving the initial treatment for sepsis, the patient is minimally responsive but unable to provide valid any history. I discussed the patient with Lindsay Junior, the patient's aunt. Lindsay said the patient's code status is full code. 01/12: Sepsis physiology improving with decreasing fever trend, improvement in respiratory rate and heart rate, lactic acid downtrending, leukocytosis impro ving. Continues on 4 L/min nasal cannula oxygen. Hypernatremia improving. Making urine and renal function improving. [place] NAAT was negative. Patient is more alert today. CT chest showed bilateral pulmonary infiltrates in the dependent portions of both lungs, aspiration suspected. 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 Infectious work-up suggest that the cause of sepsis was pneumonia, likely aspiration pneumonia. We will continue broad-spectrum antibiotics for now awaiting 48 hours of blood culture results. Scrotum evaluated again, tender to palpation. The patient is unable to provide much history about how long this has been present. Will obtain a scrotal ultrasound and discuss with urology. Discontinued D5 as hypernatremia has nearly resolved. Speech consulted today, recommended starting dysphagia diet. 01/13: The patient continues to have intermittent fevers, scrotal ultrasound revealed a left hydrocele containing debris. Urology consulted, did not feel that the patient had an infected hydrocele however probably had a scrotal cellulitis. Possible scrotal cellulitis contributed to the patient's septic presentation, he may have developed an aspiration pneumonia when he became critically ill. Blood cultures are showing no growth to date. Overall the patient's sepsis physiology has improved, continue vancomycin, Zosyn and azithromycin. Platelets decreased significantly, holding heparin SQ for thrombocytopenia. Sodium level has normalized, renal function has normalized. According to multiple discussions with the care facility where the patient resides, the patient is likely near his baseline at this time. CODE STATUS discussed with family members, the decision to change CODE STATUS to DNR was made by his sister, Jessica Mayer, as his mother cannot make decisions due to a recent stroke. 01/14: Persistent fevers, continuing vancomycin IV and Zosyn. Completed 3 days of azithromycin. Preliminary blood culture results showing no growth to date. Urine culture pending. Repeat chest x-ray shows small patchy infiltrate at the right lung base. Leukocytosis has resolved, the patient does have thrombocytopenia therefore heparin was discontinued for DVT prophylaxis. IRVIN panel ordered. Bilateral lower extremity venous Doppler ordered to evaluate for DVT as a cause of persistent fevers. The patient otherwise has improved clinically on broad-spectrum antibiotics, oxygen requirement wean down to 1 L/min. Video swallow study performed, diet modified per speech recommendations. Continuing IV fluid. Continuing Cheney catheter. 01/15: Continues to have high-grade temperatures, on 2 L/min nasal oxygen supple mentation. Leukocytosis has resolved, procalcitonin 1.10, vitals have significantly improved overall since admission. Source of persistent temperatures and fevers unknown. Preliminary blood culture results showing no growth to date, urine culture pending. Sputum sample for gram stain and culture was contaminated. Recent CT abdomen pelvis with contrast did not show any intra-abdominal or intrapelvic source of infection. Ordered beta D glucagen, radiology preferred lumbar puncture with CFS analysis and meningitis encephalitis panel, transthoracic echocardiogram. Bilateral lower extremity venous duplex was negative. Substituted meropenem for Zosyn, started caspofungin. Continue vancomycin IV. Remove Cheney catheter. Platelet count improving, mild hypernatremia today. 01/16 Mentation better. Patient has no new complaints. Is having more diarrhea this morning and will check C. difficile. He has been afebrile overnight, in fact the last actual fever was on the 6th, he did have temperatures of 100.1 on the seventh. No bandemia or leukocytosis. Sodium better today. Patient currently on room air. 01/17 Patient seems to be doing fairly well. No overnight event or new complaints. Afebrile again. Electrolytes within normal limits today. 01/18 No overnight event or new complaints. Diarrhea improving. Patient says he is feeling good. Review of Systems: denies headache/fever/chills/nausea/vomiting/chest or abdominal pain/cough/dyspnea. Otherwise see above. Constitutional Vitals: Vital Signs Temp Pulse Resp BP Pulse Ox O2 Del Method O2 Flow Rate 97.9 F 78 16 97/67 95 0 01/18/22 03:39 01/18/22 03:39 01/18/22 03:39 01/18/22 03:39 01/18/22 03:39 01/18/22 03:39 01/16/22 09:36 Period Temp Pulse Resp BP Sys/Delcid Pulse Ox O2 Del Method O2 Flow Rate Last 24 Hr 97.2 F-99.1 F 77-93 16-18 97-134/67-78 92-97 Room Air-Room Air Intake and Output 01/17/22 01/18/22 01/18/22 21:59 05:59 13:59 Intake Total 910 200 Output Total 1200 850 Balance -290 -650 Weight 100.698 kg Intake & Output: Intake & Output 01/17/22 01/18/22 01/18/22 21:59 05:59 13:59 Intake Total 910 200 Output Total 1200 850 Balance -290 -650 Weight 100.698 kg Intake: Nourishment/Supplement quantity 240 (ml) Oral 670 200 Output: Urine Catheter Amount 1200 850 Other: Meal Dinner Percent of Meal Consumed 90% Feeding Ability Total Assistance Nourishment/Supplement name Ensure Urine Appearance Clear Uretheral (Cheney) Clear Urine Color Light Barbi Uretheral (Cheney) Yellow Urine Odor Normal Stool Size Moderate Stool Color Brown Stool Consistency Soft # of times incontinent of 1 Bowels Exam: General: Alert, Awake, No acute Distress Eyes/N/T: EOMI, Head/Neck: neck supple, CV: RRR, No murmurs, Pulm: no ralesl, no wheezing Abd: soft, nontender, +BS x4 Ext: no clubbing/cyanosis/edema Neuro: Alert, no focal deficits, moves all extremities, Skin: warm/dry OBJ DATA Labs CBC & Chem 7: 01/16/22 05:14 01/17/22 05:29 Labs: Abnormal Lab Results 01/17/22 01/16/22 01/16/22 05:29 05:14 05:14 WBC 3.7 L RBC 3.66 L Hgb 10.6 L Hct 32.2 L MPV 11.2 H Reactive Lymphocytes 3 H Platelet Estimate Sodium Potassium Chloride Creatinine 0.6 L 0.6 L Glucose 134 H 124 H Uric Acid 2.4 L Calcium Lactate Dehydrogenase 228 H Total Protein 5.7 L Albumin 2.6 L Albumin/Globulin Ratio 0.8 L Triglycerides 187 H Procalcitonin CSF RBC CSF Total Nucleated Auto CSF Neutrophils CSF Monocytes CSF Glucose CSF Total Protein 01/15/22 01/15/22 01/15/22 11:30 05:47 05:47 WBC RBC Hgb Hct MPV Reactive Lymphocytes Platelet Estimate Sodium 147 H Potassium 3.2 L Chloride 113 H Creatinine 0.6 L Glucose 142 H Uric Acid 2.1 L Calcium 8.4 L Lactate Dehydrogenase Total Protein 5.7 L Albumin 2.8 L Albumin/Globulin Ratio Triglycerides Procalcitonin 0.10 H CSF RBC 388 H CSF Total Nucleated Auto 18 H CSF Neutrophils 13 H CSF Monocytes 2 L CSF Glucose 78 H CSF Total Protein 73.0 H 01/15/22 05:47 WBC RBC Hgb Hct MPV Reactive Lymphocytes Platelet Estimate Decreased A Sodium Potassium Chloride Creatinine Glucose Uric Acid Calcium Lactate Dehydrogenase Total Protein Albumin Albumin/Globulin Ratio Triglycerides Procalcitonin CSF RBC CSF Total Nucleated Auto CSF Neutrophils CSF Monocytes CSF Glucose CSF Total Protein Meds: Medications Acetaminophen (Acetaminophen 325 Mg Tablet) 650 mg PO Q4-6HP PRN; Protocol PRN Reason: Per Pain Protocol/Fever > 101 Last Admin: 01/17/22 23:52 Dose: 650 mg Albuterol Sulfate (Albuterol Sulfate 200 Puff Inhaler) 2 puff INH DAILYP PRN PRN Reason: Shortness Of Breath Albuterol/Ipratropium (Ipratropium/Albuterol 3 Ml Ampul.Neb) 3 ml NEB Q4HP PRN PRN Reason: Shortness Of Breath Amoxicillin/Clavulanate Potassium (Amoxicillin/Potassium Clav 875 Mg Tablet) [facility]; [facility] Last Admin: 01/17/22 17:23 Dose: 875 mg Atorvastatin Calcium (Atorvastatin 40 Mg Tablet) 40 mg PO HS [facility] Last Admin: 01/17/22 20:30 Dose: 40 mg Dextrose (Dextrose 50% 50 Ml Vial) 0 ml IV UD PRN PRN Reason: Per Sliding Scale Diagnostic Test (Pha) (Accu-Chek 1 Each Strip) 1 each FS [facility] Last Admin: 01/17/22 20:00 Dose: 1 each Divalproex Sodium (Divalproex 125 Mg Cap.Sprink) 625 mg PO BID [facility] Last Admin: 01/17/22 20:30 Dose: 625 mg Fluconazole (Fluconazole 100 Mg Tablet) 400 mg PO DAILY [facility]; Protocol Fluticasone Propionate (Fluticasone Hfa 110mcg Inhaler) 2 puff INH BID [facility] Last Admin: 01/17/22 20:00 Dose: Not Given Fondaparinux (Fondaparinux Sodium 2.5 Mg/0.5 Ml Syringe) 2.5 mg SQ DAILY [facility] Last Admin: 01/17/22 08:16 Dose: 2.5 mg Glucose (Dextrose 31 Gm Oral.Susp) 15 gm PO PRN PRN PRN Reason: Hypoglycemia Hydralazine HCl (Hydralazine 20 Mg/Ml Vial) 0 mg IV Q2HP PRN PRN Reason: Hypertension Acetaminophen (Ofirmev) 650 mg in 65 mls @ 130 mls/hr IV Q6HP PRN; Protocol PRN Reason: PAIN/FEVER > 101 Last Infusion: 01/14/22 05:12 Dose: Infused Insulin Human Lispro (Insulin Lispro 1 Unit/0.01 Ml Unit) 0 unit SQ ACHS [facility]; Protocol Last Admin: 01/17/22 20:29 Dose: 4 unit Lisinopril (Lisinopril 5 Mg Tablet) 5 mg PO QDAY [facility] Last Admin: 01/17/22 08:17 Dose: 5 mg Loperamide HCl (Loperamide 2 Mg Capsule) 2 mg PO PRN PRN PRN Reason: Diarrhea Last Admin: 01/17/22 14:59 Dose: 2 mg Metoprolol Tartrate (Metoprolol Tartrate 25 Mg Tablet) 25 mg PO BID [facility] Last Admin: 01/17/22 20:30 Dose: 25 mg Nystatin (Nystatin Powder Bottle 15gm) 1 dose TOPICAL TIDP PRN PRN Reason: Skin Irritation Quetiapine Fumarate (Quetiapine 100 Mg Tablet) 300 mg PO TID [facility] Last Admin: 01/17/22 20:30 Dose: 300 mg Sertraline HCl (Sertraline 100 Mg Tablet) 100 mg PO BID [facility] Last Admin: 01/17/22 20:31 Dose: 100 mg Sodium Chloride (0.9 % Sodium Chloride 10 Ml Syringe) 10 ml IV Q8 [facility] Last Admin: 01/18/22 04:44 Dose: 10 ml Tamsulosin HCl (Tamsulosin 0.4 Mg Capsule) 0.4 mg PO QHS [facility] Last Admin: 01/17/22 20:30 Dose: 0.4 mg A/P Narrative A/P Narrative: A: #Septic shock likely 2/2 scrotal cellulitis & pneumonia: resolved -fevers resolved, no leukocytosis/bandemia -LP no organisms, echo no vegetations, good EF #Community acquired aspiration pneumonia: #Acute hypoxic respite failure: 2/2 above -now on room air #Urine growing yeast #Scrotal cellulitis: #Thrombocytopenia: 2/2 above, improving #Hypernatremia/Hypokalemia: improved #Dysphagia, likely chronic: #JYOTSNA: 2/2 septic shock, resolved #Encephalopathy: Resolved #Left hydrocele: #Decubitus pressure injuries, present on admission: #Prediabetes, hemoglobin A1c 6.3: #h/o Traumatic brain injury #h/o CVA #Poor functional status/wheelchair-bound status: Plan: -on Vancomycin/meropenem/completed azithromycin - deescalated augmentin, -Started empiric caspofungin. -Beta D glucan level pending. - deescalated to fluconazole -cheney catheter for wound healing to perineum, wound care -Topical nystatin for scrotal erythema, monitor -Monitor electrolytes and renal function. -SSI, hold metformin for now -Continue home Lopressor, hold home lisinopril for soft bp -cont home Depakote/seroquel, cont atorvastatin/aspirin -Urology evaluated and felt more likely scrotal cellulitis than infected left hydrocele. -Dysphagia diet per ST -PT/OT -ppx: Arixtra (HIT negative) CODE STATUS: DNR/DNI Time Spent With Patient Time: Total time spent is greater than 50% in coordination of care (as documented) at patient's floor/unit and/or counseling patient: QUALITY VTE Deep Vein Thrombosis/Pulmonary Embolism Present on Admission: No
[2022-01-18] MEDS: SERTRALINE 100 MG TABLET PO SCH (08:10)
[2022-01-18] MEDS: METOPROLOL TARTRATE 25 MG TABLET PO SCH (08:10)
[2022-01-18] MEDS: DIVALPROEX 125 MG CAP.SPRINK PO SCH (08:10)
[2022-01-18] MEDS: QUEtiapine 100 MG TABLET PO SCH (08:11)
[2022-01-18] MEDS: FONDAPARINUX SODIUM 2.5 MG/0.5 ML SYRINGE SQ SCH (08:11)
[2022-01-18] MEDS: INSULIN LISPRO 1 UNIT/0.01 ML UNIT SQ SCH ×2 (08:11→12:13)
[2022-01-18] MEDS: AMOXICILLIN/POTASSIUM CLAV 875 MG TABLET PO SCH (08:11)
[2022-01-18] MEDS ORDERED: FLUCONAZOLE 100 MG TABLET PO SCH (09:00)
[2022-01-18] MEDS: FLUTICASONE HFA 110MCG INHALER INH SCH (09:13)
--- NOTE | 2022-01-18 09:35 | Discharge Summary ---
Discharge Provider Provider IMPORTANT FOLLOW-UP INFORMATION FOR PCP: Patient information: Note initiated : 01/18/22 at 9:33 am Service Date, if different from initiated Date: [] Patient: Corona Mayer 51 y/o M admitted on 01/11/22 for altered loc. Chief Complaint: [] Date of admission: 01/11/22 16:44 Discharge date: 01/18/22 Primary care physician: JESÚS Johansen Consults: 01/11/22 14:38 Consult to Physician [CONS] Stat Comment: Consulting Provider: Trey Walsh Reason For Exam: Physician to Consult 01/13/22 08:27 Consult to Physician [CONS] Routine Comment: Consulting Provider: Alfredo Mir Reason For Exam: Physician to Consult COURSE Hospital Course Hospital course: Interval history: Mr. Mayer is a 51 year old male with a past medical history of traumatic brain injury and possibly prior stroke resides in a residential house who was brought to the emergency department for confusion. The patient was seen at the [facility] emergency department on 01/08/2022 for fever, felt to have pneumonia based on chest x-ray showing nonspecific vague opacities bilaterally and discharged with a prescription for doxycycline. Today, the patient was br ought in by EMS and was initially unresponsive. In the emergency department, the patient is found to be septic requiring Levophed and vasopressin while the patient was resuscitated with IV normal saline as well as started on broad- spectrum antibiotics. Blood pressure improved with vasopressors. The patient was tachypneic, tachycardic and had a fever of 102.6. In the ED, the patient was requiring oxygen supplementation via nonrebreather mask. White blood cell count is 22,000, up from 6.9 on 01/08/2022. Additionally, the patient has a lactic acid of 5. Chemistry panel reveals the patient has an acute kidney injury, creatinine is 2.6. A few days ago in the ED the point of care creatinine level was normal. Urinalysis was not suggestive of a UTI. Blood cultures have been obtained and pending. Chest x-ray is similar to 01/08/2022, possible loss of lateral cardiac border. The source of sepsis is felt to possibly be pneumonia. After receiving the initial treatment for sepsis, the patient is minimally responsive but unable to provide valid any history. I discussed the patient with Lindsay Junior, the patient's aunt. Lindsay said the patient's code status is full code. 01/12: Sepsis physiology improving with decreasing fever trend, improvement in respiratory rate and heart rate, lactic acid downtrending, leukocytosis improving. Continues on 4 L/min nasal cannula oxygen. Hypernatremia improving. Making urine and renal function improving. [place] NAAT was negative. Patient is more alert today. CT chest showed bilateral pulmonary infiltrates in the dependent portions of both lungs, aspiration suspected. 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 Infectious work-up suggest that the cause of sepsis was pneumonia, likely aspiration pneumonia. We will continue broad- spectrum antibiotics for now awaiting 48 hours of blood culture results. Scrotum evaluated again, tender to palpation. The patient is unable to provide much history about how long this has been present. Will obtain a scrotal ultrasound and discuss with urology. Discontinued D5 as hypernatremia has nearly resolved. Speech consulted today, recommended starting dysphagia diet. 01/13: The patient continues to have intermittent fevers, scrotal ultrasound revealed a left hydrocele containing debris. Urology consulted, did not feel that the patient had an infected hydrocele however probably had a scrotal cellulitis. Possible scrotal cellulitis contributed to the patient's septic presentation, he may have developed an aspiration pneumonia when he became critically ill. Blood cultures are showing no growth to date. Overall the patient's sepsis physiology has improved, continue vancomycin, Zosyn and azithromycin. Platelets decreased significantly, holding heparin SQ for thrombocytopenia. Sodium level has normalized, renal function has normalized. According to multiple discussions with the care facility where the patient resides, the patient is likely near his baseline at this time. CODE STATUS discussed with family members, the decision to change CODE STATUS to DNR was made by his sister, Jessica Mayer, as his mother cannot make decisions due to a recent stroke. 01/14: Persistent fevers, continuing vancomycin IV and Zosyn. Completed 3 days of azithromycin. Preliminary blood culture results showing no growth to date. Urine culture pending. Repeat chest x-ray shows small patchy infiltrate at the right lung base. Leukocytosis has resolved, the patient does have thrombocytopenia therefore heparin was discontinued for DVT prophylaxis. IRVIN panel ordered. Bilateral lower extremity venous Doppler ordered to evaluate for DVT as a cause of persistent fevers. The patient otherwise has improved clinically on broad-spectrum antibiotics, oxygen requirement wean down to 1 L/min. Video swallow study performed, diet modified per speech recommen dations. Continuing IV fluid. Continuing Cheney catheter. 01/15: Continues to have high-grade temperatures, on 2 L/min nasal oxygen supplementation. Leukocytosis has resolved, procalcitonin 1.10, vitals have significantly improved overall since admission. Source of persistent temperatures and fevers unknown. Preliminary blood culture results showing no growth to date, urine culture pending. Sputum sample for gram stain and culture was contaminated. Recent CT abdomen pelvis with contrast did not show any intra-abdominal or intrapelvic source of infection. Ordered beta D glucagen, radiology preferred lumbar puncture with CFS analysis and meningitis encephalitis panel, transthoracic echocardiogram. Bilateral lower extremity venous duplex was negative. Substituted meropenem for Zosyn, started caspofungin. Continue vancomycin IV. Remove Cheney catheter. Platelet count improving, mild hypernatremia today. 01/16 Mentation better. Patient has no new complaints. Is having more diarrhea this morning and will check C. difficile. He has been afebrile overnight, in fact the last actual fever was on the 6th, he did have temperatures of 100.1 on the seventh. No bandemia or leukocytosis. Sodium better today. Patient currently on room air. 01/17 Patient seems to be doing fairly well. No overnight event or new complaints. Afebrile again. Electrolytes within normal limits today. 01/18 No overnight event or new complaints. Diarrhea improving. Patient says he is feeling good. Stable for discharge. A: #Septic shock likely 2/2 scrotal cellulitis & pneumonia: resolved #Community acquired aspiration pneumonia: #Acute hypoxic respite failure: 2/2 above #Urine growing yeast #Scrotal cellulitis: #Thrombocytopenia: 2/2 above, improving #Hypernatremia/Hypokalemia: improved #Dysphagia, likely chronic: #JYOTSNA: 2/2 septic shock, resolved #Encephalopathy: Resolved #Left hydrocele: #Decubitus pressure injuries, present on admission: #Prediabetes, hemoglobin A1c 6.3: #h/o Traumatic brain injury #h/o CVA #Poor functional status/wheelchair-bound status: Plan: -deescalated to augmentin, -deescalated to fluconazole -cheney catheter for wound healing to perineum, wound care. remove in 1 week -Topical nystatin for scrotal erythema, monitor -Dysphagia diet per ST Discharge diagnosis: Septic shock scrotal cellulitis and pneumonia aspiration Secondary discharge diagnosis: Thrombocytopenia hyponatremia per kalemia disorder dysphagia acute kidney injury Encephalopathy pressure injuries prediabetes traumatic brain injury history of stroke poor functional status wheelchair-bound Time Spent with Patient Time attestation: Total time spent providing and/or coordinating discharge services: Time spent: Greater than 30 minutes EXAM Constitutional Vitals: Temp Pulse Resp BP Pulse Ox O2 Del Method O2 Flow Rate 97.9 F 78 16 97/67 95 0 01/18/22 03:39 01/18/22 03:39 01/18/22 03:39 01/18/22 03:39 01/18/22 03:39 01/18/22 03:39 01/16/22 09:36 Discharge Data Data Completed and Pending Labs on day of discharge: Labs from last 24 hours 01/17/22 08:42 Valproic Acid 10.1 Preliminary micro results at discharge 01/13/22 21:20 Blood Culture - Preliminary Blood 01/13/22 20:20 Blood Culture - Preliminary Blood Discharge Plan Patient/Caregiver Discharge Instructions Activity: increase activity as tolerated Diet: Consistent Carbohydrate, Dysphagia Level 6 Soft & Bite-Sized Foods and Thickened Liquids Activity Restrictions/Additional Instructions: Maintain Cheney catheter for 1-week for wound healing and then remove. Prescriptions: New fluconazole 200 mg tablet 400 mg PO QDAY Qty: 4 0RF amoxicillin-pot clavulanate 875-125 mg Tablet 875 mg PO BIDCC Qty: 2 0RF Continued atorvastatin 40 mg tablet 1 tab PO QHS atorvastatin 20 mg tablet 1 tab PO QHS Rx Instructions: Take with the 40 mg tablet divalproex 250 mg tablet,delayed release (DR/EC) 1 tab PO BID divalproex 500 mg tablet,delayed release (DR/EC) 1 tab PO BID docusate sodium 100 mg capsule 1 cap PO BID aspirin 81 mg tablet,chewable 1 tab PO QDAY hydroxyzine HCl 25 mg tablet 1 tab PO TID albuterol sulfate 90 mcg/actuation HFA aerosol inhaler 2 puff INHALATION QAM Label Comments: [NO ORIGINAL SIG] fluticasone propionate [Flovent HFA] 110 mcg/actuation HFA aerosol inhaler 2 puff INHALATION BID metformin 500 mg tablet 1 tab PO BID quetiapine 300 mg tablet 1 tab PO TID trazodone 50 mg tablet 2 tab PO HS lidocaine 5 % cream 1 applic topical QID sertraline 100 mg tablet 1 tab PO BID melatonin 3 mg tablet 1 tab PO HS tamsulosin 0.4 mg capsule 1 cap PO QHS lisinopril 5 mg tablet 1 tab PO QDAY metoprolol succinate 25 mg tablet extended release 24 hr 1 tab PO QDAY lactulose 10 gram/15 mL solution 30 ml PO QAM Preparation H Maximum Strength 0.25-1 % cream 1 applic topical BID Discontinued doxycycline hyclate 100 mg tablet 100 mg PO BID Qty: 14 0RF Follow Up Plan Patient Disposition: er Assisted Living Facility Prognosis: Fair Overall status at discharge: patient is progressing back to baseline Discharge Orders: Discharge Order (Routine); Ordered 01/18/22 Ordered By: Guy CLAROS VTE Deep Vein Thrombosis/Pulmonary Embolism Present on Admission: No
[2022-01-19 14:29] LABS: Fungitell (1-3) Assay <31 pg/mL
== END 2022-01-18 13:00 | DRG 871 ==
LOC: ED 13:19 → ICU 16:44 → MEDSUR 01-17 16:11
PROVIDERS: ADMIT Internal Medicine; ATTEND Internal Medicine

== ENCOUNTER 2022-02-10 21:54 | Inpatient (IN) ==
[2022-02-10] MEDS ORDERED: 0.9 % SODIUM CHLORIDE 2,120 ML IV ONE (22:08)
[2022-02-10 22:10] LABS: POC Calcium, Ionized 1.16 (1.16-1.32); POC Creatinine 2.7 (0.6-1.2); POC Potassium 4.4 (3.3-5.1)
[2022-02-10] MEDS ORDERED: VANCOMYCIN 1,000 MG in 0.9 % SODIUM CHLORIDE 250 ML IV ONE (22:17)
[2022-02-10] MEDS ORDERED: PIPERACILLIN SODIUM/TAZOBACTAM 3.375 GM in DEXTROSE 5% IN WATER 50 ML IV ONE (22:17)
--- NOTE | 2022-02-10 22:26 | Emergency Department Note ---
SOB HPI General Chief Complaint: Shortness of Breath/Dyspnea Stated Complaint: SOB Time Seen by Provider: 02/10/22 21:57 Source: EMS Mode of arrival: EMS Limitations: altered mental status History of Present Illness HPI Narrative: Narrative: Patient presents to the ED via EMS with concerns of increased weakness shortness of breath according to facility staff or patient resides at assisted living [facility]. Patient was recently admitted to this hospital for pneumonia and discharged on 01/18/2022. Staff states he has been doing well but recently he became diaphoretic not as responsive as he normally is. He does have a history of a TBI. States that his O2 saturation was low. EMS was called to evaluate the patient in the field found to have oxygen saturation less than 88%. They put him on a nonrebreather mask at 15 L. They were not able to establish line. He said that his blood pressure was soft with systolic in the 70s. [facility] nausea, vomiting, diarrhea. Last time patient was in the hospital he was a DNR/DNI that was filled out by his sister. Related Data Home Medications Medication Instructions Recorded Confirmed albuterol sulfate 90 mcg/actuation 2 puff inhalation QAM 01/11/22 01/12/22 aerosol inhaler aspirin 81 mg chewable tablet 1 tab PO QDAY 01/11/22 01/12/22 atorvastatin 20 mg tablet 1 tab PO QHS 01/11/22 01/12/22 atorvastatin 40 mg tablet 1 tab PO QHS 01/11/22 01/12/22 divalproex 250 mg tablet,delayed 1 tab PO BID 01/11/22 01/12/22 release divalproex 500 mg tablet,delayed 1 tab PO BID 01/11/22 01/12/22 release docusate sodium 100 mg capsule 1 cap PO BID 01/11/22 01/12/22 fluticasone propionate 110 2 puff inhalation BID 01/11/22 01/12/22 mcg/actuation HFA aerosol inhaler (Flovent HFA) hydroxyzine HCl 25 mg tablet 1 tab PO TID 01/11/22 01/12/22 lactulose 10 gram/15 mL oral 30 ml PO QAM 01/11/22 01/12/22 solution lidocaine 5 % topical cream 1 applic topical QID 01/11/22 01/12/22 lisinopril 5 mg tablet 1 tab PO QDAY 01/11/22 01/12/22 melatonin 3 mg tablet 1 tab PO HS 01/11/22 01/12/22 metformin 500 mg tablet 1 tab PO BID 01/11/22 02/10/22 metoprolol succinate 25 mg 1 tab PO QDAY 01/11/22 02/10/22 tablet,extended release 24 hr phenylephrine 0.25 %-pramoxine 1 1 applic topical QID 01/11/22 02/10/22 %-glycerin-wh.petrolatum rectal cream (Preparation H Maximum Strength) quetiapine 300 mg tablet 1 tab PO TID 01/11/22 02/10/22 sertraline 100 mg tablet 2 tab PO DAILY 01/11/22 02/10/22 tamsulosin 0.4 mg capsule 1 cap PO QHS 01/11/22 02/10/22 trazodone 50 mg tablet 1 tab PO HS 01/11/22 02/10/22 Previous Rx's Medication Instructions Recorded fluconazole 200 mg tablet 400 mg PO QDAY #4 tabs 01/18/22 Allergies Allergy/AdvReac Type Severity Reaction Status Date / Time No Known Drug Allergies Allergy Verified 02/10/22 21:59 Review of Systems ROS ROS Narrative: Narrative: All systems ED: reviewed and negative except as stated. [facility] Narrative Patient History Narrative: Narrative: Medical/Surgical/Family History All Active Problems (Updated 02/10/22 @ 23:42 by Lukasz Adames DO) Pneumonia (Acute) Altered mental status (Acute) Septic shock (Acute) Septic shock (Acute) Sacral decubitus ulcer (Acute) Acute and chronic respiratory failure with hypoxia (Acute) Social History Smoking Status: Unknown if ever smoked Exam Narrative Narrative: Narrative: General Limitations: altered mental status General appearance: Present other (Ill-appearing) Respiratory Respiratory: Present respiratory distress and decreased breath sounds; Absent wheezes Cardiovascular Cardiovascular: Present normal rhythm and tachycardia Adbominal Abdominal: Present soft and normal bowel sounds; Absent tenderness Extremities Extremities: Present normal capillary refill Neurological Neurological: Present other (Patient has altered mental status history of TBI) Psychiatric Psychiatric: Present other (Altered mental status, history of TBI) Skin Skin: Present diaphoretic and pallor Course Course Course Narrative: Patient was evaluated for generalized weakness and not feeling well. Patient was found to be in septic shock as he was hypotensive, tachycardic, tachypneic was found to have leukocytosis with elevated white cell count. Patient lactic acid was greater than 4. Patient was bolused IV fluids, blood cultures obtained, IV antibiotics administered to include vancomycin and Zosyn. Patient's blood pressure still remain soft in the 70s systolically. He was started on a Levophed drip. Urine was concerning for infection but should be covered by the antibiotics. CT of the chest obtained which shows bilateral atelectasis and consolidation compatible with pneumonia most likely aspiration pneumonia. Patient was also found to have a large sacral ulcer which is no doubt contributing to his septic shock. I did discuss with family goals of treatment and they expressed that they did not want chest compressions, tracheostomy. They did state patient did want intubation if needed. At this time he is on high flow nasal cannula maintain adequate oxygen saturation at 94%. Recommend the patient be admitted for septic shock secondary to sacral ulcer and bilateral pneumonia. Case discussed with hospitalist who has agreed to admit the patient. Reevaluation(s) Reevaluation #1: I discussed care with patient's sister, Jessica Mayer [phone], who stated that patient does want to be intubated if he stops breathing for no more than 2 weeks. I advised her that at the 2-week alberto she would have to make the decision to discontinue life support. She stated that patient does not want chest compressions, does not want a tracheostomy placed, does not want a central line placed. He does wish to have other medical care that would sustain his life such as IV fluids, antibiotics, electrolytes etc. Patient's sister stated that she had an extensive discussion with the patient after his last hospitali zation in which she made the above advanced directives clear to her. Time: 23:20 Consultations Consultation #1: Case discussed with hospitalist who has agreed to admit the patient. Time: 02:35 Vital Signs Vital signs: Vital Signs Pulse Rate 137 H 02/10/22 21:55 Respiratory Rate 30 H 02/10/22 21:55 Blood Pressure 77/53 02/10/22 21:55 Pulse Oximetry (%) 97 02/10/22 21:55 Oxygen Delivery Method 02/10/22 21:55 Oxygen Flow Rate (L/min) 15 02/10/22 21:55 Pulse Rate 116 H 02/11/22 02:36 Respiratory Rate 23 H 02/11/22 02:36 Blood Pressure 80/61 02/11/22 02:36 Pulse Oximetry (%) 95 02/11/22 02:36 Oxygen Delivery Method 02/11/22 02:36 Oxygen Flow Rate (L/min) 20 02/11/22 00:30 MDM MDM Narrative Medical decision making narrative: Narrative: Sepsis Sepsis Identified: Yes Time Zero: 2220 Differential Diagnosis Differential Diagnosis: Sepsis, respiratory failure, pneumonia Medical Records Medical records reviewed: Yes I reviewed the patient's medical records. Lab Data Lab results reviewed: Yes I reviewed the patient's lab results. Result diagrams: 02/10/22 21:55 Labs: Lab Results 02/10/22 02/10/22 02/10/22 Range/Units 21:55 21:55 22:06 WBC 14.3 H (4.5-11.0) K/mcL RBC 4.66 (4.63-6.08) M/mcL Hgb 13.7 (13.7-17.5) g/dL Hct 44.7 (40.1-51.0) % POC Hct 48.0 (41-55) MCV 95.9 (80.0-100.0) fL MCH 29.4 (26.0-34.0) pg MCHC 30.6 L (31.0-36.0) g/dL RDW 13.9 (11.5-14.5) % Plt Count 210 (140-440) K/mcL MPV 10.5 (8.8-12.5) fL Immature Gran % (Auto) 0.6 H (0.0-0.5) % Neut % (Auto) 58.7 (38.0-78.0) % Lymph % (Auto) 24.3 (15.5-49.0) % [place] % (Auto) 16.1 H (1.0-12.0) % Eos % (Auto) 0 (0.0-7.0) % Baso % (Auto) 0.3 (0.0-2.0) % Lymph # (Auto) 3.48 (1.50-4.80) K/mcL [place] # (Auto) 2.31 H (0.10-0.90) K/mcL Eos # (Auto) 0 (0.00-0.70) K/mcL Baso # (Auto) 0.04 (0.00-0.30) K/mcL Immature Gran # 0.08 H (0.00-0.05) K/mcl Absolute Neutrophils 8.42 H (1.80-8.00) K/mcL POC VBG pH (7.32-7.42) POC VBG pCO2 at Temp (41-51) POC VBG pO2 (25-40) POC VBG HCO3 (24-28) POC VBG Total CO2 (25-29) POC Venous O2 Sat (40-70) POC VBG Base Excess (-2-2) VBG Lactic Acid (0.5-2) POC Sodium 155 H (133-145) POC Potassium 4.4 (3.3-5.1) POC Chloride 122 H (96-108) POC Total CO2 20.0 L (22-30) POC BUN 36 H (6-20) POC Creatinine 2.7 H (0.6-1.2) POC Glucose 346 H (70-105) POC WB Ioniz Calcium 1.16 (1.16-1.32) Total Bilirubin (0.1-1.0) mg/dL Direct Bilirubin (0-0.3) mg/dL AST (<40) U/L ALT (<40) U/L Alkaline Phosphatase (39-117) U/L Ammonia 54 (16-60) umol/L Total Protein (5.9-8.4) gm/dL Albumin (3.2-5.2) gm/dL Globulin (2.2-3.7) gm/dL Urine Color Urine Appearance (Clear) Urine pH (5.0-9.0) Ur Specific [place] (1.000-1.035) Urine Protein (Negative) mg/dL Urine Glucose (UA) (Negative) mg/dL Urine Ketones (Negative) mg/dL Urine Occult Blood (Negative) mg/dL Urine Nitrate (Negative) Urine Bilirubin (Negative) mg/dL Urine Urobilinogen mg/dL Ur Leukocyte Esterase (Negative) /uL Urine RBC (0-3) /hpf Urine WBC (0-4) /hpf Ur Squamous Epith Cells (0-4) /hpf Calcium Oxalate Crystal (None) /hpf Urine Bacteria (0) /hpf Hyaline Casts (0-2) /lph Urine Mucus (None) /hpf Ur Culture Indicated? 02/10/22 02/10/22 02/10/22 Range/Units 22:07 22:50 23:26 WBC (4.5-11.0) K/mcL RBC (4.63-6.08) M/mcL Hgb (13.7-17.5) g/dL Hct (40.1-51.0) % POC Hct (41-55) MCV (80.0-100.0) fL MCH (26.0-34.0) pg MCHC (31.0-36.0) g/dL RDW (11.5-14.5) % Plt Count (140-440) K/mcL MPV (8.8-12.5) fL Immature Gran % (Auto) (0.0-0.5) % Neut % (Auto) (38.0-78.0) % Lymph % (Auto) (15.5-49.0) % [place] % (Auto) (1.0-12.0) % Eos % (Auto) (0.0-7.0) % Baso % (Auto) (0.0-2.0) % Lymph # (Auto) (1.50-4.80) K/mcL [place] # (Auto) (0.10-0.90) K/mcL Eos # (Auto) (0.00-0.70) K/mcL Baso # (Auto) (0.00-0.30) K/mcL Immature Gran # (0.00-0.05) K/mcl Absolute Neutrophils (1.80-8.00) K/mcL POC VBG pH 7.40 (7.32-7.42) POC VBG pCO2 at Temp 34.9 L (41-51) POC VBG pO2 37 (25-40) POC VBG HCO3 21.4 L (24-28) POC VBG Total CO2 22.0 L (25-29) POC Venous O2 Sat 70.0 (40-70) POC VBG Base Excess -4.0 L (-2-2) VBG Lactic Acid 4.0 H* (0.5-2) POC Sodium (133-145) POC Potassium (3.3-5.1) POC Chloride (96-108) POC Total CO2 (22-30) POC BUN (6-20) POC Creatinine (0.6-1.2) POC Glucose (70-105) POC WB Ioniz Calcium (1.16-1.32) Total Bilirubin 0.2 (0.1-1.0) mg/dL Direct Bilirubin < 0.2 (0-0.3) mg/dL AST 26 (<40) U/L ALT 16 (<40) U/L Alkaline Phosphatase 62 (39-117) U/L Ammonia (16-60) umol/L Total Protein 8.6 H (5.9-8.4) gm/dL Albumin 4.1 (3.2-5.2) gm/dL Globulin 4.5 H (2.2-3.7) gm/dL Urine Color [place] Urine Appearance Cloudy A (Clear) Urine pH 5.0 (5.0-9.0) Ur Specific [place] 1.028 (1.000-1.035) Urine Protein 100 A (Negative) mg/dL Urine Glucose (UA) 50 A (Negative) mg/dL Urine Ketones 5 A (Negative) mg/dL Urine Occult Blood 0.03 (Negative) mg/dL Urine Nitrate Negative (Negative) Urine Bilirubin Negative (Negative) mg/dL Urine Urobilinogen 2.0 A mg/dL Ur Leukocyte Esterase 250 A (Negative) /uL Urine RBC 12 H (0-3) /hpf Urine WBC 33 H (0-4) /hpf Ur Squamous Epith Cells < 1 (0-4) /hpf Calcium Oxalate Crystal Few A (None) /hpf Urine Bacteria None (0) /hpf Hyaline Casts 10 H (0-2) /lph Urine Mucus Few A (None) /hpf Ur Culture Indicated? yes 02/11/22 Range/Units 02:10 WBC (4.5-11.0) K/mcL RBC (4.63-6.08) M/mcL Hgb (13.7-17.5) g/dL Hct (40.1-51.0) % POC Hct (41-55) MCV (80.0-100.0) fL MCH (26.0-34.0) pg MCHC (31.0-36.0) g/dL RDW (11.5-14.5) % Plt Count (140-440) K/mcL MPV (8.8-12.5) fL Immature Gran % (Auto) (0.0-0.5) % Neut % (Auto) (38.0-78.0) % Lymph % (Auto) (15.5-49.0) % [place] % (Auto) (1.0-12.0) % Eos % (Auto) (0.0-7.0) % Baso % (Auto) (0.0-2.0) % Lymph # (Auto) (1.50-4.80) K/mcL [place] # (Auto) (0.10-0.90) K/mcL Eos # (Auto) (0.00-0.70) K/mcL Baso # (Auto) (0.00-0.30) K/mcL Immature Gran # (0.00-0.05) K/mcl Absolute Neutrophils (1.80-8.00) K/mcL POC VBG pH 7.45 H (7.32-7.42) POC VBG pCO2 at Temp 28.1 L (41-51) POC VBG pO2 43 H (25-40) POC VBG HCO3 19.7 L (24-28) POC VBG Total CO2 21.0 L (25-29) POC Venous O2 Sat 82.0 H (40-70) POC VBG Base Excess -4.0 L (-2-2) VBG Lactic Acid 2.8 H (0.5-2) POC Sodium (133-145) POC Potassium (3.3-5.1) POC Chloride (96-108) POC Total CO2 (22-30) POC BUN (6-20) POC Creatinine (0.6-1.2) POC Glucose (70-105) POC WB Ioniz Calcium (1.16-1.32) Total Bilirubin (0.1-1.0) mg/dL Direct Bilirubin (0-0.3) mg/dL AST (<40) U/L ALT (<40) U/L Alkaline Phosphatase (39-117) U/L Ammonia (16-60) umol/L Total Protein (5.9-8.4) gm/dL Albumin (3.2-5.2) gm/dL Globulin (2.2-3.7) gm/dL Urine Color Urine Appearance (Clear) Urine pH (5.0-9.0) Ur Specific [place] (1.000-1.035) Urine Protein (Negative) mg/dL Urine Glucose (UA) (Negative) mg/dL Urine Ketones (Negative) mg/dL Urine Occult Blood (Negative) mg/dL Urine Nitrate (Negative) Urine Bilirubin (Negative) mg/dL Urine Urobilinogen mg/dL Ur Leukocyte Esterase (Negative) /uL Urine RBC (0-3) /hpf Urine WBC (0-4) /hpf Ur Squamous Epith Cells (0-4) /hpf Calcium Oxalate Crystal (None) /hpf Urine Bacteria (0) /hpf Hyaline Casts (0-2) /lph Urine Mucus (None) /hpf Ur Culture Indicated? ED POC Tests ED POC Tests: DONNELL - Influenza A Negative DONNELL - Influenza B Negative DONNELL - SARS Antigen Negative Radiology Data Radiology results reviewed: Yes I reviewed the patient's radiology results. Radiology results narrative: CT chest revealed atelectasis and consolidation in the bilateral lobes compatible with pneumonia most likely aspiration pneumonia. EKG Data EKG #1: EKG attestation: Yes I reviewed and interpreted this EKG. EKG shows normal: sinus rhythm Rate: tachycardia (136) Rhythm: NSR [place]/QRS: right axis deviation Voltage: c/w LVH Heart block present: None ST segment elevation in: None ST segment depression in: None QTc: normal QRS morphology: Present normal When compared to previous EKG there are: no significant changes Interpretation: no acute changes CC TIME Critical Care Time Critical Care Time: Yes Total Critical Care Time: 90 Attestation: 90 minutes of critical care time was utilized in caring for this patient and arranging disposition excluding any procedures. 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/PA only: No Clinical Impression: Septic shock, Sacral decubitus ulcer, Acute and chronic respiratory failure with hypoxia Prescriptions: No Action atorvastatin 40 mg tablet 1 tab PO QHS atorvastatin 20 mg tablet 1 tab PO QHS Rx Instructions: Take with the 40 mg tablet divalproex 250 mg tablet,delayed release (DR/EC) 1 tab PO BID divalproex 500 mg tablet,delayed release (DR/EC) 1 tab PO BID docusate sodium 100 mg capsule 1 cap PO BID aspirin 81 mg tablet,chewable 1 tab PO QDAY hydroxyzine HCl 25 mg tablet 1 tab PO TID albuterol sulfate 90 mcg/actuation HFA aerosol inhaler 2 puff INHALATION QAM Label Comments: [NO ORIGINAL SIG] fluticasone propionate [Flovent HFA] 110 mcg/actuation HFA aerosol inhaler 2 puff INHALATION BID metformin 500 mg tablet 1 tab PO BID quetiapine 300 mg tablet 1 tab PO TID trazodone 50 mg tablet 1 tab PO HS lidocaine 5 % cream 1 applic topical QID sertraline 100 mg tablet 2 tab PO DAILY melatonin 3 mg tablet 1 tab PO HS tamsulosin 0.4 mg capsule 1 cap PO QHS lisinopril 5 mg tablet 1 tab PO QDAY metoprolol succinate 25 mg tablet extended release 24 hr 1 tab PO QDAY lactulose 10 gram/15 mL solution 30 ml PO QAM Preparation H Maximum Strength 0.25-1 % cream 1 applic topical QID fluconazole 200 mg tablet 400 mg PO QDAY Qty: 4 0RF
[2022-02-10] MEDS: NOREPINEPHRINE BITARTRATE 8 MG in 0.9 % SODIUM CHLORIDE 242 ML IV SCH (22:30)
[2022-02-10] MEDS ORDERED: 0.9 % SODIUM CHLORIDE 250 ML IV SCH (22:45)
[2022-02-10 23:17] LABS: Basophils # (Auto) 0.04 K/mcL (0.00-0.30); Basophils % (Auto) 0.3 % (0.0-2.0); Eosinophils # (Auto) 0 K/mcL (0.00-0.70); Eosinophils % (Auto) 0 % (0.0-7.0); Hematocrit 44.7 % (40.1-51.0); Hemoglobin 13.7 g/dL (13.7-17.5); Lymphocytes # (Auto) 3.48 K/mcL (1.50-4.80); Lymphocytes % (Auto) 24.3 % (15.5-49.0); Mean Cell Volume 95.9 fL (80.0-100.0); Mean Corpuscular HGB Conc 30.6 g/dL (31.0-36.0); Mean Platelet Volume 10.5 fL (8.8-12.5); Monocytes # (Auto) 2.31 K/mcL (0.10-0.90); Monocytes % (Auto) 16.1 % (1.0-12.0); Neutrophils % (Auto) 58.7 % (38.0-78.0); Platelet Count 210 K/mcL (140-440); RBC 4.66 M/mcL (4.63-6.08); Red Cell Distribution Width 13.9 % (11.5-14.5); WBC 14.3 K/mcL (4.5-11.0)
[2022-02-10 23:38] LABS: ALT/SGPT 16 U/L (<40); AST/SGOT 26 U/L (<40); Albumin 4.1 gm/dL (3.2-5.2); Alkaline Phosphatase 62 U/L (39-117); Bilirubin,Direct < 0.2 mg/dL (0-0.3); Bilirubin,Total 0.2 mg/dL (0.1-1.0); Globulin 4.5 gm/dL (2.2-3.7)
[2022-02-11 00:01] LABS: Appearance,Urine CLOUDY (Clear); Bilirubin,Urine Negative (Negative); Calcium Oxalate Crystals,Urine FEW /hpf; Color,Urine AMBER; Culture Indicated,Urine yes; Glucose,Urine (UA) 50 mg/dL (Negative); Ketones,Urine 5 mg/dL (Negative); Leukocyte Esterase,Urine 250 /uL (Negative); Mucus,Urine FEW /hpf; Nitrate,Urine Negative (Negative); Protein,Urine 100 mg/dL (Negative); Specific Gravity,Urine 1.028 (1.000-1.035); Urine Blood 0.03 mg/dL (Negative); Urine Hyaline Cast 10 /lph (0-2); Urine RBC 12 /hpf (0-3); Urine Squamous Epithelial Cell < 1 /hpf (0-4); Urine WBC 33 /hpf (0-4)
[2022-02-11] MEDS ORDERED: ONDANSETRON 4 MG/2 ML VIAL IV PRN (02:38)
[2022-02-11] MEDS: 0.9 % SODIUM CHLORIDE 1,000 ML IV SCH ×2 (02:42→04:15)
[2022-02-11] MEDS ORDERED: VANCOMYCIN PER PHARMACY IV ONE (04:46)
[2022-02-11] MEDS ORDERED: DEXTROSE 50% 50 ML VIAL IV PRN (04:49)
[2022-02-11] MEDS ORDERED: DEXTROSE 31 GM ORAL.SUSP PO PRN (04:49)
[2022-02-11] MEDS ORDERED: VASOPRESSIN 20 UNIT/ML VIAL ONE (04:50)
[2022-02-11] MEDS ORDERED: 0.45 % SODIUM CHLORIDE 1,000 ML IV SCH (05:00)
[2022-02-11] MEDS ORDERED: DEXTROSE 5% IN WATER 1,000 ML IV SCH (05:00)
[2022-02-11] MEDS: VASOPRESSIN 20 UNIT in DEXTROSE 5% IN WATER 99 ML IV SCH (05:10)
--- NOTE | 2022-02-11 05:22 | Cat Scan Report ---
INDICATION: sob COMPARISON: Previous CT scan dated 01/11/2022 TECHNIQUE: Axial noncontrast enhanced images through the chest. Sagittally and coronally reformatted images. MIP reformatted images. FINDINGS: Examination was initially interpreted by [facility] Suboptimal evaluation. This patient is unable to suspend respiration. Lungs:Parenchymal density in both lower lobes with air bronchograms. Appearance is consistent with dependent atelectasis. Pneumonia is possible. No definite interval change. Recurrent volume loss is possible. Mediastinum, vascular:No pathologic mediastinal or hilar adenopathy Thoracic aorta is negative. No aneurysmal dilatation Heart:No significant cardiomegaly. No pericardial effusion Pleura:No pleural effusion. No pleural-based mass. No pleural calcification Axilla, supraclavicular regions, chest wall:No axillary or supraclavicular adenopathy. Musculoskeletal:No thoracic compression fractures. No lytic lesions. No sternal or rib lesions Upper Abdomen:Negative to the limits of noncontrast enhanced examination IMPRESSION: 1. Bilateral lower lobe pulmonary parenchymal density with air bronchograms. Findings may be due to benign atelectasis but pneumonia is possible 2. No significant interval change The exam was performed using radiation dose optimization techniques including, but not limited to, automated exposure control, adjustment of the mA and/or kV according to patient size and use of iterative reconstruction technique. Interpreted and Authenticated by: Rosendo Reis 02/11/22
[2022-02-11] MEDS ORDERED: 0.9 % SODIUM CHLORIDE 250 ML IV SCH (05:30)
[2022-02-11] MEDS: INSULIN LISPRO 1 UNIT/0.01 ML UNIT SQ SCH ×6 (05:30→20:47)
[2022-02-11] MEDS ORDERED: INSULIN LISPRO 1 UNIT/0.01 ML UNIT SQ ONE (05:42)
[2022-02-11] MEDS: PIPERACILLIN SODIUM/TAZOBACTAM 3.375 GM in DEXTROSE 5% IN WATER 50 ML IV SCH ×4 (06:02→23:30)
[2022-02-11 07:06] LABS: Hematocrit 43.2 % (40.1-51.0); Hemoglobin 13.2 g/dL (13.7-17.5); Mean Cell Volume 96.4 fL (80.0-100.0); Mean Corpuscular HGB Conc 30.6 g/dL (31.0-36.0); Mean Platelet Volume 10.4 fL (8.8-12.5); Platelet Count 235 K/mcL (140-440); RBC 4.48 M/mcL (4.63-6.08); Red Cell Distribution Width 13.7 % (11.5-14.5); WBC 15.5 K/mcL (4.5-11.0)
[2022-02-11] MEDS ORDERED: VANCOMYCIN PER PHARMACY IV SCH (07:15)
[2022-02-11] MEDS: 0.9 % SODIUM CHLORIDE 250 ML IV SCH ×3 (07:23→17:47)
[2022-02-11] MEDS ORDERED: 0.9 % SODIUM CHLORIDE 10 ML SYRINGE IV PRN (08:01)
--- NOTE | 2022-02-11 08:02 | Internal Med History&Physical ---
HPI History of Present Illness Patient information: Note initiated : 02/11/22 at 7:47 am Service Date, if different from initiated Date: [] Patient: Corona Mayer a 51 y/o M admitted on 02/11/22 for Shortness of breath. Chief Complaint: [] History of present illness: Mr. Mayer is a 51 year old M Patient presents the ED increased weakness cough shortness of breath. Patient was tachycardic with low blood pressure per EMS. Patient from assisted living facility who noted increased weakness and shortness of breath. Patient recently admitted to hospital for aspiration pneumonia. Per staff had been doing well until recently and then he became diaphoretic and decreased level of consciousness. And he did note a low oxygen saturation of 88%. Says blood pressure systolic in the 70s. In the ED is also found to have a UTI and a sacral decubitus ulcer looked infected. He was found to have septic shock and started on the vasopressors and IV fluids. And antibiotics. CT chest read as bilateral lobe densities and air bronchograms felt to be due to either benign atelectasis or possible pneumonia. T-max in the ED was 100.0. Patient was tachycardic and tachypneic. Leukocytosis noted. Lactic acidosis of 4 initially. Also noted to be hyponatremic at 155 on the [id number] level. With the with acute kidney injury of creatinine 2.7 and hyperglycemia 346. This morning patient had a acute desaturation and nurses able to suction out thi ck mucus with with improvement in oxygenation. Review of Systems: Pertinent positives above. Denies headache/fever/chills/nausea/vomiting/chest or abdominal pain/cough/dyspnea/diarrhea. Remaining 10 point review of system reviewed negative PFSH PFSH All Active Problems (Updated 02/10/22 @ 23:42 by Lukasz Adames DO) Pneumonia (Acute) Altered mental status (Acute) Septic shock (Acute) Septic shock (Acute) Sacral decubitus ulcer (Acute) Acute and chronic respiratory failure with hypoxia (Acute) Social History smoking status: Unknown if ever smoked MEDS/ALLERGIES Home Medications and Allergies Home Medications Medication Instructions Recorded Confirmed Type albuterol sulfate 90 mcg/actuation 2 puff inhalation QAM 01/11/22 01/12/22 His tory aerosol inhaler aspirin 81 mg chewable tablet 1 tab PO QDAY 01/11/22 01/12/22 History atorvastatin 20 mg tablet 1 tab PO QHS 01/11/22 01/12/22 History atorvastatin 40 mg tablet 1 tab PO QHS 01/11/22 01/12/22 History divalproex 250 mg tablet,delayed 1 tab PO BID 01/11/22 01/12/22 History release divalproex 500 mg tablet,delayed 1 tab PO BID 01/11/22 01/12/22 History release docusate sodium 100 mg capsule 1 cap PO BID 01/11/22 01/12/22 History fluticasone propionate 110 2 puff inhalation BID 01/11/22 01/12/22 History mcg/actuation HFA aerosol inhaler (Flovent HFA) hydroxyzine HCl 25 mg tablet 1 tab PO TID 01/11/22 01/12/22 History lactulose 10 gram/15 mL oral 30 ml PO QAM 01/11/22 01/12/22 History solution lidocaine 5 % topical cream 1 applic topical QID 01/11/22 01/12/22 History lisinopril 5 mg tablet 1 tab PO QDAY 01/11/22 01/12/22 History melatonin 3 mg tablet 1 tab PO HS 01/11/22 01/12/22 History metformin 500 mg tablet 1 tab PO BID 01/11/22 02/10/22 History metoprolol succinate 25 mg 1 tab PO QDAY 01/11/22 02/10/22 History tablet,extended release 24 hr phenylephrine 0.25 %-pramoxine 1 1 applic topical QID 01/11/22 02/10/22 History %-glycerin-wh.petrolatum rectal cream (Preparation H Maximum Strength) quetiapine 300 mg tablet 1 tab PO TID 01/11/22 02/10/22 History sertraline 100 mg tablet 2 tab PO DAILY 01/11/22 02/10/22 History tamsulosin 0.4 mg capsule 1 cap PO QHS 01/11/22 02/10/22 History trazodone 50 mg tablet 1 tab PO HS 01/11/22 02/10/22 History fluconazole 200 mg tablet 400 mg PO QDAY #4 tabs 01/18/22 Rx Allergies Allergy/AdvReac Type Severity Reaction Status Date / Time No Known Drug Allergies Allergy Verified 02/10/22 21:59 EXAM Constitutional Vitals: Temp Pulse Resp BP Pulse Ox O2 Del Method O2 Flow Rate 98.5 F 102 H 24 H 113/83 92 20 02/11/22 04:46 02/11/22 07:01 02/11/22 07:01 02/11/22 07:01 02/11/22 07:01 02/11/22 07:01 02/11/22 07:01 Exam: General: Lethargic, No acute Distress Eyes/N/T: EOMI, Head/Neck: neck supple, normocephalic atraumatic CV: Tacky but regular, No murmurs, normal s1/s2 Pulm: decreased at bases, no wheezing Abd: soft, nontender, +BS x4 Ext: no clubbing/cyanosis, trace edema Neuro: Alert, no focal deficits, moves all extremities, CN 2-12 grossly intact, Skin: warm/dry DATA Data Completed and Pending Labs: Labs from last 24 hours 02/11/22 02/11/22 02/11/22 05:53 05:53 05:50 WBC 15.5 H RBC 4.48 L Hgb 13.2 L Hct 43.2 POC Hct MCV 96.4 MCH 29.5 MCHC 30.6 L RDW 13.7 Plt Count 235 MPV 10.4 Immature Gran % (Auto) Neut % (Auto) Lymph % (Auto) [place] % (Auto) Eos % (Auto) Baso % (Auto) Lymph # (Auto) [place] # (Auto) Eos # (Auto) Baso # (Auto) Immature Gran # Absolute Neutrophils Platelet Estimate Pending RBC Morphology Pending POC VBG pH POC VBG pCO2 at Temp POC VBG pO2 POC VBG HCO3 POC VBG Total CO2 POC Venous O2 Sat POC VBG Base Excess VBG Lactic Acid POC Sodium Sodium Pending POC Potassium Potassium Pending POC Chloride Chloride Pending Carbon Dioxide Pending POC Total CO2 Anion Gap Pending POC BUN BUN Pending Creatinine Pending POC Creatinine GFR Calculation Pending Glucose Pending POC Glucose Uric Acid Pending Calcium Pending POC WB Ioniz Calcium Phosphorus Pending Magnesium Pending Total Bilirubin Pending Direct Bilirubin Pending GGT Pending AST Pending ALT Pending Alkaline Phosphatase Pending Ammonia Lactate Dehydrogenase Pending Total Protein Pending Albumin Pending Globulin Pending Albumin/Globulin Ratio Pending Triglycerides Pending Procalcitonin Pending Urine Color Urine Appearance Urine pH Ur Specific [place] Urine Protein Urine Glucose (UA) Urine Ketones Urine Occult Blood Urine Nitrate Urine Bilirubin Urine Urobilinogen Ur Leukocyte Esterase Urine RBC Urine WBC Ur Squamous Epith Cells Calcium Oxalate Crystal Urine Bacteria Hyaline Casts Urine Mucus Ur Culture Indicated? 02/11/22 02/10/22 02/10/22 02:10 23:26 22:50 WBC RBC Hgb Hct POC Hct MCV MCH MCHC RDW Plt Count MPV Immature Gran % (Auto) Neut % (Auto) Lymph % (Auto) [place] % (Auto) Eos % (Auto) Baso % (Auto) Lymph # (Auto) [place] # (Auto) Eos # (Auto) Baso # (Auto) Immature Gran # Absolute Neutrophils Platelet Estimate RBC Morphology POC VBG pH 7.45 H POC VBG pCO2 at Temp 28.1 L POC VBG pO2 43 H POC VBG HCO3 19.7 L POC VBG Total CO2 21.0 L POC Venous O2 Sat 82.0 H POC VBG Base Excess -4.0 L VBG Lactic Acid 2.8 H POC Sodium Sodium POC Potassium Potassium POC Chloride Chloride Carbon Dioxide POC Total CO2 Anion Gap POC BUN BUN Creatinine POC Creatinine GFR Calculation Glucose POC Glucose Uric Acid Calcium POC WB Ioniz Calcium Phosphorus Magnesium Total Bilirubin 0.2 Direct Bilirubin < 0.2 GGT AST 26 ALT 16 Alkaline Phosphatase 62 Ammonia Lactate Dehydrogenase Total Protein 8.6 H Albumin 4.1 Globulin 4.5 H Albumin/Globulin Ratio Triglycerides Procalcitonin Urine Color Barbi Urine Appearance Cloudy A Urine pH 5.0 Ur Specific [place] 1.028 Urine Protein 100 A Urine Glucose (UA) 50 A Urine Ketones 5 A Urine Occult Blood 0.03 Urine Nitrate Negative Urine Bilirubin Negative Urine Urobilinogen 2.0 A Ur Leukocyte Esterase 250 A Urine RBC 12 H Urine WBC 33 H Ur Squamous Epith Cells < 1 Calcium Oxalate Crystal Few A Urine Bacteria None Hyaline Casts 10 H Urine Mucus Few A Ur Culture Indicated? yes 02/10/22 02/10/22 02/10/22 22:07 22:06 21:55 WBC RBC Hgb Hct POC Hct 48.0 MCV MCH MCHC RDW Plt Count MPV Immature Gran % (Auto) Neut % (Auto) Lymph % (Auto) [place] % (Auto) Eos % (Auto) Baso % (Auto) Lymph # (Auto) [place] # (Auto) Eos # (Auto) Baso # (Auto) Immature Gran # Absolute Neutrophils Platelet Estimate RBC Morphology POC VBG pH 7.40 POC VBG pCO2 at Temp 34.9 L POC VBG pO2 37 POC VBG HCO3 21.4 L POC VBG Total CO2 22.0 L POC Venous O2 Sat 70.0 POC VBG Base Excess -4.0 L VBG Lactic Acid 4.0 H* POC Sodium 155 H Sodium POC Potassium 4.4 Potassium POC Chloride 122 H Chloride Carbon Dioxide POC Total CO2 20.0 L Anion Gap POC BUN 36 H BUN Creatinine POC Creatinine 2.7 H GFR Calculation Glucose POC Glucose 346 H Uric Acid Calcium POC WB Ioniz Calcium 1.16 Phosphorus Magnesium Total Bilirubin Direct Bilirubin GGT AST ALT Alkaline Phosphatase Ammonia 54 Lactate Dehydrogenase Total Protein Albumin Globulin Albumin/Globulin Ratio Triglycerides Procalcitonin Urine Color Urine Appearance Urine pH Ur Specific [place] Urine Protein Urine Glucose (UA) Urine Ketones Urine Occult Blood Urine Nitrate Urine Bilirubin Urine Urobilinogen Ur Leukocyte Esterase Urine RBC Urine WBC Ur Squamous Epith Cells Calcium Oxalate Crystal Urine Bacteria Hyaline Casts Urine Mucus Ur Culture Indicated? 02/10/22 21:55 WBC 14.3 H RBC 4.66 Hgb 13.7 Hct 44.7 POC Hct MCV 95.9 MCH 29.4 MCHC 30.6 L RDW 13.9 Plt Count 210 MPV 10.5 Immature Gran % (Auto) 0.6 H Neut % (Auto) 58.7 Lymph % (Auto) 24.3 [place] % (Auto) 16.1 H Eos % (Auto) 0 Baso % (Auto) 0.3 Lymph # (Auto) 3.48 [place] # (Auto) 2.31 H Eos # (Auto) 0 Baso # (Auto) 0.04 Immature Gran # 0.08 H Absolute Neutrophils 8.42 H Platelet Estimate RBC Morphology POC VBG pH POC VBG pCO2 at Temp POC VBG pO2 POC VBG HCO3 POC VBG Total CO2 POC Venous O2 Sat POC VBG Base Excess VBG Lactic Acid POC Sodium Sodium POC Potassium Potassium POC Chloride Chloride Carbon Dioxide POC Total CO2 Anion Gap POC BUN BUN Creatinine POC Creatinine GFR Calculation Glucose POC Glucose Uric Acid Calcium POC WB Ioniz Calcium Phosphorus Magnesium Total Bilirubin Direct Bilirubin GGT AST ALT Alkaline Phosphatase Ammonia Lactate Dehydrogenase Total Protein Albumin Globulin Albumin/Globulin Ratio Triglycerides Procalcitonin Urine Color Urine Appearance Urine pH Ur Specific [place] Urine Protein Urine Glucose (UA) Urine Ketones Urine Occult Blood Urine Nitrate Urine Bilirubin Urine Urobilinogen Ur Leukocyte Esterase Urine RBC Urine WBC Ur Squamous Epith Cells Calcium Oxalate Crystal Urine Bacteria Hyaline Casts Urine Mucus Ur Culture Indicated? A/P Narrative A/P Narrative: A: #Septic shock likely 2/2 multifactorial>infected sacral ulcer/UTI/?pna: -on levophed/vasopressin #Infected sacral ulcer: #UTI: #Acute hypoxic respiratory failure: -CT atelectasis vs pna, concern for mucous plugging, rule out PE #Dehydration w/Hypernatremia: #Oropharyngeal Dysphagia, chronic: ?Aspirating on oral secretions #JYOTSNA: 2/2 septic shock #Metabolic acidosis: #Encephalopathy: #Prediabetes, hemoglobin A1c 6.3: #h/o Traumatic brain injury #h/o CVA #Poor functional status/wheelchair-bound status: Plan: -on Vancomycin/zosyn -Vasopressor wean as able, hypotonic soln -O2 support, wan as able -check ddimer -serial sodium -Monitor electrolytes and renal function. -SSI, hold metformin for now -hold home Lopressor/lisinopril for hypotension -cont home Depakote/seroquel, cont atorvastatin/aspirin - meds need clarified -wound care -ST eval -PT/OT -need Home medication reconciliation -ppx: heparin CODE STATUS: DNR/DNI Time Spent With Patient Time: Total time spent is greater than 50% in coordination of care (as documented) at patient's floor/unit and/or counseling patient: Critical Care Time: Yes Total Critical Care Time: 80 QUALITY Stroke Symptom Onset Unknown: No VTE Deep Vein Thrombosis/Pulmonary Embolism Present on Admission: No
[2022-02-11] MEDS: NOREPINEPHRINE BITARTRATE 8 MG in 0.9 % SODIUM CHLORIDE 242 ML IV SCH (08:08)
[2022-02-11 08:19] LABS: Band Neutrophils % 10 % (0-10); Hypochromasia 1+ (None Seen); Lymphocytes % 34 % (15-49); Monocytes % (Manual) 8 % (1-12); Platelet Estimate NORMAL (Normal); RBC Morphology ABNORMAL (Normal); Reactive Lymphocytes 2 % (0-2); Segmented Neutrophils % 46 % (38-78)
[2022-02-11 08:54] LABS: ALT/SGPT 12 U/L (<40); AST/SGOT 20 U/L (<40); Albumin 3.3 gm/dL (3.2-5.2); Albumin/Globulin Ratio 0.9 (1.0-2.3); Alkaline Phosphatase 46 U/L (39-117); Bilirubin,Direct < 0.2 mg/dL (0-0.3); Bilirubin,Total 0.2 mg/dL (0.1-1.0); Blood Urea Nitrogen 30 mg/dL (6-20); Calcium 8.3 mg/dL (8.6-10.4); Carbon Dioxide 18 mmol/L (22-30); Chloride 118 mmol/L (96-108); Globulin 3.7 gm/dL (2.2-3.7); Glomerular Filtration Rate 35; Glucose 285 mg/dL (70-105); Lactate Dehydrogenase 277 U/L (135-225); Phosphorous 4.5 mg/dL (2.5-4.5); Triglycerides 253 mg/dL (<150); Uric Acid 7.5 mg/dL (2.5-8.0)
[2022-02-11] MEDS: 0.9 % SODIUM CHLORIDE 10 ML SYRINGE IV SCH ×5 (09:56→23:30)
[2022-02-11 12:24] LABS: POC Calcium, Ionized 1.15 (1.16-1.32); POC Creatinine 1.5 (0.6-1.2); POC Potassium 4.2 (3.3-5.1)
[2022-02-11] MEDS: VANCOMYCIN 1,500 MG in 0.9 % SODIUM CHLORIDE 500 ML IV SCH (13:08)
--- NOTE | 2022-02-11 13:38 | Internal Med Progress Note ---
SUBJECTIVE Subjective Patient information: Note initiated : 02/11/22 at 1:35 pm Service Date, if different from initiated Date: [] Patient: Corona Mayer a 51 y/o M admitted on 02/11/22 for Shortness of breath. Chief Complaint: [] Interval history: Mr. Mayer is a 51 year old M Patient presents the ED increased weakness cough shortness of breath. Patient was tachycardic with low blood pressure per EMS. Patient from assisted living facility who noted increased weakness and shortness of breath. Patient recently admitted to hospital for aspiration pneumonia. Per staff had been doing well until recently and then he became diaphoretic and decreased level of consciousness. And he did note a low oxygen saturation of 88%. Says blood pressure systolic in the 70s. In the ED is also found to have a UTI and a sacral decubitus ulcer looked in fected. He was found to have septic shock and started on the vasopressors and IV fluids. And antibiotics. CT chest read as bilateral lobe densities and air bronchograms felt to be due to either benign atelectasis or possible pneumonia. T-max in the ED was 100.0. Patient was tachycardic and tachypneic. Leukocytosis noted. Lactic acidosis of 4 initially. Also noted to be hyponatremic at 155 on the wxxbm-hv-[id number] level. With the with acute kidney injury of creatinine 2.7 and hyperglycemia 346. 10/6 The patient's vitals are improving, on room air today. Continues on broad- spectrum antibiotic with IV vancomycin and Zosyn. Urine, blood and sputum culture showing no growth to date. Speech therapy consulted, recommended starting a dysphagia level 4 diet. General surgery consulted to evaluate the patient's buttock wound and consideration for a possible diverting colostomy to facilitate healing. Continue Devine catheter for now. Transition from ICU to PCU status. Physical exam Head: Atraumatic, normal inspection. Eyes: normal appearance, no scleral icterus. Neck: full ROM Respiratory: Bilateral crackles, no respiratory distress. Cardiovascular: normal rate and rhythm, S1, S2. GI/Abdominal: soft, nontender, no guarding. Extremities: full range of motion, nontender. Neurological: CN II-XII intact, intact motor, intact sensation. Psychiatric: Impaired cognition. Skin: warm, normal color Constitutional Vitals: Vital Signs Temp Pulse Resp BP Pulse Ox O2 Del Method O2 Flow Rate 97.4 F 108 H 22 136/94 96 20 02/11/22 12:01 02/11/22 11:56 02/11/22 12:19 02/11/22 12:17 02/11/22 12:11 02/11/22 12:19 02/11/22 12:19 Period Temp Pulse Resp BP Sys/Delcid Pulse Ox O2 Del Method O2 Flow Rate Last 24 Hr 97.4 F-100.0 F 52-138 17-41 55-140/35-102 85-100 Heated High Flow Nasal Dn-Dnk-Opyqndlsko Mask 15-20 Intake and Output 02/10/22 02/11/22 02/11/22 21:59 05:59 13:59 Intake Total 3895 1245 Output Total 225 700 Balance 3670 545 Weight 96.57 kg 98.203 kg Intake & Output: Intake & Output 02/10/22 02/11/22 02/11/22 21:59 05:59 13:59 Intake Total 3895 1245 Output Total 225 700 Balance 3670 545 Weight 96.57 kg 98.203 kg Intake: IV 3117 1245 Sodium Chloride 0.45% 1,000 ml 998 @ 150 mls/hr IV .[id number] [facility] Rx# :[id number] Sodium Chloride 0.9% 1,000 ml @ 2480 150 mls/hr IV .[id number] [facility] Rx#: [id number] Sodium Chloride 0.9% 250 ml @ 87 20 mls/hr IV .[id number] [facility] Rx#: [id number] Levophed 8 mg In Sodium 250 147 Chloride 0.9% 242 ml @ 10 MCG/ MIN 18.75 mls/hr IV Q14H [facility] Rx #:[id number] Zosyn 3.375 gm In Dextrose 5% 50 100 in Water 50 ml @ 100 mls/hr IV Q6H [facility] Rx#:[id number] Vancomycin 1,000 mg In Sodium 250 Chloride 0.9% 250 ml @ 250 mls/ hr IV ONCE ONE Rx#:[id number] IV - Manual Only 778 Output: Urine Catheter Amount 225 700 Other: Urine Appearance Clear Clear Uretheral (Devine) Clear Urine Color Bright Yellow Bright Yellow Uretheral (Devine) Dark Yellow Urine Odor Normal Normal OBJ DATA Labs CBC & Chem 7: 02/12/22 05:25 02/12/22 05:24 Labs: Abnormal Lab Results 02/11/22 02/11/22 02/11/22 12:22 09:02 08:30 WBC RBC Hgb POC Hct 38.0 L MCHC Immature Gran % (Auto) [place] % (Auto) [place] # (Auto) Immature Gran # Absolute Neutrophils RBC Morphology Hypochromasia D-Dimer 9.56 H POC pCO2 30.8 L POC pO2 76 L POC HCO3 18.0 L POC ABG Base Excess -7.0 L POC VBG pH POC VBG pCO2 at Temp POC VBG pO2 POC VBG HCO3 POC VBG Total CO2 POC Venous O2 Sat POC VBG Base Excess VBG Lactic Acid POC Sodium 153 H Sodium POC Chloride 120 H Chloride Carbon Dioxide POC Total CO2 19.0 L Anion Gap POC BUN 29 H BUN Creatinine POC Creatinine 1.5 H Glucose POC Glucose 182 H Calcium POC WB Ioniz Calcium 1.15 L Lactate Dehydrogenase Total Protein Globulin Albumin/Globulin Ratio Triglycerides Procalcitonin Urine Appearance Urine Protein Urine Glucose (UA) Urine Ketones Urine Urobilinogen Ur Leukocyte Esterase Urine RBC Urine WBC Calcium Oxalate Crystal Hyaline Casts Urine Mucus 02/11/22 02/11/22 02/11/22 05:53 05:53 05:50 WBC 15.5 H RBC 4.48 L Hgb 13.2 L POC Hct MCHC 30.6 L Immature Gran % (Auto) [place] % (Auto) [place] # (Auto) Immature Gran # Absolute Neutrophils RBC Morphology Abnormal A Hypochromasia 1+ A D-Dimer POC pCO2 POC pO2 POC HCO3 POC ABG Base Excess POC VBG pH POC VBG pCO2 at Temp POC VBG pO2 POC VBG HCO3 POC VBG Total CO2 POC Venous O2 Sat POC VBG Base Excess VBG Lactic Acid POC Sodium Sodium 155 H POC Chloride Chloride 118 H Carbon Dioxide 18 L POC Total CO2 Anion Gap 19.0 H POC BUN BUN 30 H Creatinine 2.1 H POC Creatinine Glucose 285 H POC Glucose Calcium 8.3 L POC WB Ioniz Calcium Lactate Dehydrogenase 277 H Total Protein Globulin Albumin/Globulin Ratio 0.9 L Triglycerides 253 H Procalcitonin 0.20 H Urine Appearance Urine Protein Urine Glucose (UA) Urine Ketones Urine Urobilinogen Ur Leukocyte Esterase Urine RBC Urine WBC Calcium Oxalate Crystal Hyaline Casts Urine Mucus 02/11/22 02/10/22 02/10/22 02:10 23:26 22:50 WBC RBC Hgb POC Hct MCHC Immature Gran % (Auto) [place] % (Auto) [place] # (Auto) Immature Gran # Absolute Neutrophils RBC Morphology Hypochromasia D-Dimer POC pCO2 POC pO2 POC HCO3 POC ABG Base Excess POC VBG pH 7.45 H POC VBG pCO2 at Temp 28.1 L POC VBG pO2 43 H POC VBG HCO3 19.7 L POC VBG Total CO2 21.0 L POC Venous O2 Sat 82.0 H POC VBG Base Excess -4.0 L VBG Lactic Acid 2.8 H POC Sodium Sodium POC Chloride Chloride Carbon Dioxide POC Total CO2 Anion Gap POC BUN BUN Creatinine POC Creatinine Glucose POC Glucose Calcium POC WB Ioniz Calcium Lactate Dehydrogenase Total Protein 8.6 H Globulin 4.5 H Albumin/Globulin Ratio Triglycerides Procalcitonin Urine Appearance Cloudy A Urine Protein 100 A Urine Glucose (UA) 50 A Urine Ketones 5 A Urine Urobilinogen 2.0 A Ur Leukocyte Esterase 250 A Urine RBC 12 H Urine WBC 33 H Calcium Oxalate Crystal Few A Hyaline Casts 10 H Urine Mucus Few A 02/10/22 02/10/22 02/10/22 22:07 22:06 21:55 WBC 14.3 H RBC Hgb POC Hct MCHC 30.6 L Immature Gran % (Auto) 0.[address] [place] % (Auto) 16.[address] [place] # (Auto) 2.31 H Immature Gran # 0.08 H Absolute Neutrophils 8.42 H RBC Morphology Hypochromasia D-Dimer POC pCO2 POC pO2 POC HCO3 POC ABG Base Excess POC VBG pH POC VBG pCO2 at Temp 34.9 L POC VBG pO2 POC VBG HCO3 21.4 L POC VBG Total CO2 22.0 L POC Venous O2 Sat POC VBG Base Excess -4.0 L VBG Lactic Acid 4.0 H* POC Sodium 155 H Sodium POC Chloride 122 H Chloride Carbon Dioxide POC Total CO2 20.0 L Anion Gap POC BUN 36 H BUN Creatinine POC Creatinine 2.7 H Glucose POC Glucose 346 H Calcium POC WB Ioniz Calcium Lactate Dehydrogenase Total Protein Globulin Albumin/Globulin Ratio Triglycerides Procalcitonin Urine Appearance Urine Protein Urine Glucose (UA) Urine Ketones Urine Urobilinogen Ur Leukocyte Esterase Urine RBC Urine WBC Calcium Oxalate Crystal Hyaline Casts Urine Mucus Meds: Medications Dextrose (Dextrose 50% 50 Ml Vial) 0 ml IV UD PRN PRN Reason: Per Sliding Scale Diagnostic Test (Pha) (Accu-Chek 1 Each Strip) 1 each FS Q4H [facility] Last Admin: 02/11/22 12:01 Dose: 1 each Glucose (Dextrose 31 Gm Oral.Susp) 15 gm PO PRN PRN PRN Reason: Hypoglycemia Heparin Sodium (Porcine) (Heparin Flush 10 Units/Ml 5 Ml Syringe) 2 ml IV Q12 [facility] Last Admin: 02/11/22 09:55 Dose: Not Given Norepinephrine Bitartrate 8 mg (/ Sodium Chloride) 250 mls @ 18.75 mls/hr IV Q14H [facility]; Protocol Last Titration: 02/11/22 13:10 Dose: 4 mcg/min, 7.5 mls/hr Piperacillin Sod/Tazobactam (Sod 3.375 gm/ Dextrose) 50 mls @ 100 mls/hr IV Q6H [facility]; Protocol Last Infusion: 02/11/22 11:40 Dose: Infused Sodium Chloride (Sodium Chloride 0.9%) 250 mls @ 20 mls/hr IV .[id number] [facility] Last Admin: 02/11/22 11:50 Dose: 20 mls/hr Vasopressin 20 unit/ Dextrose 100 mls @ 6 mls/hr IV Q17H [facility]; Protocol Last Admin: 02/11/22 05:10 Dose: 0.02 unit/min, 6 mls/hr Vancomycin HCl 1,500 mg/ (Sodium Chloride) 500 mls @ 333.3 mls/hr IV Q24H [facility] Last Admin: 02/11/22 13:08 Dose: 333.3 mls/hr Insulin Human Lispro (Insulin Lispro 1 Unit/0.01 Ml Unit) 0 unit SQ Q4H [facility]; Protocol Last Admin: 02/11/22 12:16 Dose: 4 unit Ondansetron HCl (Ondansetron 4 Mg/2 Ml Vial) 4 mg IV Q4HP PRN; Protocol PRN Reason: Nausea And Vomiting Sodium Chloride (0.9 % Sodium Chloride 10 Ml Syringe) 10 ml IV UD PRN PRN Reason: FLUSH Sodium Chloride (0.9 % Sodium Chloride 10 Ml Syringe) 10 ml IV Q12 [facility] Last Admin: 02/11/22 09:56 Dose: Not Given Vancomycin HCl (Vancomycin Per Pharmacy) 1 order IV UD [facility]; Protocol A/P Narrative A/P Narrative: Assessment: 51-year-old male with a history of traumatic brain injury, prior CVA, wheelchair-bound status, prediabetes admitted for septic shock felt to be multifactorial due to an infected sacral ulcer, possible UTI and pneumonia complicated by acute kidney injury and acute hypoxic respiratory failure. #Resolved septic shock likely 2/2 multifactorial>infected sacral ulcer/UTI/?pna: #Community-acquired pneumonia #Possibly infected sacral wound: #Possible UTI #Resolved acute hypoxic respiratory failure: -CT atelectasis vs pna, concern for mucous plugging, rule out PE #Resolved hypernatremia #Oropharyngeal Dysphagia, chronic: ?Aspirating on oral secretions #Resolved JYOTSNA: 2/2 septic shock #Resolved metabolic acidosis: #Probably resolved encephalopathy: #Prediabetes, hemoglobin A1c 6.3: #h/o Traumatic brain injury #h/o CVA #Poor functional status/wheelchair-bound status: Plan: -Continue IV vancomycin and Zosyn for now. -Levophed as needed to keep MAP greater than 65 -SSI, hold metformin for now -hold home Lopressor/lisinopril for recent septic shock -cont home Depakote/seroquel, cont atorvastatin/aspirin -wound care -General surgery consulted to evaluate patient's sacral wound -ST eval -PT/OT -ppx: heparin CODE STATUS: DNR/DNI Time Spent With Patient Time: Total time spent is greater than 50% in coordination of care (as documented) at patient's floor/unit and/or counseling patient: QUALITY Stroke Symptom Onset Unknown: No VTE Deep Vein Thrombosis/Pulmonary Embolism Present on Admission: No
[2022-02-11] MEDS ORDERED: IOPAMIDOL 100 ML BOTTLE IV ONE (15:47)
--- NOTE | 2022-02-11 16:01 | Cat Scan Report ---
INDICATION: hypoxia, elevated dimer COMPARISON: Previous CT scan dated 02/11/2022 TECHNIQUE: Axial images obtained through the chest. 70ml Isovue 370 injected intravenously, and scanning was performed during pulmonary arterial phase. Sagittally and coronally reformatted images were obtained. MIP reformatted images. FINDINGS: Lungs:Bilateral lower lobe consolidation demonstrated on prior examination through. No new parenchymal infiltrate or mass. There are secretions within the distal trachea as well as the proximal right and left mainstem bronchi Mediastinum, vascular:Main pulmonary artery, right pulmonary artery, left pulmonary artery are negative. No intraluminal filling defects. No lobar, segmental, or subsegmental emboli. Thoracic aorta is negative. No aneurysmal dilatation. Main pulmonary artery is not dilated No pathologic mediastinal or hilar adenopathy Heart:There is cardiomegaly. No pericardial effusion. No reflux of contrast material into the inferior vena cava or hepatic veins Pleura:No significant pleural effusion. No pleural mass or calcification Axilla, supraclavicular regions, chest wall:No pathologic axillary or supraclavicular adenopathy. Musculoskeletal:Negative thoracic spine. No compression fracture. No lytic lesion. No rib or sternal lesions Upper Abdomen:Negative IMPRESSION: 1. Negative pulmonary CTA 2. Cardiomegaly. No evidence for right heart failure 3. Bilateral lower lobe consolidation is improved since previous examination. 4. Secretions within the trachea and right and left bronchi The exam was performed using radiation dose optimization techniques including, but not limited to, automated exposure control, adjustment of the mA and/or kV according to patient size and use of iterative reconstruction technique. Interpreted and Authenticated by: Rosendo Reis 02/11/22
[2022-02-11 17:37] LABS: POC Calcium, Ionized 1.14 (1.16-1.32); POC Creatinine 1.1 (0.6-1.2); POC Potassium 4.2 (3.3-5.1)
[2022-02-11] MEDS ORDERED: ATORVASTATIN 40 MG TABLET PO SCH (19:30)
[2022-02-11] MEDS: SODIUM CHLORIDE 0.9% IV SCH (21:16)
[2022-02-11] MEDS: VALPROIC ACID IV SCH (21:16)
[2022-02-11] MEDS: FLUTICASONE HFA 110MCG INHALER INH SCH (21:19)
[2022-02-11] MEDS ORDERED: diphenhydrAMINE 50 MG/ML VIAL IV ONE (22:23)
[2022-02-11] MEDS: MELATONIN 3 MG TABLET PO SCH (22:26)
[2022-02-11] MEDS: ATORVASTATIN 20 MG TABLET PO SCH (22:26)
[2022-02-11] MEDS: TAMSULOSIN 0.4 MG CAPSULE PO SCH (22:26)
[2022-02-11] MEDS: QUEtiapine 100 MG TABLET PO SCH (22:27)
[2022-02-11 22:37] LABS: POC Calcium, Ionized 1.19 (1.16-1.32); POC Potassium 3.9 (3.3-5.1)
[2022-02-11] MEDS ORDERED: diphenhydrAMINE 50 MG/ML VIAL ONE (22:39)
[2022-02-12] MEDS: INSULIN LISPRO 1 UNIT/0.01 ML UNIT SQ SCH ×6 (00:30→21:31)
[2022-02-12] MEDS: VALPROIC ACID IV SCH ×2 (02:00→09:45)
[2022-02-12] MEDS: SODIUM CHLORIDE 0.9% IV SCH ×2 (02:00→09:45)
[2022-02-12] MEDS: PIPERACILLIN SODIUM/TAZOBACTAM 3.375 GM in DEXTROSE 5% IN WATER 50 ML IV SCH ×4 (05:15→23:11)
[2022-02-12] MEDS: VASOPRESSIN 20 UNIT in DEXTROSE 5% IN WATER 99 ML IV SCH (06:55)
[2022-02-12 07:16] LABS: Basophils # (Auto) 0.03 K/mcL (0.00-0.30); Basophils % (Auto) 0.4 % (0.0-2.0); Eosinophils # (Auto) 0.13 K/mcL (0.00-0.70); Eosinophils % (Auto) 1.7 % (0.0-7.0); Hematocrit 36.7 % (40.1-51.0); Hemoglobin 11.1 g/dL (13.7-17.5); Lymphocytes # (Auto) 0.92 K/mcL (1.50-4.80); Lymphocytes % (Auto) 12.4 % (15.5-49.0); Mean Cell Volume 94.8 fL (80.0-100.0); Mean Corpuscular HGB Conc 30.2 g/dL (31.0-36.0); Mean Platelet Volume 10.3 fL (8.8-12.5); Monocytes % (Auto) 9.4 % (1.0-12.0); Neutrophils % (Auto) 75.6 % (38.0-78.0); Platelet Count 149 K/mcL (140-440); RBC 3.87 M/mcL (4.63-6.08); Red Cell Distribution Width 13.3 % (11.5-14.5); WBC 7.4 K/mcL (4.5-11.0)
[2022-02-12] MEDS: NOREPINEPHRINE BITARTRATE 8 MG in 0.9 % SODIUM CHLORIDE 242 ML IV SCH (07:38)
[2022-02-12] MEDS: 0.9 % SODIUM CHLORIDE 250 ML IV SCH ×2 (07:39→18:08)
[2022-02-12] MEDS: 0.9 % SODIUM CHLORIDE 10 ML SYRINGE IV SCH ×5 (07:40→21:33)
[2022-02-12 07:51] LABS: ALT/SGPT < 5 U/L (<40); AST/SGOT 9 U/L (<40); Albumin/Globulin Ratio 1.7 (1.0-2.3); Alkaline Phosphatase 60 U/L (39-117); Bilirubin,Direct < 0.2 mg/dL (0-0.3); Bilirubin,Total 0.7 mg/dL (0.1-1.0); Blood Urea Nitrogen 22 mg/dL (6-20); Calcium 8.5 mg/dL (8.6-10.4); Carbon Dioxide 23 mmol/L (22-30); Chloride 106 mmol/L (96-108); Globulin 1.8 gm/dL (2.2-3.7); Glomerular Filtration Rate 99; Glucose 105 mg/dL (70-105); Lactate Dehydrogenase 150 U/L (135-225); Phosphorous 3.4 mg/dL (2.5-4.5); Triglycerides 103 mg/dL (<150); Uric Acid 6.9 mg/dL (2.5-8.0)
--- NOTE | 2022-02-12 08:45 | EKG ---
[facility] Test Date: 2022-02-10 Pat Name: Corona Mayer Department: ED Room: Gender: Male [employer] Ceramist: JANETTE : 1970 Requested By: Lukasz Adames Order Number: [id number] Reading MD: Flakito Ospina D.O. Measurements Intervals [place] Rate: 136 P: 33 WA: 141 QRS: 207 QRSD: 98 T: 17 QT: 293 QTc: 441 Interpretive Statements Sinus tachycardia Right axis deviation Abnormal R-wave progression Consider left ventricular hypertrophy Electronically Signed On 02-12-2022 8:45:13 PDT by Flakito Ospina D.O. /store/[email or web address]/[id number]
[2022-02-12] MEDS ORDERED: LACTULOSE 20 GM/30 ML ORAL.SOL PO SCH (09:00)
[2022-02-12] MEDS ORDERED: ALBUTEROL SULFATE 200 PUFF INHALER INH PRN (09:00)
[2022-02-12] MEDS: QUEtiapine 100 MG TABLET PO SCH ×3 (10:23→21:32)
[2022-02-12] MEDS: FLUTICASONE HFA 110MCG INHALER INH SCH ×2 (10:23→21:32)
[2022-02-12] MEDS: SERTRALINE 100 MG TABLET PO SCH (10:24)
[2022-02-12] MEDS ORDERED: VASOPRESSIN 20 UNIT in DEXTROSE 5% IN WATER 99 ML IV PRN (10:45)
[2022-02-12] MEDS ORDERED: NOREPINEPHRINE BITARTRATE 8 MG in 0.9 % SODIUM CHLORIDE 242 ML IV PRN (10:45)
[2022-02-12] MEDS: VANCOMYCIN 1,500 MG in 0.9 % SODIUM CHLORIDE 500 ML IV SCH (10:46)
[2022-02-12] MEDS ORDERED: LACTULOSE 20 GM/30 ML ORAL.SOL PO PRN (15:48)
[2022-02-12] MEDS ORDERED: NON FORMULARY MEDICATION 1 DOSE MISCELL (Divalproex 500 mg tablet,delayed release (DR/EC)) PO SCH (21:00)
[2022-02-12] MEDS: ATORVASTATIN 20 MG TABLET PO SCH (21:31)
[2022-02-12] MEDS: DIVALPROEX SODIUM 250 MG TABLET PO SCH (21:31)
[2022-02-12] MEDS: TAMSULOSIN 0.4 MG CAPSULE PO SCH (21:32)
[2022-02-12] MEDS: MELATONIN 3 MG TABLET PO SCH (21:32)
[2022-02-13] MEDS: INSULIN LISPRO 1 UNIT/0.01 ML UNIT SQ SCH ×6 (00:58→20:57)
[2022-02-13] MEDS: PIPERACILLIN SODIUM/TAZOBACTAM 3.375 GM in DEXTROSE 5% IN WATER 50 ML IV SCH (05:08)
[2022-02-13] MEDS: 0.9 % SODIUM CHLORIDE 10 ML SYRINGE IV SCH ×5 (05:09→20:54)
[2022-02-13] MEDS: 0.9 % SODIUM CHLORIDE 250 ML IV SCH ×2 (05:10→18:20)
[2022-02-13] MEDS ORDERED: ASPIRIN 81 MG TAB.CHEW PO SCH (09:00)
[2022-02-13] MEDS: QUEtiapine 100 MG TABLET PO SCH ×3 (09:01→20:54)
[2022-02-13] MEDS: SERTRALINE 100 MG TABLET PO SCH (09:01)
[2022-02-13] MEDS: DIVALPROEX SODIUM 250 MG TABLET PO SCH ×2 (09:01→20:54)
[2022-02-13] MEDS: VANCOMYCIN 1,500 MG in 0.9 % SODIUM CHLORIDE 500 ML IV SCH (09:03)
[2022-02-13] MEDS: FLUTICASONE HFA 110MCG INHALER INH SCH ×2 (09:06→20:39)
[2022-02-13] MEDS: ASPIRIN 81 MG TAB.CHEW PO SCH (09:07)
--- NOTE | 2022-02-13 15:58 | Internal Med Progress Note ---
SUBJECTIVE Subjective Patient information: Note initiated : 02/13/22 at 3:58 pm Service Date, if different from initiated Date: [] Patient: Corona Mayer a 51 y/o M admitted on 02/11/22 for Shortness of breath. Chief Complaint: [] Interval history: Mr. Mayer is a 51 year old M Patient presents the ED increased weakness cough shortness of breath. Patient was tachycardic with low blood pressure per EMS. Patient from assisted living facility who noted increased weakness and shortness of breath. Patient recently admitted to hospital for aspiration pneumonia. Per staff had been doing well until recently and then he became diaphoretic and decreased level of consciousness. And he did note a low oxygen saturation of 88%. Says blood pressure systolic in the 70s. In the ED is also found to have a UTI and a sacral decubitus ulcer looked in fected. He was found to have septic shock and started on the vasopressors and IV fluids. And antibiotics. CT chest read as bilateral lobe densities and air bronchograms felt to be due to either benign atelectasis or possible pneumonia. T-max in the ED was 100.0. Patient was tachycardic and tachypneic. Leukocytosis noted. Lactic acidosis of 4 initially. Also noted to be hyponatremic at 155 on the [id number] level. With the with acute kidney injury of creatinine 2.7 and hyperglycemia 346. 02/12 The patient's vitals are improving, on room air today. Continues on broad- spectrum antibiotic with IV vancomycin and Zosyn. Urine, blood and sputum culture showing no growth to date. Speech therapy consulted, recommended starting a dysphagia level 4 diet. General surgery consulted to evaluate the patient's buttock wound and consideration for a possible diverting colostomy to facilitate healing. Continue Devine catheter for now. Transition from ICU to PCU status. 02/13 Patient is more oriented today, continues to have a rapid heart rate. Blood pressure stable, resumed home metoprolol succinate. Sputum culture growing gram-negative bacillus. Oxygen supplementation weaned down to 1 L/min. Discontinued IV antibiotics and started Augmentin to complete antibiotic treatment. Suspect the patient's presentation is secondary to pneumonia, likely due to aspiration. Physical exam Head: Atraumatic, normal inspection. Eyes: normal appearance, no scleral icterus. Neck: full ROM Respiratory: Bilateral crackles, no respiratory distress. Cardiovascular: normal rate and rhythm, S1, S2. GI/Abdominal: soft, nontender, no guarding. Extremities: full range of motion, nontender. Neurological: CN II-XII intact, intact motor, intact sensation. Psychiatric: Impaired cognition. Skin: warm, normal color Constitutional Vitals: Vital Signs Temp Pulse Resp BP Pulse Ox O2 Del Method O2 Flow Rate 97 F 101 H 14 124/101 94 1 02/13/22 12:01 02/13/22 14:01 02/13/22 14:01 02/13/22 14:01 02/13/22 14:01 02/13/22 08:00 02/13/22 08:00 Period Temp Pulse Resp BP Sys/Delcid Pulse Ox O2 Del Method O2 Flow Rate Last 24 Hr 97 F-98.9 F 84-128 13-30 105-139/60-101 90-100 Nasal Cannula- Nasal Cannula 1-1 Intake and Output 02/13/22 02/13/22 02/13/22 05:59 13:59 21:59 Intake Total 400 1660 Output Total 325 365 Balance 75 1295 Intake & Output: Intake & Output 02/13/22 02/13/22 02/13/22 05:59 13:59 21:59 Intake Total 400 1660 Output Total 325 365 Balance 75 1295 Intake: IV 100 500 Zosyn 3.375 gm In Dextrose 5% 100 in Water 50 ml @ 100 mls/hr IV Q6H KENNY Rx#:[id number] Vancomycin 1,500 mg In Sodium 500 Chloride 0.9% 500 ml @ 333.3 mls/hr IV Q24H KENNY Rx#: [id number] Oral 300 1160 Output: Urine Catheter Amount 325 65 Void Amount 300 Other: Meal Lunch Percent of Meal Consumed 100% Feeding Ability Total Assistance Urine Appearance Clear Clear Uretheral (Devine) Clear Urine Color Dark Yellow Dark Yellow Uretheral (Devine) Dark Yellow Urine Odor Normal Stool Size Moderate Stool Color Brown Stool Consistency Liquid # Bowel Movements 1 # of times incontinent of 0 1 Bowels OBJ DATA Labs CBC & Chem 7: 02/12/22 05:25 02/12/22 05:24 Labs: Abnormal Lab Results 02/12/22 02/12/22 02/11/22 05:25 05:24 22:32 WBC RBC 3.87 L Hgb 11.1 L Hct 36.7 L POC Hct 34.0 L MCHC 30.2 L Immature Gran % (Auto) Lymph % (Auto) 12.4 L [place] % (Auto) Lymph # (Auto) 0.92 L [place] # (Auto) Immature Gran # Absolute Neutrophils RBC Morphology Hypochromasia D-Dimer POC pCO2 POC pO2 POC HCO3 POC ABG Base Excess POC VBG pH POC VBG pCO2 at Temp POC VBG pO2 POC VBG HCO3 POC VBG Total CO2 POC Venous O2 Sat POC VBG Base Excess VBG Lactic Acid POC Sodium 152 H Sodium POC Chloride 118 H Chloride Carbon Dioxide POC Total CO2 Anion Gap POC BUN 22 H BUN 22 H Creatinine POC Creatinine Glucose POC Glucose 136 H Calcium 8.5 L POC WB Ioniz Calcium Lactate Dehydrogenase Total Protein 4.8 L Albumin 3.0 L Globulin 1.8 L Albumin/Globulin Ratio Triglycerides Procalcitonin Urine Appearance Urine Protein Urine Glucose (UA) Urine Ketones Urine Urobilinogen Ur Leukocyte Esterase Urine RBC Urine WBC Calcium Oxalate Crystal Hyaline Casts Urine Mucus 02/11/22 02/11/22 02/11/22 17:34 12:22 09:02 WBC RBC Hgb Hct POC Hct 32.0 L 38.0 L MCHC Immature Gran % (Auto) Lymph % (Auto) [place] % (Auto) Lymph # (Auto) [place] # (Auto) Immature Gran # Absolute Neutrophils RBC Morphology Hypochromasia D-Dimer 9.56 H POC pCO2 POC pO2 POC HCO3 POC ABG Base Excess POC VBG pH POC VBG pCO2 at Temp POC VBG pO2 POC VBG HCO3 POC VBG Total CO2 POC Venous O2 Sat POC VBG Base Excess VBG Lactic Acid POC Sodium 151 H 153 H Sodium POC Chloride 122 H 120 H Chloride Carbon Dioxide POC Total CO2 21.0 L Anion Gap POC BUN 24 H 29 H BUN Creatinine POC Creatinine 1.5 H Glucose POC Glucose 129 H 182 H Calcium POC WB Ioniz Calcium 1.14 L 1.15 L Lactate Dehydrogenase Total Protein Albumin Globulin Albumin/Globulin Ratio Triglycerides Procalcitonin Urine Appearance Urine Protein Urine Glucose (UA) Urine Ketones Urine Urobilinogen Ur Leukocyte Esterase Urine RBC Urine WBC Calcium Oxalate Crystal Hyaline Casts Urine Mucus 02/11/22 02/11/22 02/11/22 08:30 05:53 05:53 WBC 15.5 H RBC 4.48 L Hgb 13.2 L Hct POC Hct MCHC 30.6 L Immature Gran % (Auto) Lymph % (Auto) [place] % (Auto) Lymph # (Auto) [place] # (Auto) Immature Gran # Absolute Neutrophils RBC Morphology Abnormal A Hypochromasia 1+ A D-Dimer POC pCO2 30.8 L POC pO2 76 L POC HCO3 18.0 L POC ABG Base Excess -7.0 L POC VBG pH POC VBG pCO2 at Temp POC VBG pO2 POC VBG HCO3 POC VBG Total CO2 POC Venous O2 Sat POC VBG Base Excess VBG Lactic Acid POC Sodium Sodium 155 H POC Chloride Chloride 118 H Carbon Dioxide 18 L POC Total CO2 19.0 L Anion Gap 19.0 H POC BUN BUN 30 H Creatinine 2.1 H POC Creatinine Glucose 285 H POC Glucose Calcium 8.3 L POC WB Ioniz Calcium Lactate Dehydrogenase 277 H Total Protein Albumin Globulin Albumin/Globulin Ratio 0.9 L Triglycerides 253 H Procalcitonin Urine Appearance Urine Protein Urine Glucose (UA) Urine Ketones Urine Urobilinogen Ur Leukocyte Esterase Urine RBC Urine WBC Calcium Oxalate Crystal Hyaline Casts Urine Mucus 02/11/22 02/11/22 02/10/22 05:50 02:10 23:26 WBC RBC Hgb Hct POC Hct MCHC Immature Gran % (Auto) Lymph % (Auto) [place] % (Auto) Lymph # (Auto) [place] # (Auto) Immature Gran # Absolute Neutrophils RBC Morphology Hypochromasia D-Dimer POC pCO2 POC pO2 POC HCO3 POC ABG Base Excess POC VBG pH 7.45 H POC VBG pCO2 at Temp 28.1 L POC VBG pO2 43 H POC VBG HCO3 19.7 L POC VBG Total CO2 21.0 L POC Venous O2 Sat 82.0 H POC VBG Base Excess -4.0 L VBG Lactic Acid 2.8 H POC Sodium Sodium POC Chloride Chloride Carbon Dioxide POC Total CO2 Anion Gap POC BUN BUN Creatinine POC Creatinine Glucose POC Glucose Calcium POC WB Ioniz Calcium Lactate Dehydrogenase Total Protein Albumin Globulin Albumin/Globulin Ratio Triglycerides Procalcitonin 0.20 H Urine Appearance Cloudy A Urine Protein 100 A Urine Glucose (UA) 50 A Urine Ketones 5 A Urine Urobilinogen 2.0 A Ur Leukocyte Esterase 250 A Urine RBC 12 H Urine WBC 33 H Calcium Oxalate Crystal Few A Hyaline Casts 10 H Urine Mucus Few A 02/10/22 02/10/22 02/10/22 22:50 22:07 22:06 WBC RBC Hgb Hct POC Hct MCHC Immature Gran % (Auto) Lymph % (Auto) [place] % (Auto) Lymph # (Auto) [place] # (Auto) Immature Gran # Absolute Neutrophils RBC Morphology Hypochromasia D-Dimer POC pCO2 POC pO2 POC HCO3 POC ABG Base Excess POC VBG pH POC VBG pCO2 at Temp 34.9 L POC VBG pO2 POC VBG HCO3 21.4 L POC VBG Total CO2 22.0 L POC Venous O2 Sat POC VBG Base Excess -4.0 L VBG Lactic Acid 4.0 H* POC Sodium 155 H Sodium POC Chloride 122 H Chloride Carbon Dioxide POC Total CO2 20.0 L Anion Gap POC BUN 36 H BUN Creatinine POC Creatinine 2.7 H Glucose POC Glucose 346 H Calcium POC WB Ioniz Calcium Lactate Dehydrogenase Total Protein 8.6 H Albumin Globulin 4.5 H Albumin/Globulin Ratio Triglycerides Procalcitonin Urine Appearance Urine Protein Urine Glucose (UA) Urine Ketones Urine Urobilinogen Ur Leukocyte Esterase Urine RBC Urine WBC Calcium Oxalate Crystal Hyaline Casts Urine Mucus 02/10/22 21:55 WBC 14.3 H RBC Hgb Hct POC Hct MCHC 30.6 L Immature Gran % (Auto) 0.6 H Lymph % (Auto) [place] % (Auto) 16.1 H Lymph # (Auto) [place] # (Auto) 2.31 H Immature Gran # 0.08 H Absolute Neutrophils 8.42 H RBC Morphology Hypochromasia D-Dimer POC pCO2 POC pO2 POC HCO3 POC ABG Base Excess POC VBG pH POC VBG pCO2 at Temp POC VBG pO2 POC VBG HCO3 POC VBG Total CO2 POC Venous O2 Sat POC VBG Base Excess VBG Lactic Acid POC Sodium Sodium POC Chloride Chloride Carbon Dioxide POC Total CO2 Anion Gap POC BUN BUN Creatinine POC Creatinine Glucose POC Glucose Calcium POC WB Ioniz Calcium Lactate Dehydrogenase Total Protein Albumin Globulin Albumin/Globulin Ratio Triglycerides Procalcitonin Urine Appearance Urine Protein Urine Glucose (UA) Urine Ketones Urine Urobilinogen Ur Leukocyte Esterase Urine RBC Urine WBC Calcium Oxalate Crystal Hyaline Casts Urine Mucus Meds: Medications Albuterol Sulfate (Albuterol Sulfate 200 Puff Inhaler) 2 puff INH DAILYP PRN PRN Reason: Shortness Of Breath Amoxicillin/Clavulanate Potassium (Amoxicillin/Potassium Clav 875 Mg Tablet) 875 mg PO BIDCC [facility] Stop: 02/16/22 19:00 Aspirin (Aspirin 81 Mg Tab.Chew) 81 mg PO QDAY [facility] Last Admin: 02/13/22 09:07 Dose: 81 mg Atorvastatin Calcium (Atorvastatin 20 Mg Tablet) 60 mg PO QHS [facility] Last Admin: 02/12/22 21:31 Dose: 60 mg Dextrose (Dextrose 50% 50 Ml Vial) 0 ml IV UD PRN PRN Reason: Per Sliding Scale Diagnostic Test (Pha) (Accu-Chek 1 Each Strip) 1 each FS [facility] Divalproex Sodium (Divalproex Sodium 250 Mg Tablet) 750 mg PO BID [facility] Last Admin: 02/13/22 09:01 Dose: 750 mg Fluticasone Propionate (Fluticasone Hfa 110mcg Inhaler) 2 puff INH BID [facility] Last Admin: 02/13/22 09:06 Dose: Not Given Glucose (Dextrose 31 Gm Oral.Susp) 15 gm PO PRN PRN PRN Reason: Hypoglycemia Heparin Sodium (Porcine) (Heparin Flush 10 Units/Ml 5 Ml Syringe) 2 ml IV Q12 [facility] Last Admin: 02/13/22 08:20 Dose: Not Given Sodium Chloride (Sodium Chloride 0.9%) 250 mls @ 20 mls/hr IV .[id number] [facility] Last Admin: 02/13/22 05:10 Dose: Not Given Norepinephrine Bitartrate 8 mg (/ Sodium Chloride) 250 mls @ 18.75 mls/hr IV Q12HP PRN; Protocol PRN Reason: Hypotension Insulin Human Lispro (Insulin Lispro 1 Unit/0.01 Ml Unit) 0 unit SQ [facility]; Protocol Last Admin: 02/13/22 12:12 Dose: 2 unit Lactulose (Lactulose 20 Gm/30 Ml Oral.Lizzette) 20 gm PO QAM PRN PRN Reason: constipation Melatonin (Melatonin 3 Mg Tablet) 3 mg PO [facility] Last Admin: 02/12/22 21:32 Dose: 3 mg Ondansetron HCl (Ondansetron 4 Mg/2 Ml Vial) 4 mg IV Q4HP PRN; Protocol PRN Reason: Nausea And Vomiting Last Admin: 02/13/22 12:45 Dose: 4 mg Quetiapine Fumarate (Quetiapine 100 Mg Tablet) 300 mg PO TID [facility] Last Admin: 02/13/22 15:30 Dose: 300 mg Sertraline HCl (Sertraline 100 Mg Tablet) 200 mg PO DAILY [facility] Last Admin: 02/13/22 09:01 Dose: 200 mg Sodium Chloride (0.9 % Sodium Chloride 10 Ml Syringe) 10 ml IV UD PRN PRN Reason: FLUSH Sodium Chloride (0.9 % Sodium Chloride 10 Ml Syringe) 10 ml IV Q12 [facility] Last Admin: 02/13/22 08:20 Dose: Not Given Sodium Chloride (0.9 % Sodium Chloride 10 Ml Syringe) 10 ml IV Q8 [facility] Last Admin: 02/13/22 14:02 Dose: 10 ml Tamsulosin HCl (Tamsulosin 0.4 Mg Capsule) 0.4 mg PO QHS [facility] Last Admin: 02/12/22 21:32 Dose: 0.4 mg A/P Narrative A/P Narrative: Assessment: 51-year-old male with a history of traumatic brain injury, prior CVA, wheelchair-bound status, prediabetes admitted for acute hypoxic respiratory failure and septic shock secondary to community-acquired pneumonia probably due to aspiration. #Resolved septic shock likely 2/2 pneumonia #Community-acquired aspiration pneumonia #Resolving acute hypoxic respiratory failure secondary to pneumonia: #Resolved hypernatremia #Oropharyngeal Dysphagia, chronic: ?Aspirating on oral secretions #Resolved JYOTSNA: 2/2 septic shock #Resolved metabolic acidosis: #Resolved encephalopathy: #Prediabetes, hemoglobin A1c 6.3: #h/o Traumatic brain injury #h/o CVA #Poor functional status/wheelchair-bound status: #Decubitus pressure injury, present on admission Plan: -Augmentin twice daily, complete 7 days of treatment for pneumonia. -Discontinue vancomycin IV and Zosyn. -Wean oxygen as able. -Follow sputum culture, growing gram-negative bacillus. -SSI, hold metformin for now -Resume home Toprol, holding home lisinopril and hydralazine for now. -Continue home Depakote/seroquel, cont atorvastatin/aspirin -wound cares for pressure injury -Probably remove Devine catheter tomorrow. -General surgery was consulted to evaluate patient's sacral wound. -PT, OT, speech therapy -ppx: heparin CODE STATUS: DNR/DNI Time Spent With Patient Time: Total time spent is greater than 50% in coordination of care (as documented) at patient's floor/unit and/or counseling patient: QUALITY Stroke Symptom Onset Unknown: No VTE Deep Vein Thrombosis/Pulmonary Embolism Present on Admission: No
[2022-02-13] MEDS ORDERED: METOPROLOL SUCCINATE 25 MG TAB.XL.24H PO SCH (16:00)
[2022-02-13] MEDS: AMOXICILLIN/POTASSIUM CLAV 875 MG TABLET PO SCH (17:25)
[2022-02-13] MEDS: TAMSULOSIN 0.4 MG CAPSULE PO SCH (20:54)
[2022-02-13] MEDS: MELATONIN 3 MG TABLET PO SCH (20:54)
[2022-02-13] MEDS: ATORVASTATIN 20 MG TABLET PO SCH (20:54)
--- NOTE | 2022-02-13 21:19 | General Surgery Consult Note ---
HPI Data of Consult Consult date: 02/13/22 Requesting physician: Trey Walsh Primary Care Provider: JESÚS Johansen Consult Narrative Patient Information: Note initiated : 02/13/22 at 9:15 pm Service Date, if different from initiated Date: [] Patient: Corona Mayer a 51 y/o M admitted on 02/11/22 for Shortness of breath. Chief Complaint: [] Corona is seen in consultation regarding a Sacral Decubitus that has been noted in the context of this current admission for findings of possible sepsis. He has significant issues with both urinary and fecal incontinence. An indwelling cheney has been placed since admission. He is currently on a broad spectrum AB. Chief complaint: Sacral Decubitus Reason for consult: Sacral Decubitus cc:: CC: Guy Freeman Review of Systems Review of systems: All systems reviewed and negative except as stated PFSH PFSH All Active Problems Pneumonia (Acute) Altered mental status (Acute) Septic shock (Acute) Septic shock (Acute) Sacral decubitus ulcer (Acute) Acute and chronic respiratory failure with hypoxia (Acute) Social History smoking status: Unknown if ever smoked MEDS/ALLERGIES Home Medications and Allergies Home Medications Medication Instructions Recorded Confirmed Type albuterol sulfate 90 mcg/actuation 2 puff inhalation QAM 01/11/22 02/11/22 History aerosol inhaler aspirin 81 mg chewable tablet 1 tab PO QDAY 01/11/22 02/11/22 History atorvastatin 20 mg tablet 1 tab PO QHS 01/11/22 02/11/22 History divalproex 250 mg tablet,delayed 1 tab PO BID 01/11/22 02/11/22 History release divalproex 500 mg tablet,delayed 1 tab PO BID 01/11/22 02/11/22 History release docusate sodium 100 mg capsule 1 cap PO BID 01/11/22 02/11/22 History fluticasone propionate 110 2 puff inhalation BID 01/11/22 02/11/22 History mcg/actuation HFA aerosol inhaler (Flovent HFA) hydroxyzine HCl 25 mg tablet 1 tab PO TID 01/11/22 02/11/22 History lactulose 10 gram/15 mL oral 30 ml PO QAM 01/11/22 02/11/22 History solution lidocaine 5 % topical cream 1 applic topical QID 01/11/22 02/11/22 History lisinopril 5 mg tablet 1 tab PO QDAY 01/11/22 02/11/22 History melatonin 3 mg tablet 3 tab PO HS 01/11/22 02/11/22 History metformin 500 mg tablet 1 tab PO BID 01/11/22 02/10/22 History metoprolol succinate 25 mg 1 tab PO QDAY 01/11/22 02/10/22 History tablet,extended release 24 hr phenylephrine 0.25 %-pramoxine 1 1 applic topical QID 01/11/22 02/10/22 History %-glycerin-wh.petrolatum rectal cream (Preparation H Maximum Strength) quetiapine 300 mg tablet 1 tab PO TID 01/11/22 02/10/22 History sertraline 100 mg tablet 2 tab PO DAILY 01/11/22 02/10/22 History tamsulosin 0.4 mg capsule 1 cap PO QHS 01/11/22 02/10/22 History trazodone 50 mg tablet 1 tab PO HS 01/11/22 02/10/22 History atorvastatin 40 mg tablet 1 tab PO QDP 02/11/22 02/11/22 History ibuprofen 400 mg tablet 1 tab PO TID 02/11/22 02/11/22 History Allergies Allergy/AdvReac Type Severity Reaction Status Date / Time No Known Drug Allergies Allergy Verified 02/10/22 21:59 Physical Examination Vital Signs Vital signs: Temp Pulse Resp BP Pulse Ox O2 Del Method O2 Flow Rate 97.8 F 110 H 21 91/81 92 1 02/13/22 16:01 02/13/22 18:01 02/13/22 18:01 02/13/22 18:01 02/13/22 18:01 02/13/22 08:00 02/13/22 08:00 General physical appearance General physical exam: no distress and moderate pain Eyes Eye exam: normal ocular movement; negative icteric ENT ENT exam: other (normal appearance ) Head Head exam IM: Present atraumatic, normal inspection and normocephalic Neck Neck exam: trachea midline and no lymphadenopathy Cardiovascular Cardiovascular exam IM: Present normal rate and rhythm Respiratory Respiratory exam: normal respiratory effort Abdomen Abdomen: Present soft and non tender Rectum Rectum: Present other (there appears to be a stage I-II Sacral Decubitus without obvious drainge or significant wound opening or ulceration. ) Integumentary Integumentary: Present other (see above ) Results Labs Result diagrams: 02/12/22 05:25 02/12/22 05:24 Labs: All other labs normal. A/P Assessment and plan (1) Sacral decubitus ulcer: Assessment and plan: Stage I-II Sacral Decubitus The area reportedly looks improved overall with cheney placement and there is no evident indication for open operative debridement at this time in the absence of overlying necrosis or open wound Regarding fecal diversion, this might become necessary at some point but doesn't seem critical at this time with a wound that appears to be responding to offloading and other protective measures I would favor continuing dedicated wound care for now with ongoing consideration of fecal diversion dependent on wound healing and clinical course Wound Care/Team Consult recommended as well (done) Status: Acute Qualifiers: Pressure injury stage: stage 2 Qualified Code(s): L89.152 - Pressure ulcer of sacral region, stage 2 Time Spent With Patient Time: Total time spent is greater than 50% in coordination of care (as documented) at patient's floor/unit and/or counseling patient:
[2022-02-14] MEDS: 0.9 % SODIUM CHLORIDE 10 ML SYRINGE IV SCH ×5 (05:25→21:27)
[2022-02-14 06:43] LABS: Basophils # (Auto) 0.02 K/mcL (0.00-0.30); Basophils % (Auto) 0.4 % (0.0-2.0); Eosinophils % (Auto) 4.4 % (0.0-7.0); Hematocrit 33.5 % (40.1-51.0); Hemoglobin 10.6 g/dL (13.7-17.5); Lymphocytes # (Auto) 1.42 K/mcL (1.50-4.80); Lymphocytes % (Auto) 31.2 % (15.5-49.0); Mean Cell Volume 91.3 fL (80.0-100.0); Mean Corpuscular HGB Conc 31.6 g/dL (31.0-36.0); Mean Platelet Volume 9.7 fL (8.8-12.5); Monocytes # (Auto) 0.35 K/mcL (0.10-0.90); Monocytes % (Auto) 7.7 % (1.0-12.0); Neutrophils % (Auto) 55.6 % (38.0-78.0); Platelet Count 153 K/mcL (140-440); RBC 3.67 M/mcL (4.63-6.08); Red Cell Distribution Width 12.6 % (11.5-14.5); WBC 4.6 K/mcL (4.5-11.0)
[2022-02-14 07:14] LABS: ALT/SGPT 10 U/L (<40); AST/SGOT 20 U/L (<40); Albumin 2.9 gm/dL (3.2-5.2); Albumin/Globulin Ratio 0.9 (1.0-2.3); Alkaline Phosphatase 51 U/L (39-117); Bilirubin,Direct < 0.2 mg/dL (0-0.3); Bilirubin,Total 0.3 mg/dL (0.1-1.0); Blood Urea Nitrogen 11 mg/dL (6-20); Calcium 8.5 mg/dL (8.6-10.4); Carbon Dioxide 23 mmol/L (22-30); Chloride 108 mmol/L (96-108); Globulin 3.3 gm/dL (2.2-3.7); Glomerular Filtration Rate 116; Glucose 142 mg/dL (70-105); Lactate Dehydrogenase 220 U/L (135-225); Phosphorous 4.2 mg/dL (2.5-4.5); Triglycerides 186 mg/dL (<150)
[2022-02-14] MEDS: INSULIN LISPRO 1 UNIT/0.01 ML UNIT SQ SCH ×4 (08:46→21:27)
[2022-02-14] MEDS: AMOXICILLIN/POTASSIUM CLAV 875 MG TABLET PO SCH ×2 (08:46→17:54)
[2022-02-14] MEDS: ASPIRIN 81 MG TAB.CHEW PO SCH (08:46)
[2022-02-14] MEDS: QUEtiapine 100 MG TABLET PO SCH ×3 (08:47→21:25)
[2022-02-14] MEDS: 0.9 % SODIUM CHLORIDE 250 ML IV SCH ×2 (08:47→18:28)
[2022-02-14] MEDS: SERTRALINE 100 MG TABLET PO SCH (08:47)
[2022-02-14] MEDS: DIVALPROEX SODIUM 250 MG TABLET PO SCH ×2 (08:47→21:25)
[2022-02-14] MEDS: METOPROLOL SUCCINATE 25 MG TAB.XL.24H PO SCH (08:47)
[2022-02-14] MEDS: FLUTICASONE HFA 110MCG INHALER INH SCH ×2 (12:20→21:28)
--- NOTE | 2022-02-14 13:46 | Internal Med Progress Note ---
SUBJECTIVE Subjective Patient information: Note initiated : 02/14/22 at 1:42 pm Service Date, if different from initiated Date: [] Patient: Corona Mayer a 51 y/o M admitted on 02/11/22 for Shortness of breath. Chief Complaint: [] Interval history: Mr. Mayer is a 51 year old M Patient presents the ED increased weakness cough shortness of breath. Patient was tachycardic with low blood pressure per EMS. Patient from assisted living facility who noted increased weakness and shortness of breath. Patient recently admitted to hospital for aspiration pneumonia. Per staff had been doing well until recently and then he became diaphoretic and decreased level of consciousness. And he did note a low oxygen saturation of 88%. Says blood pressure systolic in the 70s. In the ED is also found to have a UTI and a sacral decubitus ulcer looked in fected. He was found to have septic shock and started on the vasopressors and IV fluids. And antibiotics. CT chest read as bilateral lobe densities and air bronchograms felt to be due to either benign atelectasis or possible pneumonia. T-max in the ED was 100.0. Patient was tachycardic and tachypneic. Leukocytosis noted. Lactic acidosis of 4 initially. Also noted to be hyponatremic at 155 on the [id number] level. With the with acute kidney injury of creatinine 2.7 and hyperglycemia 346. 02/12 The patient's vitals are improving, on room air today. Continues on broad- spectrum antibiotic with IV vancomycin and Zosyn. Urine, blood and sputum culture showing no growth to date. Speech therapy consulted, recommended starting a dysphagia level 4 diet. General surgery consulted to evaluate the patient's buttock wound and consideration for a possible diverting colostomy to facilitate healing. Continue Devine catheter for now. Transition from ICU to PCU status. 02/13 Patient is more oriented today, continues to have a rapid heart rate. Blood pressure stable, resumed home metoprolol succinate. Sputum culture growing gram-negative bacillus. Oxygen supplementation weaned down to 1 L/min. Discontinued IV antibiotics and started Augmentin to complete antibiotic treatment. Suspect the patient's presentation is secondary to pneumonia, likely due to aspiration. 02/14 On room air, vitals similar to yesterday, no significant events overnight. Continues on Augmentin for pneumonia secondary to gram-negative bacilli, culture results pending. General surgery did not feel that a diverting colostomy was necessary for the patient's buttock wound healing. Physical exam Head: Atraumatic, normal inspection. Eyes: normal appearance, no scleral icterus. Neck: full ROM Respiratory: Bilateral crackles, no respiratory distress. Cardiovascular: normal rate and rhythm, S1, S2. GI/Abdominal: soft, nontender, no guarding. Extremities: full range of motion, nontender. Neurological: CN II-XII intact, intact motor, intact sensation. Psychiatric: Impaired cognition. Skin: warm, normal color Constitutional Vitals: Vital Signs Temp Pulse Resp BP Pulse Ox O2 Del Method O2 Flow Rate 98 F 94 H 15 124/77 93 0 02/14/22 12:01 02/14/22 11:01 02/14/22 12:01 02/14/22 12:01 02/14/22 12:01 02/14/22 04:01 02/13/22 23:01 Period Temp Pulse Resp BP Sys/Delcid Pulse Ox O2 Del Method O2 Flow Rate Last 24 Hr 97.0 F-98 F 84-110 8-24 91-138/58-101 90-99 Room Air-Room Air 0 Intake and Output 02/13/22 02/14/22 02/14/22 21:59 05:59 13:59 Intake Total 1310 100 800 Output Total 675 300 Balance 635 -200 800 Weight 96.615 kg Intake & Output: Intake & Output 02/13/22 02/14/22 02/14/22 21:59 05:59 13:59 Intake Total 1310 100 800 Output Total 675 300 Balance 635 -200 800 Weight 96.615 kg Intake: Oral 1310 100 800 Output: Urine Catheter Amount 675 300 Other: Meal Dinner Lunch Percent of Meal Consumed 75% 75% Feeding Ability Total Assistance Total Assistance Urine Appearance Clear Clear Uretheral (Devine) Clear Small Blood Clots Urine Color Dark Yellow Dark Yellow Blood Tinged Uretheral (Devine) Dark Yellow Urine Odor Normal Normal Stool Size Large Large Stool Color Brown Brown Stool Consistency Loose Loose # Bowel Movements 1 # of times incontinent of 1 1 Bowels OBJ DATA Labs CBC & Chem 7: 02/14/22 05:56 02/14/22 05:56 Labs: Abnormal Lab Results 02/14/22 02/14/22 02/12/22 05:56 05:56 05:25 RBC 3.67 L 3.87 L Hgb 10.6 L 11.1 L Hct 33.5 L 36.7 L POC Hct MCHC 30.2 L Immature Gran % (Auto) 0.7 H Lymph % (Auto) 12.4 L Lymph # (Auto) 1.42 L 0.92 L POC Sodium POC Chloride POC Total CO2 POC BUN BUN Creatinine 0.6 L Glucose 142 H POC Glucose Calcium 8.5 L POC WB Ioniz Calcium Total Protein Albumin 2.9 L Globulin Albumin/Globulin Ratio 0.9 L Triglycerides 186 H 02/12/22 02/11/22 02/11/22 05:24 22:32 17:34 RBC Hgb Hct POC Hct 34.0 L 32.0 L MCHC Immature Gran % (Auto) Lymph % (Auto) Lymph # (Auto) POC Sodium 152 H 151 H POC Chloride 118 H 122 H POC Total CO2 21.0 L POC BUN 22 H 24 H BUN 22 H Creatinine Glucose POC Glucose 136 H 129 H Calcium 8.5 L POC WB Ioniz Calcium 1.14 L Total Protein 4.8 L Albumin 3.0 L Globulin 1.8 L Albumin/Globulin Ratio Triglycerides Meds: Medications Albuterol Sulfate (Albuterol Sulfate 200 Puff Inhaler) 2 puff INH DAILYP PRN PRN Reason: Shortness Of Breath Amoxicillin/Clavulanate Potassium (Amoxicillin/Potassium Clav 875 Mg Tablet) [facility] Stop: 02/16/22 19:00 Last Admin: 02/14/22 08:46 Dose: 875 mg Aspirin (Aspirin 81 Mg Tab.Chew) 81 mg PO QDAY [facility] Last Admin: 02/14/22 08:46 Dose: 81 mg Atorvastatin Calcium (Atorvastatin 20 Mg Tablet) 60 mg PO QHS [facility] Last Admin: 02/13/22 20:54 Dose: 60 mg Dextrose (Dextrose 50% 50 Ml Vial) 0 ml IV UD PRN PRN Reason: Per Sliding Scale Diagnostic Test (Pha) (Accu-Chek 1 Each Strip) 1 each FS ACHS [facility] Last Admin: 02/14/22 12:30 Dose: 1 each Divalproex Sodium (Divalproex Sodium 250 Mg Tablet) 750 mg PO BID [facility] Last Admin: 02/14/22 08:47 Dose: 750 mg Fluticasone Propionate (Fluticasone Hfa 110mcg Inhaler) 2 puff INH BID [facility] Last Admin: 02/14/22 12:20 Dose: Not Given Glucose (Dextrose 31 Gm Oral.Susp) 15 gm PO PRN PRN PRN Reason: Hypoglycemia Heparin Sodium (Porcine) (Heparin Flush 10 Units/Ml 5 Ml Syringe) 2 ml IV Q12 [facility] Last Admin: 02/14/22 08:48 Dose: Not Given Sodium Chloride (Sodium Chloride 0.9%) 250 mls @ 20 mls/hr IV .[id number] [facility] Last Admin: 02/14/22 08:47 Dose: Not Given Norepinephrine Bitartrate 8 mg (/ Sodium Chloride) 250 mls @ 18.75 mls/hr IV Q12HP PRN; Protocol PRN Reason: Hypotension Insulin Human Lispro (Insulin Lispro 1 Unit/0.01 Ml Unit) 0 unit SQ ACHS [facility]; Protocol Last Admin: 02/14/22 12:31 Dose: 2 unit Lactulose (Lactulose 20 Gm/30 Ml Oral.Lizzette) 20 gm PO QAM PRN PRN Reason: constipation Melatonin (Melatonin 3 Mg Tablet) 3 mg PO HS [facility] Last Admin: 02/13/22 20:54 Dose: 3 mg Metoprolol Succinate (Metoprolol Succinate 25 Mg Tab.Xl.24h) 25 mg PO 0900 [facility] Last Admin: 02/14/22 08:47 Dose: 25 mg Ondansetron HCl (Ondansetron 4 Mg/2 Ml Vial) 4 mg IV Q4HP PRN; Protocol PRN Reason: Nausea And Vomiting Last Admin: 02/13/22 12:45 Dose: 4 mg Quetiapine Fumarate (Quetiapine 100 Mg Tablet) 300 mg PO TID [facility] Last Admin: 02/14/22 08:47 Dose: 300 mg Sertraline HCl (Sertraline 100 Mg Tablet) 200 mg PO DAILY [facility] Last Admin: 02/14/22 08:47 Dose: 200 mg Sodium Chloride (0.9 % Sodium Chloride 10 Ml Syringe) 10 ml IV UD PRN PRN Reason: FLUSH Sodium Chloride (0.9 % Sodium Chloride 10 Ml Syringe) 10 ml IV Q12 [facility] Last Admin: 02/14/22 08:48 Dose: Not Given Sodium Chloride (0.9 % Sodium Chloride 10 Ml Syringe) 10 ml IV Q8 [facility] Last Admin: 02/14/22 12:31 Dose: 10 ml Tamsulosin HCl (Tamsulosin 0.4 Mg Capsule) 0.4 mg PO QHS [facility] Last Admin: 02/13/22 20:54 Dose: 0.4 mg A/P Narrative A/P Narrative: Assessment: 51-year-old male with a history of traumatic brain injury, prior CVA, wheelchair-bound status, prediabetes admitted for acute hypoxic respiratory failure and septic shock secondary to community-acquired pneumonia probably due to aspiration. #Resolved septic shock likely 2/2 pneumonia #Community-acquired aspiration pneumonia #Resolving acute hypoxic respiratory failure secondary to pneumonia: #Resolved hypernatremia #Oropharyngeal Dysphagia, chronic: ?Aspirating on oral secretions #Resolved JYOTSNA: 2/2 septic shock #Resolved metabolic acidosis: #Resolved encephalopathy: #Prediabetes, hemoglobin A1c 6.3: #h/o Traumatic brain injury #h/o CVA #Poor functional status/wheelchair-bound status: #Decubitus pressure injury, present on admission Plan: -Augmentin twice daily, complete 7 days of treatment for pneumonia. -Follow sputum culture, growing gram-negative bacillus. -SSI, hold metformin for now -Continue home Toprol, holding home lisinopril and hydralazine for now. -Continue home Depakote/seroquel, cont atorvastatin/aspirin -wound cares for pressure injury -Continue Devine catheter for now to help with pressure wound healing. -General surgery was consulted to evaluate patient's sacral wound, recommended continuing offloading and wound cares. -PT, OT, speech therapy -ppx: heparin CODE STATUS: DNR/DNI Time Spent With Patient Time: Total time spent is greater than 50% in coordination of care (as documented) at patient's floor/unit and/or counseling patient: QUALITY Stroke Symptom Onset Unknown: No VTE Deep Vein Thrombosis/Pulmonary Embolism Present on Admission: No
[2022-02-14] MEDS: ATORVASTATIN 20 MG TABLET PO SCH (21:25)
[2022-02-14] MEDS: MELATONIN 3 MG TABLET PO SCH (21:25)
[2022-02-14] MEDS: TAMSULOSIN 0.4 MG CAPSULE PO SCH (21:25)
[2022-02-15] MEDS: 0.9 % SODIUM CHLORIDE 10 ML SYRINGE IV SCH ×5 (05:36→21:54)
[2022-02-15] MEDS ORDERED: POTASSIUM CHLORIDE 20 MEQ TABLET PO ONE (07:37)
[2022-02-15] MEDS: INSULIN LISPRO 1 UNIT/0.01 ML UNIT SQ SCH ×4 (07:46→21:43)
[2022-02-15] MEDS: DIVALPROEX SODIUM 250 MG TABLET PO SCH ×2 (08:22→21:40)
[2022-02-15] MEDS: AMOXICILLIN/POTASSIUM CLAV 875 MG TABLET PO SCH ×2 (08:22→17:43)
[2022-02-15] MEDS: ASPIRIN 81 MG TAB.CHEW PO SCH (08:23)
[2022-02-15] MEDS: FLUTICASONE HFA 110MCG INHALER INH SCH ×2 (08:23→21:53)
[2022-02-15] MEDS: QUEtiapine 100 MG TABLET PO SCH ×3 (08:23→21:40)
[2022-02-15] MEDS: METOPROLOL SUCCINATE 25 MG TAB.XL.24H PO SCH (08:23)
[2022-02-15] MEDS: SERTRALINE 100 MG TABLET PO SCH (08:23)
[2022-02-15] MEDS: 0.9 % SODIUM CHLORIDE 250 ML IV SCH (08:59)
--- NOTE | 2022-02-15 15:20 | Internal Med Progress Note ---
SUBJECTIVE Subjective Patient information: Note initiated : 02/15/22 at 3:18 pm Service Date, if different from initiated Date: [] Patient: Corona Mayer a 51 y/o M admitted on 02/11/22 for Shortness of breath. Chief Complaint: [] Interval history: Mr. Mayer is a 51 year old M Patient presents the ED increased weakness cough shortness of breath. Patient was tachycardic with low blood pressure per EMS. Patient from assisted living facility who noted increased weakness and shortness of breath. Patient recently admitted to hospital for aspiration pneumonia. Per staff had been doing well until recently and then he became diaphoretic and decreased level of consciousness. And he did note a low oxygen saturation of 88%. Says blood pressure systolic in the 70s. In the ED is also found to have a UTI and a sacral decubitus ulcer looked in fected. He was found to have septic shock and started on the vasopressors and IV fluids. And antibiotics. CT chest read as bilateral lobe densities and air bronchograms felt to be due to either benign atelectasis or possible pneumonia. T-max in the ED was 100.0. Patient was tachycardic and tachypneic. Leukocytosis noted. Lactic acidosis of 4 initially. Also noted to be hyponatremic at 155 on the gloyj-ow-xcmy level. With the with acute kidney injury of creatinine 2.7 and hyperglycemia 346. 02/12 The patient's vitals are improving, on room air today. Continues on broad- spectrum antibiotic with IV vancomycin and Zosyn. Urine, blood and sputum culture showing no growth to date. Speech therapy consulted, recommended starting a dysphagia level 4 diet. General surgery consulted to evaluate the patient's buttock wound and consideration for a possible diverting colostomy to facilitate healing. Continue Devine catheter for now. Transition from ICU to PCU status. 02/13 Patient is more oriented today, continues to have a rapid heart rate. Blood pressure stable, resumed home metoprolol succinate. Sputum culture growing gram-negative bacillus. Oxygen supplementation weaned down to 1 L/min. Discontinued IV antibiotics and started Augmentin to complete antibiotic treatment. Suspect the patient's presentation is secondary to pneumonia, likely due to aspiration. 02/14 On room air, vitals similar to yesterday, no significant events overnight. Continues on Augmentin for pneumonia secondary to gram-negative bacilli, culture results pending. General surgery did not feel that a diverting colostomy was necessary for the patient's buttock wound healing. 02/15 Stable overnight, transferred to [facility]. Case management working on low intensity rehab. Family prefers a care home facility in [place] if possible so he can be close to family. Physical exam Head: Atraumatic, normal inspection. Eyes: normal appearance, no scleral icterus. Neck: full ROM Respiratory: no respiratory distress. Cardiovascular: normal rate and rhythm, S1, S2. GI/Abdominal: soft, nontender, no guarding. Extremities: full range of motion, nontender. Neurological: CN II-XII intact, intact motor, intact sensation. Psychiatric: Impaired cognition. Skin: warm, normal color Constitutional Vitals: Vital Signs Temp Pulse Resp BP Pulse Ox O2 Del Method O2 Flow Rate 98.4 F 104 H 20 126/99 99 0 02/15/22 12:01 02/15/22 12:01 02/15/22 12:01 02/15/22 12:01 02/15/22 12:01 02/15/22 08:00 02/15/22 00:01 Period Temp Pulse Resp BP Sys/Delcid Pulse Ox O2 Del Method O2 Flow Rate Last 24 Hr 96.9 F-98.4 F 66-104 8-27 100-153/67-99 78-99 Room Air-Room Air 0 Intake and Output 02/15/22 02/15/22 02/15/22 05:59 13:59 21:59 Intake Total 100 840 Output Total 200 Balance -100 840 Intake & Output: Intake & Output 02/15/22 02/15/22 02/15/22 05:59 13:59 21:59 Intake Total 100 840 Output Total 200 Balance -100 840 Intake: Oral 100 840 Output: Urine Catheter Amount 200 Other: Meal Lunch Percent of Meal Consumed 100% Feeding Ability Total Assistance Urine Appearance Clear Sediment Uretheral (Devine) Clear Sediment Urine Color Dark Yellow Yellow Uretheral (Devine) Yellow Urine Odor Normal Stool Size Small Stool Color Brown Stool Consistency Soft # Bowel Movements 1 # of times incontinent of 1 Bowels OBJ DATA Labs CBC & Chem 7: 02/14/22 05:56 02/14/22 05:56 Labs: Abnormal Lab Results 02/14/22 02/14/22 05:56 05:56 RBC 3.67 L Hgb 10.6 L Hct 33.5 L Immature Gran % (Auto) 0.7 H Lymph # (Auto) 1.42 L Creatinine 0.6 L Glucose 142 H Calcium 8.5 L Albumin 2.9 L Albumin/Globulin Ratio 0.9 L Triglycerides 186 H Meds: Medications Albuterol Sulfate (Albuterol Sulfate 200 Puff Inhaler) 2 puff INH DAILYP PRN PRN Reason: Shortness Of Breath Amoxicillin/Clavulanate Potassium (Amoxicillin/Potassium Clav 875 Mg Tablet) [facility] Stop: 02/16/22 19:00 Last Admin: 02/15/22 08:22 Dose: 875 mg Aspirin (Aspirin 81 Mg Tab.Chew) 81 mg PO QDAY [facility] Last Admin: 02/15/22 08:23 Dose: 81 mg Atorvastatin Calcium (Atorvastatin 20 Mg Tablet) 60 mg PO QHS [facility] Last Admin: 02/14/22 21:25 Dose: 60 mg Dextrose (Dextrose 50% 50 Ml Vial) 0 ml IV UD PRN PRN Reason: Per Sliding Scale Diagnostic Test (Pha) (Accu-Chek 1 Each Strip) 1 each FS ACHS [facility] Last Admin: 02/15/22 12:12 Dose: 1 each Divalproex Sodium (Divalproex Sodium 250 Mg Tablet) 750 mg PO BID [facility] Last Admin: 02/15/22 08:22 Dose: 750 mg Fluticasone Propionate (Fluticasone Hfa 110mcg Inhaler) 2 puff INH BID [facility] Last Admin: 02/15/22 08:23 Dose: Not Given Glucose (Dextrose 31 Gm Oral.Susp) 15 gm PO PRN PRN PRN Reason: Hypoglycemia Heparin Sodium (Porcine) (Heparin Flush 10 Units/Ml 5 Ml Syringe) 2 ml IV Q12 [facility] Last Admin: 02/15/22 08:23 Dose: Not Given Sodium Chloride (Sodium Chloride 0.9%) 250 mls @ 20 mls/hr IV .[id number] [facility] Last Admin: 02/15/22 08:59 Dose: Not Given Norepinephrine Bitartrate 8 mg (/ Sodium Chloride) 250 mls @ 18.75 mls/hr IV Q12HP PRN; Protocol PRN Reason: Hypotension Insulin Human Lispro (Insulin Lispro 1 Unit/0.01 Ml Unit) 0 unit SQ [facility]; Protocol Last Admin: 02/15/22 12:12 Dose: 2 unit Lactulose (Lactulose 20 Gm/30 Ml Oral.Lizzette) 20 gm PO QAM PRN PRN Reason: constipation Melatonin (Melatonin 3 Mg Tablet) 3 mg PO HS [facility] Last Admin: 02/14/22 21:25 Dose: 3 mg Metoprolol Succinate (Metoprolol Succinate 25 Mg Tab.Xl.24h) 25 mg PO 0900 [facility] Last Admin: 02/15/22 08:23 Dose: 25 mg Ondansetron HCl (Ondansetron 4 Mg/2 Ml Vial) 4 mg IV Q4HP PRN; Protocol PRN Reason: Nausea And Vomiting Last Admin: 02/13/22 12:45 Dose: 4 mg Quetiapine Fumarate (Quetiapine 100 Mg Tablet) 300 mg PO TID [facility] Last Admin: 02/15/22 08:23 Dose: 300 mg Sertraline HCl (Sertraline 100 Mg Tablet) 200 mg PO DAILY [facility] Last Admin: 02/15/22 08:23 Dose: 200 mg Sodium Chloride (0.9 % Sodium Chloride 10 Ml Syringe) 10 ml IV UD PRN PRN Reason: FLUSH Sodium Chloride (0.9 % Sodium Chloride 10 Ml Syringe) 10 ml IV Q12 [facility] Last Admin: 02/15/22 08:24 Dose: Not Given Sodium Chloride (0.9 % Sodium Chloride 10 Ml Syringe) 10 ml IV Q8 [facility] Last Admin: 02/15/22 05:36 Dose: 10 ml Tamsulosin HCl (Tamsulosin 0.4 Mg Capsule) 0.4 mg PO QHS [facility] Last Admin: 02/14/22 21:25 Dose: 0.4 mg A/P Narrative A/P Narrative: Assessment: 51-year-old male with a history of traumatic brain injury, prior CVA, wheelchair-bound status, prediabetes admitted for acute hypoxic respiratory failure and septic shock secondary to community-acquired pneumonia probably due to aspiration. #Resolved septic shock likely 2/2 pneumonia #Community-acquired aspiration pneumonia #Resolving acute hypoxic respiratory failure secondary to pneumonia: #Resolved hypernatremia #Oropharyngeal Dysphagia, chronic: ?Aspirating on oral secretions #Resolved JYOTSNA: 2/2 septic shock #Resolved metabolic acidosis: #Resolved encephalopathy: #Prediabetes, hemoglobin A1c 6.3: #h/o Traumatic brain injury #h/o CVA #Poor functional status/wheelchair-bound status: #Decubitus pressure injury, present on admission Plan: -Augmentin twice daily, complete 7 days of treatment for pneumonia. -Follow sputum culture, growing gram-negative bacillus. -SSI, hold metformin for now -Continue home Toprol, holding home lisinopril and hydralazine for now. -Continue home Depakote/seroquel, cont atorvastatin/aspirin -wound cares for pressure injury -Continue Devine catheter for now to help with pressure wound healing. -General surgery was consulted to evaluate patient's sacral wound, recommended continuing offloading and wound cares. -PT, OT, speech therapy -ppx: heparin -CODE STATUS: DNR/DNI -Disposition: Low intensity rehab. Time Spent With Patient Time: Total time spent is greater than 50% in coordination of care (as documented) at patient's floor/unit and/or counseling patient: QUALITY Stroke Symptom Onset Unknown: No VTE Deep Vein Thrombosis/Pulmonary Embolism Present on Admission: No
[2022-02-15] MEDS: MELATONIN 3 MG TABLET PO SCH (21:40)
[2022-02-15] MEDS: ATORVASTATIN 20 MG TABLET PO SCH (21:40)
[2022-02-15] MEDS: TAMSULOSIN 0.4 MG CAPSULE PO SCH (21:41)
[2022-02-16 06:46] LABS: Basophils # (Auto) 0.05 K/mcL (0.00-0.30); Basophils % (Auto) 0.8 % (0.0-2.0); Eosinophils # (Auto) 0.14 K/mcL (0.00-0.70); Eosinophils % (Auto) 2.2 % (0.0-7.0); Hematocrit 34.6 % (40.1-51.0); Hemoglobin 11.2 g/dL (13.7-17.5); Lymphocytes # (Auto) 2.29 K/mcL (1.50-4.80); Lymphocytes % (Auto) 36.2 % (15.5-49.0); Mean Cell Volume 89.2 fL (80.0-100.0); Mean Corpuscular HGB Conc 32.4 g/dL (31.0-36.0); Mean Platelet Volume 9.9 fL (8.8-12.5); Monocytes # (Auto) 0.39 K/mcL (0.10-0.90); Monocytes % (Auto) 6.2 % (1.0-12.0); Platelet Count 204 K/mcL (140-440); RBC 3.88 M/mcL (4.63-6.08); Red Cell Distribution Width 12.5 % (11.5-14.5); WBC 6.3 K/mcL (4.5-11.0)
[2022-02-16 07:19] LABS: ALT/SGPT 11 U/L (<40); AST/SGOT 18 U/L (<40); Albumin/Globulin Ratio 0.9 (1.0-2.3); Alkaline Phosphatase 47 U/L (39-117); Bilirubin,Direct < 0.2 mg/dL (0-0.3); Bilirubin,Total 0.2 mg/dL (0.1-1.0); Blood Urea Nitrogen 8 mg/dL (6-20); Calcium 8.6 mg/dL (8.6-10.4); Carbon Dioxide 24 mmol/L (22-30); Chloride 104 mmol/L (96-108); Globulin 3.2 gm/dL (2.2-3.7); Glomerular Filtration Rate 109; Glucose 111 mg/dL (70-105); Lactate Dehydrogenase 246 U/L (135-225); Phosphorous 3.2 mg/dL (2.5-4.5); Triglycerides 210 mg/dL (<150); Uric Acid 4.1 mg/dL (2.5-8.0)
[2022-02-16] MEDS: 0.9 % SODIUM CHLORIDE 10 ML SYRINGE IV SCH ×5 (07:43→22:21)
[2022-02-16] MEDS: AMOXICILLIN/POTASSIUM CLAV 875 MG TABLET PO SCH ×2 (07:43→16:48)
[2022-02-16] MEDS: INSULIN LISPRO 1 UNIT/0.01 ML UNIT SQ SCH ×4 (07:43→22:21)
[2022-02-16] MEDS: ASPIRIN 81 MG TAB.CHEW PO SCH (09:05)
[2022-02-16] MEDS: DIVALPROEX SODIUM 250 MG TABLET PO SCH ×2 (09:06→21:56)
[2022-02-16] MEDS: METOPROLOL SUCCINATE 25 MG TAB.XL.24H PO SCH (09:07)
[2022-02-16] MEDS: QUEtiapine 100 MG TABLET PO SCH ×3 (09:07→21:56)
[2022-02-16] MEDS: SERTRALINE 100 MG TABLET PO SCH (09:08)
[2022-02-16] MEDS: FLUTICASONE HFA 110MCG INHALER INH SCH ×2 (09:09→21:56)
--- NOTE | 2022-02-16 11:03 | Internal Med Progress Note ---
SUBJECTIVE Subjective Patient information: Note initiated : 02/16/22 at 11:00 am Service Date, if different from initiated Date: [] Patient: Corona Mayer a 51 y/o M admitted on 02/11/22 for Shortness of breath. Chief Complaint: [] Interval history: Mr. Mayer is a 51 year old M Patient presents the ED increased weakness cough shortness of breath. Patient was tachycardic with low blood pressure per EMS. Patient from assisted living facility who noted increased weakness and shortness of breath. Patient recently admitted to hospital for aspiration pneumonia. Per staff had been doing well until recently and then he became diaphoretic and decreased level of consciousness. And he did note a low oxygen saturation of 88%. Says blood pressure systolic in the 70s. In the ED is also found to have a UTI and a sacral decubitus ulcer looked i nfected. He was found to have septic shock and started on the vasopressors and IV fluids. And antibiotics. CT chest read as bilateral lobe densities and air bronchograms felt to be due to either benign atelectasis or possible pneumonia. T-max in the ED was 100.0. Patient was tachycardic and tachypneic. Leukocytosis noted. Lactic acidosis of 4 initially. Also noted to be hyponatremic at 155 on the [id number] level. With the with acute kidney injury of creatinine 2.7 and hyperglycemia 346. 02/12 The patient's vitals are improving, on room air today. Continues on broad- spectrum antibiotic with IV vancomycin and Zosyn. Urine, blood and sputum culture showing no growth to date. Speech therapy consulted, recommended starting a dysphagia level 4 diet. General surgery consulted to evaluate the patient's buttock wound and consideration for a possible diverting colostomy to facilitate healing. Continue Devine catheter for now. Transition from ICU to PCU status. 02/13 Patient is more oriented today, continues to have a rapid heart rate. Blood pressure stable, resumed home metoprolol succinate. Sputum culture growing gram-negative bacillus. Oxygen supplementation weaned down to 1 L/min. Discontinued IV antibiotics and started Augmentin to complete antibiotic treatment. Suspect the patient's presentation is secondary to pneumonia, likely due to aspiration. 02/14 On room air, vitals similar to yesterday, no significant events overnight. Continues on Augmentin for pneumonia secondary to gram-negative bacilli, culture results pending. General surgery did not feel that a diverting colostomy was necessary for the patient's buttock wound healing. 02/15 Stable overnight, transferred to [facility]. Case management working on low intensity rehab. Family prefers a detention facility in [place] if possible so he can be close to family. 02/16 Stable overnight, medically stable for discharge, case management working on placement. Physical exam Head: Atraumatic, normal inspection. Eyes: normal appearance, no scleral icterus. Neck: full ROM Respiratory: no respiratory distress. Cardiovascular: normal rate and rhythm, S1, S2. GI/Abdominal: soft, nontender, no guarding. Extremities: full range of motion, nontender. Neurological: CN II-XII intact, intact motor, intact sensation. Psychiatric: Impaired cognition. Skin: warm, normal color Constitutional Vitals: Vital Signs Temp Pulse Resp BP Pulse Ox O2 Del Method O2 Flow Rate 98.8 F 98 H 18 123/82 94 0 02/16/22 07:56 02/16/22 07:56 02/16/22 07:56 02/16/22 07:56 02/16/22 07:56 02/16/22 07:56 02/15/22 00:01 Period Temp Pulse Resp BP Sys/Delcid Pulse Ox O2 Del Method O2 Flow Rate Last 24 Hr 97.0 F-99.3 F 88-104 16-20 117-134/76-99 94-99 Room Air-Room Air Intake and Output 02/15/22 02/16/22 02/16/22 21:59 05:59 13:59 Intake Total 240 120 120 Output Total 250 325 Balance - 120 Weight 97.976 kg Intake & Output: Intake & Output 02/15/22 02/16/22 02/16/22 21:59 05:59 13:59 Intake Total 240 120 120 Output Total 250 325 Balance -10 -205 120 Weight 97.976 kg Intake: Oral 240 120 120 Output: Urine Catheter Amount 250 325 Other: Meal Dinner Breakfast Percent of Meal Consumed 75% 100% Feeding Ability Total Assistance Total Assistance Urine Appearance Clear Uretheral (Devine) Clear Urine Color Dark Yellow Uretheral (Devine) Light Barbi Stool Size Moderate Stool Color Brown Stool Consistency Soft # of times incontinent of 1 Bowels OBJ DATA Labs CBC & Chem 7: 02/16/22 05:51 02/16/22 05:51 Labs: Abnormal Lab Results 02/16/22 02/16/22 02/14/22 05:51 05:51 05:56 RBC 3.88 L Hgb 11.2 L Hct 34.6 L Immature Gran % (Auto) 1.6 H Lymph # (Auto) Immature Gran # 0.10 H Creatinine 0.6 L Glucose 111 H 142 H Calcium 8.5 L Lactate Dehydrogenase 246 H Albumin 3.0 L 2.9 L Albumin/Globulin Ratio 0.9 L 0.9 L Triglycerides 210 H 186 H 02/14/22 05:56 RBC 3.67 L Hgb 10.6 L Hct 33.5 L Immature Gran % (Auto) 0.7 H Lymph # (Auto) 1.42 L Immature Gran # Creatinine Glucose Calcium Lactate Dehydrogenase Albumin Albumin/Globulin Ratio Triglycerides Meds: Medications Albuterol Sulfate (Albuterol Sulfate 200 Puff Inhaler) 2 puff INH DAILYP PRN PRN Reason: Shortness Of Breath Amoxicillin/Clavulanate Potassium (Amoxicillin/Potassium Clav 875 Mg Tablet) [facility] Stop: 02/16/22 19:00 Last Admin: 02/16/22 07:43 Dose: 875 mg Aspirin (Aspirin 81 Mg Tab.Chew) 81 mg PO QDAY [facility] Last Admin: 02/16/22 09:05 Dose: 81 mg Atorvastatin Calcium (Atorvastatin 20 Mg Tablet) 60 mg PO QHS [facility] Last Admin: 02/15/22 21:40 Dose: 60 mg Dextrose (Dextrose 50% 50 Ml Vial) 0 ml IV UD PRN PRN Reason: Per Sliding Scale Diagnostic Test (Pha) (Accu-Chek 1 Each Strip) 1 each FS ACHS [facility] Last Admin: 02/16/22 07:43 Dose: 1 each Divalproex Sodium (Divalproex Sodium 250 Mg Tablet) 750 mg PO BID [facility] Last Admin: 02/16/22 09:06 Dose: 750 mg Fluticasone Propionate (Fluticasone Hfa 110mcg Inhaler) 2 puff INH BID [facility] Last Admin: 02/16/22 09:09 Dose: 2 inh Glucose (Dextrose 31 Gm Oral.Susp) 15 gm PO PRN PRN PRN Reason: Hypoglycemia Heparin Sodium (Porcine) (Heparin Flush 10 Units/Ml 5 Ml Syringe) 2 ml IV Q12 [facility] Last Admin: 10/10/22 09:06 Dose: Not Given Norepinephrine Bitartrate 8 mg (/ Sodium Chloride) 250 mls @ 18.75 mls/hr IV Q12HP PRN; Protocol PRN Reason: Hypotension Insulin Human Lispro (Insulin Lispro 1 Unit/0.01 Ml Unit) 0 unit SQ ACHS [facility]; Protocol Last Admin: 02/16/22 07:43 Dose: Not Given Lactulose (Lactulose 20 Gm/30 Ml Oral.Lizzette) 20 gm PO QAM PRN PRN Reason: constipation Melatonin (Melatonin 3 Mg Tablet) 3 mg PO HS [facility] Last Admin: 02/15/22 21:40 Dose: 3 mg Metoprolol Succinate (Metoprolol Succinate 25 Mg Tab.Xl.24h) 25 mg PO 0900 [facility] Last Admin: 02/16/22 09:07 Dose: 25 mg Ondansetron HCl (Ondansetron 4 Mg/2 Ml Vial) 4 mg IV Q4HP PRN; Protocol PRN Reason: Nausea And Vomiting Last Admin: 02/13/22 12:45 Dose: 4 mg Quetiapine Fumarate (Quetiapine 100 Mg Tablet) 300 mg PO TID [facility] Last Admin: 02/16/22 09:07 Dose: 300 mg Sertraline HCl (Sertraline 100 Mg Tablet) 200 mg PO DAILY [facility] Last Admin: 02/16/22 09:08 Dose: 200 mg Sodium Chloride (0.9 % Sodium Chloride 10 Ml Syringe) 10 ml IV UD PRN PRN Reason: FLUSH Sodium Chloride (0.9 % Sodium Chloride 10 Ml Syringe) 10 ml IV Q12 [facility] Last Admin: 02/16/22 09:07 Dose: 10 ml Sodium Chloride (0.9 % Sodium Chloride 10 Ml Syringe) 10 ml IV Q8 [facility] Last Admin: 02/16/22 07:43 Dose: 10 ml Tamsulosin HCl (Tamsulosin 0.4 Mg Capsule) 0.4 mg PO QHS [facility] Last Admin: 02/15/22 21:41 Dose: 0.4 mg A/P Narrative A/P Narrative: Assessment: 51-year-old male with a history of traumatic brain injury, prior CVA, wheelchair-bound status, prediabetes admitted for acute hypoxic respiratory failure and septic shock secondary to community-acquired pneumonia probably due to aspiration. Patient recovered from the acute illness with treatment in the ICU, eventually transferred to [facility] and now awaiting placement for low intensity rehab. The patient has decubitus pressure wounds, Devine catheter was placed on admission and continued for improved wound healing. Wound care following for pressure injury. Prior to this admission, the patient resided in a senior living however therapy recommending low intensity rehab and family agrees with the recommendation however prefers rehab in [place] so he can be near family members. #Resolved septic shock likely 2/2 pneumonia #Community-acquired aspiration pneumonia #Resolving acute hypoxic respiratory failure secondary to pneumonia: #Resolved hypernatremia #Oropharyngeal Dysphagia, chronic: ?Aspirating on oral secretions #Resolved JYOTSNA: 2/2 septic shock #Resolved metabolic acidosis: #Resolved encephalopathy: #Prediabetes, hemoglobin A1c 6.3: #h/o Traumatic brain injury #h/o CVA #Poor functional status/wheelchair-bound status: #Decubitus pressure injury, present on admission Plan: -Augmentin twice daily, complete 7 days of treatment for pneumonia. -Follow sputum culture, growing gram-negative bacillus. -SSI, hold metformin for now -Continue home Toprol, holding home lisinopril and hydralazine for now. -Continue home Depakote/seroquel, cont atorvastatin/aspirin -wound cares for pressure injury -Continue Devine catheter for now to help with pressure wound healing. -General surgery was consulted to evaluate patient's sacral wound, recommended continuing offloading and wound cares. -PT, OT, speech therapy -ppx: heparin -CODE STATUS: DNR/DNI -Disposition: Low intensity rehab pending placement. Time Spent With Patient Time: Total time spent is greater than 50% in coordination of care (as documented) at patient's floor/unit and/or counseling patient: QUALITY Stroke Symptom Onset Unknown: No VTE Deep Vein Thrombosis/Pulmonary Embolism Present on Admission: No
--- NOTE | 2022-02-16 11:42 | Discharge Summary ---
Discharge Provider Provider IMPORTANT FOLLOW-UP INFORMATION FOR PCP: Patient information: Note initiated : 02/16/22 at 11:41 am Service Date, if different from initiated Date: [] Patient: Corona Mayer 51 y/o M admitted on 02/11/22 for Shortness of breath. Chief Complaint: [] Date of admission: 02/11/22 03:15 Discharge date: 02/16/22 Primary care physician: JESÚS Johansen Consults: 02/11/22 Consult to Physician [CONS] Stat Comment: Consulting Provider: Guy Freeman Reason For Exam: Physician to Consult 02/12/22 15:42 Consult to Physician [CONS] Routine Comment: Consulting Provider: Billy Rice Reason For Exam: Physician to Consult COURSE Hospital Course Hospital course: Patient presents the ED increased weakness cough shortness of breath. Patient was tachycardic with low blood pressure per EMS. Patient from assisted living facility who noted increased weakness and shortness of breath. Patient recently admitted to hospital for aspiration pneumonia. Per staff had been doing well until recently and then he became diaphoretic and decreased level of consciousness. And he did note a low oxygen saturation of 88%. Says blood pressure systolic in the 70s. In the ED is also found to have a UTI and a sacral decubitus ulcer looked infected. He was found to have septic shock and started on the vasopressors and IV fluids. And antibiotics. CT chest read as bilateral lobe densities and air bronchograms felt to be due to either benign atelectasis or possible pneumonia. T-max in the ED was 100.0. Patient was tachycardic and tachypneic. Leukocytosis noted. Lactic acidosis of 4 initially. Also noted to be hyponatremic at 155 on the [id number] level. With the with acute kidney injury of creatinine 2.7 and hyperglycemia 346. 02/12 The patient's vitals are improving, on room air today. Continues on broad- spectrum antibiotic with IV vancomycin and Zosyn. Urine, blood and sputum culture showing no growth to date. Speech therapy consulted, recommended starting a dysphagia level 4 diet. General surgery consulted to evaluate the patient's buttock wound and consideration for a possible diverting colostomy to facilitate healing. Continue Devine catheter for now. Transition from ICU to PCU status. 02/13 Patient is more oriented today, continues to have a rapid heart rate. Blood pressure stable, resumed home metoprolol succinate. Sputum culture growing gram-negative bacillus. Oxygen supplementation weaned down to 1 L/min. Discontinued IV antibiotics and started Augmentin to complete antibiotic treatment. Suspect the patient's presentation is secondary to pneumonia, likely due to aspiration. 02/14 On room air, vitals similar to yesterday, no significant events overnight. Continues on Augmentin for pneumonia secondary to gram-negative bacilli, culture results pending. General surgery did not feel that a diverting colostomy was necessary for the patient's buttock wound healing. 02/15 Stable overnight, transferred to [facility]. Case management working on low intensity rehab. Family prefers a fdc facility in [place] if possible so he can be close to family. 02/16 Discharged to low intensity rehab at [facility]. Physical exam Head: Atraumatic, normal inspection. Eyes: normal appearance, no scleral icterus. Neck: full ROM Respiratory: no respiratory distress. Cardiovascular: normal rate and rhythm, S1, S2. GI/Abdominal: soft, nontender, no guarding. Extremities: full range of motion, nontender. Neurological: CN II-XII intact, intact motor, intact sensation. Psychiatric: Impaired cognition. Skin: warm, normal color Discharge diagnosis: Community-acquired pneumonia Secondary discharge diagnosis: Septic shock secondary to pneumonia Acute hypoxic respiratory failure secondary to pneumonia Time Spent with Patient Time attestation: Total time spent providing and/or coordinating discharge services: Time spent: Greater than 30 minutes EXAM Constitutional Vitals: Temp Pulse Resp BP Pulse Ox O2 Del Method O2 Flow Rate 98.8 F 98 H 18 123/82 94 0 02/16/22 07:56 02/16/22 08:00 02/16/22 08:00 02/16/22 07:56 02/16/22 08:00 02/16/22 08:00 02/15/22 00:01 Discharge Data Data Completed and Pending Labs on day of discharge: Labs from last 24 hours 02/16/22 02/16/22 05:51 05:51 WBC 6.3 RBC 3.88 L Hgb 11.2 L Hct 34.6 L MCV 89.2 MCH 28.9 MCHC 32.4 RDW 12.5 Plt Count 204 MPV 9.9 Immature Gran % (Auto) 1.6 H Neut % (Auto) 53.0 Lymph % (Auto) 36.2 [place] % (Auto) 6.2 Eos % (Auto) 2.2 Baso % (Auto) 0.8 Lymph # (Auto) 2.29 [place] # (Auto) 0.39 Eos # (Auto) 0.14 Baso # (Auto) 0.05 Immature Gran # 0.10 H Absolute Neutrophils 3.35 Sodium 141 Potassium 3.3 Chloride 104 Carbon Dioxide 24 Anion Gap 13.0 BUN 8 Creatinine 0.7 GFR Calculation 109 Glucose 111 H Uric Acid 4.1 Calcium 8.6 Phosphorus 3.2 Magnesium 1.9 Total Bilirubin 0.2 Direct Bilirubin < 0.2 GGT 20 AST 18 ALT 11 Alkaline Phosphatase 47 Lactate Dehydrogenase 246 H Total Protein 6.2 Albumin 3.0 L Globulin 3.2 Albumin/Globulin Ratio 0.9 L Triglycerides 210 H Discharge Plan Patient/Caregiver Discharge Instructions Activity: increase activity as tolerated Diet: Regular Diet Prescriptions: Continued atorvastatin 20 mg tablet 1 tab PO QHS Rx Instructions: Take with the 40 mg tablet divalproex 250 mg tablet,delayed release (DR/EC) 1 tab PO BID divalproex 500 mg tablet,delayed release (DR/EC) 1 tab PO BID docusate sodium 100 mg capsule 1 cap PO BID aspirin 81 mg tablet,chewable 1 tab PO QDAY hydroxyzine HCl 25 mg tablet 1 tab PO TID albuterol sulfate 90 mcg/actuation HFA aerosol inhaler 2 puff INHALATION QAM Label Comments: [NO ORIGINAL SIG] fluticasone propionate [Flovent HFA] 110 mcg/actuation HFA aerosol inhaler 2 puff INHALATION BID metformin 500 mg tablet 1 tab PO BID quetiapine 300 mg tablet 1 tab PO TID trazodone 50 mg tablet 1 tab PO HS lidocaine 5 % cream 1 applic topical QID Rx Instructions: to lower back sertraline 100 mg tablet 2 tab PO DAILY melatonin 3 mg tablet 3 tab PO HS tamsulosin 0.4 mg capsule 1 cap PO QHS lisinopril 5 mg tablet 1 tab PO QDAY metoprolol succinate 25 mg tablet extended release 24 hr 1 tab PO QDAY lactulose 10 gram/15 mL solution 30 ml PO QAM Preparation H Maximum Strength 0.25-1 % cream 1 applic topical QID atorvastatin 40 mg tablet 1 tab PO QDP Rx Instructions: Take with 20 mg tab for total of 60 mg ibuprofen 400 mg tablet 1 tab PO TID Follow Up Plan Follow up with: Vladimir Strickland ARNP [Primary Care Provider] - Patient Disposition: Xfer SNF Prognosis: Critical Rehab Potential: Fair I certify that the patient requires SNF services: Yes Overall status at discharge: patient is progressing back to baseline Discharge Orders: Discharge Order (Routine); Ordered 02/16/22 Ordered By: Trey CLAROS VTE Deep Vein Thrombosis/Pulmonary Embolism Present on Admission: No
[2022-02-16] MEDS: MELATONIN 3 MG TABLET PO SCH (21:56)
[2022-02-16] MEDS: TAMSULOSIN 0.4 MG CAPSULE PO SCH (21:56)
[2022-02-16] MEDS: ATORVASTATIN 20 MG TABLET PO SCH (21:56)
[2022-02-17] MEDS: INSULIN LISPRO 1 UNIT/0.01 ML UNIT SQ SCH ×2 (07:24→12:01)
[2022-02-17] MEDS: 0.9 % SODIUM CHLORIDE 10 ML SYRINGE IV SCH ×2 (07:26→12:58)
[2022-02-17] MEDS: SERTRALINE 100 MG TABLET PO SCH (10:15)
[2022-02-17] MEDS: QUEtiapine 100 MG TABLET PO SCH (10:15)
[2022-02-17] MEDS: DIVALPROEX SODIUM 250 MG TABLET PO SCH (10:15)
[2022-02-17] MEDS: ASPIRIN 81 MG TAB.CHEW PO SCH (10:15)
[2022-02-17] MEDS: FLUTICASONE HFA 110MCG INHALER INH SCH (10:15)
[2022-02-17] MEDS: METOPROLOL SUCCINATE 25 MG TAB.XL.24H PO SCH (10:15)
--- NOTE | 2022-02-17 12:02 | Discharge Summary ---
Discharge Provider Provider IMPORTANT FOLLOW-UP INFORMATION FOR PCP: Patient information: Note initiated : 02/17/22 at 11:59 am Service Date, if different from initiated Date: [] Patient: Corona Mayer 51 y/o M admitted on 02/11/22 for Shortness of breath. Chief Complaint: [] Date of admission: 02/11/22 03:15 Discharge date: 02/17/22 Primary care physician: JESÚS Johansen Attending physician on admission: Guy Freeman Consults: 02/11/22 Consult to Physician [CONS] Stat Comment: Consulting Provider: Guy Freeman Reason For Exam: Physician to Consult 02/12/22 15:42 Consult to Physician [CONS] Routine Comment: Consulting Provider: Billy Rice Reason For Exam: Physician to Consult Attending physician on discharge: Chi Delgado Pui COURSE Hospital Course Hospital course: Patient was admitted on February 11, 2022 for aspiration pneumonia as well as sacral wound. For aspiration pneumonia, after cultures were collected, patient was started on empiric antibiotics which were later on being switched to oral Augmentin. Physical wound, wound care team Dr. Vasquez was consulted who recommend against any surgical management. Instead, he recommended offloading and continued wound care. Patient has reached clinical stability and being discharged back to adult family home on February 17, 2022. PCP follow-up appointment made for the patient's. All questions were answered prior to patient being physically discharged. Discharge diagnosis: Aspiration pneumonia Time Spent with Patient Time attestation: Total time spent providing and/or coordinating discharge services: Time spent: Greater than 30 minutes EXAM Constitutional Vitals: Temp Pulse Resp BP Pulse Ox O2 Del Method O2 Flow Rate 36.8 C 91 H 20 125/80 92 0 02/17/22 07:56 02/17/22 07:56 02/17/22 07:56 02/17/22 07:56 02/17/22 07:56 02/17/22 07:56 02/15/22 00:01 General appearance: cooperative and no acute distress Head Head exam: Present atraumatic and normocephalic Eye Eye exam: Present EOMI and PERRL ENT ENT exam: Present mucous membranes moist, normal exam and normal external ear exam Neck Neck exam: Present normal inspection; Absent lymphadenopathy, tenderness or thyromegaly Respiratory Respiratory exam: Absent accessory muscle use, respiratory distress or wheezes Cardiovascular Cardiovascular exam: Present normal rate and rhythm; Absent JVD GI/Abdominal GI/Abdominal exam: Present normal bowel sounds and soft; Absent organomegaly or tenderness Rectal Rectal exam: Present deferred Extremities Exam Extremities exam: Present full ROM, normal capillary refill and normal inspectio n; Absent tenderness Neurological Exam Neurological exam: Present alert, CN II-XII intact and oriented X3; Absent motor sensory deficit Psychiatric Psychiatric exam: Present normal affect and normal mood; Absent anxious or depressed Skin Skin exam: Present dry and intact Discharge Plan Patient/Caregiver Discharge Instructions Activity: increase activity as tolerated Diet: Dysphagia Level 6 Soft & Bite-Sized Foods Instructions: Sepsis (IP) Activity Restrictions/Additional Instructions: Patient discharged with Devine catheter, continue for 5 more days then consider removal. Devine catheter continue to discharge to help with wound healing of decubitus pressure wound. Dysphagia level 6 diet. Take all meals up in chair, sitting at 90 degrees, to prevent aspiration. Increase activity as tolerated. Continue fall precautions. Take all medication as directed. Your prescription is with your discharge paperwork. Pain medication can cause constipation; take an over the counter stool softener and/or laxative while on pain medication. Some medications were electronically transmitted to pharmacy Take your prescription, insurance cards, and photo ID to picking machine operator your medication. Return to ER for fever, chills, uncontrolled pain, inability to urinate or have a bowel movement, nausea and/or vomiting, swelling, redness, signs of infection, shortness of breath, chest pain, return of symptoms, or other acute symptom. This discharge packet is provided to you to help keep you informed about your care. We want to ensure you get everything you need when you go home. You will also be receiving a call from us in a few days to follow up with you and see how you are doing since your discharge. This gives us a chance to listen to any concerns you maybe experiencing since you were discharged or any additional needs you may have, as well as providing us feedback on your care experience. We strive to always provide excellent care and thank you for your feedback and for choosing [facility]. Prescriptions: Continued atorvastatin 20 mg tablet 1 tab PO QHS Rx Instructions: Take with the 40 mg tablet divalproex 250 mg tablet,delayed release (DR/EC) 1 tab PO BID divalproex 500 mg tablet,delayed release (DR/EC) 1 tab PO BID docusate sodium 100 mg capsule 1 cap PO BID aspirin 81 mg tablet,chewable 1 tab PO QDAY hydroxyzine HCl 25 mg tablet 1 tab PO TID albuterol sulfate 90 mcg/actuation HFA aerosol inhaler 2 puff INHALATION QAM Label Comments: [NO ORIGINAL SIG] fluticasone propionate [Flovent HFA] 110 mcg/actuation HFA aerosol inhaler 2 puff INHALATION BID metformin 500 mg tablet 1 tab PO BID quetiapine 300 mg tablet 1 tab PO TID trazodone 50 mg tablet 1 tab PO HS lidocaine 5 % cream 1 applic topical QID Rx Instructions: to lower back sertraline 100 mg tablet 2 tab PO DAILY melatonin 3 mg tablet 3 tab PO HS tamsulosin 0.4 mg capsule 1 cap PO QHS lisinopril 5 mg tablet 1 tab PO QDAY metoprolol succinate 25 mg tablet extended release 24 hr 1 tab PO QDAY lactulose 10 gram/15 mL solution 30 ml PO QAM Preparation H Maximum Strength 0.25-1 % cream 1 applic topical QID atorvastatin 40 mg tablet 1 tab PO QDP Rx Instructions: Take with 20 mg tab for total of 60 mg ibuprofen 400 mg tablet 1 tab PO TID Other Ambulatory Orders: Wound Care Instructions (CONT) Location: None Selected Ordered By: Faheem Flores OT Discharge Order (Routine) Location: None Selected Ordered By: Trey Walsh Physical Therapy at Discharge - General (Routine) Location: None Selected Ordered By: Trey Walsh ST Discharge Order (Routine) Location: None Selected Ordered By: Trey Walsh Follow Up Plan Follow up with: Vladimir Strickland ARNP [Primary Care Provider] - (Follow-up as needed. Contact the office to schedule) Patient Disposition: Xfer SNF Prognosis: Critical Rehab Potential: Fair I certify that the patient requires SNF services: Yes Overall status at discharge: patient is progressing back to baseline Discharge Orders: Discharge Order (Routine); Ordered 02/17/22 Ordered By: Trey Walsh QUALITY VTE Deep Vein Thrombosis/Pulmonary Embolism Present on Admission: No
== END 2022-02-17 14:30 | DRG 871 ==
LOC: ED 21:54 → ICU 02-11 03:15 → MEDSUR 02-15 13:05
PROVIDERS: ADMIT Internal Medicine; ATTEND Internal Medicine

== ENCOUNTER 2022-03-05 17:04 | Inpatient (IN) ==
[2022-03-05] MEDS ORDERED: IOPAMIDOL 100 ML BOTTLE IV ONE (17:05)
[2022-03-05] MEDS ORDERED: ACETAMINOPHEN 325 MG TABLET PO ONE (17:20)
[2022-03-05] MEDS ORDERED: 0.9 % SODIUM CHLORIDE 500 ML IV ONE (17:26)
--- NOTE | 2022-03-05 17:31 | Emergency Department Note ---
HPI General Chief complaint: Cold/Flu Symptoms Stated complaint: Fever, crackles Time Seen by Provider: 03/05/22 17:20 Source: EMS Mode of arrival: EMS Limitations: other History of Present Illness HPI Narrative: Narrative: Patient is a 52-year-old male with a history significant for TBI, altered mental status, pneumonia, and septic shock who presents to the emergency department due to fever, shortness of breath, and low saturations. Patient was also found to be febrile, and for these reasons was sent to the emergency department. There was no report of runny nose, cough, or any other focal findings. Related Data Home Medications Medication Instructions Recorded Confirmed albuterol sulfate 90 mcg/actuation 2 puff inhalation DAILYP PRN 01/11/22 03/06/22 aerosol inhaler Shortness Of Breath aspirin 81 mg chewable tablet 81 mg PO QDAY 01/11/22 03/06/22 divalproex 250 mg tablet,delayed 1 tab PO BID 01/11/22 03/06/22 release divalproex 500 mg tablet,delayed 500 mg PO BID 01/11/22 03/06/22 release docusate sodium 100 mg capsule 1 cap PO BID 01/11/22 03/06/22 fluticasone propionate 110 2 puff inhalation BID 01/11/22 03/06/22 mcg/actuation HFA aerosol inhaler (Flovent HFA) hydroxyzine HCl 25 mg tablet 25 mg PO TID 01/11/22 03/06/22 lactulose 10 gram/15 mL oral 30 ml PO QAM 01/11/22 03/06/22 solution lidocaine 5 % topical cream 1 applic topical QID 01/11/22 03/06/22 lisinopril 5 mg tablet 5 mg PO QDAY 01/11/22 03/06/22 melatonin 3 mg tablet 3 mg PO HS 01/11/22 03/06/22 metformin 500 mg tablet 500 mg PO BIDCC 01/11/22 03/06/22 metoprolol succinate 25 mg 25 mg PO DAILY 01/11/22 03/06/22 tablet,extended release 24 hr phenylephrine 0.25 %-pramoxine 1 1 applic topical QID 01/11/22 03/06/22 %-glycerin-wh.petrolatum rectal cream (Preparation H Maximum Strength) quetiapine 300 mg tablet 300 mg PO TID 01/11/22 03/06/22 sertraline 100 mg tablet 200 mg PO DAILY 01/11/22 03/06/22 tamsulosin 0.4 mg capsule 0.4 mg PO QHS 01/11/22 03/06/22 trazodone 50 mg tablet 50 mg PO HS 01/11/22 03/06/22 atorvastatin 40 mg tablet 1 tab PO QDP 02/11/22 03/06/22 ibuprofen 400 mg tablet 400 mg PO TIDP PRN Pain 02/11/22 03/06/22 Allergies Allergy/AdvReac Type Severity Reaction Status Date / Time No Known Drug Allergies Allergy Verified 03/05/22 17:18 Review of Systems ROS ROS Narrative: Narrative: Limitations: ROS unobtainable due to patients medical condition [facility] Narrative Patient History Narrative: Narrative: Medical/Surgical/Family History All Active Problems T2DM (type 2 diabetes mellitus) (Acute) Clinical sepsis (Acute) Pneumoperitoneum (Acute) Pneumonia (Acute) Altered mental status (Acute) Septic shock (Acute) Septic shock (Acute) Sacral decubitus ulcer (Acute) Acute and chronic respiratory failure with hypoxia (Acute) Social History Smoking Status: Unknown if ever smoked Exam Narrative Narrative: Narrative: General Limitations: other General appearance: Present alert and in no apparent distress; Absent anxious, appears intoxicated or sleepy Head Head: Present atraumatic and normocephalic Eye Eye: Present EOMI; Absent scleral icterus or nystagmus ENT ENT: Present mucous membranes moist; Absent nasal congestion Neck Neck: Present full ROM; Absent tenderness Chest Chest: Present normal inspection and symmetric chest wall rise; Absent tenderness Respiratory Respiratory: Present normal lung sounds bilaterally; Absent respiratory distress or accessory muscle use Cardiovascular Cardiovascular: Present normal rhythm, tachycardia and normal heart sounds Adbominal Abdominal: Present soft, tenderness and normal bowel sounds; Absent distention Extremities Extremities: Present normal inspection and full ROM; Absent tenderness Back Back: Present normal inspection and full ROM Neurological Neurological: Present alert Psychiatric Psychiatric: Present normal affect and normal mood Skin Skin: Present warm (WNL), dry and normal color Course Vital Signs Vital signs: Vital Signs Pulse Rate 118 H 03/05/22 17:13 Blood Pressure 129/94 03/05/22 17:13 Pulse Oximetry (%) 87 L 03/05/22 17:13 Oxygen Delivery Method 03/05/22 17:13 Oxygen Flow Rate (L/min) 4 03/05/22 17:13 Temperature 96.7 F L 03/11/22 04:26 Pulse Rate 72 03/11/22 07:17 Respiratory Rate 22 03/11/22 07:17 Blood Pressure 149/80 03/11/22 07:17 Pulse Oximetry (%) 97 03/11/22 07:17 Oxygen Delivery Method 03/11/22 07:17 Oxygen Flow Rate (L/min) 1 03/08/22 12:00 MDM MDM Narrative Medical decision making narrative: Narrative: Patient is a 52-year-old male who presents to the emergency department due to shortness of breath, hypoxia, and fever. Patient is not able to communicate his symptoms or answer questions. Due to patient's exam findings there is concern for significant infection. There is concern for intra-abdominal findings due to his abdominal tenderness. Patient's work-up is significant for CT findings of pneumoperitoneum. He was also found to have concerns for pneumonia. Patient received antibiotics I called and spoke to Dr. Jenkins who agreed to see and evaluate patient for admission. Lab Data Result diagrams: 03/11/22 04:37 03/11/22 04:37 Labs: Lab Results 03/05/22 03/05/22 03/05/22 Range/Units 18:08 18:08 18:08 WBC 13.3 H (4.5-11.0) K/mcL RBC 4.93 (4.63-6.08) M/mcL Hgb 14.3 (13.7-17.5) g/dL Hct 44.5 (40.1-51.0) % POC Hct (41-55) MCV 90.3 (80.0-100.0) fL MCH 29.0 (26.0-34.0) pg MCHC 32.1 (31.0-36.0) g/dL RDW 13.8 (11.5-14.5) % Plt Count 140 (140-440) K/mcL MPV 11.0 (8.8-12.5) fL Immature Gran % (Auto) 0.4 (0.0-0.5) % Neut % (Auto) 65.0 (38.0-78.0) % Lymph % (Auto) 21.7 (15.5-49.0) % [place] % (Auto) 12.7 H (1.0-12.0) % Eos % (Auto) 0 (0.0-7.0) % Baso % (Auto) 0.2 (0.0-2.0) % Lymph # (Auto) 2.89 (1.50-4.80) K/mcL [place] # (Auto) 1.69 H (0.10-0.90) K/mcL Eos # (Auto) 0 (0.00-0.70) K/mcL Baso # (Auto) 0.03 (0.00-0.30) K/mcL Immature Gran # 0.05 (0.00-0.05) K/mcl Absolute Neutrophils 8.63 H (1.80-8.00) K/mcL POC VBG pH (7.32-7.42) POC VBG pCO2 at Temp (41-51) POC VBG pO2 (25-40) POC VBG HCO3 (24-28) POC VBG Total CO2 (25-29) POC Venous O2 Sat (40-70) POC VBG Base Excess (-2-2) VBG Lactic Acid (0.5-2) POC Sodium (133-145) POC Potassium (3.3-5.1) POC Chloride (96-108) POC Total CO2 (22-30) POC BUN (6-20) POC Creatinine (0.6-1.2) POC Glucose (70-105) POC WB Ioniz Calcium (1.16-1.32) NT-Pro-B Natriuret Pep 111.1 (<125.0) pg/mL Procalcitonin 0.08 (<0.10) ng/mL 03/05/22 03/05/22 Range/Units 18:10 18:13 WBC (4.5-11.0) K/mcL RBC (4.63-6.08) M/mcL Hgb (13.7-17.5) g/dL Hct (40.1-51.0) % POC Hct 43.0 (41-55) MCV (80.0-100.0) fL MCH (26.0-34.0) pg MCHC (31.0-36.0) g/dL RDW (11.5-14.5) % Plt Count (140-440) K/mcL MPV (8.8-12.5) fL Immature Gran % (Auto) (0.0-0.5) % Neut % (Auto) (38.0-78.0) % Lymph % (Auto) (15.5-49.0) % [place] % (Auto) (1.0-12.0) % Eos % (Auto) (0.0-7.0) % Baso % (Auto) (0.0-2.0) % Lymph # (Auto) (1.50-4.80) K/mcL [place] # (Auto) (0.10-0.90) K/mcL Eos # (Auto) (0.00-0.70) K/mcL Baso # (Auto) (0.00-0.30) K/mcL Immature Gran # (0.00-0.05) K/mcl Absolute Neutrophils (1.80-8.00) K/mcL POC VBG pH 7.45 H (7.32-7.42) POC VBG pCO2 at Temp 37.0 L (41-51) POC VBG pO2 51 H (25-40) POC VBG HCO3 25.8 (24-28) POC VBG Total CO2 27.0 (25-29) POC Venous O2 Sat 87.0 H (40-70) POC VBG Base Excess 2.0 (-2-2) VBG Lactic Acid 1.6 (0.5-2) POC Sodium 146 H (133-145) POC Potassium 4.9 (3.3-5.1) POC Chloride 113 H (96-108) POC Total CO2 24.0 (22-30) POC BUN 26 H (6-20) POC Creatinine 0.9 (0.6-1.2) POC Glucose 154 H (70-105) POC WB Ioniz Calcium 1.10 L (1.16-1.32) NT-Pro-B Natriuret Pep (<125.0) pg/mL Procalcitonin (<0.10) ng/mL ED POC Tests ED POC Tests: DONNELL - Influenza A Negative DONNELL - Influenza B Negative DONNELL - SARS Antigen Negative Discharge Plan Patient/Caregiver Discharge Instructions Pt seen by SUPERVISOR FILTER ASSEMBLY/PA only: No Clinical Impression: Pneumonia, Pneumoperitoneum Activity: increase activity as tolerated Patient Disposition: Xfer As Inpt ([facility]) Condition: Undetermined Discharge Date/Time: 03/05/22 22:45
[2022-03-05] MEDS ORDERED: KETOROLAC 30 MG/ML VIAL IV ONE (17:38)
[2022-03-05] MEDS ORDERED: PIPERACILLIN SODIUM/TAZOBACTAM 4.5 GM in DEXTROSE 5% IN WATER 50 ML IV ONE (18:07)
[2022-03-05] MEDS ORDERED: LACTATED RINGERS 1,000 ML IV ONE (18:07)
[2022-03-05] MEDS ORDERED: VANCOMYCIN 2,000 MG in 0.9 % SODIUM CHLORIDE 500 ML IV ONE (18:07)
[2022-03-05 18:15] LABS: POC Calcium, Ionized 1.1 (1.16-1.32); POC Creatinine 0.9 (0.6-1.2); POC Potassium 4.9 (3.3-5.1)
--- NOTE | 2022-03-05 19:12 | Cat Scan Report ---
INDICATION: Meets sepsis criteria, abdominal tenderness COMPARISON: Previous CT scan dated 01/08/2022 TECHNIQUE: Axial images were obtained through the abdomen and pelvis. Sagittally and coronally reformatted images. 80 mL Isovue 370 injected intravenously. Oral contrast material was not administered FINDINGS: Lung bases:There is right lower lobe infiltrate which may be secondary to pneumonia. There is no pleural effusion. Liver:Negative. No focal intrahepatic mass. No focal abnormality. Liver contour is smooth. No evidence for cirrhosis. No pneumobilia. No portal venous gas. Gallbladder, bilary:No calcified gallstones. No gallbladder wall thickening. No dilated intra or extrahepatic bile ducts. Spleen:No splenomegaly. Normal enhancement of splenic and portal veins. Pancreas:No pancreatic mass. No peripancreatic abnormality Adrenal glands:Negative Kidneys,ureters,bladder:No solid renal mass. No hydronephrosis. No obstructing or nonobstructing calculi. There is a benign 3 cm left renal cyst. No hydroureter. No ureteral calculus. No bladder stone. No detectable bladder mass. Gastrointestinal:No significant diverticulosis. No detectable colonic mass. There is no colonic distention. Negative small bowel. No mechanical small bowel obstruction. No bowel wall thickening. No focal abnormality. Negative stomach and duodenum. No focal abnormality. Appendix: The appendix is nonvisualized. No evidence for appendicitis Vascular:Negative abdominal aorta. Superior mesenteric artery and celiac trunk are normal. Normal opacification of the inferior mesenteric artery Lymphatic:No retroperitoneal or mesenteric adenopathy Mesentery, peritoneum: There is pneumoperitoneum. Source of free air is not certain. There is no significant colonic diverticulosis although a perforated diverticulum is possible. The free air appears most prominent around the ascending colon. There is no colonic distention or apparent reason for colonic perforation. Gastric or duodenal ulcer is possible although not visualized. This is considered less likely as there are multiple intraperitoneal gas bubbles within the pelvis. There is no intra-abdominal abscess. There is minimal free pelvic fluid. Reproductive:Prostate is not significantly enlarged Musculoskeletal:No lumbar compression fractures. Sacrum and pelvis are negative. No hip fracture. No abdominal wall or inguinal hernia IMPRESSION: 1. Pneumoperitoneum 2. Source of free air is not certain based upon this examination. I favor that it has arisen from the colon although there is not significant diverticulosis. There is no colonic distention or detectable mass 3. Findings consistent with right lower lobe pneumonia The exam was performed using radiation dose optimization techniques including, but not limited to, automated exposure control, adjustment of the mA and/or kV according to patient size and use of iterative reconstruction technique. Interpreted and Authenticated by: Rosendo Reis 03/05/22
[2022-03-05 19:20] LABS: Basophils # (Auto) 0.03 K/mcL (0.00-0.30); Basophils % (Auto) 0.2 % (0.0-2.0); Eosinophils # (Auto) 0 K/mcL (0.00-0.70); Eosinophils % (Auto) 0 % (0.0-7.0); Hematocrit 44.5 % (40.1-51.0); Hemoglobin 14.3 g/dL (13.7-17.5); Lymphocytes # (Auto) 2.89 K/mcL (1.50-4.80); Lymphocytes % (Auto) 21.7 % (15.5-49.0); Mean Cell Volume 90.3 fL (80.0-100.0); Mean Corpuscular HGB Conc 32.1 g/dL (31.0-36.0); Monocytes # (Auto) 1.69 K/mcL (0.10-0.90); Monocytes % (Auto) 12.7 % (1.0-12.0); Platelet Count 140 K/mcL (140-440); RBC 4.93 M/mcL (4.63-6.08); Red Cell Distribution Width 13.8 % (11.5-14.5); WBC 13.3 K/mcL (4.5-11.0)
--- NOTE | 2022-03-05 19:20 | Emergency Department Note ---
Course Vital Signs Vital signs: Vital Signs Pulse Rate 118 H 03/05/22 17:13 Blood Pressure 129/94 03/05/22 17:13 Pulse Oximetry (%) 87 L 03/05/22 17:13 Oxygen Delivery Method 03/05/22 17:13 Oxygen Flow Rate (L/min) 4 03/05/22 17:13 Temperature 39.4 C H 03/05/22 17:15 Pulse Rate 101 H 03/05/22 20:13 Respiratory Rate 26 H 03/05/22 17:15 Blood Pressure 128/79 03/05/22 20:01 Pulse Oximetry (%) 95 03/05/22 20:13 Oxygen Delivery Method 03/05/22 20:01 Oxygen Flow Rate (L/min) 4 03/05/22 20:01 MDM MDM Narrative Medical decision making narrative: Narrative: 52-year-old male history of TBI close to nonverbal at baseline presented to the previous team please refer to their note for full details. Sent in for suspected pneumonia, sepsis. He was treated with broad-spectrum antibiotics IV fluids and work-up was initiated. He had a normal lactic acid, has a leukocytosis of 13, normal Procal. signed out to me pending CT result and final disposition. 1904: Received call from Dr. Reis, patient has pneumoperitoneum, he suspects a source may be colonic down near the pelvis. Also right lower lobe pneumonia. I did add on a chest x-ray. patient has already received broad-spectrum antibiotics 1909: Consulted with Dr. Ortega who is reviewing the imaging Chest x-ray per my preliminary interpretation shows opacities greater on the right side/pneumonia 2020: Dr. Ortega evaluated at bedside, recommends conservative nonoperative management at this time as far as the pneumoperitoneum, recommends hospitalist admission for the overall treatment/pneumonia treatment. Have paged hospitalist. Also reevaluation patient stable on 4L nasal cannula tachycardia much improved heart rate 100. 2030: spoken with Dr Flores who will come down to admit the patient. Lab Data Result diagrams: 03/05/22 18:08 Labs: Lab Results 03/05/22 03/05/22 03/05/22 Range/Units 18:08 18:08 18:08 WBC 13.3 H (4.5-11.0) K/mcL RBC 4.93 (4.63-6.08) M/mcL Hgb 14.3 (13.7-17.5) g/dL Hct 44.5 (40.1-51.0) % POC Hct (41-55) MCV 90.3 (80.0-100.0) fL MCH 29.0 (26.0-34.0) pg MCHC 32.1 (31.0-36.0) g/dL RDW 13.8 (11.5-14.5) % Plt Count 140 (140-440) K/mcL MPV 11.0 (8.8-12.5) fL Immature Gran % (Auto) 0.4 (0.0-0.5) % Neut % (Auto) 65.0 (38.0-78.0) % Lymph % (Auto) 21.7 (15.5-49.0) % [place] % (Auto) 12.7 H (1.0-12.0) % Eos % (Auto) 0 (0.0-7.0) % Baso % (Auto) 0.2 (0.0-2.0) % Lymph # (Auto) 2.89 (1.50-4.80) K/mcL [place] # (Auto) 1.69 H (0.10-0.90) K/mcL Eos # (Auto) 0 (0.00-0.70) K/mcL Baso # (Auto) 0.03 (0.00-0.30) K/mcL Immature Gran # 0.05 (0.00-0.05) K/mcl Absolute Neutrophils 8.63 H (1.80-8.00) K/mcL POC VBG pH (7.32-7.42) POC VBG pCO2 at Temp (41-51) POC VBG pO2 (25-40) POC VBG HCO3 (24-28) POC VBG Total CO2 (25-29) POC Venous O2 Sat (40-70) POC VBG Base Excess (-2-2) VBG Lactic Acid (0.5-2) POC Sodium (133-145) POC Potassium (3.3-5.1) POC Chloride (96-108) POC Total CO2 (22-30) POC BUN (6-20) POC Creatinine (0.6-1.2) POC Glucose (70-105) POC WB Ioniz Calcium (1.16-1.32) NT-Pro-B Natriuret Pep 111.1 (<125.0) pg/mL Procalcitonin 0.08 (<0.10) ng/mL 03/05/22 03/05/22 Range/Units 18:10 18:13 WBC (4.5-11.0) K/mcL RBC (4.63-6.08) M/mcL Hgb (13.7-17.5) g/dL Hct (40.1-51.0) % POC Hct 43.0 (41-55) MCV (80.0-100.0) fL MCH (26.0-34.0) pg MCHC (31.0-36.0) g/dL RDW (11.5-14.5) % Plt Count (140-440) K/mcL MPV (8.8-12.5) fL Immature Gran % (Auto) (0.0-0.5) % Neut % (Auto) (38.0-78.0) % Lymph % (Auto) (15.5-49.0) % [place] % (Auto) (1.0-12.0) % Eos % (Auto) (0.0-7.0) % Baso % (Auto) (0.0-2.0) % Lymph # (Auto) (1.50-4.80) K/mcL [place] # (Auto) (0.10-0.90) K/mcL Eos # (Auto) (0.00-0.70) K/mcL Baso # (Auto) (0.00-0.30) K/mcL Immature Gran # (0.00-0.05) K/mcl Absolute Neutrophils (1.80-8.00) K/mcL POC VBG pH 7.45 H (7.32-7.42) POC VBG pCO2 at Temp 37.0 L (41-51) POC VBG pO2 51 H (25-40) POC VBG HCO3 25.8 (24-28) POC VBG Total CO2 27.0 (25-29) POC Venous O2 Sat 87.0 H (40-70) POC VBG Base Excess 2.0 (-2-2) VBG Lactic Acid 1.6 (0.5-2) POC Sodium 146 H (133-145) POC Potassium 4.9 (3.3-5.1) POC Chloride 113 H (96-108) POC Total CO2 24.0 (22-30) POC BUN 26 H (6-20) POC Creatinine 0.9 (0.6-1.2) POC Glucose 154 H (70-105) POC WB Ioniz Calcium 1.10 L (1.16-1.32) NT-Pro-B Natriuret Pep (<125.0) pg/mL Procalcitonin (<0.10) ng/mL ED POC Tests ED POC Tests: DONNELL - Influenza A Negative DONNELL - Influenza B Negative DONNELL - SARS Antigen Negative Discharge Plan Patient/Caregiver Discharge Instructions Pt seen by CLINICAL NURSE REVIEWER/PA only: No Clinical Impression: Pneumonia, Pneumoperitoneum Patient Disposition: Xfer As Inpt ([facility]) Condition: Critical Follow up with: Vladimir Strickland ARNP [Primary Care Provider] - Prescriptions: No Action atorvastatin 20 mg tablet 1 tab PO QHS Rx Instructions: Take with the 40 mg tablet divalproex 250 mg tablet,delayed release (DR/EC) 1 tab PO BID divalproex 500 mg tablet,delayed release (DR/EC) 1 tab PO BID docusate sodium 100 mg capsule 1 cap PO BID aspirin 81 mg tablet,chewable 1 tab PO QDAY hydroxyzine HCl 25 mg tablet 1 tab PO TID albuterol sulfate 90 mcg/actuation HFA aerosol inhaler 2 puff INHALATION QAM Label Comments: [NO ORIGINAL SIG] fluticasone propionate [Flovent HFA] 110 mcg/actuation HFA aerosol inhaler 2 puff INHALATION BID metformin 500 mg tablet 1 tab PO BID quetiapine 300 mg tablet 1 tab PO TID trazodone 50 mg tablet 1 tab PO HS lidocaine 5 % cream 1 applic topical QID Rx Instructions: to lower back sertraline 100 mg tablet 2 tab PO DAILY melatonin 3 mg tablet 3 tab PO HS tamsulosin 0.4 mg capsule 1 cap PO QHS lisinopril 5 mg tablet 1 tab PO QDAY metoprolol succinate 25 mg tablet extended release 24 hr 1 tab PO QDAY lactulose 10 gram/15 mL solution 30 ml PO QAM Preparation H Maximum Strength 0.25-1 % cream 1 applic topical QID atorvastatin 40 mg tablet 1 tab PO QDP Rx Instructions: Take with 20 mg tab for total of 60 mg ibuprofen 400 mg tablet 1 tab PO TID
[2022-03-05 19:45] LABS: proBNP 111.1 pg/mL (<125.0)
--- NOTE | 2022-03-05 21:36 | Internal Med History&Physical ---
HPI History of Present Illness Patient information: Note initiated : 03/05/22 at 9:25 pm Service Date, if different from initiated Date: [] Patient: Corona Mayer a 52 y/o M admitted on for Fever, crackles. Chief Complaint: [cold/flu symptoms] Chief complaint: cold/flu symptoms History of present illness: Mr. Mayer is a 52 year old M SNF resident, history of traumatic brain injury, type 2 diabetes mellitus, recently hospitalized in our facility from February 11 to February 17 for sacral decubitus ulcer as well as aspiration pneumonia, presenting with cold/flu symptoms. Patient can only give simple a few word answers so the history is severely limited. I was reported patient was brought to our ER via EMS after being found to have cold/flu symptoms from the facility staff. Patient is complain of shortness of breath. He denies any pain in his abdomen or his chest. He is complain of some cough. He denies any wheezing. He denies any subjective fever or chills or diaphoresis. He is oxygen dependent and he is placed on 4 L/min of oxygen. He is also positive for tachycardia tachypnea and fever with T-max 39.4. Leukocytosis with WBC 13.3. Lactic acid 1.6. Procalcitonin 0.08. Ariad[place] negative. CT of the abdomen pelvis showing right lower lobe pneumonia as well as pneumoperitoneum but the source of the free air is not certain based upon this examinations. It could be arising from the colon although there is no significant diverticulosis. There is no colonic distention or detectable mass. Constitutional Constitutional: Absent chills, excessive sweating, fatigue, fever(s) or weakness EENT Eyes: Absent blurry vision, change in vision, loss of vision or other visual disturbances Ears: Absent decreased hearing or tinnitus Nose, mouth and throat: Absent abnormal hearing, dry mouth, headache(s), nasal congestion or sore throat Cardiovascular Cardiovascular: Absent chest pain, chest pain at rest, edema, irregular heart rhythm or palpatations Respiratory Respiratory: Present cough and dyspnea; Absent wheezing Gastrointestinal Gastrointestinal: Absent abdominal pain, constipation, diarrhea, nausea or vomiting Musculoskeletal Musculoskeletal: Absent back pain, deformity, limited range of motion, muscle cramps, muscle weakness or numbness Integumentary Integumentary: Absent lesions, rash or wounds Neurological Neurological: Absent focal weakness, headache(s) or numbness Psychiatric Psychiatric: Absent anxiety, depression or hallucinations PFSH PFSH All Active Problems (Updated 03/05/22 @ 21:31 by Faheem Flores MD) T2DM (type 2 diabetes mellitus) (Acute) Clinical sepsis (Acute) Pneumoperitoneum (Acute) Pneumonia (Acute) Altered mental status (Acute) Septic shock (Acute) Septic shock (Acute) Sacral decubitus ulcer (Acute) Acute and chronic respiratory failure with hypoxia (Acute) Social History smoking status: Unknown if ever smoked MEDS/ALLERGIES Home Medications and Allergies Home Medications Medication Instructions Recorded Confirmed Type albuterol sulfate 90 mcg/actuation 2 puff inhalation QAM 01/11/22 02/11/22 History aerosol inhaler aspirin 81 mg chewable tablet 1 tab PO QDAY 01/11/22 02/11/22 History atorvastatin 20 mg tablet 1 tab PO QHS 01/11/22 02/11/22 History divalproex 250 mg tablet,delayed 1 tab PO BID 01/11/22 02/11/22 History release divalproex 500 mg tablet,delayed 1 tab PO BID 01/11/22 02/11/22 History release docusate sodium 100 mg capsule 1 cap PO BID 01/11/22 02/11/22 History fluticasone propionate 110 2 puff inhalation BID 01/11/22 02/11/22 History mcg/actuation HFA aerosol inhaler (Flovent HFA) hydroxyzine HCl 25 mg tablet 1 tab PO TID 01/11/22 02/11/22 History lactulose 10 gram/15 mL oral 30 ml PO QAM 01/11/22 02/11/22 History solution lidocaine 5 % topical cream 1 applic topical QID 01/11/22 02/11/22 History lisinopril 5 mg tablet 1 tab PO QDAY 01/11/22 02/11/22 History melatonin 3 mg tablet 3 tab PO HS 01/11/22 02/11/22 History metformin 500 mg tablet 1 tab PO BID 01/11/22 02/10/22 History metoprolol succinate 25 mg 1 tab PO QDAY 01/11/22 02/10/22 History tablet,extended release 24 hr phenylephrine 0.25 %-pramoxine 1 1 applic topical QID 01/11/22 02/10/22 History %-glycerin-wh.petrolatum rectal cream (Preparation H Maximum Strength) quetiapine 300 mg tablet 1 tab PO TID 01/11/22 02/10/22 History sertraline 100 mg tablet 2 tab PO DAILY 01/11/22 02/10/22 History tamsulosin 0.4 mg capsule 1 cap PO QHS 01/11/22 02/10/22 History trazodone 50 mg tablet 1 tab PO HS 01/11/22 02/10/22 History atorvastatin 40 mg tablet 1 tab PO QDP 02/11/22 02/11/22 History ibuprofen 400 mg tablet 1 tab PO TID 02/11/22 02/11/22 History Allergies Allergy/AdvReac Type Severity Reaction Status Date / Time No Known Drug Allergies Allergy Verified 03/05/22 17:18 EXAM Constitutional Vitals: Temp Pulse Resp BP Pulse Ox O2 Del Method O2 Flow Rate 39.4 C H 101 H 26 H 128/79 95 4 03/05/22 17:15 03/05/22 20:13 03/05/22 17:15 03/05/22 20:01 03/05/22 20:13 03/05/22 20:01 03/05/22 20:01 General appearance: cooperative and no acute distress Head Head exam: Present atraumatic and normocephalic Eye Eye exam: Present EOMI and PERRL ENT ENT exam: Present mucous membranes moist, normal exam and normal external ear ex am Additional comments: Nasal cannula in place Neck Neck exam: Present normal inspection; Absent lymphadenopathy, tenderness or thyromegaly Respiratory Respiratory exam: Present rhonchi; Absent accessory muscle use, respiratory distress or wheezes Cardiovascular Cardiovascular exam: Present normal rate and rhythm; Absent JVD GI/Abdominal GI/Abdominal exam: Present normal bowel sounds and soft; Absent organomegaly or tenderness Rectal Rectal exam: Present deferred Extremities Exam Extremities exam: Present full ROM, normal capillary refill and normal inspection; Absent tenderness Neurological Exam Neurological exam: Present alert, CN II-XII intact and oriented X3; Absent motor sensory deficit Psychiatric Psychiatric exam: Present normal affect and normal mood; Absent anxious or depressed Skin Skin exam: Present dry and intact DATA Data Completed and Pending Labs: Labs from last 24 hours 03/05/22 03/05/22 03/05/22 18:13 18:10 18:08 WBC RBC Hgb Hct POC Hct 43.0 MCV MCH MCHC RDW Plt Count MPV Immature Gran % (Auto) Neut % (Auto) Lymph % (Auto) [place] % (Auto) Eos % (Auto) Baso % (Auto) Lymph # (Auto) [place] # (Auto) Eos # (Auto) Baso # (Auto) Immature Gran # Absolute Neutrophils POC VBG pH 7.45 H POC VBG pCO2 at Temp 37.0 L POC VBG pO2 51 H POC VBG HCO3 25.8 POC VBG Total CO2 27.0 POC Venous O2 Sat 87.0 H POC VBG Base Excess 2.0 VBG Lactic Acid 1.6 POC Sodium 146 H POC Potassium 4.9 POC Chloride 113 H POC Total CO2 24.0 POC BUN 26 H POC Creatinine 0.9 POC Glucose 154 H POC WB Ioniz Calcium 1.10 L NT-Pro-B Natriuret Pep 111.1 Procalcitonin 03/05/22 03/05/22 18:08 18:08 WBC 13.3 H RBC 4.93 Hgb 14.3 Hct 44.5 POC Hct MCV 90.3 MCH 29.0 MCHC 32.1 RDW 13.8 Plt Count 140 MPV 11.0 Immature Gran % (Auto) 0.4 Neut % (Auto) 65.0 Lymph % (Auto) 21.7 [place] % (Auto) 12.7 H Eos % (Auto) 0 Baso % (Auto) 0.2 Lymph # (Auto) 2.89 [place] # (Auto) 1.69 H Eos # (Auto) 0 Baso # (Auto) 0.03 Immature Gran # 0.05 Absolute Neutrophils 8.63 H POC VBG pH POC VBG pCO2 at Temp POC VBG pO2 POC VBG HCO3 POC VBG Total CO2 POC Venous O2 Sat POC VBG Base Excess VBG Lactic Acid POC Sodium POC Potassium POC Chloride POC Total CO2 POC BUN POC Creatinine POC Glucose POC WB Ioniz Calcium NT-Pro-B Natriuret Pep Procalcitonin 0.08 A/P Assessment and plan (1) Pneumoperitoneum: Status: Acute (2) Pneumonia: Status: Acute (3) Clinical sepsis: Status: Acute (4) T2DM (type 2 diabetes mellitus): Status: Acute Narrative A/P Narrative: Assessment and Plans: 1. Right lower lobe pneumonia with associated clinical sepsis: Inpatient med surg Ariadna negative, [place] pending Blood culture Sputum culture cbc w/ auto diff in the morning to trend WBC MRSA screening Vancomycin Zosyn Supplemental oxygen Speech therapy swallowing evaluation Physical therapy 2. Pneumoperitoneum: DDx: microscopic bowel perforation Dr. Ortega consulted, recs. appreciated Soft abdomen and no abdominal tenderness from physical exam, unlikely to have acute abdomen No surgery at this point, will repeat CT abdomen pelvis in a few days as follow up study 3. T2DM: HgA1c Hold Metformin Insulin Lispro SSI AC HS Accu Check AC HS Hypoglycemia protocol Diabetic diet GI ppx: not currently indicated DVT ppx: Lovenox Code status: DNR Prognosis: guarded Disposition: inpatient med surg; PT Time Spent With Patient Time: Total time spent is greater than 50% in coordination of care (as documented) at patient's floor/unit and/or counseling patient: Total time spent with greater than 50% in coordination of care (as documented) at patient's floor/unit and/or counseling patient:: 50 - 70 minutes
[2022-03-05] MEDS ORDERED: VANCOMYCIN PER PHARMACY IV ONE (22:56)
[2022-03-05] MEDS ORDERED: ONDANSETRON 4 MG/2 ML VIAL IV PRN (22:56)
[2022-03-05] MEDS ORDERED: DEXTROSE 50% 50 ML VIAL IV PRN (22:56)
[2022-03-05] MEDS ORDERED: DEXTROSE 31 GM ORAL.SUSP PO PRN (22:56)
[2022-03-05] MEDS ORDERED: IPRATROPIUM/ALBUTEROL 3 ML AMPUL.NEB NEB PRN (22:56)
[2022-03-05] MEDS: 0.9 % SODIUM CHLORIDE 10 ML SYRINGE IV SCH (23:00)
[2022-03-06] MEDS: 0.9 % SODIUM CHLORIDE 1,000 ML IV SCH ×3 (00:05→18:30)
[2022-03-06] MEDS: PIPERACILLIN SODIUM/TAZOBACTAM 3.375 GM in DEXTROSE 5% IN WATER 50 ML IV SCH ×5 (02:58→23:39)
--- NOTE | 2022-03-06 05:40 | XRay Report ---
INDICATION: hypoxia, SOB TECHNIQUE: AP portable supine chest x-ray COMPARISON: Previous examination dated 01/13/2022. Previous chest CT scan dated 02/11/2022 FINDINGS:Chest x-ray somewhat suboptimal due to AP supine positioning. Lungs:No focal pulmonary parenchymal consolidation. Upright PA and lateral chest x-ray recommended when clinically appropriate. Heart, vascular:There is mild cardiomegaly, unchanged. No evidence for congestive heart failure Mediastinum, darlene:No mediastinal widening. No hilar mass Pleura:No pleural fluid. No pleural-based mass or calcification Skeletal:Negative. IMPRESSION: 1. Limited chest x-ray due to supine position. Recommend upright PA and lateral chest x-ray when clinically appropriate 2. No acute or focal abnormality. Interpreted and Authenticated by: Rosendo Reis 03/06/22
[2022-03-06] MEDS: 0.9 % SODIUM CHLORIDE 10 ML SYRINGE IV SCH ×3 (05:49→20:50)
[2022-03-06] MEDS ORDERED: VANCOMYCIN PER PHARMACY IV SCH (06:15)
[2022-03-06 07:17] LABS: ALT/SGPT 8 U/L (<40); AST/SGOT 28 U/L (<40); Albumin 3.3 gm/dL (3.2-5.2); Albumin/Globulin Ratio 0.8 (1.0-2.3); Alkaline Phosphatase 43 U/L (39-117); Bilirubin,Total 0.4 mg/dL (0.1-1.0); Blood Urea Nitrogen 20 mg/dL (6-20); Calcium 8.8 mg/dL (8.6-10.4); Carbon Dioxide 23 mmol/L (22-30); Chloride 110 mmol/L (96-108); Globulin 4.1 gm/dL (2.2-3.7); Glomerular Filtration Rate 87; Glucose 130 mg/dL (70-105)
[2022-03-06] MEDS: VANCOMYCIN 1,500 MG in 0.9 % SODIUM CHLORIDE 500 ML IV SCH ×2 (08:53→20:40)
[2022-03-06] MEDS: ENOXAPARIN 40 MG/0.4 ML SYRINGE SQ SCH (08:53)
[2022-03-06] MEDS: DOCUSATE SODIUM 100 MG CAPSULE PO SCH ×2 (08:54→20:48)
[2022-03-06] MEDS ORDERED: NON FORMULARY MEDICATION 1 DOSE MISCELL (Divalproex 500 mg tablet,delayed release (DR/EC)) PO SCH (09:00)
[2022-03-06] MEDS ORDERED: LIDOCAINE 5% TOPICAL SCH (09:00)
[2022-03-06] MEDS ORDERED: PHENYLEPH PRAMOXIN GLYCR W PET TOPICAL SCH (09:00)
[2022-03-06] MEDS ORDERED: IBUPROFEN 200 MG TABLET PO PRN (09:23)
[2022-03-06 09:53] LABS: Basophils # (Auto) 0.02 K/mcL (0.00-0.30); Basophils % (Auto) 0.3 % (0.0-2.0); Eosinophils # (Auto) 0.02 K/mcL (0.00-0.70); Eosinophils % (Auto) 0.3 % (0.0-7.0); Hemoglobin 11.9 g/dL (13.7-17.5); Lymphocytes # (Auto) 1.04 K/mcL (1.50-4.80); Lymphocytes % (Auto) 15.7 % (15.5-49.0); Mean Cell Volume 92.3 fL (80.0-100.0); Mean Corpuscular HGB Conc 32.2 g/dL (31.0-36.0); Mean Platelet Volume 10.3 fL (8.8-12.5); Monocytes % (Auto) 10.5 % (1.0-12.0); Neutrophils % (Auto) 72.7 % (38.0-78.0); Platelet Count 109 K/mcL (140-440); RBC 4.01 M/mcL (4.63-6.08); Red Cell Distribution Width 13.4 % (11.5-14.5); WBC 6.6 K/mcL (4.5-11.0)
[2022-03-06] MEDS: INSULIN LISPRO 1 UNIT/0.01 ML UNIT SQ SCH ×4 (11:01→20:48)
[2022-03-06] MEDS: DIVALPROEX SODIUM 250 MG TABLET PO SCH ×2 (11:09→20:49)
[2022-03-06] MEDS: hydrOXYzine 25 MG TABLET PO SCH ×3 (11:10→20:49)
[2022-03-06] MEDS: METOPROLOL SUCCINATE 25 MG TAB.XL.24H PO SCH (11:10)
[2022-03-06] MEDS: LISINOPRIL 5 MG TABLET PO SCH (11:10)
[2022-03-06] MEDS: FLUTICASONE HFA 110MCG INHALER INH SCH ×2 (11:11→23:31)
[2022-03-06] MEDS: SERTRALINE 100 MG TABLET PO SCH (11:11)
[2022-03-06 11:49] LABS: Appearance,Urine TURBID (Clear); Bilirubin,Urine Negative (Negative); Color,Urine AMBER; Culture Indicated,Urine yes; Glucose,Urine (UA) Negative (Negative); Ketones,Urine Negative (Negative); Leukocyte Esterase,Urine 75 /uL (Negative); Mucus,Urine FEW /hpf; Nitrate,Urine Negative (Negative); Protein,Urine 30 mg/dL (Negative); Specific Gravity,Urine 1.048 (1.000-1.035); Urine Blood Negative (Negative); Urine RBC 1 /hpf (0-3); Urine Squamous Epithelial Cell 0 /hpf (0-4); Urine Transitional Epi Cells 1 /hpf (0-2); Urine WBC 19 /hpf (0-4)
--- NOTE | 2022-03-06 11:52 | Internal Med Progress Note ---
SUBJECTIVE Subjective Patient information: Note initiated : 03/06/22 at 11:46 am Service Date, if different from initiated Date: [] Patient: Corona Mayer a 52 y/o M admitted on 03/05/22 for Fever, crackles. Chief Complaint: [] Interval history: Mr. Mayer is a 52 year old M SNF resident, history of traumatic brain injury, type 2 diabetes mellitus, recently hospitalized in our facility from February 11 to February 17 for sacral decubitus ulcer as well as aspiration pneumonia, presenting with cold/flu symptoms. Patient can only give simple a few word answers so the history is severely limited. I was reported patient was brought to our ER via EMS after being found to have cold/flu symptoms from the facility staff. Patient is complain of shortness of breath. He denies any pain in his abdomen or his chest. He is complain of some cough. He denies any wheezing. He denies any subjective fever or chills or diaphoresis. He is oxygen dependent and he is placed on 4 L/min of oxygen. He is also positive for tachycardia tachypnea and fever with T-max 39.4. Leukocytosis with WBC 13.3. Lactic acid 1.6. Procalcitonin 0.08. Ariad[place] negative. CT of the abdomen pelvis showing right lower lobe pneumonia as well as pneumoperitoneum but the source of the free air is not certain based upon this examinations. It could be arising from the colon although there is no significant diverticulosis. There is no colonic distention or detectable mass. 03/06: Afebrile overnight. Currently on 4 L/min of oxygen via nasal cannula. [place] pending. Blood and sputum cultures pending. Patient denies any shortness of breath. He is complaining of back pain. He is complaining of subjective fever and chills. Will continue supplemental oxygen therapy. Continue vancomycin and Zosyn while waiting for MRSA screening results as well as culture results. We will repeat CT abdomen pelvis on Tuesday, March 08, 2022 as a follow-up study to evaluate for pneumoperitoneum. Pending speech therapy swallow evaluations. Pending physical therapy evaluation and treatment for placement planning. Constitutional Vitals: Vital Signs Temp Pulse Resp BP Pulse Ox O2 Del Method O2 Flow Rate 37.0 C 96 H 18 137/90 100 4 03/06/22 07:15 03/06/22 07:15 03/06/22 08:00 03/06/22 07:15 03/06/22 07:15 03/06/22 09:42 03/06/22 09:42 Period Temp Pulse Resp BP Sys/Delcid Pulse Ox O2 Del Method O2 Flow Rate Last 24 Hr 36.4 C-39.4 C 85-118 14-26 113-140/79-107 84-100 Nasal Cannula-Room Air 4-4 Intake and Output 03/05/22 03/06/22 03/06/22 21:59 05:59 13:59 Intake Total 550 1500 550 Output Total 1 Balance 550 1499 550 Weight 94.347 kg 93.123 kg Intake & Output: Intake & Output 03/05/22 03/06/22 03/06/22 21:59 05:59 13:59 Intake Total 550 1500 550 Output Total 1 Balance 550 1499 550 Weight 94.347 kg 93.123 kg Intake: IV 550 1500 550 Sodium Chloride 0.9% 500 ml @ 500 Wide Open IV BOLUS ONE Rx#: [id number] Lactated Ringers 1,000 ml @ 1000 Wide Open IV BOLUS ONE Rx#: [id number] Zosyn 3.375 gm In Dextrose 5% 50 in Water 50 ml @ 100 mls/hr IV Q6H [facility] Rx#:[id number] Zosyn 4.5 gm In Dextrose 5% in 50 Water 50 ml @ 100 mls/hr IV ONCE ONE Rx#:[id number] Vancomycin 1,500 mg In Sodium 500 500 Chloride 0.9% 500 ml @ 333.3 mls/hr IV Q12H [facility] Rx#: [id number] Output: # of times incontinent of urine 1 Other: Urine Color Dark Yellow # Bowel Movements 0 Head Head exam: Present atraumatic and normal inspection Eye Eye exam: Present normal appearance ENT ENT exam: Present mucous membranes moist, normal exam and normal external ear exam Additional comments: Nasal cannula in place Neck Neck exam: Present normal inspection Respiratory Respiratory exam: Present rhonchi Cardiovascular Cardiovascular exam: Present normal rate and rhythm GI/Abdominal GI/Abdominal exam: Present normal bowel sounds Back Exam Back exam: Present normal inspection Neurological Exam Neurological exam: Present alert and oriented X3 Skin Skin exam: Present intact and warm OBJ DATA Labs CBC & Chem 7: 03/06/22 07:58 03/06/22 05:43 Labs: Abnormal Lab Results 03/06/22 03/06/22 03/05/22 07:58 05:43 18:13 WBC RBC 4.01 L Hgb 11.9 L Hct 37.0 L Plt Count 109 L [place] % (Auto) Lymph # (Auto) 1.04 L [place] # (Auto) Absolute Neutrophils POC VBG pH POC VBG pCO2 at Temp POC VBG pO2 POC Venous O2 Sat POC Sodium 146 H POC Chloride 113 H Chloride 110 H POC BUN 26 H Glucose 130 H POC Glucose 154 H POC WB Ioniz Calcium 1.10 L Globulin 4.1 H Albumin/Globulin Ratio 0.8 L 03/05/22 03/05/22 18:10 18:08 WBC 13.3 H RBC Hgb Hct Plt Count [place] % (Auto) 12.7 H Lymph # (Auto) [place] # (Auto) 1.69 H Absolute Neutrophils 8.63 H POC VBG pH 7.45 H POC VBG pCO2 at Temp 37.0 L POC VBG pO2 51 H POC Venous O2 Sat 87.0 H POC Sodium POC Chloride Chloride POC BUN Glucose POC Glucose POC WB Ioniz Calcium Globulin Albumin/Globulin Ratio Meds: Medications Acetaminophen (Acetaminophen 325 Mg Tablet) 650 mg PO Q6HP PRN; Protocol PRN Reason: Per Pain Protocol/Fever > 101 Albuterol/Ipratropium (Ipratropium/Albuterol 3 Ml Ampul.Neb) 3 ml NEB Q4HRT PRN PRN Reason: Wheezing Aspirin (Aspirin 81 Mg Tab.Chew) 81 mg PO DAILY [facility] Atorvastatin Calcium (Atorvastatin 40 Mg Tablet) 40 mg PO HS [facility] Dextrose (Dextrose 50% 50 Ml Vial) 0 ml IV UD PRN PRN Reason: Per Sliding Scale Diagnostic Test (Pha) (Accu-Chek 1 Each Strip) 1 each FS ACHS [facility] Last Admin: 03/06/22 11:16 Dose: 1 each Divalproex Sodium (Divalproex Sodium 250 Mg Tablet) 750 mg PO BID [facility] Last Admin: 03/06/22 11:09 Dose: 750 mg Docusate Sodium (Docusate Sodium 100 Mg Capsule) 100 mg PO BID [facility] Last Admin: 03/06/22 08:54 Dose: 100 mg Enoxaparin Sodium (Enoxaparin 40 Mg/0.4 Ml Syringe) 40 mg SQ DAILY [facility] Last Admin: 03/06/22 08:53 Dose: 40 mg Fluticasone Propionate (Fluticasone Hfa 110mcg Inhaler) 2 puff INH BID [facility] Last Admin: 03/06/22 11:11 Dose: Not Given Glucose (Dextrose 31 Gm Oral.Susp) 15 gm PO PRN PRN PRN Reason: Hypoglycemia Hydroxyzine HCl (Hydroxyzine 25 Mg Tablet) 25 mg PO TID [facility] Last Admin: 03/06/22 11:10 Dose: 25 mg Sodium Chloride (Sodium Chloride 0.9%) 1,000 mls @ 100 mls/hr IV .Q10H [facility] Last Admin: 03/06/22 09:00 Dose: Not Given Piperacillin Sod/Tazobactam (Sod 3.375 gm/ Dextrose) 50 mls @ 100 mls/hr IV Q6H [facility]; Protocol Last Infusion: 03/06/22 06:40 Dose: Infused Vancomycin HCl 1,500 mg/ (Sodium Chloride) 500 mls @ 333.3 mls/hr IV Q12H [facility] Last Infusion: 03/06/22 10:23 Dose: Infused Ibuprofen (Ibuprofen 200 Mg Tablet) 400 mg PO TIDP PRN PRN Reason: Pain Insulin Human Lispro (Insulin Lispro 1 Unit/0.01 Ml Unit) 0 unit SQ ACHS [facility]; Protocol Last Admin: 03/06/22 11:16 Dose: Not Given Lactulose (Lactulose 20 Gm/30 Ml Oral.Lizzette) 20 gm PO QAM [facility] Lisinopril (Lisinopril 5 Mg Tablet) 5 mg PO QDAY [facility] Last Admin: 03/06/22 11:10 Dose: 5 mg Melatonin (Melatonin 3 Mg Tablet) 3 mg PO HS [facility] Metoprolol Succinate (Metoprolol Succinate 25 Mg Tab.Xl.24h) 25 mg PO QDAY [facility] Last Admin: 03/06/22 11:10 Dose: 25 mg Ondansetron HCl (Ondansetron 4 Mg/2 Ml Vial) 4 mg IV Q6HP PRN PRN Reason: Nausea And Vomiting Quetiapine Fumarate (Quetiapine 100 Mg Tablet) 300 mg PO TID [facility] Senna (Sennosides 1 Tablet) 2 tab PO HS [facility] Sertraline HCl (Sertraline 100 Mg Tablet) 200 mg PO DAILY [facility] Last Admin: 03/06/22 11:11 Dose: 200 mg Sodium Chloride (0.9 % Sodium Chloride 10 Ml Syringe) 10 ml IV Q8 [facility] Last Admin: 03/06/22 05:49 Dose: Not Given Tamsulosin HCl (Tamsulosin 0.4 Mg Capsule) 0.4 mg PO QHS [facility] Trazodone HCl (Trazodone Hcl 50 Mg Tablet) 50 mg PO HS [facility] Vancomycin HCl (Vancomycin Per Pharmacy) 1 order IV UD [facility]; Protocol A/P Assessment and plan (1) Pneumoperitoneum: Status: Acute (2) Pneumonia: Status: Acute (3) Clinical sepsis: Status: Acute (4) T2DM (type 2 diabetes mellitus): Status: Acute Narrative A/P Narrative: Assessment and Plans: 1. Right lower lobe pneumonia with associated clinical sepsis: Inpatient med surg [place] negative, [place] pending Blood culture, no growth to date Sputum culture, no growth to date cbc w/ auto diff in the morning to trend WBC MRSA screening Vancomycin Zosyn Supplemental oxygen Speech therapy swallowing evaluation Physical therapy 2. Pneumoperitoneum: DDx: microscopic bowel perforation Dr. Ortega consulted, recs. appreciated Soft abdomen and no abdominal tenderness from physical exam, unlikely to have acute abdomen No surgery at this point, will repeat CT abdomen pelvis on Wednesday03/08/22 as follow up study 3. T2DM: HgA1c Hold Metformin Insulin Lispro SSI AC HS Accu Check AC HS Hypoglycemia protocol Diabetic diet GI ppx: not currently indicated DVT ppx: Lovenox Code status: DNR Prognosis: guarded Disposition: inpatient med surg; PT Time Spent With Patient Time: Total time spent is greater than 50% in coordination of care (as documented) at patient's floor/unit and/or counseling patient: Total time spent with greater than 50% in coordination of care (as documented) at patient's floor/unit and/or counseling patient:: 35 - 50 minutes QUALITY VTE Deep Vein Thrombosis/Pulmonary Embolism Present on Admission: No
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
--- NOTE | 2022-03-06 14:27 | General Surgery Progress Note ---
SUBJECTIVE Subjective Patient information: Note initiated : 03/06/22 at 2:26 pm Service Date, if different from initiated Date: [] Patient: Corona Mayer 52 y/o M admitted on 03/05/22 for Fever, crackles. Chief Complaint: [] Principal diagnosis: PNEUMOPERITONEUM Interval history: patient is doing well with regards to his abdomen. no tenderness noted. he is still not verbal .WBC 6.6 Constitutional Vitals: Vital Signs Temp Pulse Resp BP Pulse Ox O2 Del Method O2 Flow Rate 99.6 F H 93 H 16 132/84 99 4 03/06/22 12:00 03/06/22 12:00 03/06/22 12:00 03/06/22 12:00 03/06/22 12:00 03/06/22 12:00 03/06/22 12:00 Period Temp Pulse Resp BP Sys/Delcid Pulse Ox O2 Del Method O2 Flow Rate Last 24 Hr 97.6 F-103.0 F 85-118 14-26 113-140/79-107 84-100 Nasal Cannula-Room Air 4-4 Intake and Output 03/06/22 03/06/22 03/06/22 05:59 13:59 21:59 Intake Total 1500 600 Output Total 1 Balance 1499 600 Weight 205 lb 4.8 oz Intake & Output: Intake & Output 03/06/22 03/06/22 03/06/22 05:59 13:59 21:59 Intake Total 1500 600 Output Total 1 Balance 1499 600 Weight 205 lb 4.8 oz Intake: IV 1500 600 Lactated Ringers 1,000 ml @ 1000 Wide Open IV BOLUS ONE Rx#: [id number] Zosyn 3.375 gm In Dextrose 5% 100 in Water 50 ml @ 100 mls/hr IV Q6H [facility] Rx#:[id number] Vancomycin 1,500 mg In Sodium 500 500 Chloride 0.9% 500 ml @ 333.3 mls/hr IV Q12H [facility] Rx#: [id number] Output: # of times incontinent of urine 1 Other: Urine Color Dark Yellow # Bowel Movements 0 Neck Neck exam: Present normal inspection; Absent tenderness Respiratory Respiratory exam: Present rales and wheezes Additional comments: Coarse tubular breath sounds; scattered wheezes Cardiovascular Cardiovascular exam: Present normal rate and rhythm, RRR, +S1 and +S2; Absent JVD GI/Abdominal GI/Abdominal exam: Present normal bowel sounds and soft; Absent distended, mass or tenderness Extremities Exam Extremities exam: Present full ROM, normal inspection and neurovascular intact Neurological Exam Neurological exam: Absent alert, altered, oriented X3 or reflexes normal Psychiatric Psychiatric exam: Present depressed and flat affect A/P Assessment and plan (1) Pneumoperitoneum: Status: Acute (2) Pneumonia: Status: Acute (3) Altered mental status: Status: Acute (4) Acute and chronic respiratory failure with hypoxia: Status: Acute (5) T2DM (type 2 diabetes mellitus): Status: Acute Plan Patient has slightly improved overall. His abdomen remains benign on exam. His white blood count is decreased to normal. The plan remains to continue antibiotics CT of the abdomen and pelvis Wednesday. Sepsis Sepsis Identified: No Time Spent With Patient Time: Total time spent is greater than 50% in coordination of care (as documented) at patient's floor/unit and/or counseling patient:
[2022-03-06] MEDS: QUEtiapine 100 MG TABLET PO SCH ×2 (16:02→20:48)
[2022-03-06] MEDS: ATORVASTATIN 40 MG TABLET PO SCH (20:48)
[2022-03-06] MEDS: TAMSULOSIN 0.4 MG CAPSULE PO SCH (20:48)
[2022-03-06] MEDS: SENNOSIDES 1 TABLET PO SCH (20:48)
[2022-03-06] MEDS ORDERED: ATORVASTATIN 20 MG TABLET PO SCH (21:00)
[2022-03-06] MEDS ORDERED: DOCUSATE SODIUM 100 MG CAPSULE PO SCH (21:00)
[2022-03-06] MEDS: traZODone HCL 50 MG TABLET PO SCH (23:31)
[2022-03-06] MEDS: MELATONIN 3 MG TABLET PO SCH (23:31)
[2022-03-06] MEDS ORDERED: hydrOXYzine 25 MG TABLET PO PRN (23:33)
[2022-03-07] MEDS: PIPERACILLIN SODIUM/TAZOBACTAM 3.375 GM in DEXTROSE 5% IN WATER 50 ML IV SCH ×3 (05:05→17:18)
[2022-03-07] MEDS: 0.9 % SODIUM CHLORIDE 1,000 ML IV SCH ×2 (05:05→15:17)
[2022-03-07] MEDS: 0.9 % SODIUM CHLORIDE 10 ML SYRINGE IV SCH ×2 (05:06→12:05)
[2022-03-07] MEDS: INSULIN LISPRO 1 UNIT/0.01 ML UNIT SQ SCH ×4 (07:07→20:19)
[2022-03-07 07:35] LABS: ALT/SGPT 8 U/L (<40); AST/SGOT 21 U/L (<40); Albumin 3.3 gm/dL (3.2-5.2); Albumin/Globulin Ratio 1.1 (1.0-2.3); Alkaline Phosphatase 45 U/L (39-117); Bilirubin,Total 0.3 mg/dL (0.1-1.0); Blood Urea Nitrogen 13 mg/dL (6-20); Calcium 8.3 mg/dL (8.6-10.4); Carbon Dioxide 23 mmol/L (22-30); Chloride 114 mmol/L (96-108); Globulin 3.1 gm/dL (2.2-3.7); Glomerular Filtration Rate 103; Glucose 119 mg/dL (70-105)
[2022-03-07] MEDS: SERTRALINE 100 MG TABLET PO SCH (08:08)
[2022-03-07] MEDS: ASPIRIN 81 MG TAB.CHEW PO SCH (08:09)
[2022-03-07] MEDS: LISINOPRIL 5 MG TABLET PO SCH (08:10)
[2022-03-07] MEDS: DOCUSATE SODIUM 100 MG CAPSULE PO SCH ×2 (08:10→20:16)
[2022-03-07] MEDS: LACTULOSE 20 GM/30 ML ORAL.SOL PO SCH (08:10)
[2022-03-07] MEDS: METOPROLOL SUCCINATE 25 MG TAB.XL.24H PO SCH (08:10)
[2022-03-07] MEDS: ENOXAPARIN 40 MG/0.4 ML SYRINGE SQ SCH (08:11)
[2022-03-07] MEDS: QUEtiapine 100 MG TABLET PO SCH ×3 (08:11→20:17)
[2022-03-07] MEDS: DIVALPROEX SODIUM 250 MG TABLET PO SCH ×2 (08:11→20:17)
[2022-03-07] MEDS: FLUTICASONE HFA 110MCG INHALER INH SCH ×2 (08:11→20:18)
[2022-03-07 08:43] LABS: Basophils # (Auto) 0.03 K/mcL (0.00-0.30); Basophils % (Auto) 0.8 % (0.0-2.0); Eosinophils # (Auto) 0.09 K/mcL (0.00-0.70); Eosinophils % (Auto) 2.3 % (0.0-7.0); Hematocrit 31.1 % (40.1-51.0); Hemoglobin 9.9 g/dL (13.7-17.5); Lymphocytes # (Auto) 0.97 K/mcL (1.50-4.80); Lymphocytes % (Auto) 25.3 % (15.5-49.0); Mean Cell Volume 92.3 fL (80.0-100.0); Mean Corpuscular HGB Conc 31.8 g/dL (31.0-36.0); Mean Platelet Volume 9.9 fL (8.8-12.5); Monocytes # (Auto) 0.38 K/mcL (0.10-0.90); Monocytes % (Auto) 9.9 % (1.0-12.0); Neutrophils % (Auto) 60.9 % (38.0-78.0); Platelet Count 94 K/mcL (140-440); RBC 3.37 M/mcL (4.63-6.08); Red Cell Distribution Width 13.2 % (11.5-14.5); WBC 3.8 K/mcL (4.5-11.0)
[2022-03-07] MEDS: VANCOMYCIN 1,500 MG in 0.9 % SODIUM CHLORIDE 500 ML IV SCH (10:18)
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
--- NOTE | 2022-03-07 16:58 | General Surgery Progress Note ---
SUBJECTIVE Subjective Patient information: Note initiated : 03/07/22 at 4:58 pm Service Date, if different from initiated Date: [] Patient: Corona Mayer 52 y/o M admitted on 03/05/22 for Fever, crackles. Chief Complaint: [] Interval history: Patient continues to improve. Clinically his lungs are much improved and his respirations are less labored. Abdominal exam is benign. He still does not respond verbally but does not have any tenderness or guarding noted. White blood count is normal. Constitutional Vitals: Vital Signs Temp Pulse Resp BP Pulse Ox O2 Del Method O2 Flow Rate 99.1 F H 93 H 14 121/71 96 3 03/07/22 16:00 03/07/22 16:00 03/07/22 16:00 03/07/22 16:00 03/07/22 16:00 03/07/22 16:00 03/07/22 16:00 Period Temp Pulse Resp BP Sys/Delcid Pulse Ox O2 Del Method O2 Flow Rate Last 24 Hr 97.7 F-99.1 F 83-94 14-16 108-133/71-76 94-100 Nasal Cannula- Nasal Cannula 3-4 Intake and Output 03/07/22 03/07/22 03/07/22 05:59 13:59 21:59 Intake Total 1050 1220 Output Total 1 3 Balance 1049 1217 Weight 218 lb 3.2 oz Intake & Output: Intake & Output 03/07/22 03/07/22 03/07/22 05:59 13:59 21:59 Intake Total 1050 1220 Output Total 1 3 Balance 1049 1217 Weight 218 lb 3.2 oz Intake: IV 1050 1100 Sodium Chloride 0.9% 1,000 ml @ 1000 100 mls/hr IV .Q10H [facility] Rx#: [id number] Zosyn 3.375 gm In Dextrose 5% 50 100 in Water 50 ml @ 100 mls/hr IV Q6H [facility] Rx#:[id number] Vancomycin 1,500 mg In Sodium 1000 Chloride 0.9% 500 ml @ 333.3 mls/hr IV Q12H [facility] Rx#: [id number] Oral 120 Output: # of times incontinent of urine 1 3 Other: Meal Lunch Percent of Meal Consumed 100% Feeding Ability Total Assistance Stool Size Moderate Large Stool Color Brown Brown Stool Consistency Soft Soft Loose # Voids 1 1 # Bowel Movements 0 # of times incontinent of 1 1 1 Bowels ENT ENT exam: Present normal exam and normal oropharynx Neck Neck exam: Present full ROM and normal inspection Respiratory Additional comments: Improved respiratory status with better breath sounds Coarse tubular breath sounds still persist Cardiovascular Cardiovascular exam: Present RRR, +S1 and +S2; Absent JVD GI/Abdominal GI/Abdominal exam: Present normal bowel sounds and soft; Absent distended, guarding or tenderness Extremities Exam Extremities exam: Present normal inspection and neurovascular intact Neurological Exam Neurological exam: Absent alert, altered, motor sensory deficit or oriented X3 Psychiatric Psychiatric exam: Present agitated, anxious, depressed and flat affect A/P Assessment and plan (1) Pneumoperitoneum: Status: Acute (2) T2DM (type 2 diabetes mellitus): Status: Acute (3) Altered mental status: Status: Acute (4) Acute and chronic respiratory failure with hypoxia: Status: Acute Plan Abdominal exam remains benign. We will make plans for follow-up CT in the morning. Time Spent With Patient Time: Total time spent is greater than 50% in coordination of care (as documented) at patient's floor/unit and/or counseling patient:
[2022-03-07] MEDS: TAMSULOSIN 0.4 MG CAPSULE PO SCH (20:17)
[2022-03-07] MEDS: ATORVASTATIN 40 MG TABLET PO SCH (20:17)
[2022-03-07] MEDS: SENNOSIDES 1 TABLET PO SCH (20:17)
[2022-03-07] MEDS: traZODone HCL 50 MG TABLET PO SCH (20:18)
[2022-03-07] MEDS: MELATONIN 3 MG TABLET PO SCH (20:19)
[2022-03-08] MEDS: PIPERACILLIN SODIUM/TAZOBACTAM 3.375 GM in DEXTROSE 5% IN WATER 50 ML IV SCH ×4 (02:06→16:39)
[2022-03-08] MEDS: 0.9 % SODIUM CHLORIDE 10 ML SYRINGE IV SCH ×4 (02:07→20:42)
[2022-03-08] MEDS: 0.9 % SODIUM CHLORIDE 1,000 ML IV SCH ×3 (04:18→21:00)
[2022-03-08 07:24] LABS: Basophils # (Auto) 0.02 K/mcL (0.00-0.30); Basophils % (Auto) 0.6 % (0.0-2.0); Eosinophils # (Auto) 0.12 K/mcL (0.00-0.70); Eosinophils % (Auto) 3.8 % (0.0-7.0); Lymphocytes # (Auto) 1.08 K/mcL (1.50-4.80); Lymphocytes % (Auto) 34.5 % (15.5-49.0); Mean Cell Volume 94.1 fL (80.0-100.0); Mean Corpuscular HGB Conc 31.3 g/dL (31.0-36.0); Mean Platelet Volume 9.8 fL (8.8-12.5); Monocytes # (Auto) 0.25 K/mcL (0.10-0.90); Neutrophils % (Auto) 52.5 % (38.0-78.0); Platelet Count 109 K/mcL (140-440); Red Cell Distribution Width 13.2 % (11.5-14.5); WBC 3.1 K/mcL (4.5-11.0)
[2022-03-08] MEDS: INSULIN LISPRO 1 UNIT/0.01 ML UNIT SQ SCH ×4 (07:41→20:41)
[2022-03-08 07:46] LABS: ALT/SGPT 7 U/L (<40); AST/SGOT 14 U/L (<40); Albumin 3.1 gm/dL (3.2-5.2); Alkaline Phosphatase 38 U/L (39-117); Bilirubin,Total 0.2 mg/dL (0.1-1.0); Blood Urea Nitrogen 7 mg/dL (6-20); Calcium 8.2 mg/dL (8.6-10.4); Carbon Dioxide 25 mmol/L (22-30); Chloride 116 mmol/L (96-108); Globulin 3.2 gm/dL (2.2-3.7); Glomerular Filtration Rate 109; Glucose 99 mg/dL (70-105)
[2022-03-08] MEDS: ENOXAPARIN 40 MG/0.4 ML SYRINGE SQ SCH (10:00)
[2022-03-08] MEDS: ASPIRIN 81 MG TAB.CHEW PO SCH (10:00)
[2022-03-08] MEDS: SERTRALINE 100 MG TABLET PO SCH (10:00)
[2022-03-08] MEDS: QUEtiapine 100 MG TABLET PO SCH ×3 (10:00→20:41)
[2022-03-08] MEDS: DOCUSATE SODIUM 100 MG CAPSULE PO SCH ×2 (10:01→20:42)
[2022-03-08] MEDS: LISINOPRIL 5 MG TABLET PO SCH (10:01)
[2022-03-08] MEDS: DIVALPROEX SODIUM 250 MG TABLET PO SCH ×2 (10:01→20:40)
[2022-03-08] MEDS: METOPROLOL SUCCINATE 25 MG TAB.XL.24H PO SCH (10:01)
[2022-03-08] MEDS: FLUTICASONE HFA 110MCG INHALER INH SCH ×2 (10:01→20:46)
[2022-03-08] MEDS: LACTULOSE 20 GM/30 ML ORAL.SOL PO SCH (10:05)
[2022-03-08] MEDS ORDERED: IOPAMIDOL 100 ML BOTTLE IV ONE (10:31)
--- NOTE | 2022-03-08 10:48 | Cat Scan Report ---
INDICATION: follow up study COMPARISON: Previous examination dated 03/05/2022 TECHNIQUE: Axial images were obtained through the abdomen and pelvis. Sagittally and coronally reformatted images. 80 mL Isovue 370 injected intravenously. Oral contrast material was not administered FINDINGS: Lung bases:Mild linear densities in both lower lobes consistent with atelectasis. No significant pleural effusion. Liver:Negative. No focal intrahepatic mass. No focal abnormality. Liver contour is smooth. No evidence for cirrhosis Gallbladder, bilary:No calcified gallstones. No gallbladder wall thickening. No dilated intra or extrahepatic bile ducts. Spleen:Borderline splenomegaly. Spleen measures 13 cm x 13 cm. No focal abnormality. Normal enhancement of splenic and portal veins. Pancreas:No pancreatic mass. No peripancreatic abnormality Adrenal glands:Negative Kidneys,ureters,bladder:No solid renal mass. No hydronephrosis. No obstructing or nonobstructing calculi. Incidental left renal cyst No hydroureter. No ureteral calculus. No bladder stone. No detectable bladder mass. Gastrointestinal:No detectable colonic mass. There is no diverticulitis. Negative small bowel. No mechanical small bowel obstruction. No bowel wall thickening. No focal abnormality. Negative stomach and duodenum. No focal abnormality. Appendix: The appendix is not well visualized. Vascular:Negative abdominal aorta. Superior mesenteric artery and celiac trunk are normal. Normal opacification of the inferior mesenteric artery Lymphatic:No retroperitoneal or mesenteric adenopathy Mesentery, peritoneum: Near complete resolution of pneumoperitoneum with only a few small gas bubbles in the upper nondependent abdomen Small amount of free fluid within the pelvis. No intra-abdominal abscess Reproductive:Prostate is not significantly enlarged Musculoskeletal:No lumbar compression fractures. Sacrum and pelvis are negative. No hip fracture. No abdominal wall or inguinal hernia IMPRESSION: 1. Significant improvement with near complete resolution of peritoneum 2. Small amount of free fluid within the pelvis 3. No intra-abdominal abscess 4. Mild linear density in both lung bases consistent with atelectasis The exam was performed using radiation dose optimization techniques including, but not limited to, automated exposure control, adjustment of the mA and/or kV according to patient size and use of iterative reconstruction technique. Interpreted and Authenticated by: Rosendo Reis 03/08/22
--- NOTE | 2022-03-08 10:59 | Internal Med Progress Note ---
SUBJECTIVE Subjective Patient information: Note initiated : 03/08/22 at 10:55 am Service Date, if different from initiated Date: [] Patient: Corona Mayer a 52 y/o M admitted on 03/05/22 for Fever, crackles. Chief Complaint: [] Interval history: Mr. Mayer is a 52 year old M SN[facility] resident, history of traumatic brain injury, type 2 diabetes mellitus, recently hospitalized in our facility from February 11 to February 17 for sacral decubitus ulcer as well as aspiration pneumonia, presenting with cold/flu symptoms. Patient can only give simple a few word answers so the history is severely limited. I was reported patient was brought to our ER via EMS after being found to have cold/flu symptoms from the facility staff. Patient is complain of shortness of breath. He denies any pain in his abdomen or his chest. He is complain of some cough. He denies any wheezing. He denies any subjective fever or chills or diaphoresis. He is oxygen dependent and he is placed on 4 L/min of oxygen. He is also positive for tachycardia tachypnea and fever with T-max 39.4. Leukocytosis with WBC 13.3. Lactic acid 1.6. Procalcitonin 0.08. [place] negative. CT of the abdomen pelvis showing right lower lobe pneumonia as well as pneumoperitoneum but the source of the free air is not certain based upon this examinations. It could be arising from the colon although there is no significant diverticulosis. There is no colonic distention or detectable mass. 03/06: Afebrile overnight. Currently on 4 L/min of oxygen via nasal cannula. [place] pending. Blood and sputum cultures pending. Patient denies any shortness of breath. He is complaining of back pain. He is complaining of subjective fever and chills. Will continue supplemental oxygen therapy. Continue vancomycin and Zosyn while waiting for MRSA screening results as well as culture results. We will repeat CT abdomen pelvis on Tuesday, March 08, 2022 as a follow-up study to evaluate for pneumoperitoneum. Pending speech therapy swallow evaluations. Pending physical therapy evaluation and treatment for placement planning. 03/07: Afebrile overnight. Currently on 2 L/min of oxygen via nasal cannula. [place] negative. MRSA PCR screening negative. Blood and sputum cultures no growth to date. Speech therapist recs. level 4 dysphagia diet. Patient is currently sleeping. Will continue supplemental oxygen therapy. d/c Vancomycin; continue Zosyn. We will repeat CT abdomen pelvis on Tuesday, March 08, 2022 as a follow-up study to evaluate for pneumoperitoneum. 03/08: Afebrile overnight. Currently on room air. CT abdomen showing significant improvement with near complete resolution of pneumoperitoneum. Seroquel changed from 300 to 200mg PO TID, this morning more awake and alert. Blood and sputum cultures no growth to date. Denies shortness of breath. c/o back pain. Continue Zosyn. Pending physical therapy evaluation and treatment for placement planning. Constitutional Vitals: Vital Signs Temp Pulse Resp BP Pulse Ox O2 Del Method O2 Flow Rate 37.2 C 82 20 121/84 93 1 03/08/22 07:45 03/08/22 06:14 03/08/22 07:45 03/08/22 07:45 03/08/22 07:45 03/08/22 07:45 03/08/22 07:45 Period Temp Pulse Resp BP Sys/Delcid Pulse Ox O2 Del Method O2 Flow Rate Last 24 Hr 36.5 C-37.3 C 82-93 14-20 114-132/64-84 93-97 Nasal Cannula- Room Air 1-3 Intake and Output 03/07/22 03/08/22 03/08/22 21:59 05:59 13:59 Intake Total 1290 50 50 Output Total 1 4 Balance 1289 50 46 Weight 99.79 kg Intake & Output: Intake & Output 03/07/22 03/08/22 03/08/22 21:59 05:59 13:59 Intake Total 1290 50 50 Output Total 1 4 Balance 1289 50 46 Weight 99.79 kg Intake: IV 1050 50 50 Sodium Chloride 0.9% 1,000 ml @ 1000 100 mls/hr IV .Q10H [facility] Rx#: [id number] Zosyn 3.375 gm In Dextrose 5% 50 50 50 in Water 50 ml @ 100 mls/hr IV Q6H [facility] Rx#:[id number] Oral 240 Output: # of times incontinent of urine 1 4 Other: Meal Dinner Percent of Meal Consumed 100% Feeding Ability Total Assistance Stool Size Large Large Stool Color Brown Brown Yellow Yellow Stool Consistency Liquid Liquid # Voids 1 # of times incontinent of 1 2 Bowels Head Head exam: Present atraumatic and normal inspection Eye Eye exam: Present normal appearance ENT ENT exam: Present mucous membranes moist, normal exam and normal external ear exam Neck Neck exam: Present normal inspection Respiratory Respiratory exam: Present normal respiratory exam Cardiovascular Cardiovascular exam: Present normal rate and rhythm GI/Abdominal GI/Abdominal exam: Present normal bowel sounds Back Exam Back exam: Present normal inspection Neurological Exam Neurological exam: Present alert and oriented X3 Skin Skin exam: Present intact and warm OBJ DATA Labs CBC & Chem 7: 03/08/22 06:11 03/08/22 06:11 Labs: Abnormal Lab Results 03/08/22 03/08/22 03/07/22 06:11 06:11 07:54 WBC 3.1 L 3.8 L RBC 3.40 L 3.37 L Hgb 10.0 L 9.9 L Hct 32.0 L 31.1 L Plt Count 109 L 94 L Immature Gran % (Auto) 0.6 H 0.8 H Grant % (Auto) Lymph # (Auto) 1.08 L 0.97 L Grant # (Auto) Absolute Neutrophils 1.64 L POC VBG pH POC VBG pCO2 at Temp POC VBG pO2 POC Venous O2 Sat POC Sodium Sodium 149 H POC Chloride Chloride 116 H POC BUN Glucose POC Glucose Calcium 8.2 L POC WB Ioniz Calcium Alkaline Phosphatase 38 L Albumin 3.1 L Globulin Albumin/Globulin Ratio Urine Appearance Urine Protein Urine Urobilinogen Ur Leukocyte Esterase Urine WBC Urine Mucus 03/07/22 03/06/22 03/06/22 05:14 10:09 07:58 WBC RBC 4.01 L Hgb 11.9 L Hct 37.0 L Plt Count 109 L Immature Gran % (Auto) Grant % (Auto) Lymph # (Auto) 1.04 L Grant # (Auto) Absolute Neutrophils POC VBG pH POC VBG pCO2 at Temp POC VBG pO2 POC Venous O2 Sat POC Sodium Sodium 150 H POC Chloride Chloride 114 H POC BUN Glucose 119 H POC Glucose Calcium 8.3 L POC WB Ioniz Calcium Alkaline Phosphatase Albumin Globulin Albumin/Globulin Ratio Urine Appearance Turbid A Urine Protein 30 A Urine Urobilinogen 2.0 A Ur Leukocyte Esterase 75 A Urine WBC 19 H Urine Mucus Few A 03/06/22 03/05/22 03/05/22 05:43 18:13 18:10 WBC RBC Hgb Hct Plt Count Immature Gran % (Auto) Grant % (Auto) Lymph # (Auto) Grant # (Auto) Absolute Neutrophils POC VBG pH 7.45 H POC VBG pCO2 at Temp 37.0 L POC VBG pO2 51 H POC Venous O2 Sat 87.0 H POC Sodium 146 H Sodium POC Chloride 113 H Chloride 110 H POC BUN 26 H Glucose 130 H POC Glucose 154 H Calcium POC WB Ioniz Calcium 1.10 L Alkaline Phosphatase Albumin Globulin 4.1 H Albumin/Globulin Ratio 0.8 L Urine Appearance Urine Protein Urine Urobilinogen Ur Leukocyte Esterase Urine WBC Urine Mucus 03/05/22 18:08 WBC 13.3 H RBC Hgb Hct Plt Count Immature Gran % (Auto) Grant % (Auto) 12.7 H Lymph # (Auto) Grant # (Auto) 1.69 H Absolute Neutrophils 8.63 H POC VBG pH POC VBG pCO2 at Temp POC VBG pO2 POC Venous O2 Sat POC Sodium Sodium POC Chloride Chloride POC BUN Glucose POC Glucose Calcium POC WB Ioniz Calcium Alkaline Phosphatase Albumin Globulin Albumin/Globulin Ratio Urine Appearance Urine Protein Urine Urobilinogen Ur Leukocyte Esterase Urine WBC Urine Mucus Meds: Medications Acetaminophen (Acetaminophen 325 Mg Tablet) 650 mg PO Q6HP PRN; Protocol PRN Reason: Per Pain Protocol/Fever > 101 Albuterol/Ipratropium (Ipratropium/Albuterol 3 Ml Ampul.Neb) 3 ml NEB Q4HRT PRN PRN Reason: Wheezing Aspirin (Aspirin 81 Mg Tab.Chew) 81 mg PO DAILY [facility] Last Admin: 03/08/22 10:00 Dose: 81 mg Atorvastatin Calcium (Atorvastatin 40 Mg Tablet) 40 mg PO HS [facility] Last Admin: 03/07/22 20:17 Dose: 40 mg Dextrose (Dextrose 50% 50 Ml Vial) 0 ml IV UD PRN PRN Reason: Per Sliding Scale Diagnostic Test (Pha) (Accu-Chek 1 Each Strip) 1 each FS ACHS [facility] Last Admin: 03/08/22 07:41 Dose: 1 each Divalproex Sodium (Divalproex Sodium 250 Mg Tablet) 750 mg PO BID [facility] Last Admin: 03/08/22 10:01 Dose: 750 mg Docusate Sodium (Docusate Sodium 100 Mg Capsule) 100 mg PO BID [facility] Last Admin: 03/08/22 10:01 Dose: Not Given Enoxaparin Sodium (Enoxaparin 40 Mg/0.4 Ml Syringe) 40 mg SQ DAILY [facility] Last Admin: 03/08/22 10:00 Dose: 40 mg Fluticasone Propionate (Fluticasone Hfa 110mcg Inhaler) 2 puff INH BID [facility] Last Admin: 03/08/22 10:01 Dose: Not Given Glucose (Dextrose 31 Gm Oral.Susp) 15 gm PO PRN PRN PRN Reason: Hypoglycemia Hydroxyzine HCl (Hydroxyzine 25 Mg Tablet) 25 mg PO TIDP PRN PRN Reason: Agitation Sodium Chloride (Sodium Chloride 0.9%) 1,000 mls @ 100 mls/hr IV .Q10H [facility] Last Admin: 03/08/22 04:18 Dose: 100 mls/hr Piperacillin Sod/Tazobactam (Sod 3.375 gm/ Dextrose) 50 mls @ 100 mls/hr IV Q6H [facility]; Protocol Last Infusion: 03/08/22 06:46 Dose: Infused Ibuprofen (Ibuprofen 200 Mg Tablet) 400 mg PO TIDP PRN PRN Reason: Pain Insulin Human Lispro (Insulin Lispro 1 Unit/0.01 Ml Unit) 0 unit SQ ACHS [facility]; Protocol Last Admin: 03/08/22 07:41 Dose: Not Given Lactulose (Lactulose 20 Gm/30 Ml Oral.Lizzette) 20 gm PO QAM [facility] Last Admin: 03/08/22 10:05 Dose: Not Given Lisinopril (Lisinopril 5 Mg Tablet) 5 mg PO QDAY [facility] Last Admin: 03/08/22 10:01 Dose: 5 mg Melatonin (Melatonin 3 Mg Tablet) 3 mg PO [facility] Last Admin: 03/07/22 20:19 Dose: Not Given Metoprolol Succinate (Metoprolol Succinate 25 Mg Tab.Xl.24h) 25 mg PO QDAY [facility] Last Admin: 03/08/22 10:01 Dose: 25 mg Ondansetron HCl (Ondansetron 4 Mg/2 Ml Vial) 4 mg IV Q6HP PRN PRN Reason: Nausea And Vomiting Quetiapine Fumarate (Quetiapine 100 Mg Tablet) 200 mg PO TID [facility] Last Admin: 03/08/22 10:00 Dose: 200 mg Senna (Sennosides 1 Tablet) 2 tab PO [facility] Last Admin: 03/07/22 20:17 Dose: 2 tab Sertraline HCl (Sertraline 100 Mg Tablet) 200 mg PO DAILY [facility] Last Admin: 03/08/22 10:00 Dose: 200 mg Sodium Chloride (0.9 % Sodium Chloride 10 Ml Syringe) 10 ml IV Q8 [facility] Last Admin: 03/08/22 06:13 Dose: Not Given Tamsulosin HCl (Tamsulosin 0.4 Mg Capsule) 0.4 mg PO QHS [facility] Last Admin: 03/07/22 20:17 Dose: 0.4 mg Trazodone HCl (Trazodone Hcl 50 Mg Tablet) 50 mg PO [facility] Last Admin: 03/07/22 20:18 Dose: Not Given A/P Assessment and plan (1) Pneumoperitoneum: Status: Acute (2) Pneumonia: Status: Acute (3) Clinical sepsis: Status: Acute (4) T2DM (type 2 diabetes mellitus): Status: Acute Narrative A/P Narrative: Assessment and Plans: 1. Right lower lobe pneumonia with associated clinical sepsis: Inpatient med surg [place] negative, [place] negative Blood culture, no growth to date Sputum culture, no growth to date cbc w/ auto diff in the morning to trend WBC MRSA screening negative d/c Vancomycin Continue Zosyn Supplemental oxygen as needed to keep spo2>=92% Speech therapy swallowing evaluation-->recs. level 4 dysphagia diet Physical therapy evaluation and treatment 2. Pneumoperitoneum: DDx: microscopic bowel perforation Dr. Ortega consulted, recs. appreciated Soft abdomen and no abdominal tenderness from physical exam, unlikely to have acute abdomen CT abdomen showing significant improvement with near complete resolution of pneumoperitoneum 3. T2DM: HgA1c Hold Metformin Insulin Lispro SSI AC HS Accu Check [facility] Hypoglycemia protocol Diabetic diet GI ppx: not currently indicated DVT ppx: Lovenox Code status: DNR Prognosis: Stable Disposition: inpatient med surg; PT Time Spent With Patient Time: Total time spent is greater than 50% in coordination of care (as documented) at patient's floor/unit and/or counseling patient: Total time spent with greater than 50% in coordination of care (as documented) at patient's floor/unit and/or counseling patient:: 35 - 50 minutes QUALITY VTE Deep Vein Thrombosis/Pulmonary Embolism Present on Admission: No
[2022-03-08] MEDS: ACETAMINOPHEN 325 MG TABLET PO PRN (11:35)
--- NOTE | 2022-03-08 12:20 | General Surgery Progress Note ---
SUBJECTIVE Subjective Patient information: Note initiated : 03/08/22 at 12:17 pm Service Date, if different from initiated Date: [] Patient: Corona Mayer 52 y/o M admitted on 03/05/22 for Fever, crackles. Chief Complaint: [] Principal diagnosis: PNEUMOPERITONEUM Interval history: Patient continues to do well with regards to his abdomen. He is slightly more verbal and responds to some clinic questions. He denies abdominal tenderness. CT performed earlier today shows significant reduction in pneumoperitoneum. His white count was still not elevated. Constitutional Vitals: Vital Signs Temp Pulse Resp BP Pulse Ox O2 Del Method O2 Flow Rate 99 F 82 20 121/84 93 1 03/08/22 07:45 03/08/22 06:14 03/08/22 08:00 03/08/22 07:45 03/08/22 07:45 03/08/22 07:45 03/08/22 07:45 Period Temp Pulse Resp BP Sys/Delcid Pulse Ox O2 Del Method O2 Flow Rate Last 24 Hr 98.4 F-99.1 F 82-93 14-20 114-132/64-84 93-97 Nasal Cannula- Room Air 1-3 Intake and Output 03/07/22 03/08/22 03/08/22 21:59 05:59 13:59 Intake Total 1290 50 100 Output Total 1 4 Balance 1289 50 96 Weight 220 lb Intake & Output: Intake & Output 03/07/22 03/08/22 03/08/22 21:59 05:59 13:59 Intake Total 1290 50 100 Output Total 1 4 Balance 1289 50 96 Weight 220 lb Intake: IV 1050 50 100 Sodium Chloride 0.9% 1,000 ml @ 1000 100 mls/hr IV .Q10H [facility] Rx#: [id number] Zosyn 3.375 gm In Dextrose 5% 50 50 100 in Water 50 ml @ 100 mls/hr IV Q6H [facility] Rx#:[id number] Oral 240 Output: # of times incontinent of urine 1 4 Other: Meal Dinner Percent of Meal Consumed 100% Feeding Ability Total Assistance Stool Size Large Large Stool Color Brown Brown Yellow Yellow Stool Consistency Liquid Liquid # Voids 1 # of times incontinent of 1 2 Bowels Respiratory Respiratory exam: Present rales and rhonchi Cardiovascular Cardiovascular exam: Present RRR, +S1 and +S2; Absent JVD GI/Abdominal GI/Abdominal exam: Present normal bowel sounds and soft; Absent distended, guarding or tenderness Extremities Exam Extremities exam: Present normal inspection and neurovascular intact Neurological Exam Neurological exam: Present alert; Absent altered or oriented X3 Psychiatric Psychiatric exam: Present anxious, depressed and flat affect A/P Assessment and plan (1) Pneumoperitoneum: Status: Acute (2) T2DM (type 2 diabetes mellitus): Status: Acute (3) Altered mental status: Status: Acute (4) Acute and chronic respiratory failure with hypoxia: Status: Acute Plan Clinically patient's abdomen remains benign. It is unlikely that he will need to have any intervention with regards to his abdomen. I will sign off at this time and will follow-up if needed. Time Spent With Patient Time: Total time spent is greater than 50% in coordination of care (as documented) at patient's floor/unit and/or counseling patient:
[2022-03-08] MEDS: ATORVASTATIN 40 MG TABLET PO SCH (20:40)
[2022-03-08] MEDS: TAMSULOSIN 0.4 MG CAPSULE PO SCH (20:40)
[2022-03-08] MEDS: SENNOSIDES 1 TABLET PO SCH (20:42)
[2022-03-08] MEDS: traZODone HCL 50 MG TABLET PO SCH (20:49)
[2022-03-08] MEDS: MELATONIN 3 MG TABLET PO SCH (20:58)
[2022-03-09] MEDS: PIPERACILLIN SODIUM/TAZOBACTAM 3.375 GM in DEXTROSE 5% IN WATER 50 ML IV SCH ×3 (01:17→12:28)
[2022-03-09] MEDS: 0.9 % SODIUM CHLORIDE 10 ML SYRINGE IV SCH ×3 (05:05→22:26)
[2022-03-09 07:06] LABS: Basophils # (Auto) 0.01 K/mcL (0.00-0.30); Basophils % (Auto) 0.3 % (0.0-2.0); Eosinophils % (Auto) 3.4 % (0.0-7.0); Hematocrit 30.4 % (40.1-51.0); Hemoglobin 9.8 g/dL (13.7-17.5); Lymphocytes # (Auto) 1.03 K/mcL (1.50-4.80); Mean Cell Volume 91.3 fL (80.0-100.0); Mean Corpuscular HGB Conc 32.2 g/dL (31.0-36.0); Mean Platelet Volume 9.5 fL (8.8-12.5); Monocytes # (Auto) 0.24 K/mcL (0.10-0.90); Monocytes % (Auto) 8.2 % (1.0-12.0); Neutrophils % (Auto) 51.7 % (38.0-78.0); Platelet Count 127 K/mcL (140-440); RBC 3.33 M/mcL (4.63-6.08); Red Cell Distribution Width 13.2 % (11.5-14.5); WBC 2.9 K/mcL (4.5-11.0)
[2022-03-09 07:41] LABS: ALT/SGPT 6 U/L (<40); AST/SGOT 13 U/L (<40); Alkaline Phosphatase 38 U/L (39-117); Bilirubin,Total 0.2 mg/dL (0.1-1.0); Blood Urea Nitrogen 5 mg/dL (6-20); Calcium 8.2 mg/dL (8.6-10.4); Carbon Dioxide 23 mmol/L (22-30); Chloride 119 mmol/L (96-108); Globulin 3.1 gm/dL (2.2-3.7); Glomerular Filtration Rate 109; Glucose 109 mg/dL (70-105)
[2022-03-09] MEDS: SERTRALINE 100 MG TABLET PO SCH (08:11)
[2022-03-09] MEDS: ASPIRIN 81 MG TAB.CHEW PO SCH (08:11)
[2022-03-09] MEDS: DOCUSATE SODIUM 100 MG CAPSULE PO SCH ×2 (08:12→22:25)
[2022-03-09] MEDS: ACETAMINOPHEN 325 MG TABLET PO PRN ×2 (08:12→22:23)
[2022-03-09] MEDS: QUEtiapine 100 MG TABLET PO SCH ×3 (08:12→22:23)
[2022-03-09] MEDS: LISINOPRIL 5 MG TABLET PO SCH (08:12)
[2022-03-09] MEDS: DIVALPROEX SODIUM 250 MG TABLET PO SCH ×2 (08:13→22:24)
[2022-03-09] MEDS: FLUTICASONE HFA 110MCG INHALER INH SCH ×2 (08:14→22:25)
[2022-03-09] MEDS: ENOXAPARIN 40 MG/0.4 ML SYRINGE SQ SCH (08:14)
[2022-03-09] MEDS: INSULIN LISPRO 1 UNIT/0.01 ML UNIT SQ SCH ×4 (08:14→22:25)
[2022-03-09] MEDS: 0.9 % SODIUM CHLORIDE 1,000 ML IV SCH (08:38)
[2022-03-09] MEDS: METOPROLOL SUCCINATE 25 MG TAB.XL.24H PO SCH (08:39)
[2022-03-09] MEDS: LACTULOSE 20 GM/30 ML ORAL.SOL PO SCH (08:39)
--- NOTE | 2022-03-09 14:58 | Internal Med Progress Note ---
SUBJECTIVE Subjective Patient information: Note initiated : 03/09/22 at 2:56 pm Service Date, if different from initiated Date: [] Patient: Corona Mayer a 52 y/o M admitted on 03/05/22 for Fever, crackles. Chief Complaint: [] Principal diagnosis: PNEUMOPERITONEUM Interval history: Mr. Mayer is a 52 year old M SNF resident, history of traumatic brain injury, type 2 diabetes mellitus, recently hospitalized in our facility from February 11 to February 17 for sacral decubitus ulcer as well as aspiration pneumonia, presenting with cold/flu symptoms. Patient can only give simple a few word answers so the history is severely limited. I was reported patient was brought to our ER via EMS after being found to have cold/flu symptoms from the facility staff. Patient is complain of shortness of breath. He denies any pain in his abdomen or his chest. He is complain of some cough. He denies any wheezing. He denies any subjective fever or chills or diaphoresis. He is oxygen dependent and he is placed on 4 L/min of oxygen. He is also positive for tachycardia tachypnea and fever with T-max 39.4. Leukocytosis with WBC 13.3. Lactic acid 1.6. Procalcitonin 0.08. Ariadna negative. CT of the abdomen pelvis showing right lower lobe pneumonia as well as pneumoperitoneum but the source of the free air is not certain based upon this examinations. It could be arising from the colon although there is no significant diverticulosis. There is no colonic distention or detectable mass. 03/06: Afebrile overnight. Currently on 4 L/min of oxygen via nasal cannula. Andrews pending. Blood and sputum cultures pending. Patient denies any shortness of breath. He is complaining of back pain. He is complaining of subjective fever and chills. Will continue supplemental oxygen therapy. Continue vancomycin and Zosyn while waiting for MRSA screening results as well as culture results. We will repeat CT abdomen pelvis on Tuesday, March 08, 2022 as a follow-up study to evaluate for pneumoperitoneum. Pending speech therapy swallow evaluations. Pending physical therapy evaluation and treatment for placement planning. 03/07: Afebrile overnight. Currently on 2 L/min of oxygen via nasal cannula. Andrews negative. MRSA PCR screening negative. Blood and sputum cultures no growth to date. Speech therapist recs. level 4 dysphagia diet. Patient is currently sleeping. Will continue supplemental oxygen therapy. d/c Vancomycin; continue Zosyn. We will repeat CT abdomen pelvis on Tuesday, March 08, 2022 as a follow-up study to evaluate for pneumoperitoneum. 03/08: Afebrile overnight. Currently on room air. CT abdomen showing significant improvement with near complete resolution of pneumoperitoneum. Seroquel changed from 300 to 200mg PO TID, this morning more awake and alert. Blood and sputum cultures no growth to date. Denies shortness of breath. c/o back pain. Continue Zosyn. Pending physical therapy evaluation and treatment for placement planning. 03/09: Afebrile overnight. Currently on room air. Blood and sputum cultures no growth to date. Denies any shortness of breath. Denies cough or wheezing. Denies chest pain. Denies fever, chills, or sweating. De-escalate antibiotics, will change from Zosyn to Augmentin. Which clinical stability. Pending SNF placement. Constitutional Vitals: Vital Signs Temp Pulse Resp BP Pulse Ox O2 Del Method O2 Flow Rate 37.1 C 76 16 121/88 97 1 03/09/22 12:00 03/09/22 12:00 03/09/22 12:00 03/09/22 12:00 03/09/22 12:00 03/09/22 12:00 03/08/22 12:00 Period Temp Pulse Resp BP Sys/Delcid Pulse Ox O2 Del Method O2 Flow Rate Last 24 Hr 36.9 C-37.2 C 76-80 14-20 121-148/72-88 94-98 Room Air-Room Air Intake and Output 03/09/22 03/09/22 03/09/22 05:59 13:59 21:59 Intake Total 50 1100 Balance 50 1100 Intake & Output: Intake & Output 03/09/22 03/09/22 03/09/22 05:59 13:59 21:59 Intake Total 50 1100 Balance 50 1100 Intake: IV 50 1100 Sodium Chloride 0.9% 1,000 ml @ 1000 100 mls/hr IV .Q10H KENNY Rx#: [id number] Zosyn 3.375 gm In Dextrose 5% 50 100 in Water 50 ml @ 100 mls/hr IV Q6H KENNY Rx#:[id number] Other: Percent of Meal Consumed 75% Feeding Ability Total Assistance Urine Color Yellow # Voids 4 1 Head Head exam: Present atraumatic and normal inspection Eye Eye exam: Present normal appearance ENT ENT exam: Present mucous membranes moist, normal exam and normal external ear exam Neck Neck exam: Present normal inspection Respiratory Respiratory exam: Present rhonchi Cardiovascular Cardiovascular exam: Present normal rate and rhythm GI/Abdominal GI/Abdominal exam: Present normal bowel sounds Back Exam Back exam: Present normal inspection Neurological Exam Neurological exam: Present alert and oriented X3 Skin Skin exam: Present intact and warm OBJ DATA Labs CBC & Chem 7: 03/09/22 06:13 03/09/22 06:13 Labs: Abnormal Lab Results 03/09/22 03/09/22 03/08/22 06:13 06:13 06:11 WBC 2.9 L RBC 3.33 L Hgb 9.8 L Hct 30.4 L Plt Count 127 L Immature Gran % (Auto) 1.4 H Lymph # (Auto) 1.03 L Absolute Neutrophils 1.52 L Sodium 151 H 149 H Chloride 119 H 116 H BUN 5 L Glucose 109 H Calcium 8.2 L 8.2 L Alkaline Phosphatase 38 L 38 L Albumin 3.0 L 3.1 L 03/08/22 03/07/22 03/07/22 06:11 07:54 05:14 WBC 3.1 L 3.8 L RBC 3.40 L 3.37 L Hgb 10.0 L 9.9 L Hct 32.0 L 31.1 L Plt Count 109 L 94 L Immature Gran % (Auto) 0.6 H 0.8 H Lymph # (Auto) 1.08 L 0.97 L Absolute Neutrophils 1.64 L Sodium 150 H Chloride 114 H BUN Glucose 119 H Calcium 8.3 L Alkaline Phosphatase Albumin Meds: Medications Acetaminophen (Acetaminophen 325 Mg Tablet) 650 mg PO Q6HP PRN; Protocol PRN Reason: Per Pain Protocol/Fever > 101 Last Admin: 03/09/22 08:12 Dose: 650 mg Albuterol/Ipratropium (Ipratropium/Albuterol 3 Ml Ampul.Neb) 3 ml NEB Q4HRT PRN PRN Reason: Wheezing Aspirin (Aspirin 81 Mg Tab.Chew) 81 mg PO DAILY [facility] Last Admin: 03/09/22 08:11 Dose: 81 mg Atorvastatin Calcium (Atorvastatin 40 Mg Tablet) 40 mg PO HS [facility] Last Admin: 03/08/22 20:40 Dose: 40 mg Dextrose (Dextrose 50% 50 Ml Vial) 0 ml IV UD PRN PRN Reason: Per Sliding Scale Diagnostic Test (Pha) (Accu-Chek 1 Each Strip) 1 each FS [facility] Last Admin: 03/09/22 12:29 Dose: 1 each Divalproex Sodium (Divalproex Sodium 250 Mg Tablet) 750 mg PO BID [facility] Last Admin: 03/09/22 08:13 Dose: 750 mg Docusate Sodium (Docusate Sodium 100 Mg Capsule) 100 mg PO BID [facility] Last Admin: 03/09/22 08:12 Dose: 100 mg Enoxaparin Sodium (Enoxaparin 40 Mg/0.4 Ml Syringe) 40 mg SQ DAILY [facility] Last Admin: 03/09/22 08:14 Dose: 40 mg Fluticasone Propionate (Fluticasone Hfa 110mcg Inhaler) 2 puff INH BID [facility] Last Admin: 03/09/22 08:14 Dose: Not Given Glucose (Dextrose 31 Gm Oral.Susp) 15 gm PO PRN PRN PRN Reason: Hypoglycemia Hydroxyzine HCl (Hydroxyzine 25 Mg Tablet) 25 mg PO TIDP PRN PRN Reason: Agitation Piperacillin Sod/Tazobactam (Sod 3.375 gm/ Dextrose) 50 mls @ 100 mls/hr IV Q6H [facility]; Protocol Last Infusion: 03/09/22 13:05 Dose: Infused Ibuprofen (Ibuprofen 200 Mg Tablet) 400 mg PO TIDP PRN PRN Reason: Pain Insulin Human Lispro (Insulin Lispro 1 Unit/0.01 Ml Unit) 0 unit SQ [facility]; Protocol Last Admin: 03/09/22 12:29 Dose: Not Given Lactulose (Lactulose 20 Gm/30 Ml Oral.Lizzette) 20 gm PO QAM [facility] Last Admin: 03/09/22 08:39 Dose: Not Given Lisinopril (Lisinopril 5 Mg Tablet) 5 mg PO QDAY [facility] Last Admin: 03/09/22 08:12 Dose: 5 mg Melatonin (Melatonin 3 Mg Tablet) 3 mg PO HS [facility] Last Admin: 03/08/22 20:58 Dose: Not Given Metoprolol Succinate (Metoprolol Succinate 25 Mg Tab.Xl.24h) 25 mg PO QDAY [facility] Last Admin: 03/09/22 08:39 Dose: 25 mg Ondansetron HCl (Ondansetron 4 Mg/2 Ml Vial) 4 mg IV Q6HP PRN PRN Reason: Nausea And Vomiting Quetiapine Fumarate (Quetiapine 100 Mg Tablet) 200 mg PO TID [facility] Last Admin: 03/09/22 08:12 Dose: 200 mg Senna (Sennosides 1 Tablet) 2 tab PO HS [facility] Last Admin: 03/08/22 20:42 Dose: Not Given Sertraline HCl (Sertraline 100 Mg Tablet) 200 mg PO DAILY [facility] Last Admin: 03/09/22 08:11 Dose: 200 mg Sodium Chloride (0.9 % Sodium Chloride 10 Ml Syringe) 10 ml IV Q8 [facility] Last Admin: 03/09/22 14:13 Dose: Not Given Tamsulosin HCl (Tamsulosin 0.4 Mg Capsule) 0.4 mg PO QHS [facility] Last Admin: 03/08/22 20:40 Dose: 0.4 mg Trazodone HCl (Trazodone Hcl 50 Mg Tablet) 50 mg PO [facility] Last Admin: 03/08/22 20:49 Dose: 50 mg A/P Assessment and plan (1) Pneumoperitoneum: Status: Acute (2) Pneumonia: Status: Acute (3) Clinical sepsis: Status: Acute (4) T2DM (type 2 diabetes mellitus): Status: Acute Narrative A/P Narrative: Assessment and Plans: 1. Right lower lobe pneumonia with associated clinical sepsis: Inpatient med surg Ariadna negative, Andrews negative Blood culture, no growth to date Sputum culture, no growth to date cbc w/ auto diff in the morning to trend WBC MRSA screening negative d/c Vancomycin De-escalate antibiotics, will change from Zosyn to Augmentin Currently tolerating room air, will provide supplemental oxygen as needed Speech therapy swallowing evaluation-->recs. level 4 dysphagia diet Physical therapy evaluation and treatment 2. Pneumoperitoneum: DDx: microscopic bowel perforation Dr. Ortega consulted, recs. appreciated Soft abdomen and no abdominal tenderness from physical exam, unlikely to have acute abdomen CT abdomen showing significant improvement with near complete resolution of pneumoperitoneum 3. T2DM: HgA1c Hold Metformin Insulin Lispro SSI AC HS Accu Check AC HS Hypoglycemia protocol Diabetic diet GI ppx: not currently indicated DVT ppx: Lovenox Code status: DNR Prognosis: Stable Disposition: inpatient med surg; pending SNF placement Time Spent With Patient Time: Total time spent is greater than 50% in coordination of care (as documented) at patient's floor/unit and/or counseling patient: Total time spent with greater than 50% in coordination of care (as documented) at patient's floor/unit and/or counseling patient:: 25 - 35 minutes QUALITY VTE Deep Vein Thrombosis/Pulmonary Embolism Present on Admission: No
[2022-03-09] MEDS: AMOXICILLIN/POTASSIUM CLAV 875 MG TABLET PO SCH (17:03)
[2022-03-09] MEDS: MELATONIN 3 MG TABLET PO SCH (22:23)
[2022-03-09] MEDS: TAMSULOSIN 0.4 MG CAPSULE PO SCH (22:24)
[2022-03-09] MEDS: ATORVASTATIN 40 MG TABLET PO SCH (22:24)
[2022-03-09] MEDS: SENNOSIDES 1 TABLET PO SCH (22:25)
[2022-03-09] MEDS: traZODone HCL 50 MG TABLET PO SCH (22:25)
[2022-03-10 07:24] LABS: Basophils # (Auto) 0.02 K/mcL (0.00-0.30); Basophils % (Auto) 0.6 % (0.0-2.0); Eosinophils % (Auto) 3.1 % (0.0-7.0); Hematocrit 31.7 % (40.1-51.0); Hemoglobin 10.3 g/dL (13.7-17.5); Lymphocytes # (Auto) 1.41 K/mcL (1.50-4.80); Mean Cell Volume 91.4 fL (80.0-100.0); Mean Corpuscular HGB Conc 32.5 g/dL (31.0-36.0); Mean Platelet Volume 9.3 fL (8.8-12.5); Monocytes # (Auto) 0.25 K/mcL (0.10-0.90); Monocytes % (Auto) 7.7 % (1.0-12.0); Neutrophils % (Auto) 43.9 % (38.0-78.0); Platelet Count 146 K/mcL (140-440); RBC 3.47 M/mcL (4.63-6.08); Red Cell Distribution Width 13.2 % (11.5-14.5); WBC 3.2 K/mcL (4.5-11.0)
[2022-03-10 07:45] LABS: Lymphocytes % (Auto) 43.5 % (15.5-49.0)
[2022-03-10 07:47] LABS: ALT/SGPT 6 U/L (<40); AST/SGOT 14 U/L (<40); Alkaline Phosphatase 36 U/L (39-117); Bilirubin,Total 0.2 mg/dL (0.1-1.0); Blood Urea Nitrogen 5 mg/dL (6-20); Calcium 8.3 mg/dL (8.6-10.4); Carbon Dioxide 24 mmol/L (22-30); Chloride 117 mmol/L (96-108); Globulin 3.1 gm/dL (2.2-3.7); Glomerular Filtration Rate 116; Glucose 108 mg/dL (70-105)
[2022-03-10] MEDS: 0.9 % SODIUM CHLORIDE 10 ML SYRINGE IV SCH ×3 (08:04→21:09)
[2022-03-10] MEDS: ENOXAPARIN 40 MG/0.4 ML SYRINGE SQ SCH (08:21)
[2022-03-10] MEDS: LISINOPRIL 5 MG TABLET PO SCH (08:22)
[2022-03-10] MEDS: QUEtiapine 100 MG TABLET PO SCH ×3 (08:22→21:33)
[2022-03-10] MEDS: DIVALPROEX SODIUM 250 MG TABLET PO SCH ×2 (08:22→21:33)
[2022-03-10] MEDS: DOCUSATE SODIUM 100 MG CAPSULE PO SCH ×2 (08:22→21:08)
[2022-03-10] MEDS: SERTRALINE 100 MG TABLET PO SCH (08:22)
[2022-03-10] MEDS: ASPIRIN 81 MG TAB.CHEW PO SCH (08:23)
[2022-03-10] MEDS: INSULIN LISPRO 1 UNIT/0.01 ML UNIT SQ SCH ×4 (08:23→21:34)
[2022-03-10] MEDS: METOPROLOL SUCCINATE 25 MG TAB.XL.24H PO SCH (08:23)
[2022-03-10] MEDS: AMOXICILLIN/POTASSIUM CLAV 875 MG TABLET PO SCH ×2 (08:23→17:07)
[2022-03-10] MEDS: LACTULOSE 20 GM/30 ML ORAL.SOL PO SCH (08:24)
[2022-03-10] MEDS: FLUTICASONE HFA 110MCG INHALER INH SCH ×2 (08:24→21:08)
--- NOTE | 2022-03-10 10:17 | Internal Med Progress Note ---
SUBJECTIVE Subjective Patient information: Note initiated : 03/10/22 at 10:15 am Service Date, if different from initiated Date: [] Patient: Corona Mayer a 52 y/o M admitted on 03/05/22 for Fever, crackles. Chief Complaint: [] Principal diagnosis: PNEUMOPERITONEUM Interval history: Mr. Mayer is a 52 year old M SNF resident, history of traumatic brain injury, type 2 diabetes mellitus, recently hospitalized in our facility from February 11 to February 17 for sacral decubitus ulcer as well as aspiration pneumonia, presenting with cold/flu symptoms. Patient can only give simple a few word answers so the history is severely limited. I was reported patient was brought to our ER via EMS after being found to have cold/flu symptoms from the facility staff. Patient is complain of shortness of breath. He denies any pain in his abdomen or his chest. He is complain of some cough. He denies any wheezing. He denies any subjective fever or chills or diaphoresis. He is oxygen dependent and he is placed on 4 L/min of oxygen. He is also positive for tachycardia tachypnea and fever with T-max 39.4. Leukocytosis with WBC 13.3. Lactic acid 1.6. Procalcitonin 0.08. Ariadna negative. CT of the abdomen pelvis showing right lower lobe pneumonia as well as pneumoperitoneum but the source of the free air is not certain based upon this examinations. It could be arising from the colon although there is no significant diverticulosis. There is no colonic distention or detectable mass. 03/06: Afebrile overnight. Currently on 4 L/min of oxygen via nasal cannula. Ulster pending. Blood and sputum cultures pending. Patient denies any shortness of breath. He is complaining of back pain. He is complaining of subjective fever and chills. Will continue supplemental oxygen therapy. Continue vancomycin and Zosyn while waiting for MRSA screening results as well as culture results. We will repeat CT abdomen pelvis on Tuesday, March 08, 2022 as a follow-up study to evaluate for pneumoperitoneum. Pending speech therapy swallow evaluations. Pending physical therapy evaluation and treatment for placement planning. 03/07: Afebrile overnight. Currently on 2 L/min of oxygen via nasal cannula. Ulster negative. MRSA PCR screening negative. Blood and sputum cultures no growth to date. Speech therapist recs. level 4 dysphagia diet. Patient is currently sleeping. Will continue supplemental oxygen therapy. d/c Vancomycin; continue Zosyn. We will repeat CT abdomen pelvis on Tuesday, March 08, 2022 as a follow-up study to evaluate for pneumoperitoneum. 03/08: Afebrile overnight. Currently on room air. CT abdomen showing significant improvement with near complete resolution of pneumoperitoneum. Seroquel changed from 300 to 200mg PO TID, this morning more awake and alert. Blood and sputum cultures no growth to date. Denies shortness of breath. c/o back pain. Continue Zosyn. Pending physical therapy evaluation and treatment for placement planning. 03/09: Afebrile overnight. Currently on room air. Blood and sputum cultures no growth to date. Denies any shortness of breath. Denies cough or wheezing. Denies chest pain. Denies fever, chills, or sweating. De-escalate antibiotics, will change from Zosyn to Augmentin. Reached clinical stability. Pending SNF placement. 03/10: Afebrile overnight. Currently on room air. Blood and sputum cultures no growth to date. Denies any shortness of breath. Denies cough or wheezing. Denies chest pain. Denies fever, chills, or sweating. Continue Augmentin. Medically stable. Pending SNF placement. Constitutional Vitals: Vital Signs Temp Pulse Resp BP Pulse Ox O2 Del Method O2 Flow Rate 37.1 C 74 18 145/82 96 1 03/10/22 08:00 03/10/22 08:00 03/10/22 04:38 03/10/22 08:00 03/10/22 08:00 03/10/22 08:00 03/08/22 12:00 Period Temp Pulse Resp BP Sys/Delcid Pulse Ox O2 Del Method O2 Flow Rate Last 24 Hr 36.1 C-37.5 C 72-82 16-20 121-145/62-90 95-97 Room Air-Room Air Intake and Output 03/09/22 03/10/22 03/10/22 21:59 05:59 13:59 Intake Total 120 480 Output Total 3 2 Balance 117 478 Weight 97.749 kg Intake & Output: Intake & Output 03/09/22 03/10/22 03/10/22 21:59 05:59 13:59 Intake Total 120 480 Output Total 3 2 Balance 117 478 Weight 97.749 kg Intake: Oral 120 480 Output: # of times incontinent of urine 3 2 Other: Meal Lunch Percent of Meal Consumed 50% Feeding Ability Total Assistance Stool Size Moderate Moderate Stool Color Brown Brown Yellow Yellow Stool Consistency Liquid Liquid # Bowel Movements 1 # of times incontinent of 1 Bowels Head Head exam: Present atraumatic and normal inspection Eye Eye exam: Present normal appearance ENT ENT exam: Present mucous membranes moist, normal exam and normal external ear exam Neck Neck exam: Present normal inspection Respiratory Respiratory exam: Present normal respiratory exam Cardiovascular Cardiovascular exam: Present normal rate and rhythm GI/Abdominal GI/Abdominal exam: Present normal bowel sounds Back Exam Back exam: Present normal inspection Neurological Exam Neurological exam: Present alert and oriented X3 Skin Skin exam: Present intact and warm OBJ DATA Labs CBC & Chem 7: 03/10/22 06:38 03/10/22 06:37 Labs: Abnormal Lab Results 03/10/22 03/10/22 03/09/22 06:38 06:37 06:13 WBC 3.2 L RBC 3.47 L Hgb 10.3 L Hct 31.7 L Plt Count Immature Gran % (Auto) 1.2 H Lymph # (Auto) 1.41 L Absolute Neutrophils 1.42 L Sodium 150 H 151 H Chloride 117 H 119 H BUN 5 L 5 L Creatinine 0.6 L Glucose 108 H 109 H Calcium 8.3 L 8.2 L Alkaline Phosphatase 36 L 38 L Albumin 3.0 L 3.0 L 03/09/22 03/08/22 03/08/22 06:13 06:11 06:11 WBC 2.9 L 3.1 L RBC 3.33 L 3.40 L Hgb 9.8 L 10.0 L Hct 30.4 L 32.0 L Plt Count 127 L 109 L Immature Gran % (Auto) 1.4 H 0.6 H Lymph # (Auto) 1.03 L 1.08 L Absolute Neutrophils 1.52 L 1.64 L Sodium 149 H Chloride 116 H BUN Creatinine Glucose Calcium 8.2 L Alkaline Phosphatase 38 L Albumin 3.1 L Meds: Medications Acetaminophen (Acetaminophen 325 Mg Tablet) 650 mg PO Q6HP PRN; Protocol PRN Reason: Per Pain Protocol/Fever > 101 Last Admin: 03/09/22 22:23 Dose: 650 mg Albuterol/Ipratropium (Ipratropium/Albuterol 3 Ml Ampul.Neb) 3 ml NEB Q4HRT PRN PRN Reason: Wheezing Amoxicillin/Clavulanate Potassium (Amoxicillin/Potassium Clav 875 Mg Tablet) [facility] Last Admin: 03/10/22 08:23 Dose: 875 mg Aspirin (Aspirin 81 Mg Tab.Chew) 81 mg PO DAILY [facility] Last Admin: 03/10/22 08:23 Dose: 81 mg Atorvastatin Calcium (Atorvastatin 40 Mg Tablet) 40 mg PO HS [facility] Last Admin: 03/09/22 22:24 Dose: 40 mg Dextrose (Dextrose 50% 50 Ml Vial) 0 ml IV UD PRN PRN Reason: Per Sliding Scale Diagnostic Test (Pha) (Accu-Chek 1 Each Strip) 1 each FS [facility] Last Admin: 03/10/22 08:23 Dose: 1 each Divalproex Sodium (Divalproex Sodium 250 Mg Tablet) 750 mg PO BID [facility] Last Admin: 03/10/22 08:22 Dose: 750 mg Docusate Sodium (Docusate Sodium 100 Mg Capsule) 100 mg PO BID [facility] Last Admin: 03/10/22 08:22 Dose: 100 mg Enoxaparin Sodium (Enoxaparin 40 Mg/0.4 Ml Syringe) 40 mg SQ DAILY [facility] Last Admin: 03/10/22 08:21 Dose: 40 mg Fluticasone Propionate (Fluticasone Hfa 110mcg Inhaler) 2 puff INH BID [facility] Last Admin: 03/10/22 08:24 Dose: Not Given Glucose (Dextrose 31 Gm Oral.Susp) 15 gm PO PRN PRN PRN Reason: Hypoglycemia Hydroxyzine HCl (Hydroxyzine 25 Mg Tablet) 25 mg PO TIDP PRN PRN Reason: Agitation Ibuprofen (Ibuprofen 200 Mg Tablet) 400 mg PO TIDP PRN PRN Reason: Pain Insulin Human Lispro (Insulin Lispro 1 Unit/0.01 Ml Unit) 0 unit SQ [facility]; Protocol Last Admin: 03/10/22 08:23 Dose: Not Given Lactulose (Lactulose 20 Gm/30 Ml Oral.Lizzette) 20 gm PO QAM [facility] Last Admin: 03/10/22 08:24 Dose: Not Given Lisinopril (Lisinopril 5 Mg Tablet) 5 mg PO QDAY [facility] Last Admin: 03/10/22 08:22 Dose: 5 mg Melatonin (Melatonin 3 Mg Tablet) 3 mg PO [facility] Last Admin: 03/09/22 22:23 Dose: 3 mg Metoprolol Succinate (Metoprolol Succinate 25 Mg Tab.Xl.24h) 25 mg PO QDAY [facility] Last Admin: 03/10/22 08:23 Dose: 25 mg Ondansetron HCl (Ondansetron 4 Mg/2 Ml Vial) 4 mg IV Q6HP PRN PRN Reason: Nausea And Vomiting Quetiapine Fumarate (Quetiapine 100 Mg Tablet) 200 mg PO TID [facility] Last Admin: 03/10/22 08:22 Dose: 200 mg Senna (Sennosides 1 Tablet) 2 tab PO [facility] Last Admin: 03/09/22 22:25 Dose: Not Given Sertraline HCl (Sertraline 100 Mg Tablet) 200 mg PO DAILY [facility] Last Admin: 03/10/22 08:22 Dose: 200 mg Sodium Chloride (0.9 % Sodium Chloride 10 Ml Syringe) 10 ml IV Q8 [facility] Last Admin: 03/10/22 08:04 Dose: Not Given Tamsulosin HCl (Tamsulosin 0.4 Mg Capsule) 0.4 mg PO QHS [facility] Last Admin: 03/09/22 22:24 Dose: 0.4 mg Trazodone HCl (Trazodone Hcl 50 Mg Tablet) 50 mg PO [facility] Last Admin: 03/09/22 22:25 Dose: Not Given A/P Assessment and plan (1) Pneumoperitoneum: Status: Acute (2) Pneumonia: Status: Acute (3) Clinical sepsis: Status: Acute (4) T2DM (type 2 diabetes mellitus): Status: Acute Narrative A/P Narrative: Assessment and Plans: 1. Right lower lobe pneumonia with associated clinical sepsis: Inpatient med surg Ariadna negative, [place] negative Blood culture, no growth to date Sputum culture, no growth to date cbc w/ auto diff in the morning to trend WBC MRSA screening negative d/c Vancomycin Continue Augmentin Currently tolerating room air, will provide supplemental oxygen as needed Speech therapy swallowing evaluation-->recs. level 4 dysphagia diet Physical therapy evaluation and treatment 2. Pneumoperitoneum: DDx: microscopic bowel perforation Dr. Ortega consulted, recs. appreciated Soft abdomen and no abdominal tenderness from physical exam, unlikely to have acute abdomen CT abdomen showing significant improvement with near complete resolution of pneumoperitoneum 3. T2DM: HgA1c Hold Metformin Insulin Lispro SSI AC HS Accu Check AC HS Hypoglycemia protocol Diabetic diet GI ppx: not currently indicated DVT ppx: Lovenox Code status: DNR Prognosis: Stable Disposition: inpatient med surg; pending SNF placement Time Spent With Patient Time: Total time spent is greater than 50% in coordination of care (as documented) at patient's floor/unit and/or counseling patient: Total time spent with greater than 50% in coordination of care (as documented) at patient's floor/unit and/or counseling patient:: 25 - 35 minutes QUALITY VTE Deep Vein Thrombosis/Pulmonary Embolism Present on Admission: No
--- NOTE | 2022-03-10 14:34 | Internal Med Progress Note ---
SUBJECTIVE Subjective Patient information: Note initiated : 03/10/22 at 2:25 pm Service Date, if different from initiated Date: [] Patient: Corona Mayer a 52 y/o M admitted on 03/05/22 for Fever, crackles. Chief Complaint: [] Principal diagnosis: PNEUMOPERITONEUM Interval history: Mr. Mayer is a 52 year old M SNF resident, history of traumatic brain injury, type 2 diabetes mellitus, recently hospitalized in our facility from February 11 to February 17 for sacral decubitus ulcer as well as aspiration pneumonia, presenting with cold/flu symptoms. Patient can only give simple a few word answers so the history is severely limited. I was reported patient was brought to our ER via EMS after being found to have cold/flu symptoms from the facility staff. Patient is complain of shortness of breath. He denies any pain in his abdomen or his chest. He is complain of some cough. He denies any wheezing. He denies any subjective fever or chills or diaphoresis. He is oxygen dependent and he is placed on 4 L/min of oxygen. He is also positive for tachycardia tachypnea and fever with T-max 39.4. Leukocytosis with WBC 13.3. Lactic acid 1.6. Procalcitonin 0.08. [place] negative. CT of the abdomen pelvis showing right lower lobe pneumonia as well as pneumoperitoneum but the source of the free air is not certain based upon this examinations. It could be arising from the colon although there is no significant diverticulosis. There is no colonic distention or detectable mass. 03/06: Afebrile overnight. Currently on 4 L/min of oxygen via nasal cannula. [place] pending. Blood and sputum cultures pending. Patient denies any shortness of breath. He is complaining of back pain. He is complaining of subjective fever and chills. Will continue supplemental oxygen therapy. Continue vancomycin and Zosyn while waiting for MRSA screening results as well as culture results. We will repeat CT abdomen pelvis on Tuesday, March 08, 2022 as a follow-up study to evaluate for pneumoperitoneum. Pending speech therapy swallow evaluations. Pending physical therapy evaluation and treatment for placement planning. 03/07: Afebrile overnight. Currently on 2 L/min of oxygen via nasal cannula. [place] negative. MRSA PCR screening negative. Blood and sputum cultures no growth to date. Speech therapist recs. level 4 dysphagia diet. Patient is currently sleeping. Will continue supplemental oxygen therapy. d/c Vancomycin; continue Zosyn. We will repeat CT abdomen pelvis on Tuesday, March 08, 2022 as a follow-up study to evaluate for pneumoperitoneum. 03/08: Afebrile overnight. Currently on room air. CT abdomen showing significant improvement with near complete resolution of pneumoperitoneum. Seroquel changed from 300 to 200mg PO TID, this morning more awake and alert. Blood and sputum cultures no growth to date. Denies shortness of breath. c/o back pain. Continue Zosyn. Pending physical therapy evaluation and treatment for placement planning. 03/09: Afebrile overnight. Currently on room air. Blood and sputum cultures no growth to date. Denies any shortness of breath. Denies cough or wheezing. Denies chest pain. Denies fever, chills, or sweating. De-escalate antibiotics, will change from Zosyn to Augmentin. Reached clinical stability. Pending SNF placement. 03/10: Afebrile overnight. Currently on room air. Blood and sputum cultures no growth to date. Denies any shortness of breath. Denies cough or wheezing. Denies chest pain. Denies fever, chills, or sweating. Continue Augmentin. Medically stable. Pending SNF placement. 03/11 Constitutional Vitals: Vital Signs Temp Pulse Resp BP Pulse Ox O2 Del Method O2 Flow Rate 98.8 F 78 18 135/83 95 1 03/10/22 12:00 03/10/22 12:00 03/10/22 04:38 03/10/22 12:00 03/10/22 12:00 03/10/22 12:00 03/08/22 12:00 Period Temp Pulse Resp BP Sys/Delcid Pulse Ox O2 Del Method O2 Flow Rate Last 24 Hr 96.9 F-99.5 F 72-82 18-20 132-145/62-90 95-96 Room Air-Room Air Intake and Output 03/10/22 03/10/22 03/10/22 05:59 13:59 21:59 Intake Total 480 120 Output Total 2 2 Balance 478 118 Intake & Output: Intake & Output 11/01/22 11/01/22 11/01/22 05:59 13:59 21:59 Intake Total 480 120 Output Total 2 2 Balance 478 118 Intake: Oral 480 120 Output: # of times incontinent of urine 2 2 Other: Meal Lunch Percent of Meal Consumed 75% Stool Size Moderate Stool Color Brown Yellow Stool Consistency Liquid # of times incontinent of 1 Bowels Exam: General: Awake, No acute Distress Eyes/N/T: EOMI, Head/Neck: neck supple, normocephalic atraumatic CV: RRR, No murmurs, normal s1/s2 Pulm: , no wheezing Abd: soft, nontender, +BS x4 Ext: no clubbing/cyanosis, trace edema Neuro: Alert, no focal deficits, moves all extremities, CN 2-12 grossly intact, Skin: warm/dry OBJ DATA Labs CBC & Chem 7: 03/10/22 06:38 03/10/22 06:37 Labs: Abnormal Lab Results 03/10/22 03/10/22 03/09/22 06:38 06:37 06:13 WBC 3.2 L RBC 3.47 L Hgb 10.3 L Hct 31.7 L Plt Count Immature Gran % (Auto) 1.2 H Lymph # (Auto) 1.41 L Absolute Neutrophils 1.42 L Sodium 150 H 151 H Chloride 117 H 119 H BUN 5 L 5 L Creatinine 0.6 L Glucose 108 H 109 H Calcium 8.3 L 8.2 L Alkaline Phosphatase 36 L 38 L Albumin 3.0 L 3.0 L 03/09/22 03/08/22 03/08/22 06:13 06:11 06:11 WBC 2.9 L 3.1 L RBC 3.33 L 3.40 L Hgb 9.8 L 10.0 L Hct 30.4 L 32.0 L Plt Count 127 L 109 L Immature Gran % (Auto) 1.4 H 0.6 H Lymph # (Auto) 1.03 L 1.08 L Absolute Neutrophils 1.52 L 1.64 L Sodium 149 H Chloride 116 H BUN Creatinine Glucose Calcium 8.2 L Alkaline Phosphatase 38 L Albumin 3.1 L Meds: Medications Acetaminophen (Acetaminophen 325 Mg Tablet) 650 mg PO Q6HP PRN; Protocol PRN Reason: Per Pain Protocol/Fever > 101 Last Admin: 03/09/22 22:23 Dose: 650 mg Albuterol/Ipratropium (Ipratropium/Albuterol 3 Ml Ampul.Neb) 3 ml NEB Q4HRT PRN PRN Reason: Wheezing Amoxicillin/Clavulanate Potassium (Amoxicillin/Potassium Clav 875 Mg Tablet) 875 [facility]; Protocol Last Admin: 03/10/22 08:23 Dose: 875 mg Aspirin (Aspirin 81 Mg Tab.Chew) 81 mg PO DAILY [facility] Last Admin: 03/10/22 08:23 Dose: 81 mg Atorvastatin Calcium (Atorvastatin 40 Mg Tablet) 40 mg PO HS [facility] Last Admin: 03/09/22 22:24 Dose: 40 mg Dextrose (Dextrose 50% 50 Ml Vial) 0 ml IV UD PRN PRN Reason: Per Sliding Scale Diagnostic Test (Pha) (Accu-Chek 1 Each Strip) 1 each FS [facility] Last Admin: 03/10/22 12:08 Dose: 1 each Divalproex Sodium (Divalproex Sodium 250 Mg Tablet) 750 mg PO BID [facility] Last Admin: 03/10/22 08:22 Dose: 750 mg Docusate Sodium (Docusate Sodium 100 Mg Capsule) 100 mg PO BID [facility] Last Admin: 03/10/22 08:22 Dose: 100 mg Enoxaparin Sodium (Enoxaparin 40 Mg/0.4 Ml Syringe) 40 mg SQ DAILY [facility] Last Admin: 03/10/22 08:21 Dose: 40 mg Fluticasone Propionate (Fluticasone Hfa 110mcg Inhaler) 2 puff INH BID [facility] Last Admin: 03/10/22 08:24 Dose: Not Given Glucose (Dextrose 31 Gm Oral.Susp) 15 gm PO PRN PRN PRN Reason: Hypoglycemia Hydroxyzine HCl (Hydroxyzine 25 Mg Tablet) 25 mg PO TIDP PRN PRN Reason: Agitation Ibuprofen (Ibuprofen 200 Mg Tablet) 400 mg PO TIDP PRN PRN Reason: Pain Insulin Human Lispro (Insulin Lispro 1 Unit/0.01 Ml Unit) 0 unit SQ [facility]; Protocol Last Admin: 03/10/22 12:08 Dose: Not Given Lactulose (Lactulose 20 Gm/30 Ml Oral.Lizzette) 20 gm PO QAM [facility] Last Admin: 03/10/22 08:24 Dose: Not Given Lisinopril (Lisinopril 5 Mg Tablet) 5 mg PO QDAY [facility] Last Admin: 03/10/22 08:22 Dose: 5 mg Melatonin (Melatonin 3 Mg Tablet) 3 mg PO [facility] Last Admin: 03/09/22 22:23 Dose: 3 mg Metoprolol Succinate (Metoprolol Succinate 25 Mg Tab.Xl.24h) 25 mg PO QDAY [facility] Last Admin: 03/10/22 08:23 Dose: 25 mg Ondansetron HCl (Ondansetron 4 Mg/2 Ml Vial) 4 mg IV Q6HP PRN PRN Reason: Nausea And Vomiting Quetiapine Fumarate (Quetiapine 100 Mg Tablet) 200 mg PO TID [facility] Last Admin: 03/10/22 08:22 Dose: 200 mg Senna (Sennosides 1 Tablet) 2 tab PO [facility] Last Admin: 03/09/22 22:25 Dose: Not Given Sertraline HCl (Sertraline 100 Mg Tablet) 200 mg PO DAILY [facility] Last Admin: 03/10/22 08:22 Dose: 200 mg Sodium Chloride (0.9 % Sodium Chloride 10 Ml Syringe) 10 ml IV Q8 [facility] Last Admin: 03/10/22 08:04 Dose: Not Given Tamsulosin HCl (Tamsulosin 0.4 Mg Capsule) 0.4 mg PO QHS [facility] Last Admin: 03/09/22 22:24 Dose: 0.4 mg Trazodone HCl (Trazodone Hcl 50 Mg Tablet) 50 mg PO [facility] Last Admin: 03/09/22 22:25 Dose: Not Given A/P Narrative A/P Narrative: A: #RLL PNA 2/2 Aspiration: #Sepsis: #Pneumoperitoneum: -CT abdomen showing significant improvement with near complete resolution of pneumoperitoneum #Acute hypoxic respiratory failure: -now on room air #Dehydration w/Hypernatremia: #Oropharyngeal Dysphagia, chronic: ?Aspirating on oral secretions #Prediabetes, hemoglobin A1c 6.3: #h/o Traumatic brain injury #h/o CVA #Poor functional status/wheelchair-bound status: Plan: -now on Augmentin -Diet per ST -prn O2 support -hypotonic IVF, monitor Na -Monitor electrolytes and renal function. -SSI, hold metformin for now -cont home Lopressor/lisinopril for hypotension -cont home Depakote/seroquel, cont atorvastatin/aspirin -PT/OT/ST -ppx: lovenox CODE STATUS: DNR/DNI Time Spent With Patient Time: Total time spent is greater than 50% in coordination of care (as documented) at patient's floor/unit and/or counseling patient: QUALITY VTE Deep Vein Thrombosis/Pulmonary Embolism Present on Admission: No
--- NOTE | 2022-03-10 14:51 | Discharge Summary ---
Discharge Provider Provider IMPORTANT FOLLOW-UP INFORMATION FOR PCP: Patient information: Note initiated : 03/10/22 at 2:49 pm Service Date, if different from initiated Date: [] Patient: Corona Mayer 52 y/o M admitted on 03/05/22 for Fever, crackles. Chief Complaint: [] Date of admission: 03/05/22 22:45 Discharge date: 03/11/22 Primary care physician: JESÚS Johansen Consults: 03/05/22 Consult to Physician [CONS] Stat Comment: Consulting Provider: Faheem Flores Reason For Exam: Physician to Consult Consult to Physician [CONS] Stat Comment: Consulting Provider: Beryl Ortega Reason For Exam: Physician to Consult COURSE Hospital Course Hospital course: Interval history: Mr. Mayer is a 52 year old M SNF resident, history of traumatic brain injury, type 2 diabetes mellitus, recently hospitalized in our facility from February 11 to February 17 for sacral decubitus ulcer as well as aspiration pneumonia, presenting with cold/flu symptoms. Patient can only give simple a few word answers so the history is severely limited. I was reported patient was brought to our ER via EMS after being found to have cold/flu symptoms from the facility staff. Patient is complain of shortness of breath. He denies any pain in his abdomen or his chest. He is complain of some cough. He denies any wheezing. He denies any subjective fever or chills or diaphoresis. He is oxygen dependent and he is placed on 4 L/min of oxygen. He is also positive for tachycardia tachypnea and fever with T-max 39.4. Leukocytosis with WBC 13.3. Lactic acid 1.6. Procalcitonin 0.08. [place] negative. CT of the abdomen pelvis showing right lower lobe pneumonia as well as pneumoperitoneum but the source of the free air is not certain based upon this examinations. It could be arising from the colon although there is no significant diverticulosis. There is no colonic distention or detectable mass. 03/06: Afebrile overnight. Currently on 4 L/min of oxygen via nasal cannula. [place] pending. Blood and sputum cultures pending. Patient denies any shortness of breath. He is complaining of back pain. He is complaining of subjective fever and chills. Will continue supplemental oxygen therapy. Continue vancomycin and Zosyn while waiting for MRSA screening results as well as culture results. We will repeat CT abdomen pelvis on Tuesday, March 08, 2022 as a follow-up study to evaluate for pneumoperitoneum. Pending speech therapy swallow evaluations. Pending physical therapy evaluation and treatment for placement planning. 03/07: Afebrile overnight. Currently on 2 L/min of oxygen via nasal cannula. [place] negative. MRSA PCR screening negative. Blood and sputum cultures no growth to date. Speech therapist recs. level 4 dysphagia diet. Patient is currently sle eping. Will continue supplemental oxygen therapy. d/c Vancomycin; continue Zosyn. We will repeat CT abdomen pelvis on Tuesday, March 08, 2022 as a follow-up study to evaluate for pneumoperitoneum. 03/08: Afebrile overnight. Currently on room air. CT abdomen showing significant improvement with near complete resolution of pneumoperitoneum. Seroquel changed from 300 to 200mg PO TID, this morning more awake and alert. Blood and sputum cultures no growth to date. Denies shortness of breath. c/o back pain. Continue Zosyn. Pending physical therapy evaluation and treatment for placement planning. 03/09: Afebrile overnight. Currently on room air. Blood and sputum cultures no growth to date. Denies any shortness of breath. Denies cough or wheezing. Denies chest pain. Denies fever, chills, or sweating. De-escalate antibiotics, will change from Zosyn to Augmentin. Reached clinical stability. Pending SNF placement. 03/10: Afebrile overnight. Currently on room air. Blood and sputum cultures no growth to date. Denies any shortness of breath. Denies cough or wheezing. Denies chest pain. Denies fever, chills, or sweating. Continue Augmentin. Medically stable. Pending SNF placement. 03/11 No overnight event or new complaints. Hypernatremia over the past few days and has resolved today on hypotonic IV solution is now discontinued. Hypokalemia noted this morning. Patient high risk for readmission given comorbidities and multiple hospitalizations this year A: #RLL PNA 2 Aspiration: #Oropharyngeal Dysphagia, moderate: #Sepsis: #Pneumoperitoneum: -CT abdomen showing significant improvement with near complete resolution of pneumoperitoneum #Acute hypoxic respiratory failure: -now on room air #Dehydration w/Hypernatremia: #HYpokalemia: #Oropharyngeal Dysphagia, chronic: ?Aspirating on oral secretions #Prediabetes, hemoglobin A1c 6.3: #h/o Traumatic brain injury #h/o CVA #Poor functional status/wheelchair-bound status: Plan: -now on Augmentin -Diet per ST Discharge diagnosis: Aspiration pneumonia sepsis pneumoperitoneum hypoxic respiratory failure de Secondary discharge diagnosis: Dehydration hyponatremia oral pharyngeal dysphagia prediabetes traumatic brain injury history of stroke poor functional status wheelchair-bound Time Spent with Patient Time attestation: Total time spent providing and/or coordinating discharge services: Time spent: Greater than 30 minutes EXAM Constitutional Vitals: Temp Pulse Resp BP Pulse Ox O2 Del Method O2 Flow Rate 98.8 F 78 18 135/83 95 1 03/10/22 12:00 03/10/22 12:00 03/10/22 04:38 03/10/22 12:00 03/10/22 12:00 03/10/22 12:00 03/08/22 12:00 Discharge Data Data Completed and Pending Labs on day of discharge: Labs from last 24 hours 03/10/22 03/10/22 06:38 06:37 WBC 3.2 L RBC 3.47 L Hgb 10.3 L Hct 31.7 L MCV 91.4 MCH 29.7 MCHC 32.5 RDW 13.2 Plt Count 146 MPV 9.3 Immature Gran % (Auto) 1.2 H Neut % (Auto) 43.9 Lymph % (Auto) 43.5 [place] % (Auto) 7.7 Eos % (Auto) 3.1 Baso % (Auto) 0.6 Lymph # (Auto) 1.41 L [place] # (Auto) 0.25 Eos # (Auto) 0.10 Baso # (Auto) 0.02 Immature Gran # 0.04 Absolute Neutrophils 1.42 L Sodium 150 H Potassium 3.3 Chloride 117 H Carbon Dioxide 24 Anion Gap 9.0 BUN 5 L Creatinine 0.6 L GFR Calculation 116 Glucose 108 H Calcium 8.3 L Total Bilirubin 0.2 AST 14 ALT 6 Alkaline Phosphatase 36 L Total Protein 6.1 Albumin 3.0 L Globulin 3.1 Albumin/Globulin Ratio 1.0 Preliminary micro results at discharge 03/05/22 18:18 Blood Culture - Preliminary Blood 03/05/22 18:15 Blood Culture - Preliminary Blood Discharge Plan Patient/Caregiver Discharge Instructions Activity: increase activity as tolerated Diet: Dysphagia Level 4 Pureed Foods and Thickened Liquids Activity Restrictions/Additional Instructions: Follow-up with speech therapy Prescriptions: New amoxicillin-pot clavulanate 875-125 mg Tablet 875 mg PO BIDCC Qty: 4 0RF Continued divalproex 250 mg tablet,delayed release (DR/EC) 1 tab PO BID divalproex 500 mg tablet,delayed release (DR/EC) 500 mg PO BID docusate sodium 100 mg capsule 1 cap PO BID aspirin 81 mg tablet,chewable 81 mg PO QDAY hydroxyzine HCl 25 mg tablet 25 mg PO TID albuterol sulfate 90 mcg/actuation HFA aerosol inhaler 2 puff INHALATION DAILYP PRN (Reason: Shortness Of Breath) Label Comments: [NO ORIGINAL SIG] fluticasone propionate [Flovent HFA] 110 mcg/actuation HFA aerosol inhaler 2 puff INHALATION BID metformin 500 mg tablet 500 mg PO BIDCC quetiapine 300 mg tablet 300 mg PO TID trazodone 50 mg tablet 50 mg PO HS lidocaine 5 % cream 1 applic topical QID Rx Instructions: to lower back sertraline 100 mg tablet 200 mg PO DAILY melatonin 3 mg tablet 3 mg PO HS tamsulosin 0.4 mg capsule 0.4 mg PO QHS lisinopril 5 mg tablet 5 mg PO QDAY metoprolol succinate 25 mg tablet extended release 24 hr 25 mg PO DAILY lactulose 10 gram/15 mL solution 30 ml PO QAM Preparation H Maximum Strength 0.25-1 % cream 1 applic topical QID atorvastatin 40 mg tablet 1 tab PO QDP Rx Instructions: Take with 20 mg tab for total of 60 mg ibuprofen 400 mg tablet 400 mg PO TIDP PRN (Reason: Pain) Follow Up Plan Follow up with: Vladimir Strickland ARNP [Primary Care Provider] - Patient Disposition: Xfer SNF Prognosis: Undetermined Rehab Potential: Fair I certify that the patient requires SNF services: Yes Overall status at discharge: patient is progressing back to baseline Discharge Orders: Discharge Order (Routine); Ordered 03/11/22 Ordered By: Guy CLAROS VTE Deep Vein Thrombosis/Pulmonary Embolism Present on Admission: No
[2022-03-10] MEDS: DEXTROSE 5% IN WATER 1,000 ML IV SCH ×2 (15:36→20:38)
[2022-03-10] MEDS: SENNOSIDES 1 TABLET PO SCH (21:09)
[2022-03-10 21:29] LABS: POC Calcium, Ionized 1.22 (1.16-1.32); POC Creatinine 0.6 (0.6-1.2); POC Potassium 3.2 (3.3-5.1)
[2022-03-10] MEDS: ATORVASTATIN 40 MG TABLET PO SCH (21:34)
[2022-03-10] MEDS: MELATONIN 3 MG TABLET PO SCH (21:34)
[2022-03-10] MEDS: TAMSULOSIN 0.4 MG CAPSULE PO SCH (21:34)
[2022-03-10] MEDS: traZODone HCL 50 MG TABLET PO SCH (21:34)
[2022-03-11] MEDS: DEXTROSE 5% IN WATER 1,000 ML IV SCH ×3 (00:06→06:49)
[2022-03-11 00:53] LABS: POC Calcium, Ionized 1.16 (1.16-1.32); POC Creatinine 0.7 (0.6-1.2); POC Potassium 3.2 (3.3-5.1)
[2022-03-11 04:45] LABS: POC Calcium, Ionized 1.16 (1.16-1.32); POC Creatinine 0.5 (0.6-1.2); POC Potassium 3.2 (3.3-5.1)
[2022-03-11] MEDS: 0.9 % SODIUM CHLORIDE 10 ML SYRINGE IV SCH ×2 (05:11→14:11)
[2022-03-11 06:38] LABS: ALT/SGPT 7 U/L (<40); AST/SGOT 16 U/L (<40); Albumin/Globulin Ratio 0.9 (1.0-2.3); Alkaline Phosphatase 35 U/L (39-117); Bilirubin,Total 0.2 mg/dL (0.1-1.0); Blood Urea Nitrogen 6 mg/dL (6-20); Calcium 8.5 mg/dL (8.6-10.4); Carbon Dioxide 24 mmol/L (22-30); Chloride 110 mmol/L (96-108); Globulin 3.3 gm/dL (2.2-3.7); Glomerular Filtration Rate 116; Glucose 114 mg/dL (70-105)
[2022-03-11 06:42] LABS: Basophils # (Auto) 0.04 K/mcL (0.00-0.30); Basophils % (Auto) 0.9 % (0.0-2.0); Eosinophils # (Auto) 0.09 K/mcL (0.00-0.70); Eosinophils % (Auto) 2.1 % (0.0-7.0); Hemoglobin 10.6 g/dL (13.7-17.5); Lymphocytes # (Auto) 2.17 K/mcL (1.50-4.80); Lymphocytes % (Auto) 51.3 % (15.5-49.0); Mean Cell Volume 91.9 fL (80.0-100.0); Mean Corpuscular HGB Conc 32.1 g/dL (31.0-36.0); Mean Platelet Volume 9.7 fL (8.8-12.5); Monocytes # (Auto) 0.29 K/mcL (0.10-0.90); Monocytes % (Auto) 6.9 % (1.0-12.0); Neutrophils % (Auto) 37.4 % (38.0-78.0); Platelet Count 168 K/mcL (140-440); RBC 3.59 M/mcL (4.63-6.08); Red Cell Distribution Width 13.4 % (11.5-14.5); WBC 4.2 K/mcL (4.5-11.0)
[2022-03-11] MEDS: INSULIN LISPRO 1 UNIT/0.01 ML UNIT SQ SCH ×2 (07:10→11:41)
--- NOTE | 2022-03-11 07:36 | Internal Med Progress Note ---
SUBJECTIVE Subjective Patient information: Note initiated : 03/11/22 at 7:33 am Service Date, if different from initiated Date: [] Patient: Corona Mayer a 52 y/o M admitted on 03/05/22 for Fever, crackles. Chief Complaint: [] Principal diagnosis: PNEUMOPERITONEUM Interval history: Mr. Mayer is a 52 year old M SNF resident, history of traumatic brain injury, type 2 diabetes mellitus, recently hospitalized in our facility from February 11 to February 17 for sacral decubitus ulcer as well as aspiration pneumonia, presenting with cold/flu symptoms. Patient can only give simple a few word answers so the history is severely limited. I was reported patient was brought to our ER via EMS after being found to have cold/flu symptoms from the facility staff. Patient is complain of shortness of breath. He denies any pain in his abdomen or his chest. He is complain of some cough. He denies any wheezing. He denies any subjective fever or chills or diaphoresis. He is oxygen dependent and he is placed on 4 L/min of oxygen. He is also positive for tachycardia tachypnea and fever with T-max 39.4. Leukocytosis with WBC 13.3. Lactic acid 1.6. Procalcitonin 0.08. [place] negative. CT of the abdomen pelvis showing right lower lobe pneumonia as well as pneumoperitoneum but the source of the free air is not certain based upon this examinations. It could be arising from the colon although there is no significant diverticulosis. There is no colonic distention or detectable mass. 03/06: Afebrile overnight. Currently on 4 L/min of oxygen via nasal cannula. [place] pending. Blood and sputum cultures pending. Patient denies any shortness of breath. He is complaining of back pain. He is complaining of subjective fever and chills. Will continue supplemental oxygen therapy. Continue vancomycin and Zosyn while waiting for MRSA screening results as well as culture results. We will repeat CT abdomen pelvis on Tuesday, March 08, 2022 as a follow-up study to evaluate for pneumoperitoneum. Pending speech therapy swallow evaluations. Pending physical therapy evaluation and treatment for placement planning. 03/07: Afebrile overnight. Currently on 2 L/min of oxygen via nasal cannula. [place] negative. MRSA PCR screening negative. Blood and sputum cultures no growth to date. Speech therapist recs. level 4 dysphagia diet. Patient is currently sleeping. Will continue supplemental oxygen therapy. d/c Vancomycin; continue Zosyn. We will repeat CT abdomen pelvis on Tuesday, March 08, 2022 as a follow-up study to evaluate for pneumoperitoneum. 03/08: Afebrile overnight. Currently on room air. CT abdomen showing significant improvement with near complete resolution of pneumoperitoneum. Seroquel changed from 300 to 200mg PO TID, this morning more awake and alert. Blood and sputum cultures no growth to date. Denies shortness of breath. c/o back pain. Continue Zosyn. Pending physical therapy evaluation and treatment for placement planning. 03/09: Afebrile overnight. Currently on room air. Blood and sputum cultures no growth to date. Denies any shortness of breath. Denies cough or wheezing. Denies chest pain. Denies fever, chills, or sweating. De-escalate antibiotics, will change from Zosyn to Augmentin. Reached clinical stability. Pending SNF placement. 03/10: Afebrile overnight. Currently on room air. Blood and sputum cultures no growth to date. Denies any shortness of breath. Denies cough or wheezing. Denies chest pain. Denies fever, chills, or sweating. Continue Augmentin. Medically stable. Pending SNF placement. 03/11 No overnight event or new complaints. Hypernatremia over the past few days and has resolved today on hypotonic IV solution is now discontinued. Hypokalemia noted this morning. Review of Systems: denies headache/fever/chills/nausea/vomiting/chest or abdominal pain/cough/dyspnea/diarrhea. Otherwise see above. Constitutional Vitals: Vital Signs Temp Pulse Resp BP Pulse Ox O2 Del Method O2 Flow Rate 96.7 F L 72 22 149/80 97 1 03/11/22 04:26 03/11/22 07:17 03/11/22 07:17 03/11/22 07:17 03/11/22 07:17 03/11/22 07:17 03/08/22 12:00 Period Temp Pulse Resp BP Sys/Delcid Pulse Ox O2 Del Method O2 Flow Rate Last 24 Hr 96.4 F-98.9 F 72-81 18-22 124-149/71-86 95-98 Room Air-Room Air Intake and Output 03/10/22 03/11/22 03/11/22 21:59 05:59 13:59 Intake Total 391 402 5218 Output Total 2 2 Balance 675 445 8968 Weight 97.658 kg Intake & Output: Intake & Output 03/10/22 03/11/22 03/11/22 21:59 05:59 13:59 Intake Total 960 849 7815 Output Total 2 2 Balance 333 642 9107 Weight 97.658 kg Intake: IV 654 751 3724 Dextrose 5% in Water 1,000 ml @ 421 282 1746 100 mls/hr IV .Q10H KENNY Rx#: [id number] Oral 360 200 Output: # of times incontinent of urine 2 2 Other: Meal Dinner Percent of Meal Consumed 100% Stool Size Moderate Stool Color Brown Stool Consistency Loose # of times incontinent of 1 Bowels Exam: General: Awake, No acute Distress Eyes/N/T: EOMI, Head/Neck: neck supple, normocephalic atraumatic CV: RRR, 2/6SM Pulm: decreased BS, no wheezing Abd: soft, nontender, +BS x4 Ext: no clubbing/cyanosis, trace edema Neuro: Alert, no focal deficits, moves all extremities, CN 2-12 grossly intact, Skin: warm/dry OBJ DATA Labs CBC & Chem 7: 03/11/22 04:37 03/11/22 04:37 Labs: Abnormal Lab Results 03/11/22 03/11/22 03/11/22 04:41 04:37 04:37 WBC 4.2 L RBC 3.59 L Hgb 10.6 L Hct 33.0 L POC Hct 28.0 L Plt Count Immature Gran % (Auto) 1.4 H Neut % (Auto) 37.4 L Lymph % (Auto) 51.3 H Lymph # (Auto) Immature Gran # 0.06 H Absolute Neutrophils 1.58 L POC Sodium 146 H Sodium POC Potassium 3.2 L Potassium 3.1 L POC Chloride Chloride 110 H POC BUN 5 L BUN Creatinine 0.6 L POC Creatinine 0.5 L Glucose 114 H POC Glucose 115 H Calcium 8.5 L Alkaline Phosphatase 35 L Albumin 3.0 L Albumin/Globulin Ratio 0.9 L 03/11/22 03/10/22 03/10/22 00:49 21:25 06:38 WBC 3.2 L RBC 3.47 L Hgb 10.3 L Hct 31.7 L POC Hct 27.0 L 29.0 L Plt Count Immature Gran % (Auto) 1.2 H Neut % (Auto) Lymph % (Auto) Lymph # (Auto) 1.41 L Immature Gran # Absolute Neutrophils 1.42 L POC Sodium 147 H 148 H Sodium POC Potassium 3.2 L 3.2 L Potassium POC Chloride 110 H 110 H Chloride POC BUN 5 L 5 L BUN Creatinine POC Creatinine Glucose POC Glucose 108 H 144 H Calcium Alkaline Phosphatase Albumin Albumin/Globulin Ratio 03/10/22 03/09/22 03/09/22 06:37 06:13 06:13 WBC 2.9 L RBC 3.33 L Hgb 9.8 L Hct 30.4 L POC Hct Plt Count 127 L Immature Gran % (Auto) 1.4 H Neut % (Auto) Lymph % (Auto) Lymph # (Auto) 1.03 L Immature Gran # Absolute Neutrophils 1.52 L POC Sodium Sodium 150 H 151 H POC Potassium Potassium POC Chloride Chloride 117 H 119 H POC BUN BUN 5 L 5 L Creatinine 0.6 L POC Creatinine Glucose 108 H 109 H POC Glucose Calcium 8.3 L 8.2 L Alkaline Phosphatase 36 L 38 L Albumin 3.0 L 3.0 L Albumin/Globulin Ratio 03/08/22 06:11 WBC RBC Hgb Hct POC Hct Plt Count Immature Gran % (Auto) Neut % (Auto) Lymph % (Auto) Lymph # (Auto) Immature Gran # Absolute Neutrophils POC Sodium Sodium 149 H POC Potassium Potassium POC Chloride Chloride 116 H POC BUN BUN Creatinine POC Creatinine Glucose POC Glucose Calcium 8.2 L Alkaline Phosphatase 38 L Albumin 3.1 L Albumin/Globulin Ratio Meds: Medications Acetaminophen (Acetaminophen 325 Mg Tablet) 650 mg PO Q6HP PRN; Protocol PRN Reason: Per Pain Protocol/Fever > 101 Last Admin: 03/09/22 22:23 Dose: 650 mg Albuterol/Ipratropium (Ipratropium/Albuterol 3 Ml Ampul.Neb) 3 ml NEB Q4HRT PRN PRN Reason: Wheezing Amoxicillin/Clavulanate Potassium (Amoxicillin/Potassium Clav 875 Mg Tablet) [facility] Last Admin: 03/10/22 17:07 Dose: 875 mg Aspirin (Aspirin 81 Mg Tab.Chew) 81 mg PO DAILY [facility] Last Admin: 03/10/22 08:23 Dose: 81 mg Atorvastatin Calcium (Atorvastatin 40 Mg Tablet) 40 mg PO HS [facility] Last Admin: 03/10/22 21:34 Dose: 40 mg Dextrose (Dextrose 50% 50 Ml Vial) 0 ml IV UD PRN PRN Reason: Per Sliding Scale Diagnostic Test (Pha) (Accu-Chek 1 Each Strip) 1 each FS [facility] Last Admin: 03/11/22 07:10 Dose: 1 each Divalproex Sodium (Divalproex Sodium 250 Mg Tablet) 750 mg PO BID [facility] Last Admin: 03/10/22 21:33 Dose: 750 mg Docusate Sodium (Docusate Sodium 100 Mg Capsule) 100 mg PO BID [facility] Last Admin: 03/10/22 21:08 Dose: Not Given Enoxaparin Sodium (Enoxaparin 40 Mg/0.4 Ml Syringe) 40 mg SQ DAILY [facility] Last Admin: 03/10/22 08:21 Dose: 40 mg Fluticasone Propionate (Fluticasone Hfa 110mcg Inhaler) 2 puff INH BID [facility] Last Admin: 03/10/22 21:08 Dose: Not Given Glucose (Dextrose 31 Gm Oral.Susp) 15 gm PO PRN PRN PRN Reason: Hypoglycemia Hydroxyzine HCl (Hydroxyzine 25 Mg Tablet) 25 mg PO TIDP PRN PRN Reason: Agitation Dextrose (Dextrose 5% In Water) 1,000 mls @ 100 mls/hr IV .Q10H [facility] Last Admin: 03/11/22 06:49 Dose: 100 mls/hr Ibuprofen (Ibuprofen 200 Mg Tablet) 400 mg PO TIDP PRN PRN Reason: Pain Insulin Human Lispro (Insulin Lispro 1 Unit/0.01 Ml Unit) 0 unit SQ [facility]; Protocol Last Admin: 03/11/22 07:10 Dose: Not Given Lactulose (Lactulose 20 Gm/30 Ml Oral.Lizzette) 20 gm PO QAM [facility] Last Admin: 03/10/22 08:24 Dose: Not Given Lisinopril (Lisinopril 5 Mg Tablet) 5 mg PO QDAY [facility] Last Admin: 03/10/22 08:22 Dose: 5 mg Melatonin (Melatonin 3 Mg Tablet) 3 mg PO HS [facility] Last Admin: 03/10/22 21:34 Dose: 3 mg Metoprolol Succinate (Metoprolol Succinate 25 Mg Tab.Xl.24h) 25 mg PO QDAY [facility] Last Admin: 03/10/22 08:23 Dose: 25 mg Ondansetron HCl (Ondansetron 4 Mg/2 Ml Vial) 4 mg IV Q6HP PRN PRN Reason: Nausea And Vomiting Quetiapine Fumarate (Quetiapine 100 Mg Tablet) 200 mg PO TID [facility] Last Admin: 03/10/22 21:33 Dose: 200 mg Senna (Sennosides 1 Tablet) 2 tab PO [facility] Last Admin: 03/10/22 21:09 Dose: Not Given Sertraline HCl (Sertraline 100 Mg Tablet) 200 mg PO DAILY [facility] Last Admin: 03/10/22 08:22 Dose: 200 mg Sodium Chloride (0.9 % Sodium Chloride 10 Ml Syringe) 10 ml IV Q8 [facility] Last Admin: 03/11/22 05:11 Dose: 10 ml Tamsulosin HCl (Tamsulosin 0.4 Mg Capsule) 0.4 mg PO QHS [facility] Last Admin: 03/10/22 21:34 Dose: 0.4 mg Trazodone HCl (Trazodone Hcl 50 Mg Tablet) 50 mg PO [facility] Last Admin: 03/10/22 21:34 Dose: 50 mg A/P Narrative A/P Narrative: A: #RLL PNA 2/2 Aspiration: #Oropharyngeal Dysphagia, moderate: #Sepsis: #Pneumoperitoneum: -CT abdomen showing significant improvement with near complete resolution of pneumoperitoneum #Acute hypoxic respiratory failure: -now on room air #Dehydration w/Hypernatremia: #HYpokalemia: #Oropharyngeal Dysphagia, chronic: ?Aspirating on oral secretions #Prediabetes, hemoglobin A1c 6.3: #h/o Traumatic brain injury #h/o CVA #Poor functional status/wheelchair-bound status: Plan: -now on Augmentin -Diet per ST -prn O2 support -hypotonic IVF d/c, monitor Na and potassium -Monitor electrolytes and renal function. -SSI, hold metformin for now -cont home Lopressor/lisinopril for hypotension -cont home Depakote/seroquel, cont atorvastatin/aspirin -PT/OT/ST -CM for placement -ppx: lovenox CODE STATUS: DNR/DNI Time Spent With Patient Time: Total time spent is greater than 50% in coordination of care (as documented) at patient's floor/unit and/or counseling patient: Total time spent with greater than 50% in coordination of care (as documented) at patient's floor/unit and/or counseling patient:: 25 - 35 minutes QUALITY VTE Deep Vein Thrombosis/Pulmonary Embolism Present on Admission: No
[2022-03-11] MEDS ORDERED: POTASSIUM CHLORIDE 20 MEQ TABLET PO SCH (08:00)
[2022-03-11] MEDS: ENOXAPARIN 40 MG/0.4 ML SYRINGE SQ SCH (08:22)
[2022-03-11] MEDS: LACTULOSE 20 GM/30 ML ORAL.SOL PO SCH (08:23)
[2022-03-11] MEDS: AMOXICILLIN/POTASSIUM CLAV 875 MG TABLET PO SCH (08:23)
[2022-03-11] MEDS: METOPROLOL SUCCINATE 25 MG TAB.XL.24H PO SCH (08:24)
[2022-03-11] MEDS: DOCUSATE SODIUM 100 MG CAPSULE PO SCH (08:24)
[2022-03-11] MEDS: LISINOPRIL 5 MG TABLET PO SCH (08:24)
[2022-03-11] MEDS: QUEtiapine 100 MG TABLET PO SCH (08:24)
[2022-03-11] MEDS: SERTRALINE 100 MG TABLET PO SCH (08:24)
[2022-03-11] MEDS: DIVALPROEX SODIUM 250 MG TABLET PO SCH (08:24)
[2022-03-11] MEDS: ASPIRIN 81 MG TAB.CHEW PO SCH (08:24)
[2022-03-11] MEDS: FLUTICASONE HFA 110MCG INHALER INH SCH (08:25)
== END 2022-03-11 15:18 | DRG 871 ==
LOC: ED 17:04 → MEDSUR 22:45
PROVIDERS: ADMIT Internal Medicine; ATTEND Internal Medicine